=== PATIENT | male | born 1965 | race Caucasian/White ===

== ENCOUNTER 2017-11-30 08:02 | Inpatient (IN) | payer OTHER, SELFPAY ==
[2017-11-30] VITALS (22 sets, daily range): BP systolic 96–147; BP diastolic 59–86; PULSE 69–125; RESP 14–20; TEMP 35.8–37; O2SAT 97–100; BMI 23.9; BMI 23.8; BMI 24.9
--- NOTE | 2017-11-30 08:30 | CT_ITS ---
STUDY: CT ABDOMEN AND PELVIS WITH CONTRAST REASON FOR EXAM: Male, 51 years old. Back pain and abdominal pain following a recent fall. History of prior bowel resection due to perforated bowel. RADIATION DOSAGE (If Supplied By Facility): CTDIvol = ( 9.28 ) mGy, DLP = ( 505.68 ) mGycm TECHNIQUE: Transaxial images were obtained from the dome of the diaphragm to the symphysis pubis with oral contrast. 100ml ml of Isovue 300 contrast was administered. Sagittal and coronal images were reconstructed. Individualized dose optimization techniques were used for this CT. COMPARISON: Comparison is made with prior study dated September 19, 2017. FINDINGS: The visualized lung bases are unremarkable. Coronary artery calcification. There is decreased attenuation of the liver consistent with steatosis. Normal gallbladder and extrahepatic biliary system. Normal spleen. Normal pancreas. Normal bilateral adrenal glands. Punctate nonobstructive calculus in the upper pole of the right kidney. Normal left kidney. Normal visualized stomach. Normal small intestine. Normal colon. The appendix is visualized and appears normal. There is scattered atherosclerotic calcification of the abdominal aorta, without a demonstrated aneurysm. Normal inferior vena cava. Normal retroperitoneum. Normal urinary bladder. There are dense prostatic calcifications. Normal abdominal wall. Grade 1 anterior listhesis of L5 on S1 with spondylolysis. Moderate degree of disc space narrowing at the L4-L5 and L5-S1 levels. CT/Abdomen/Pelvis WITH Contrast IMPRESSION: Fatty infiltration of the liver there Punctate calcification in the upper pole of the right kidney. No acute abnormality is seen. Electronically Signed: Jake Johnson MD at 10:54 EST Tel [phone], Service support ,
[2017-11-30] MEDS: 0.9% Normal Saline 1,000 ML 1000 ML IV (08:48)
[2017-11-30 09:09] LABS: International Normalized Ratio 1.2; Prothrombin Time (Protime)PT. 14.6 SECONDS (11.7-14.9)
[2017-11-30 09:10] LABS: Partial Thromboplast Time 29.4 Seconds (24.1-36.2)
[2017-11-30 09:13] LABS: Absolute Lymphocyte Count 0.93 X10^3/ul (0.83-4.51); Absolute Neutrophil Count 1.9 X10^3/uL (2.0-7.7); Basophil# 0.07 X10^3/uL; Basophil% 2.1 % (0-1); Eosinophil# 0.07 X10^3/uL; Eosinophils% 2.1 % (0-5); Hematocrit 21.8 % (40-54); Lymphocyte # 0.93 X10^3/ul (4.0); Lymphocyte % 28.1 % (19-41); Mean Corp Hgb Conc 32.1 g/gl (32-36); Mean Corpuscular Hgb 29.3 pg (27.0-32.0); Mean Corpuscular Volume 91.2 fL (80-94); Mean Platelet Vol. 9.3 fl (6.2-12.0); Monocyte# 0.29 X10^3/uL; Monocyte% 8.8 % (0-10); Neutrophil # 1.94 X10^3/uL (2.7-7.7); Neutrophil % 58.6 % (47-70); Platelet Count 225 K/mm3 (150-450); RBC Distribution Width CV 14.7 % (11.6-14.6); RBC Distribution Width SD 47.2 fl (35.1-43.9); Red Blood Count 2.39 M/mm3 (4.6-6.2); White Blood Count 3.3 K/mm3 (4.4-11.0)
[2017-11-30 09:17] LABS: ALB/GLOB Ratio 0.9 RATIO (0.9-2.4); AST(SGOT) 15 U/L (15-37); Alanine Aminotransfer ALT/SGPT 15 U/L (16-61); Alkaline Phosphatase 57 U/L (45-117); Anion Gap 12 (5-15); BUN 22 mg/dL (7-18); BUN/Creat Ratio 20.6 RATIO (10-20); Calcium,Total 8.8 mg/dL (8.5-10.1); Chloride 100 mmol/L (98-107); Creatinine, Serum 1.07 mg/dL (0.70-1.30); EST Glomerular Filtration Rate 77 mL/min (>60); Est Glom Filt Rate - Afr Amer 93 mL/min (>60); Estimated Creatinine Clearance 79.84 ml/min; Globulin 3.2 g/dL (2.2-4.2); Glucose 85 mg/dL (74-106); Potassium 3.3 mmol/L (3.5-5.1); Protein, Total 6.2 g/dL (6.4-8.2); Sodium Level 139 mmol/L (136-145)
[2017-11-30 09:21] LABS: POSITIVE COUNT NO; POSITIVE DIFFERENTIAL NO; POSITIVE MORPHOLOGY NO
--- NOTE | 2017-11-30 11:54 | ED.VISSUMM ---
- ER Visit Summary Date of Service: 11/30/17 Chief Complaint: GI bleeding History of Present Illness: The patient is a 51 M with black stools. This started Tuesday morning. It has been getting worse. He does take aspirin for history of [place]. He does report that in late August he had surgery in [place] for perforated bowel. That seems to be doing well. He denies any other blood thinner use. Denies any denies any other symptoms. Physical Examination: Initially tachycardic at 125, but otherwise vitals are unremarkable. Afebrile. No acute distress. Sitting comfortably. Heart regular. Lungs clear. Abdomen soft. Rectal exam shows black stool. Skin is slightly pale. Test Results: White count 3.3 and hemoglobin 7.0. Fecal occult blood test positive. Potassium 3.3 and BUN 22. ALT 15. INR and PTT normal. CT abdomen and pelvis shows a fatty liver but no acute findings. Emergency Department Course and Treatment: Patient was treated with fluids and Protonix while awaiting results. His fecal occult blood test was positive and his hemoglobin was 7. He gave verbal consent for transfusion. 2 units of packed red cells were ordered. Patient's repeat heart rate is 92. Blood pressure is stable. No symptoms. I believe he is appropriate for a medical admission. I spoke with GI and the hospitalist who will admit. Treatment Plan: Above Disposition: Admit Impression: 1. GI bleed, upper 2. Anemia This note was generated with [employer] dictation software. It may contain incorrect words, spelling, and punctuation that were not noted in review of the chart prior to signing ED Disposition - Plan for ED Patient: Chief Complaint: GI Bleed Referrals: Drew Hardy MD [Primary Care Provider] -
--- NOTE | 2017-11-30 11:57 | ED.DCSUM_ITS ---
- ER Visit Summary Date of Service: 11/30/17 Chief Complaint: GI bleeding History of Present Illness: The patient is a 51 M with black stools. This started Tuesday morning. It has been getting worse. He does take aspirin for history of [place]. He does report that in late August he had surgery in [place] for perforated bowel. That seems to be doing well. He denies any other blood thinner use. Denies any denies any other symptoms. Physical Examination: Initially tachycardic at 125, but otherwise vitals are unremarkable. Afebrile. No acute distress. Sitting comfortably. Heart regular. Lungs clear. Abdomen soft. Rectal exam shows black stool. Skin is slightly pale. Test Results: White count 3.3 and hemoglobin 7.0. Fecal occult blood test positive. Potassium 3.3 and BUN 22. ALT 15. INR and PTT normal. CT abdomen and pelvis shows a fatty liver but no acute findings. Emergency Department Course and Treatment: Patient was treated with fluids and Protonix while awaiting results. His fecal occult blood test was positive and his hemoglobin was 7. He gave verbal consent for transfusion. 2 units of packed red cells were ordered. Patient's repeat heart rate is 92. Blood pressure is stable. No symptoms. I believe he is appropriate for a medical admission. I spoke with GI and the hospitalist who will admit. Treatment Plan: Above Disposition: Admit Impression: 1. GI bleed, upper 2. Anemia This note was generated with [employer] dictation software. It may contain incorrect words, spelling, and punctuation that were not noted in review of the chart prior to signing ED Disposition - Plan for ED Patient: Chief Complaint: GI Bleed Referrals: Drew Hardy MD [Primary Care Provider] -
--- NOTE | 2017-11-30 11:57 | HP.PCM_ITS ---
Problem List (1) GI bleed Status: Acute Qualifiers: GI bleed type/associated pathology: unspecified gastrointestinal hemorrhage type Qualified Code(s): K92.2 - Gastrointestinal hemorrhage, unspecified (2) CAD (coronary artery disease) Status: Acute (3) Gastroesophageal reflux disease Status: Chronic Qualifiers: History of Present Illness Date of Admission: 11/30/17 Chief Complaint: Black tarry stools - 4 days The patient is a 51 year old M with PMHx of CAD/AL at the age of 42yrs, on aspirin 162mg po bid, GERD who comes in with black tarry stools and dizziness noticed 4 days ago. This was associated with some dizziness. Denied chest pain or palpitations or leg swelling or orthopnea or PND. 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 He has continued to see black tarry stools several times a day since 4 days ago. He had a fall also 4 days ago where he fell on his back. He reports that he had a similar presentation in May 2017 and eventually had a perforation of his intestine. He had surgery done in [facility]. In the emergency room, heart rate was 125, blood pressure is 147/79, respiratory rate was 20, SPO2 was 100% on room air. Laboratory investigations were significant for WBC count of 3.3, Hb 7.0, previous hemoglobin was 14.2 in August 2017. The ER doctor had discussed patient's care with Dr. Coley who agreed to do an endoscopy tomorrow morning. Past Medical History Past Medical History (Chronic Problems): Chronic Problems Gastroesophageal reflux disease (Chronic) Allergies Penicillins Allergy (Verified 11/30/17 08:03) Anaphylaxis erythromycin base [Erythromycin Base] Adverse Reaction (Verified 11/30/17 08:03) Nausea Home Medications: Ambulatory Orders Medication Instructions Recorded Atenolol [Tenormin (beta ranlufo)] 25 mg PO DAILY 12/18/13 Ondansetron [Zofran Odt] 4 mg PO Q8H PRN PRN 12/18/13 Rizatriptan Benzoate [Maxalt] 10 mg PO .X1 PRN 12/18/13 Aspirin [Aspirin, Baby] 162 mg PO BID 05/28/17 Potassium Chloride 20 meq PO BID 05/28/17 Amitriptyline HCl [Elavil] 10 mg PO QHS 09/19/17 Famotidine [Pepcid] 20 mg PO BID 11/30/17 Surgical History: - - Removal of pancreatic cysts Psychiatric History: No pertinent psych hx Smoking Status: Current some day smoker - *Family History Paternal History Items: No pertinent history Maternal History Items: Hypertension, - - History of TIA Review of Systems Constitutional: Denies: Anorexia, Chills, Fever, Weakness, Weight Change Eyes: Denies: Blurred vision, Cataracts, Conjunctivae Inflammation, Pain, Redness HEENT: Denies: Difficulty Hearing, Difficulty Swallowing, Head Aches, Hearing Changes, Sinus Congestion, Sinus Drainage Cardiovascular: Denies: Chest Pain, Palpitations Respiratory: Denies: Cough, Hemoptysis, Shortness of breath at rest, Shortness of breath upon exertion, Sputum production Gastrointestinal: Reports: Melena. Denies: Abdominal Pain, Constipation, Diarrhea, Dyspepsia, Hematemesis, Hematochezia, Nausea, Vomiting Genitourinary: Denies: Dysuria Musculoskeletal: Denies: Joint Pain, Joint Tenderness Skin: Denies: Rash, Wounds Neurological: Denies: Difficulty swallowing, Focal weakness, Headaches, Numbness , Tingling Psychiatric: Denies: Anxiety, Depression, Homicidal Ideations, Suicidal Ideations Endocrine: Denies: Heat/ Cold Intolerance, Polyuria Hematologic/ Lymphatic: Denies: Easy Bruising, Easy Bleeding VTE Information - Inpt Only VTE Present on Admission: No VTE Mechan Device Prophylaxis: SCD's VTE Pharm Prophylaxis ordered?: No Reason prophylaxis not ordered:: Treatment Not Indicated Patient Problems: Active and Suspected Problems GI bleed (Acute) CAD (coronary artery disease) (Acute) - Physical Exam General: Alert, Oriented x3, Cooperative, - - comfortable HEENT: Atraumatic, PERRLA, EOMI, Normocephalic Oral: Moist Mucosa Neck: Supple Lungs: Clear to auscultation, Normal air movement Cardiovascular: Regular rate, Regular Rhythm, Normal S1, Normal S2, No murmurs Abdomen: Bowel Sounds Present, Soft, Non Tender, Non-Distended, No Hepato- splenomegaly Extremities: No edema Skin: No rashes, No breakdown Musculoskeletal: No Tenderness to Palpation of Joints or Extremities Lymphatic: No Cervical, Supraclavicular, or Inguinal Adenopathy Neurological: Cranial nerves II-XII grossly intact Psych/Mental Status: Normal Affect, Appropriate Vital Signs Temp Pulse Resp BP Pulse Ox 97.8 F 92 14 117/77 100 11/30/17 08:04 11/30/17 11:37 11/30/17 11:37 11/30/17 11:37 11/30/17 11:37 Oxygen Delivery Method Room Air Weight: 73.6 kg Body Mass Index (BMI) 23.9 Microbiology Past 72 Hours 11/30/17 08:40 Stool Occult Blood (YOLANDE) - Final Stool Occult Blood Positive Laboratory Tests Past 24 Hrs 11/30/17 11/30/17 11/30/17 08:44 08:44 08:44 WBC 3.3 L RBC 2.39 L Hgb 7.0 L Hct 21.8 L MCV 91.2 MCH 29.3 MCHC 32.1 RDW 14.7 H RDW Differential 47.2 H Plt Count 225 MPV 9.3 Immature Gran % (Auto) 0.300 Neut % (Auto) 58.6 Lymph % (Auto) 28.1 [place] % (Auto) 8.8 Eos % (Auto) 2.1 Baso % (Auto) 2.1 H Absolute Neuts (auto) 1.9 L Absolute Lymphs (auto) 0.93 Total Counted Not Reportable PT 14.6 INR 1.2 APTT 29.4 Sodium 139 Potassium 3.3 L Chloride 100 Carbon Dioxide 27.0 Anion Gap 12 BUN 22 H Creatinine 1.07 Estim Creat Clear Calc 79.84 Est GFR (MDRD) Af Amer 93 Est GFR (MDRD) Non-Af 77 BUN/Creatinine Ratio 20.6 H Glucose 85 Calcium 8.8 Total Bilirubin 0.30 AST 15 ALT 15 L Alkaline Phosphatase 57 Total Protein 6.2 L Albumin 3.0 L Globulin 3.2 Albumin/Globulin Ratio 0.9 Blood Type Antibody Screen Crossmatch 11/30/17 08:44 WBC RBC Hgb Hct MCV MCH MCHC RDW RDW Differential Plt Count MPV Immature Gran % (Auto) Neut % (Auto) Lymph % (Auto) [place] % (Auto) Eos % (Auto) Baso % (Auto) Absolute Neuts (auto) Absolute Lymphs (auto) Total Counted PT INR APTT Sodium Potassium Chloride Carbon Dioxide Anion Gap BUN Creatinine Estim Creat Clear Calc Est GFR (MDRD) Af Amer Est GFR (MDRD) Non-Af BUN/Creatinine Ratio Glucose Calcium Total Bilirubin AST ALT Alkaline Phosphatase Total Protein Albumin Globulin Albumin/Globulin Ratio Blood Type A POSITIVE Antibody Screen NEGATIVE Crossmatch See Detail Assessment/Plan Active and Suspected Problems GI bleed (Acute) CAD (coronary artery disease) (Acute) 51 year old M with PMHx of CAD/AL at the age of 42yrs, on aspirin 162mg po bid, GERD who comes in with black tarry stools and dizziness noticed 4 days ago, associated with some dizziness. 1. Acute GI bleed, likely secondary to upper GI secondary to aspirin use, history of ? Duodenal perforation with surgery done in May 2017. Patient has been seen melena stools, admitting hemoglobin of 7.0, Plan: Admit to [facility], IV PPI twice daily, gastroenterology consult Dr. Coley , endoscopy tomorrow morning, full liquid diet, stop aspirin, blood transfusion , obtain records from [facility] in [facility] 2. Acute symptomatic blood loss anemia, patient's hemoglobin August 2017 was 14.2, will transfuse 2 units of blood, trend H&H, if patient continued to decompensate would inform GI 3. CAD, on aspirin, beta-ranulfo, not on statins, will hold aspirin on account of current GI bleed, will continue to monitor on telemetry 4. Chronic Migraine, on amitriptyline and rizatriptan, would hold Maxalt for now , will continue to monitor 5. GERD, on PPI now 6. DVT prophylaxis with SCDs Code Visit Inpatient E&M: 34134 Init Hosp L3
--- NOTE | 2017-11-30 12:52 | EKG12_ITS ---
Test Reason : Blood Pressure : / mmHG Vent. Rate : 082 BPM Atrial Rate : 082 BPM P-R Int : 144 ms QRS Dur : 090 ms QT Int : 394 ms P-R-T Axes : 046 -20 031 degrees QTc Int : 460 ms Normal sinus rhythm Leftward axis Low voltage QRS (precordial leads) Confirmed by RHONDA JOE, LIZBET ([id number]), telegraph editor ADRIÁN VILLAR ([id number]) on 12/07/2017 1:36:11 PM Referred By: LAURO Confirmed By:LIZBET ELLIS MD
[2017-11-30] MEDS: Acetaminophen 325 MG Tablet 650 MG PO (15:34)
[2017-11-30] MEDS: oxyCODONE 5 MG Tablet PO ×2 (16:25→22:50)
--- NOTE | 2017-11-30 17:23 | PCM.CONS.B ---
- Consult Date of Consult: 11/30/17 Reason for consultation: With melena and anemia The patient is a [51] year old [male] who I have been asked to consult. Patient reports he had melena for at least 2 days prior to admission taking 2 baby aspirins twice a day for a number of years. 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 He reports he felt lightheaded yesterday went to work. Went to the bathroom today he passed a large amount of black stool and some red stool and came to the emergency room. The patient was not orthostatic was admitted for evaluation. Has denied any fever chills no hematemesis denies any night sweats or fevers underwent a CT scan of the abdomen and pelvis earlier today no free air or perforation. No chest pain or shortness of breath no cough asthma wheezing review of systems noted today offers no other complaints. The patient reports he was hospitalized last year at [facility] and had a perforation of the intestine at the valve between the large and small intestine. Allergies: Penicillins and erythromycin Medications: Prescriptions This Visit Medication Instructions Recorded Famotidine [Pepcid] 20 mg PO BID 11/30/17 Medications Added to Medication List This Visit Category Date Time Status 0.9% Normal Saline 1,000 ml Med 11/30/17 12:51 Active IV 100 mls/hr 0.9% Saline Lock Med 11/30/17 12:53 Active 5 - 30 ml IV UD PRN Acetaminophen [Tylenol] Med 11/30/17 14:43 Active 650 mg PO Q6H PRN PRN Amitriptyline HCl [Elavil] Med 11/30/17 22:00 Active 10 mg PO QHS Atenolol [Tenormin (beta Иван)] Med 11/30/17 22:00 Active 25 mg PO DAILY@2200 Influenza Vaccine (36Mos+)/Pf [Fluarix/Fluzone] Med 12/01/17 10:00 Once 0.5 ml IM .ONCE ONE Magnesium Hydroxide [Milk Of Magnesia] Med 11/30/17 12:51 Active 30 ml PO DAILY PRN PRN Ondansetron [Zofran] Med 11/30/17 12:51 Active 4 mg IV Q6H PRN PRN Oxycodone [Oxyir] Med 02/07/18 14:45 Active 5 mg PO Q6H PRN PRN Pantoprazole Sodium [Protonix] 40 mg Med 11/30/17 22:00 Active 0.9% Normal Saline 100 ml IV Q12 Potassium Chloride [K-Dur] Med 11/30/17 17:00 Active 20 meq PO BIDCM Psyllium [Metamucil] Med 11/30/17 12:51 Active 1 packet PO DAILY PRN PRN PMH: Coronary artery disease PSH: Had a laparotomy at [facility] Social: Denies any alcohol use no tobacco ROS: As noted in the HPI Vitals: Vital Signs Height 5 ft 8.9 in Weight: 73.2 kg Weight in Pounds 161.4 lbs Pulse Ox 100 Temperature 97.4 F Pulse Rate 94 Respiratory Rate 16 Blood Pressure 130/79 Blood Pressure Position Supine HEENT: Anicteric sclera conjunctiva pale pupils reactive NECK: Supple HEART: S1-S2 no murmur LUNGS: Clear bilaterally ABDOMEN: Soft good bowel sounds EXTER: No edema or clubbing Neuro: Alert and oriented no gross deficits Impression: Is a 51-year-old male presented with a GI bleed significant anemia hemoglobin of 7 has been taken aspirin twice daily dosage the likelihood of an upper GI bleed is entertained here since he had melena. The plan is to continue his IV PPI trans-fuse the patient to hematocrit of greater than 27. Patient will undergo an upper endoscopy as clinically indicated for evaluation of source of bleeding
[2017-11-30] MEDS: 0.9% NaCl Peripheral Flush Adult/Peds IV (17:28)
--- NOTE | 2017-11-30 17:32 | CON.PCM_ITS ---
- Consult Date of Consult: 11/30/17 Reason for consultation: With melena and anemia The patient is a [51] year old [male] who I have been asked to consult. Patient reports he had melena for at least 2 days prior to admission taking 2 baby aspirins twice a day for a number of years. 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 He reports he felt lightheaded yesterday went to work. Went to the bathroom today he passed a large amount of black stool and some red stool and came to the emergency room. The patient was not orthostatic was admitted for evaluation. Has denied any fever chills no hematemesis denies any night sweats or fevers underwent a CT scan of the abdomen and pelvis earlier today no free air or perforation. No chest pain or shortness of breath no cough asthma wheezing review of systems noted today offers no other complaints. The patient reports he was hospitalized last year at [facility] and had a perforation of the intestine at the valve between the large and small intestine. Allergies: Penicillins and erythromycin Medications: Prescriptions This Visit Medication Instructions Recorded Famotidine [Pepcid] 20 mg PO BID 11/30/17 Medications Added to Medication List This Visit Category Date Time Status 0.9% Normal Saline 1,000 ml Med 11/30/17 12:51 Active IV 100 mls/hr 0.9% Saline Lock Med 11/30/17 12:53 Active 5 - 30 ml IV UD PRN Acetaminophen [Tylenol] Med 11/30/17 14:43 Active 650 mg PO Q6H PRN PRN Amitriptyline HCl [Elavil] Med 11/30/17 22:00 Active 10 mg PO QHS Atenolol [Tenormin (beta Иван)] Med 11/30/17 22:00 Active 25 mg PO DAILY@2200 Influenza Vaccine (36Mos+)/Pf [Fluarix/Fluzone] Med 12/01/17 10:00 Once 0.5 ml IM .ONCE ONE Magnesium Hydroxide [Milk Of Magnesia] Med 11/30/17 12:51 Active 30 ml PO DAILY PRN PRN Ondansetron [Zofran] Med 11/30/17 12:51 Active 4 mg IV Q6H PRN PRN Oxycodone [Oxyir] Med 02/07/18 14:45 Active 5 mg PO Q6H PRN PRN Pantoprazole Sodium [Protonix] 40 mg Med 11/30/17 22:00 Active 0.9% Normal Saline 100 ml IV Q12 Potassium Chloride [K-Dur] Med 11/30/17 17:00 Active 20 meq PO BIDCM Psyllium [Metamucil] Med 11/30/17 12:51 Active 1 packet PO DAILY PRN PRN PMH: Coronary artery disease PSH: Had a laparotomy at [facility] Social: Denies any alcohol use no tobacco ROS: As noted in the HPI Vitals: Vital Signs Height 5 ft 8.9 in Weight: 73.2 kg Weight in Pounds 161.4 lbs Pulse Ox 100 Temperature 97.4 F Pulse Rate 94 Respiratory Rate 16 Blood Pressure 130/79 Blood Pressure Position Supine HEENT: Anicteric sclera conjunctiva pale pupils reactive NECK: Supple HEART: S1-S2 no murmur LUNGS: Clear bilaterally ABDOMEN: Soft good bowel sounds EXTER: No edema or clubbing Neuro: Alert and oriented no gross deficits Impression: Is a 51-year-old male presented with a GI bleed significant anemia hemoglobin of 7 has been taken aspirin twice daily dosage the likelihood of an upper GI bleed is entertained here since he had melena. The plan is to continue his IV PPI trans-fuse the patient to hematocrit of greater than 27. Patient will undergo an upper endoscopy as clinically indicated for evaluation of source of bleeding
[2017-11-30] MEDS: 0.9% Normal Saline 1,000 ML 100 ML IV (17:35)
[2017-11-30 20:11] LABS: Hematocrit 26.2 % (40-54); Hemoglobin 7.8 g/dl (13.0-16.5)
[2017-11-30] MEDS: Amitriptyline 10 MG Tablet PO (21:31)
[2017-12-01] VITALS (20 sets, daily range): BP systolic 99–145; BP diastolic 66–97; PULSE 68–96; RESP 16–18; TEMP 36.2–37; O2SAT 98–100
[2017-12-01 00:38] LABS: Hematocrit 21.9 % (40-54); Hemoglobin 7.2 g/dl (13.0-16.5)
[2017-12-01] MEDS: 0.9% Normal Saline 1,000 ML 100 ML IV (03:21)
[2017-12-01 05:13] LABS: Absolute Lymphocyte Count 0.95 X10^3/ul (0.83-4.51); Absolute Neutrophil Count 1.2 X10^3/uL (2.0-7.7); Basophil# 0.05 X10^3/uL; Hematocrit 23.1 % (40-54); Hemoglobin 7.5 g/dl (13.0-16.5); Lymphocyte # 0.95 X10^3/ul (4.0); Lymphocyte % 38.2 % (19-41); Mean Corp Hgb Conc 32.5 g/gl (32-36); Mean Corpuscular Hgb 28.8 pg (27.0-32.0); Mean Corpuscular Volume 88.8 fL (80-94); Mean Platelet Vol. 9.5 fl (6.2-12.0); Monocyte# 0.18 X10^3/uL; Monocyte% 7.2 % (0-10); Neutrophil # 1.21 X10^3/uL (2.7-7.7); Neutrophil % 48.6 % (47-70); Platelet Count 155 K/mm3 (150-450); RBC Distribution Width SD 48.7 fl (35.1-43.9); White Blood Count 2.5 K/mm3 (4.4-11.0)
[2017-12-01 05:14] LABS: POSITIVE COUNT NO; POSITIVE DIFFERENTIAL NO; POSITIVE MORPHOLOGY NO
[2017-12-01 05:24] LABS: International Normalized Ratio 1.2; Prothrombin Time (Protime)PT. 15.1 SECONDS (11.7-14.9)
[2017-12-01 05:41] LABS: Anion Gap 9 (5-15); BUN 14 mg/dL (7-18); BUN/Creat Ratio 18.8 RATIO (10-20); Calcium,Total 7.6 mg/dL (8.5-10.1); Chloride 104 mmol/L (98-107); Creatinine, Serum 0.74 mg/dL (0.70-1.30); EST Glomerular Filtration Rate 116 mL/min (>60); Est Glom Filt Rate - Afr Amer 141 mL/min (>60); Estimated Creatinine Clearance 111.69 ml/min; Glucose 77 mg/dL (74-106); Potassium 3.7 mmol/L (3.5-5.1); Sodium Level 136 mmol/L (136-145)
--- NOTE | 2017-12-01 06:59 | NURSING ---
Pt transported to PACU as per OR instructions. Transported at 0656hrs by ERIC Felder. Handoff to OR given by charge nurse Julio.
--- NOTE | 2017-12-01 07:34 | PCA ---
pt off floor
--- NOTE | 2017-12-01 08:20 | PCM.OP.BLANK ---
Operative Report Date of Procedure: 12/01/17 Preop diagnosis: Melena and anemia Postop diagnosis: EGD with biopsy some small erosions of the duodenum no active peptic ulcer disease seen Anesthesia: Via the MAC Instrument: This upper endoscope Informed consent was taken prior to procedure. The patient was brought to the endoscopy suite[ she] was placed left shoulder down. Anesthesia provided the MAC. The scope was passed under direct visualization down into the esophagus. Proximal and midesophagus appeared normal and was about 40 cm from the incisors there was a small exudate of the distal esophagus no varices. Was easily insufflated there was no blood in the stomach there were no no evidence of any gross ulcerations of the mucosa of the duodenum small erosions no active peptic ulcer disease duodenum showed erosions. No active bleeding was seen. The scope was withdrawn into the stomach retroflexion was performed a view of the cardia was well seen no evidence of bleeding no gastric varices. Was returned toward the antrum capsule examination showed no active peptic ulcer disease biopsies were taken of the antral mucosa for testing for H. pylori. Stomach was decompressed the endoscope was withdrawn there was a small exudate noted in the distal esophagus the patient tolerated procedure well. Impression: Melanotic stools with anemia patient was taking aspirin on a regular basis from the distal small bowel or the proximal colon Plan: Transfuse 1 more unit of packed red blood cells may advance the patient's diet outpatient colonoscopy for further evaluation of bleeding.
--- NOTE | 2017-12-01 09:04 | PCA ---
pt off floor
[2017-12-01] MEDS: oxyCODONE 5 MG Tablet PO ×3 (09:21→22:03)
--- NOTE | 2017-12-01 09:37 | PCM.PN.HOSP ---
Patient Problems: Active and Suspected Problems GI bleed (Acute) CAD (coronary artery disease) (Acute) Subjective: Patient was seen and examined. He had EGD done this am by Dr. Coley that showed some erosions of the duodenum. Patient has had no osmel or hematochezia since being admitted. His pain in his back is better. He felt lightheaded, denies chest pain, or palpitations or orthopnea or PND. Objective: Physical Exam General: Alert, Oriented x3, Cooperative, - -comfortable, not pale, not jaundice HEENT: Atraumatic, PERRLA, EOMI, Normocephalic Oral: Moist Mucosa Neck: Supple Lungs: Clear to auscultation, Normal air movement Cardiovascular: Regular rate, Regular Rhythm, Normal S1, Normal S2, No murmurs Abdomen: Bowel Sounds Present, Soft, Non Tender, Non-Distended, No Hepato-splenomegaly Extremities: No edema Skin: No rashes, No breakdown Musculoskeletal: No Tenderness to Palpation of Joints or Extremities Lymphatic: No Cervical, Supraclavicular, or Inguinal Adenopathy Neurological: Cranial nerves II-XII grossly intact Psych/Mental Status: Normal Affect, Appropriate Vitals/I&O's: Vital Signs Temp Pulse Resp BP Pulse Ox 97.6 F L 87 18 145/97 H 98 12/01/17 09:01 12/01/17 09:11 12/01/17 09:01 12/01/17 09:01 12/01/17 09:01 Oxygen Delivery Method Room Air Weight: 76.4 kg Body Mass Index (BMI) 24.9 Intake and Output for Last 24 Hours 11/29/17 11/30/17 12/01/17 23:59 23:59 23:59 Intake Total 5206 / 5206 971 / 971 Output Total 625 / 625 950 / 950 Balance 4581 / 4581 Laboratory Results 11/30/17 18:52: Hgb 7.8 L, Hct 26.2 L 12/01/17 00:26: Hgb 7.2 L, Hct 21.9 L 12/01/17 04:58: WBC 2.5 L, RBC 2.60 L, Hgb 7.5 L, Hct 23.1 L, MCV 88.8, MCH 28.8, MCHC 32.5, RDW 15.0 H, RDW Differential 48.7 H, Plt Count 155, MPV 9.5, Immature Gran % (Auto) 0.000, Neut % (Auto) 48.6, Lymph % (Auto) 38.2, Runnels % (Auto) 7.2, Eos % (Auto) 4.0, Baso % (Auto) 2.0 H, Absolute Neuts (auto) 1.2 L, Absolute Lymphs (auto) 0.95, Total Counted Not Reportable 12/01/17 04:58: Sodium 136, Potassium 3.7, Chloride 104, Carbon Dioxide 23.0, Anion Gap 9, BUN 14, Creatinine 0.74, Estim Creat Clear Calc 111.69, Est GFR (MDRD) Af Amer 141, Est GFR (MDRD) Non-Af 116, BUN/Creatinine Ratio 18.8, Glucose 77, Calcium 7.6 L 12/01/17 04:58: PT 15.1 H, INR 1.2, APTT 29.0 Current Medications Acetaminophen (Tylenol) 650 mg PO Q6H PRN PRN PRN Reason: PAIN Last Admin: 11/30/17 15:34 Dose: 650 mg Amitriptyline HCl (Elavil) 10 mg PO QHS [facility] Last Admin: 11/30/17 21:31 Dose: 10 mg Atenolol (Tenormin (Beta Иван)) 25 mg PO DAILY@2200 [facility] Last Admin: 11/30/17 21:32 Dose: Not Given Pantoprazole Sodium 40 mg/ (Sodium Chloride) 110 mls @ 330 mls/hr IV Q12 [facility] Last Admin: 12/01/17 09:20 Dose: 330 mls/hr Influenza Virus Vaccine Quadrival (Fluarix/Fluzone) 0.5 ml IM .ONCE ONE Stop: 12/01/17 10:01 Last Admin: 12/01/17 09:20 Dose: 0.5 ml Magnesium Hydroxide (Milk Of Magnesia) 30 ml PO DAILY PRN PRN PRN Reason: Constipation Ondansetron HCl (Zofran) 4 mg IV Q6H PRN PRN PRN Reason: NAUSEA/VOMITING Oxycodone HCl (Oxyir) 5 mg PO Q6H PRN PRN PRN Reason: SEVERE PAIN (6-10/10) Last Admin: 12/01/17 09:21 Dose: 5 mg Potassium Chloride (K-Dur) 20 meq PO BIDCM [facility] Last Admin: 12/01/17 09:20 Dose: 20 meq Psyllium Hydrophilic Mucilloid (Metamucil) 1 packet PO DAILY PRN PRN PRN Reason: CONSTIPATION Rizatriptan Benzoate (Maxalt) 10 mg PO .X1 PRN [facility] Sodium Chloride () 5 - 30 ml IV UD PRN PRN Reason: SALINE FLUSH Last Admin: 11/30/17 17:28 Dose: 5 ml Assessment/Plan Active and Suspected Problems GI bleed (Acute) CAD (coronary artery disease) (Acute) 51 year old M with PMHx of CAD/MS at the age of 42yrs, on aspirin 162mg po bid, GERD admitted with black tarry stools and dizziness noticed 4 days ago. 1. 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 2. Acute symptomatic blood loss anemia, with hemoglobin of 7.0, status post 2 units packed RBC, repeat hemoglobin is 7.5, will transfuse 2 more units of packed RBC, will continue to monitor H&H. 3. CAD, on aspirin, beta-иван, not on statins, will hold aspirin on account of current GI bleed, will continue to monitor on telemetry 4. Chronic Migraine, on amitriptyline and rizatriptan 5. GERD, on PPI now 6. DVT prophylaxis with SCDs 7. Disposition: possible dc tomorrow if he remains stable Code Visit Inpatient E&M: 72328 Subs Hosp L2
--- NOTE | 2017-12-01 12:24 | NURSING ---
First unit of PRBC initiated at 1223. Vitals taken at this time BP 96/59, HR 91, 100% RA, 18 respirations, 97.8 oral temp.
[2017-12-01 18:55] LABS: Hematocrit 29.9 % (40-54); Hemoglobin 9.9 g/dl (13.0-16.5)
[2017-12-01] MEDS: Amitriptyline 10 MG Tablet PO (21:56)
[2017-12-01] MEDS: 0.9% NaCl Peripheral Flush Adult/Peds IV (22:03)
[2017-12-02 00:32] LABS: Hematocrit 27.6 % (40-54); Hemoglobin 9.3 g/dl (13.0-16.5)
[2017-12-02] MEDS: Rizatriptan Benzoate 10 MG Tablet PO (00:38)
[2017-12-02] MEDS: 0.9% NaCl Peripheral Flush Adult/Peds IV (00:38)
[2017-12-02 00:47] VITALS: PULSE 79
[2017-12-02 02:45] VITALS: BP 116/81; PULSE 77; RESP 18; TEMP 36.6; O2SAT 100
[2017-12-02 04:05] VITALS: PULSE 78
[2017-12-02 05:48] LABS: Hemoglobin 9.9 g/dl (13.0-16.5)
[2017-12-02] MEDS: oxyCODONE 5 MG Tablet PO (05:52)
[2017-12-02] MEDS: Acetaminophen 325 MG Tablet 650 MG PO (06:37)
--- NOTE | 2017-12-02 07:28 | PCM.PN.HOSP ---
Patient Problems: Active and Suspected Problems GI bleed (Acute) CAD (coronary artery disease) (Acute) Subjective: Patient was seen and examined. No new complains. Constipated. No osmel stools or hematochezia. No dizziness or SOB or palpitations. Objective: Physical Exam General: Alert, Oriented x3, Cooperative, - -comfortable, not pale, not jaundice HEENT: Atraumatic, PERRLA, EOMI, Normocephalic Oral: Moist Mucosa Neck: Supple Lungs: Clear to auscultation, Normal air movement Cardiovascular: Regular rate, Regular Rhythm, Normal S1, Normal S2, No murmurs Abdomen: Bowel Sounds Present, Soft, Non Tender, Non-Distended, No Hepato-splenomegaly Extremities: No edema Skin: No rashes, No breakdown Musculoskeletal: No Tenderness to Palpation of Joints or Extremities Lymphatic: No Cervical, Supraclavicular, or Inguinal Adenopathy Neurological: Cranial nerves II-XII grossly intact Psych/Mental Status: Normal Affect, Appropriate Vitals/I&O's: Vital Signs Temp Pulse Resp BP Pulse Ox 97.8 F 78 18 116/81 H 100 12/02/17 02:45 12/02/17 04:05 12/02/17 02:45 12/02/17 02:45 12/02/17 02:45 Oxygen Delivery Method Room Air Weight: 76.4 kg Body Mass Index (BMI) 24.9 Intake and Output for Last 24 Hours 11/30/17 12/01/17 12/02/17 23:59 23:59 23:59 Intake Total 5206 / 5206 3305 / 3305 290 / 290 Output Total 625 / 625 1500 / 1500 Balance 4581 / 4581 1805 / 1805 290 / 290 Laboratory Results 12/01/17 18:38: Hgb 9.9 L, Hct 29.9 L 12/02/17 00:20: Hgb 9.3 L, Hct 27.6 L 12/02/17 05:35: Hgb 9.9 L, Hct 30.0 L Current Medications Acetaminophen (Tylenol) 650 mg PO Q6H PRN PRN PRN Reason: PAIN Last Admin: 12/02/17 06:37 Dose: 650 mg Amitriptyline HCl (Elavil) 10 mg PO QHS [facility] Last Admin: 12/01/17 21:56 Dose: 10 mg Atenolol (Tenormin (Beta Иван)) 25 mg PO DAILY@2200 [facility] Last Admin: 12/01/17 20:43 Dose: Not Given Pantoprazole Sodium 40 mg/ (Sodium Chloride) 110 mls @ 330 mls/hr IV Q12 [facility] Last Admin: 12/01/17 21:56 Dose: 330 mls/hr Magnesium Hydroxide (Milk Of Magnesia) 30 ml PO DAILY PRN PRN PRN Reason: Constipation Ondansetron HCl (Zofran) 4 mg IV Q6H PRN PRN PRN Reason: NAUSEA/VOMITING Oxycodone HCl (Oxyir) 5 mg PO Q6H PRN PRN PRN Reason: SEVERE PAIN (6-10/10) Last Admin: 12/02/17 05:52 Dose: 5 mg Potassium Chloride (K-Dur) 20 meq PO BIDCM [facility] Last Admin: 12/01/17 17:28 Dose: 20 meq Psyllium Hydrophilic Mucilloid (Metamucil) 1 packet PO DAILY PRN PRN PRN Reason: CONSTIPATION Rizatriptan Benzoate (Maxalt) 10 mg PO .X1 PRN PRN PRN Reason: HEADACHE Last Admin: 12/02/17 00:38 Dose: 10 mg Sodium Chloride () 5 - 30 ml IV UD PRN PRN Reason: SALINE FLUSH Last Admin: 12/02/17 00:38 Dose: 5 ml Assessment/Plan Active and Suspected Problems GI bleed (Acute) CAD (coronary artery disease) (Acute) 51 year old M with PMHx of CAD/OK at the age of 42yrs, on aspirin 162mg po bid, GERD admitted with black tarry stools and dizziness noticed 4 days ago. 1. Acute GI bleed, likely secondary to upper GI secondary to aspirin use, s/p EGD which showed distal esophagitis/duodenitis history of ?duodenal perforation with surgery done in May 2017, on IV PPI twice daily, colonoscopy in outpatient, off aspirin. Will switch to po PPI and follow-up with DR. Coley in outpatient. 2. Acute symptomatic blood loss anemia, s/p 4 units pRBC, discharge Hb 9.9 3. CAD, on aspirin, beta-иван, not on statins, aspirin on hold on account of current GI bleed 4. Chronic Migraine, on amitriptyline and rizatriptan 5. GERD, on PPI now 6. Hypertension, controlled, not received atenolol on account of relative hypotension, will keep off atenolol for now. 7. DVT prophylaxis with SCDs Code Visit Inpatient E&M: 07639 Subs Hosp L2
[2017-12-02 07:32] VITALS: BP 118/78; PULSE 88; RESP 18; TEMP 36.6; O2SAT 100
[2017-12-02 08:04] VITALS: PULSE 83
[2017-12-02] MEDS: Magnesium Hydroxide 30 ML UDC PO (09:43)
--- NOTE | 2017-12-02 10:20 | PCM.DC ---
- Discharge Diagnoses Current Active Problems: Current Active and Chronic Problems GI bleed (Acute) CAD (coronary artery disease) (Acute) Reason(s) for Visit for Discharge Instructions: Hafsa stools You will use the following diet at home:: Cardiac Your food should be the consistency of: Regular Your liquids should be the consistency of: Regular/Thin Discharge Activity: Return to Normal Activity Allergies/Adverse Reactions: Allergies Penicillins Allergy (Verified 11/30/17 08:03) Anaphylaxis erythromycin base [Erythromycin Base] Adverse Reaction (Verified 11/30/17 08:03) Nausea Medications to take at Discharge Ondansetron [Zofran Odt] 4 mg PO Q8H PRN PRN 12/18/13 Rizatriptan Benzoate [Maxalt] 10 mg PO .X1 PRN 12/18/13 Potassium Chloride 20 meq PO BID 05/28/17 Amitriptyline HCl [Elavil] 10 mg PO QHS 09/19/17 Pantoprazole Sodium [Protonix] 40 mg PO BID #60 tab 12/02/17 The following prescriptions were given: Pantoprazole Sodium [Protonix] 40 mg PO BID #60 tab Primary Care Physician: Drew Hardy MD [Primary Care Provider] - Please follow up with your Primary Care Physician in: within 2 weeks of discharge Please Follow Up With: Xavier Coley MD When: in 1 week Please Follow Up With: Fred Live MD When: within 2 weeks Proposed Discharge Date: 12/02/17
[2017-12-02 10:24] VITALS: BP 135/92; PULSE 96; RESP 18; TEMP 36.4; O2SAT 100
--- NOTE | 2017-12-02 10:27 | PCM.DC.SUM ---
Discharge Date and Diagnosis Date of Admission: 11/30/17 Date of Discharge: 12/02/17 - Primary Discharge Diagnosis Active and Suspected Problems GI bleed (Acute) CAD (coronary artery disease) (Acute) - Secondary Discharge Diagnosis Chronic Problems Gastroesophageal reflux disease (Chronic) Hospital Course and Treatment Imaging Results: Clinical Impression(s) from Imaging Studies Abdomen/Pelvis CT 11/30/17 08:30 IMPRESSION: Fatty infiltration of the liver there Punctate calcification in the upper pole of the right kidney. No acute abnormality is seen. Electronically Signed: Jake Johnson MD at 10:54 EST Tel [phone], Service support , Gastroenterology Operations: None Procedures: None Summary of Care Provided: 51 year old M with PMHx of CAD/ND at the age of 42yrs, on aspirin 162mg po bid, GERD admitted with black tarry stools and dizziness noticed 4 days ago. 1. Acute GI bleed, likely secondary to upper GI secondary to aspirin use, s/p EGD showed distal esophagitis/duodenitis, history of ?duodenal perforation with surgery done in May 2017, on IV PPI twice daily, colonoscopy planned in outpatient, off aspirin. Discharged on po PPI and follow-up with Dr. Coley in outpatient. 2. Acute symptomatic blood loss anemia, s/p 4 units pRBC, discharge Hb was 9.9. 3. CAD, on aspirin, beta-ranulfo, not on statins, aspirin on hold on account of current GI bleed 4. Chronic Migraine, on amitriptyline and rizatriptan 5. GERD, on PPI now 6. Hypertension, controlled, did not received atenolol on account of relative hypotension, will keep off atenolol for now. He will have his BP re-evaluated in the outpatient with his primary care doctor. Discharge Diet: No Restrictions Discharge Activity: Return to Normal Activity Home Medications: Medications to take at Discharge RX: Ondansetron [Zofran Odt] 4 mg PO Q8H PRN PRN 12/18/13 RX: Rizatriptan Benzoate [Maxalt] 10 mg PO .X1 PRN 12/18/13 RX: Potassium Chloride 20 meq PO BID 05/28/17 RX: Amitriptyline HCl [Elavil] 10 mg PO QHS 09/19/17 RX: Pantoprazole Sodium [Protonix] 40 mg PO BID #60 tab 12/02/17 Following Prescrptions Were Given to Patient: RX: Pantoprazole Sodium [Protonix] 40 mg PO BID #60 tab Other Amb Orders: CBC W/Diff, Automated Location: Laboratory Primary Care Physician: Drew Hardy MD [Primary Care Provider] - Please follow up with your Primary Care Physician in: within 2 weeks of discharge Please Follow Up With: Xavier Coley MD When: in 1 week Please Follow Up With: Fred Live MD When: within 2 weeks Disposition: Home Minutes spent on discharge:: 25 Patient Condition:: Stable Meaningful Use Info Meaningful Use Diagnoses (Choose all that apply): None applicable Code Visit Inpatient E&M: 10478 Disch Hosp
[2017-12-02] MEDS: Senna/Docusate Sodium 1 Tablet 2 TABLET PO (10:52)
[2017-12-02] MEDS: Polyethylene Glycol 3350 17 GM PACKET PO (10:53)
== END 2017-12-02 11:12 | disposition home or self-care (01) | DRG 378 ==
LOC: ED 10:03 → MS2 12:06
PROVIDERS: Anesthesiology; Internal Medicine Gastroenterology; Admitting Provider Internal Medicine; Emergency Provider Emergency Medicine; Family Provider Family Medicine; PCP Family Medicine; Visit Provider Internal Medicine
PROC: 0DJ08ZZ Inspection of Upper Intestinal Tract, Via Natural or Artificial Opening Endoscopic (ICD-10-PCS; CPT 43235; principal; 2017-12-01 07:40)
DX: K92.2 Gastrointestinal hemorrhage, unspecified (principal); D62 Acute posthemorrhagic anemia; F17.200 Nicotine dependence, unspecified, uncomplicated; T39.015A Adverse effect of aspirin, initial encounter; I25.10 Atherosclerotic heart disease of native coronary artery without angina pectoris; G43.909 Migraine, unspecified, not intractable, without status migrainosus; K21.9 Gastro-esophageal reflux disease without esophagitis; Z79.899 Other long term (current) drug therapy; K29.80 Duodenitis without bleeding; K20.9 Esophagitis, unspecified; I25.2 Old myocardial infarction; Z23 Encounter for immunization
CPT/HCPCS: 36415; 74177; 80048; 80053; 82274; 85014; 85018; 85025; 85610; 85730; 86850; 86900; 86920; 86922; 93005; 99284; J7030; J7040; P9016; Q9967; 90686; A4216

== ENCOUNTER → 2017-12-09 16:30 | Outpatient (CLI) | payer OTHER, SELFPAY ==
[2017-12-09 17:43] LABS: Hematocrit 27.9 % (40-54); Hemoglobin 8.9 g/dl (13.0-16.5); Mean Corp Hgb Conc 31.9 g/gl (32-36); Mean Corpuscular Hgb 29.5 pg (27.0-32.0); Mean Corpuscular Volume 92.4 fL (80-94); Mean Platelet Vol. 9.5 fl (6.2-12.0); Platelet Count 292 K/mm3 (150-450); RBC Distribution Width CV 15.3 % (11.6-14.6); RBC Distribution Width SD 50.2 fl (35.1-43.9); Red Blood Count 3.02 M/mm3 (4.6-6.2); Scan Indicated on CBC? Y/N NO; White Blood Count 3.4 K/mm3 (4.4-11.0)
[2017-12-09 17:49] LABS: Anion Gap 8 (5-15); BUN 19 mg/dL (7-18); BUN/Creat Ratio 23.5 RATIO (10-20); Chloride 109 mmol/L (98-107); Creatinine, Serum 0.81 mg/dL (0.70-1.30); EST Glomerular Filtration Rate 106 mL/min (>60); Est Glom Filt Rate - Afr Amer 128 mL/min (>60); Glucose 90 mg/dL (74-106); Iron 27 ug/dL (65-175); Potassium 3.7 mmol/L (3.5-5.1); Sodium Level 145 mmol/L (136-145)
== END ==
PROVIDERS: Family Provider Family Medicine; PCP Family Medicine; Visit Provider Internal Medicine Gastroenterology
DX: D50.9 Iron deficiency anemia, unspecified (principal)
CPT/HCPCS: 36415; 80048; 83540; 85027

== ENCOUNTER 2018-08-09 09:11 | Emergency (ER) | payer OTHER, SELFPAY ==
[2018-08-09 09:12] VITALS: BP 101/69; PULSE 121; RESP 24; TEMP 35.9; O2SAT 100; BMI 24.8
--- NOTE | 2018-08-09 09:22 | EKG12_ITS ---
Test Reason : NASEA Blood Pressure : / mmHG Vent. Rate : 102 BPM Atrial Rate : 102 BPM P-R Int : 130 ms QRS Dur : 080 ms QT Int : 350 ms P-R-T Axes : 051 -29 048 degrees QTc Int : 456 ms Sinus tachycardia Cannot rule out Anterior infarct , age undetermined Abnormal ECG Confirmed by MORELIA JOE, ALICIA ([id number]), editorial project manager ADRIÁN VILLAR ([id number]) on 08/10/2018 10:07:43 AM Referred By: OLIVER Confirmed By:ALICIA THIBODEAUX MD
[2018-08-09] MEDS: Ondansetron 4 MG/2 ML Vial IV (09:43)
[2018-08-09] MEDS: 0.9% Normal Saline 1,000 ML 1000 ML IV (09:43)
--- NOTE | 2018-08-09 09:45 | ED.DCSUM_ITS ---
- ER Visit Summary Date of Service: 08/09/18 Chief Complaint: [] Diarrhea Crohn's disease abnormal labs History of Present Illness: The patient is a 52 M [] she has history of Crohn's disease he was suffering from diarrhea, he saw his physician yesterday, outpatient labs were obtained, today he was called and told that his creatinine was elevated to about 3.0, the office did call in and relayed that information as well they would like him evaluated IV fluids and repeat labs. The patient reports since the office visit he is feeling much better the abdominal cramps are markedly improved he is no longer having diarrhea he is eating and drinking and he feels actually back to baseline he would not have sought medical attention at the office not called no fevers no cough indicates his Crohn's disease is generally well controlled but occasionally will have an exacerbation Physical Examination: [] Is in no distress resting comforting the bed his vital signs are normal head neck unremarkable the lungs are clear the heart tones are normal abdomen soft nontender upper lower extremities unremarkable backs skin normal extremities normal moving all 4 extremities neurologic exam normal Test Results: [] Emergency Department Course and Treatment: [] And the above information and the history screening labs IV fluids are obtained Patient's feeling much better he is taking p.o. fluids here with no difficulty his screening labs are generally unremarkable except his creatinine is 2.6 baseline around 1, his UA shows 10 white cells but some hyaline casts and other debris he has no UTI symptoms he is not prone to UTI he says is his last UTI was potentially 5-10 years ago. He feels better he wants to go home. I spoke with his physicians they agree with outpatient management he would like to see him for close outpatient follow-up he will continue to hydrate himself, the UA was sent for urine culture his physicians will contact him if the UA shows any signs of UTI and he understands need to return for change in symptoms Treatment Plan: [] Disposition: [] Home stable Impression: [] Diarrhea resolved, exacerbation of Crohn's disease resolved, dehydration with MAICOL This note was generated with [employer] software. It may contain incorrect words, spelling, and punctuation that were not noted in review of the chart prior to signing ED Disposition - Plan for ED Patient: Chief Complaint: Nausea/Vomiting/Diarrhea Referrals: Drew Hardy MD [Primary Care Provider] -
[2018-08-09 09:46] LABS: Absolute Lymphocyte Count 1.13 X10^3/ul (0.83-4.51); Absolute Neutrophil Count 3.5 X10^3/uL (2.0-7.7); Basophil# 0.05 X10^3/uL; Basophil% 0.9 % (0-1); Eosinophil# 0.08 X10^3/uL; Eosinophils% 1.5 % (0-5); Hematocrit 41.2 % (40-54); Hemoglobin 14.6 g/dl (13.0-16.5); Lymphocyte # 1.13 X10^3/ul (4.0); Lymphocyte % 21.2 % (19-41); Mean Corp Hgb Conc 35.4 g/gl (32-36); Mean Corpuscular Hgb 33.6 pg (27.0-32.0); Mean Corpuscular Volume 94.7 fL (80-94); Mean Platelet Vol. 9.6 fl (6.2-12.0); Monocyte% 11.3 % (0-10); Neutrophil # 3.45 X10^3/uL (2.7-7.7); Neutrophil % 64.9 % (47-70); POSITIVE COUNT NO; POSITIVE DIFFERENTIAL NO; POSITIVE MORPHOLOGY NO; Platelet Count 255 K/mm3 (150-450); RBC Distribution Width CV 13.2 % (11.6-14.6); RBC Distribution Width SD 43.9 fl (35.1-43.9); Red Blood Count 4.35 M/mm3 (4.6-6.2); White Blood Count 5.3 K/mm3 (4.4-11.0)
[2018-08-09 10:02] LABS: AST(SGOT) 34 U/L (15-37); Alanine Aminotransfer ALT/SGPT 30 U/L (16-61); Albumin, Serum 3.8 g/dL (3.2-5.0); Alkaline Phosphatase 81 U/L (45-117); Anion Gap 13 (5-15); BUN 24 mg/dL (7-18); Bilirubin, Direct 0.25 mg/dL (0.00-0.30); Calcium,Total 8.8 mg/dL (8.5-10.1); Chloride 89 mmol/L (98-107); Creatinine, Serum 2.67 mg/dL (0.70-1.30); EST Glomerular Filtration Rate 27 mL/min (>60); Est Glom Filt Rate - Afr Amer 32 mL/min (>60); Estimated Creatinine Clearance 31.63 ml/min; Globulin 4.1 g/dL (2.2-4.2); Glucose 86 mg/dL (74-106); Lipase 162 U/L (73-393); Potassium 3.5 mmol/L (3.5-5.1); Protein, Total 7.9 g/dL (6.4-8.2); Sodium Level 129 mmol/L (136-145)
[2018-08-09] MEDS: 0.9% Normal Saline 1,000 ML 999 ML IV ×3 (11:08→13:08)
[2018-08-09 12:22] LABS: Bacteria 0 SEEN /hpf (None Seen); Mucous, Urine 0 SEEN /hpf (<or=2+); Squamous Epithelial Cells - UA 0 SEEN /hpf (0-5)
[2018-08-09 12:26] VITALS: BP 114/77; PULSE 85; RESP 16; O2SAT 100
[2018-08-09 12:27] LABS: Color, Urine Yellow (Yellow); Glucose, Dipstick Normal (Normal); Ketone-Dipstick 5 mg/dl (Negative); Leukocyte Esterase-Dipstick 100 /ul (Negative); Nitrite-Dipstick Negative (Negative); Occult Blood-Urine 10 /ul (Negative); Protein-Dipstick 30 mg/dl (Negative); Urine Bilirubin Dipstick 1 mg/dL (Negative); Urine Clarity Sl. Cloudy (Clear); Urine Urobilinogen 1 mg/dl (Normal)
[2018-08-09 12:34] LABS: Hyaline Cast 5-10 SEEN /lpf (0-5); Red Blood Cells-Urine 0-5 SEEN /hpf (0-5); White Blood Cells 10-25 SEEN /hpf (0-5)
--- NOTE | 2018-08-09 13:44 | ED.DEP ---
ED Disposition - Plan for ED Patient: Chief Complaint: Nausea/Vomiting/Diarrhea Instructions: ED Diet Vomiting Diarrhea Referrals: Drew Hardy MD [Primary Care Provider] -
[2018-08-09 14:09] VITALS: BP 116/86; PULSE 79; RESP 16; O2SAT 98; O2SAT 99
== END 2018-08-09 14:16 | disposition home or self-care (01) ==
LOC: ED 09:53
PROVIDERS: Emergency Provider Emergency Medicine; Family Provider Family Medicine; PCP Family Medicine
DX: R19.7 Diarrhea, unspecified (principal); K50.90 Crohn's disease, unspecified, without complications; E86.0 Dehydration; N17.9 Acute kidney failure, unspecified
CPT/HCPCS: 80048; 80076; 81001; 83690; 84484; 85025; 87086; 87088; 93005; 96361; 96374; 99283; J7030; A4216; J2405

== ENCOUNTER 2018-10-11 08:44 | Inpatient (IN) | payer OTHER, SELFPAY ==
[2018-10-11] VITALS (19 sets, daily range): BP systolic 76–146; BP diastolic 30–90; PULSE 51–109; RESP 12–23; TEMP 35.4–37.1; O2SAT 91–100; BMI 24.9; BMI 24.2; BMI 23.5
--- NOTE | 2018-10-11 09:00 | CT_ITS ---
STUDY: CT ABDOMEN AND PELVIS WITHOUT CONTRAST REASON FOR EXAM: Male, 52 years old. 3 day history of nausea vomiting and diarrhea. Prior abdominal surgery for bowel perforation. History of kidney stones. RADIATION DOSAGE (If Supplied By Facility): CTDIvol = ( 7.41 ) mGy, DLP = ( 390.44 ) mGycm TECHNIQUE: Transaxial images were obtained from the dome of the diaphragm to the symphysis pubis without oral contrast, and without intravenous contrast. Sagittal and coronal images were reconstructed. Individualized dose optimization techniques were used for this CT. COMPARISON: Comparison is made with prior study dated November 30, 2017. FINDINGS: The visualized lung bases are unremarkable. Coronary artery calcification. There is decreased attenuation of the liver consistent with steatosis. Focal fatty sparing seen adjacent to the gallbladder fossa. Normal gallbladder and extrahepatic biliary system. Normal spleen. Normal pancreas. Normal bilateral adrenal glands. Punctate calcification in the lower pole calyx of the right kidney Normal left kidney. Normal visualized stomach. Normal small intestine. Normal colon. The appendix is visualized and appears normal. There is scattered atherosclerotic calcification of the abdominal aorta, without a demonstrated aneurysm. Normal inferior vena cava. Normal retroperitoneum. Multiple small lymph nodes are seen along the root of the mesentery. Normal urinary bladder. There are prostatic calcifications. Normal abdominal wall. Stable grade 1 anterolisthesis of L5 on S1 with spondylolysis. Once again, there is a moderate degree of disc space narrowing and disc degeneration at the L4-L5 and L5-S1 levels. CT/Abdomen/Pelvis without Cont IMPRESSION: Nonobstructive right intrarenal calculus. Fatty infiltration of liver Multiple small lymph nodes are seen in the root of the mesentery. Electronically Signed: Jake Johnson MD at 12:54 EST Tel [phone], Service support ,
--- NOTE | 2018-10-11 09:00 | EKG12_ITS ---
Test Reason : N/V Blood Pressure : / mmHG Vent. Rate : 102 BPM Atrial Rate : 102 BPM P-R Int : 130 ms QRS Dur : 078 ms QT Int : 406 ms P-R-T Axes : 062 -29 083 degrees QTc Int : 529 ms Sinus tachycardia with frequent Premature ventricular complexes Right atrial enlargement Nonspecific ST and T wave abnormality Prolonged QT Abnormal ECG Confirmed by MORELIA JOE, ALICIA ([id number]), social media editor ADRIÁN VILLAR ([id number]) on 10/13/2018 1:51:46 PM Referred By: COOPER Confirmed By:ALICIA THIBODEAUX MD
--- NOTE | 2018-10-11 09:00 | RAD_ITS ---
STUDY: X-RAY CHEST REASON FOR EXAM: Male, 52 years old. Sepsis. TECHNIQUE: Single AP portable view of the chest. COMPARISON: Comparison is made with prior study dated December 17, 2013. FINDINGS: EKG electrodes are seen. The lungs are clear and expanded. The increased bronchovascular markings suggestive of emphysematous changes. There is no demonstrated pleural abnormality. Normal size heart. Normal mediastinum and boris. Normal visualized pulmonary arteries. Normal visualized aortic arch and descending thoracic aorta. Normal visualized thoracic spine. Normal visualized ribs, clavicles, and shoulders. There is no demonstrated abnormality of the visualized soft tissue structures of the upper abdomen. RAD/Chest 1 View (Portable) IMPRESSION: No acute abnormality is seen. Findings suggestive of emphysematous changes. Electronically Signed: Jake Johnson MD at 11:36 EST Tel [phone], Service support ,
--- NOTE | 2018-10-11 09:34 | ED.VISSUMM ---
- ER Visit Summary Date of Service: 10/11/18 Chief Complaint: Nausea, vomiting, and diarrhea History of Present Illness: The patient is a 52 M with nausea, vomiting, and diarrhea. Symptoms started about 3 days ago. They have been severe. He has tried apple juice, Zofran, and other home remedies, but nothing seems to help. He reports some associated fever, chills, and abdominal pain. He had multiple episodes of this in the past, but he is not sure what causes his symptoms. He has a history of sepsis as well as GI eating. He currently denies any bleeding or black stools. Physical Examination: Initial blood pressure was 76/30, but nursing did not feel this was accurate. See below. Heart rate 51, respiratory rate 16, pulse ox 91% on room air. Patient appears uncomfortable. He is alert and oriented. Mucous membranes are dry. Heart is regular on my exam. Lungs are clear. Abdomen diffusely tender. No guarding or rebound. Test Results: EKG showed sinus rhythm at a rate of 102. He has frequent PVCs. Nonspecific ST segment changes which were present in the past. QTC 529. Laboratory studies, chest x-ray, and CT abdomen are pending. Emergency Department Course and Treatment: IV access obtained. The patient was placed on a monitor and oxygen. Pulse ox was 92% on nasal cannula. Repeat blood pressure was 108/85 when the patient was more comfortable. Heart rate around 100 and respiratory rate 14. I did place orders for sepsis and septic shock as well as for potential GI bleeding. White count was 15,000 and hemoglobin was 17.4. BUN 27 and creatinine 3.78. Coags still pending. Urinalysis pending. Troponin normal. Lactate was 7.4. It was noted that he required multiple draws to get a lactate. I am not sure of the accuracy of this result. Ammonia normal. Cultures pending. Chest x-ray showed chronic changes. Nothing acute. CT abdomen showed fatty liver and mesenteric lymph nodes but nothing else acute. On reevaluation, the patient had normal vital signs. He did have some continued abdominal cramping and was treated with fentanyl. He is off of oxygen. He has completed his fluid bolus. He appears much better clinically. I spoke with the hospitalist. Given that his vitals have improved, we believe he is appropriate for PCU. Treatment Plan: As above Disposition: Admission Impression: 1. Septic shock 2. Vomiting and diarrhea 3. Acute kidney injury This note was generated with [employer] dictation software. It may contain incorrect words, spelling, and punctuation that were not noted in review of the chart prior to signing ED Disposition - Plan for ED Patient: Chief Complaint: Nausea/Vomiting/Diarrhea Referrals: Drew Hardy MD [Primary Care Provider] -
[2018-10-11] MEDS: Ondansetron 4 MG/2 ML Vial IV ×2 (09:52→17:49)
[2018-10-11] MEDS: 0.9% Normal Saline 1,000 ML IV.SOLN. 2500 ML IV (09:52)
[2018-10-11 10:20] LABS: Absolute Lymphocyte Count 1.03 X10^3/ul (0.83-4.51); Basophil# 0.02 X10^3/uL; Basophil% 0.1 % (0-1); Eosinophil# 0.01 X10^3/uL; Eosinophils% 0.1 % (0-5); Hematocrit 49.7 % (40-54); Hemoglobin 17.4 g/dl (13.0-16.5); Lymphocyte # 1.03 X10^3/ul (4.0); Lymphocyte % 6.9 % (19-41); Mean Corpuscular Hgb 33.5 pg (27.0-32.0); Mean Corpuscular Volume 95.8 fL (80-94); Mean Platelet Vol. 10.3 fl (6.2-12.0); Monocyte# 0.93 X10^3/uL; Monocyte% 6.2 % (0-10); Neutrophil # 13.01 X10^3/uL (2.7-7.7); Neutrophil % 86.5 % (47-70); Platelet Count 442 K/mm3 (150-450); RBC Distribution Width CV 13.6 % (11.6-14.6); RBC Distribution Width SD 46.6 fl (35.1-43.9); Red Blood Count 5.19 M/mm3 (4.6-6.2)
[2018-10-11 10:22] LABS: POSITIVE COUNT NO; POSITIVE DIFFERENTIAL NO; POSITIVE MORPHOLOGY NO
[2018-10-11 10:40] LABS: ALB/GLOB Ratio 0.9 RATIO (0.9-2.4); AST(SGOT) 33 U/L (15-37); Alanine Aminotransfer ALT/SGPT 24 U/L (16-61); Albumin, Serum 4.4 g/dL (3.2-5.0); Alkaline Phosphatase 102 U/L (45-117); Anion Gap 18 (5-15); BUN 27 mg/dL (7-18); BUN/Creat Ratio 7.1 RATIO (10-20); Calcium,Total 10.7 mg/dL (8.5-10.1); Chloride 78 mmol/L (98-107); Creatinine, Serum 3.78 mg/dL (0.70-1.30); EST Glomerular Filtration Rate 18 mL/min (>60); Est Glom Filt Rate - Afr Amer 22 mL/min (>60); Estimated Creatinine Clearance 22.34 ml/min; Globulin 4.9 g/dL (2.2-4.2); Glucose 157 mg/dL (74-106); Potassium 4.2 mmol/L (3.5-5.1); Protein, Total 9.3 g/dL (6.4-8.2); Sodium Level 134 mmol/L (136-145)
--- NOTE | 2018-10-11 10:40 | ED.RN ---
UNABLE TO OBTAIN ORAL TEMPS ON PT. PT STATES THAT HE IS ALWAYS DIFFICULT TO OBTAIN ORAL TEMPS.
[2018-10-11] MEDS: Vancomycin IV 1,000 MG/200 ML BAG 200 MG IV (10:47)
[2018-10-11] MEDS: proMETHazine 25 MG/ML Syringe 6.25 MG IV (11:59)
[2018-10-11 12:33] LABS: Lactic Acid 7.4 mmol/L (0.4-2.0)
--- NOTE | 2018-10-11 13:01 | ED.RN ---
PER CONVERSATION WITH MD, CONCERNS THAT THE LACTIC ACID IS ACCURATE D/T DIFFICULTY WITH BLOOD DRAWS.
--- NOTE | 2018-10-11 14:54 | HP.PCM_ITS ---
Problem List (1) Nausea and vomiting Status: Acute Qualifiers: Vomiting type: unspecified (2) Diarrhea Status: Acute Qualifiers: Diarrhea type: presumed infectious Qualified Code(s): R19.7 - Diarrhea, un specified History of Present Illness Date of Admission: 10/11/18 Chief Complaint: Nausea and vomiting, diarrhea The patient is a 52 year old M who was seen in the emergency room at [facility] with chief complaint of nausea, vomiting, and diarrhea times 3 days. Patient denies any hematemesis, he denies any rectal bleeding. Patient has had a history of irritable bowel syndrome. Patient also complains of chills and a sensation of fever at home. Workup in the emergency room showed the patient to be mildly hypotensive, white count was elevated, patient's lactic acid was highly elevated above 7, patient's creatinine was elevated at 3.78, glucose was 157. CT of the abdomen and the pelvis was obtained and it did not show any evidence of inflammation or abscess. Patient was given IV fluids in the emergency room and IV antibiotics, technically the patient meets criteria for septic shock, however, patient responded well to fluid administration and is currently not hypotensive. Patient will be admitted to PCU for viral gastroenteritis and septic shock, he will be maintained on IV antibiotics, enteric stool panel was ordered. Lactic acid will be rechecked. Past Medical History Past Medical History (Chronic Problems): Chronic Problems Gastroesophageal reflux disease (Chronic) Allergies Penicillins Allergy (Verified 10/11/18 08:45) Anaphylaxis erythromycin base [Erythromycin Base] Adverse Reaction (Verified 10/11/18 08:45) Nausea milk Adverse Reaction (Verified 10/11/18 08:45) Upset Stomach Home Medications: Ambulatory Orders Medication Instructions Recorded Ondansetron [Zofran Odt] 4 mg PO Q8H PRN PRN 12/18/13 Rizatriptan Benzoate [Maxalt] 10 mg PO .X1 PRN 12/18/13 Amitriptyline HCl [Elavil] 10 mg PO QHS 09/19/17 Famotidine [Pepcid] 20 mg PO BID 08/09/18 Aspirin 81 mg PO DAILY 10/11/18 Potassium Chloride [Klor-Con M20] 20 meq PO BID 10/11/18 Surgical History: - - Removal of pancreatic cysts Psychiatric History: No pertinent psych hx Lives: Spouse/ Significant Other Smoking Status: Never smoker Tobacco Use: Non-smoker Alcohol: Occasional Drugs: None - *Family History Paternal History Items: No pertinent history Maternal History Items: Hypertension, No pertinent history Review of Systems Constitutional: Reports: Anorexia, Chills, Fever, Weakness, Fatigue. Denies: Night Sweats, Malaise, Weight Change Eyes: Denies: Blurred vision, Cataracts, Conjunctivae Inflammation, Drainage, Eyelid Inflammation, Pain HEENT: Denies: Difficulty Swallowing, Dysphasia, Ear Pain, Eye Pain, Hearing Changes, Nasal bleeding, Nasal Congestion, Post Nasal Drip Cardiovascular: Denies: Claudication, Chest Pressure, Chest Tightness, Light Headedness, Orthopnea, Palpitations Respiratory: Denies: Cough, Hemoptysis, Pleuritic Pain, Shortness of Breath, Tammy rtness of breath at rest Gastrointestinal: Reports: Abdominal Pain - Generalized abdominal cramping, Diarrhea, Nausea, Vomiting. Denies: Constipation, Dyspepsia, Hematemesis, Hematochezia, Melena Genitourinary: Denies: Frequency, Hematuria, Hesitancy, Nocturia, Retention Musculoskeletal: Denies: Back Pain, Foot Pain, Hand Pain, Joint swelling, Joint Tenderness, Leg Pain Skin: Denies: Dryness, Jaundice, Pruritis, Rash Neurological: Denies: Blurred vision, Double vision, Change in Speech, Slurred speech, Focal weakness, Headaches, Incoordination, Numbness Psychiatric: Denies: Anxiety, Depression, Homicidal Ideations, Suicidal Ideations Endocrine: Denies: Change in Body Habitus, Heat/ Cold Intolerance, Hx of Irradiation Hematologic/ Lymphatic: Denies: Anemia, Easy Bruising, Purpura VTE Information - Inpt Only VTE Present on Admission: No VTE Mechan Device Prophylaxis: None VTE Pharm Prophylaxis ordered?: No Reason prophylaxis not ordered:: Treatment Not Indicated Patient Problems: Active and Suspected Problems Nausea and vomiting (Acute) - Physical Exam General: Alert, Oriented x3, Cooperative, Well developed, Well nourished HEENT: Atraumatic, PERRLA, EOMI, Normocephalic Oral: Dry Mucosa Neck: Supple, No JVD, Negative Carotid Bruits, No Nuchal Rigidity, Trachea Midline, Thyroid Normal Size and Texture Lungs: Clear to auscultation, Normal air movement, No rhonchi, No wheeze, No rales Cardiovascular: Regular rate, Regular Rhythm, Normal S1, Normal S2, No murmurs, No Ectopic Activity, PMI Normal, No rub noted, No Gallop Abdomen: Bowel Sounds Present, Soft, Non Tender, Non-Distended, No hernias noted Extremities: No clubbing, No cyanosis, No edema, Capillary Refill Less than 3 Seconds Skin: No rashes, No breakdown Musculoskeletal: No Tenderness to Palpation of Joints or Extremities Neurological: Cranial nerves II-XII grossly intact, Neuro grossly intact, Sensory exam intact to light touch and pain Psych/Mental Status: Normal Affect, Appropriate, Alert and oriented to time, place, person, mood and affect Vital Signs Temp Pulse Resp BP Pulse Ox 97.8 F 85 15 146/90 H 100 10/11/18 14:26 10/11/18 14:26 10/11/18 14:26 10/11/18 14:26 10/11/18 14:26 Oxygen Flow Rate (L/min) 1 Oxygen Delivery Method Room Air Weight: 72.2 kg Body Mass Index (BMI) 23.5 Laboratory Tests Past 24 Hrs 10/11/18 10/11/18 10/11/18 10:00 10:00 10:00 WBC 15.0 H RBC 5.19 Hgb 17.4 H Hct 49.7 MCV 95.8 H MCH 33.5 H MCHC 35.0 RDW 13.6 RDW Differential 46.6 H Plt Count 442 MPV 10.3 Immature Gran % (Auto) 0.200 Neut % (Auto) 86.5 H Lymph % (Auto) 6.9 L [place] % (Auto) 6.2 Eos % (Auto) 0.1 Baso % (Auto) 0.1 Absolute Neuts (auto) 13.0 H Absolute Lymphs (auto) 1.03 Total Counted Not Reportable PT Cancelled INR Cancelled APTT Cancelled Sodium 134 L Potassium 4.2 Chloride 78 L Carbon Dioxide 38.0 H Anion Gap 18 H BUN 27 H Creatinine 3.78 H Estim Creat Clear Calc 22.34 Est GFR (MDRD) Af Amer 22 L Est GFR (MDRD) Non-Af 18 L BUN/Creatinine Ratio 7.1 L Glucose 157 H Lactic Acid Calcium 10.7 H Total Bilirubin 1.00 AST 33 ALT 24 Alkaline Phosphatase 102 Ammonia Troponin I < 0.015 Total Protein 9.3 H Albumin 4.4 Globulin 4.9 H Albumin/Globulin Ratio 0.9 Blood Type A1 Antigen Typing Rho(D) Type Antibody Screen 10/11/18 10/11/18 10/11/18 10:00 10:00 10:00 WBC RBC Hgb Hct MCV MCH MCHC RDW RDW Differential Plt Count MPV Immature Gran % (Auto) Neut % (Auto) Lymph % (Auto) [place] % (Auto) Eos % (Auto) Baso % (Auto) Absolute Neuts (auto) Absolute Lymphs (auto) Total Counted PT INR APTT Sodium Potassium Chloride Carbon Dioxide Anion Gap BUN Creatinine Estim Creat Clear Calc Est GFR (MDRD) Af Amer Est GFR (MDRD) Non-Af BUN/Creatinine Ratio Glucose Lactic Acid Cancelled Calcium Total Bilirubin AST ALT Alkaline Phosphatase Ammonia Cancelled Troponin I Total Protein Albumin Globulin Albumin/Globulin Ratio Blood Type Cancelled A1 Antigen Typing Cancelled Rho(D) Type Cancelled Antibody Screen Cancelled 10/11/18 10/11/18 10/11/18 11:37 11:37 11:37 WBC RBC Hgb Hct MCV MCH MCHC RDW RDW Differential Plt Count MPV Immature Gran % (Auto) Neut % (Auto) Lymph % (Auto) [place] % (Auto) Eos % (Auto) Baso % (Auto) Absolute Neuts (auto) Absolute Lymphs (auto) Total Counted PT Cancelled INR Cancelled APTT Cancelled Sodium Potassium Chloride Carbon Dioxide Anion Gap BUN Creatinine Estim Creat Clear Calc Est GFR (MDRD) Af Amer Est GFR (MDRD) Non-Af BUN/Creatinine Ratio Glucose Lactic Acid 7.4 H* Calcium Total Bilirubin AST ALT Alkaline Phosphatase Ammonia 17.0 Troponin I Total Protein Albumin Globulin Albumin/Globulin Ratio Blood Type A1 Antigen Typing Rho(D) Type Antibody Screen Assessment/Plan All Active Problems GI bleed (Resolved) CAD (coronary artery disease) (Ruled-out) Nausea and vomiting (Acute) Perforated bowel (Resolved) Severe sepsis (Resolved) Diarrhea (Acute) Tachycardia (Resolved) #1 septic shock secondary to gastroenteritis-most likely viral in nature but possibly bacterial, patient will be admitted to PCU, he will be given IV fluids, he will be placed on IV antibiotics, enteric stool culture will be obtained. Patient is not hypotensive #2 gastroenteritis-probably viral in nature, exclude bacterial gastroenteritis #3 acute kidney injury-patient's last creatinine from his physician's office was done in August-this creatinine was 1.1 according to his PCPs office, patient will receive IV fluids and repeat labs will be obtained #4 past history of atrial fibrillation-I called Dr. Live who he has seen proximally 4 years ago, Dr. Baumann has no record that the patient has coronary artery disease but had an episode of atrial fibrillation but did not warrant being placed on full anticoagulation. #5 chronic diarrhea with abdominal cramping-I talked at length with the patient and his family about getting a colonoscopy as an outpatient and having biopsies done to exclude microscopic colitis. They will talk to his PCP in the near future about this. Code Visit Inpatient E&M: 84548 Init Hosp L3
[2018-10-11] MEDS: 0.9% Normal Saline 1,000 ML 999 ML IV ×2 (15:00→16:14)
[2018-10-11] MEDS: fentaNYL 100 MCG/2 ML Ampul 50 MCG IV ×2 (15:15→20:47)
[2018-10-11 16:13] LABS: International Normalized Ratio 1.1; Prothrombin Time (Protime)PT. 13.7 SECONDS (11.7-14.9)
[2018-10-11 16:14] LABS: Partial Thromboplast Time 29.2 Seconds (24.1-36.2)
[2018-10-11] MEDS: 0.9% Normal Saline 1,000 ML 200 ML IV (17:51)
[2018-10-11 19:04] LABS: Lactic Acid 2.8 mmol/L (0.4-2.0)
[2018-10-11] MEDS: Amitriptyline 10 MG Tablet PO (20:50)
[2018-10-11 22:27] LABS: Reflex Lactate? Y
[2018-10-12] VITALS (11 sets, daily range): BP systolic 82–108; BP diastolic 54–68; PULSE 71–83; RESP 16–18; TEMP 36.1–37.2; O2SAT 94–97
[2018-10-12] MEDS: 0.9% Normal Saline 1,000 ML 200 ML IV ×5 (00:02→21:37)
[2018-10-12 00:16] LABS: Bacteria 0 SEEN /hpf (None Seen); Mucous, Urine 0 SEEN /hpf (<or=2+); Red Blood Cells-Urine 0 SEEN /hpf (0-5)
[2018-10-12 00:21] LABS: Color, Urine Yellow (Yellow); Glucose, Dipstick Normal (Normal); Ketone-Dipstick Negative (Negative); Leukocyte Esterase-Dipstick 25 /ul (Negative); Nitrite-Dipstick Negative (Negative); Occult Blood-Urine 10 /ul (Negative); Protein-Dipstick 30 mg/dl (Negative); Urine Bilirubin Dipstick Negative (Negative); Urine Clarity Clear (Clear); Urine Urobilinogen Normal (Normal)
[2018-10-12 00:31] LABS: White Blood Cells 5-10 SEEN /hpf (0-5)
[2018-10-12 00:35] LABS: Squamous Epithelial Cells - UA 0-5 SEEN /hpf (0-5)
[2018-10-12 00:36] LABS: Hyaline Cast 50-100 SEEN /lpf (0-5)
[2018-10-12] MEDS: fentaNYL 100 MCG/2 ML Ampul 50 MCG IV ×3 (02:50→18:44)
[2018-10-12 08:30] LABS: Absolute Lymphocyte Count 1.05 X10^3/ul (0.83-4.51); Basophil# 0.04 X10^3/uL; Basophil% 0.5 % (0-1); Eosinophil# 0.08 X10^3/uL; Hematocrit 30.5 % (40-54); Hemoglobin 10.3 g/dl (13.0-16.5); Lymphocyte # 1.05 X10^3/ul (4.0); Lymphocyte % 13.5 % (19-41); Mean Corp Hgb Conc 33.8 g/gl (32-36); Mean Corpuscular Hgb 32.2 pg (27.0-32.0); Mean Corpuscular Volume 95.3 fL (80-94); Mean Platelet Vol. 9.5 fl (6.2-12.0); Monocyte# 0.59 X10^3/uL; Monocyte% 7.6 % (0-10); Neutrophil # 5.98 X10^3/uL (2.7-7.7); Neutrophil % 77.3 % (47-70); Platelet Count 190 K/mm3 (150-450); RBC Distribution Width CV 13.6 % (11.6-14.6); RBC Distribution Width SD 47.2 fl (35.1-43.9); White Blood Count 7.8 K/mm3 (4.4-11.0)
[2018-10-12 08:34] LABS: POSITIVE COUNT NO; POSITIVE DIFFERENTIAL NO; POSITIVE MORPHOLOGY NO
[2018-10-12 09:00] LABS: Anion Gap 7 (5-15); BUN 19 mg/dL (7-18); BUN/Creat Ratio 11.2 RATIO (10-20); Calcium,Total 7.1 mg/dL (8.5-10.1); Chloride 97 mmol/L (98-107); Creatinine, Serum 1.69 mg/dL (0.70-1.30); EST Glomerular Filtration Rate 45 mL/min (>60); Est Glom Filt Rate - Afr Amer 55 mL/min (>60); Estimated Creatinine Clearance 49.97 ml/min; Glucose 92 mg/dL (74-106); Potassium 3.3 mmol/L (3.5-5.1); Sodium Level 136 mmol/L (136-145)
[2018-10-12] MEDS: Aspirin 81 MG TAB.CHEW PO (09:34)
[2018-10-12] MEDS: Famotidine 20 MG Tablet PO (09:34)
[2018-10-12] MEDS: Ciprofloxacin 400 MG/200 ML BAG 200 MG IV (09:35)
[2018-10-12] MEDS: Ondansetron 4 MG/2 ML Vial IV ×2 (09:41→16:30)
[2018-10-12] MEDS: Acetaminophen 325 MG Tablet 650 MG PO (11:21)
--- NOTE | 2018-10-12 11:56 | CASEMGMT ---
STACI SWEENEY assessment: Face to Face with patient for initial transition planning/care coordination assessment. STACI SWEENEY introduced self and role at [facility], pt voices understanding and consents to assessment at this time. Pt is sitting up in bed in no distress at this time. Pt is A/Ox4 at this time and answers all questions appropriately at this time. Care providers, pharmacy, and demographics verified/updated at this time. PCP: Antony Specialists: ALEX Alonzo thru [facility] Preferred [facility]acy[facility] Insurance: MMO Prescription Benefit: MMO Living Will/HPOA: Pt states does not have LW/HPOA and declines need for any information at this time. LNOK: Lev Peralta, son; Lucy Peralta, but not living together currently Living Arrangements: Pt states lives alone in 1 story home and states no concerns at home at this time. 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 DME/HHC: Pt states no current DME or need for any at this time. Pt states no hx of HHC or SNF. Pt states no concerns with going home at time of discharge. 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 Pt states does not smoke but does drink occasionally. Pt states no further concerns/needs at this time. CM to follow for any further discharge planning/needs. Advised pt to ask for CM if any further questions/concerns/needs arise, voices understanding. Plan: [place] STACI SWEENEY
[2018-10-12] MEDS: 0.9% NaCl Peripheral Flush Adult/Peds IV ×2 (14:04→14:11)
--- NOTE | 2018-10-12 14:22 | PCM.PROGNOTE ---
<Rebecca Estrada - Last Filed: 10/12/18 14:34> Patient Problems: Active and Suspected Problems Nausea and vomiting (Acute) Subjective: Patient seen and examined. Denies further diarrhea. Complains of abdominal pain and nausea. No further emesis. - Physical Exam General: Alert, Oriented x3, Cooperative HEENT: Atraumatic, PERRLA, EOMI, Normocephalic Neck: Supple, No JVD, Negative Carotid Bruits Lungs: Clear to auscultation, Normal air movement Cardiovascular: Regular rate, Regular Rhythm, Normal S1, Normal S2, No murmurs Abdomen: Bowel Sounds Present, Soft, Non-Distended, Tender - Generalized Extremities: No clubbing, No cyanosis, No edema, Capillary Refill Less than 3 Seconds Skin: No rashes, No breakdown Musculoskeletal: No Tenderness to Palpation of Joints or Extremities Neurological: Cranial nerves II-XII grossly intact, Neuro grossly intact Psych/Mental Status: Normal Affect, Appropriate Vital Signs Temp Pulse Resp BP Pulse Ox 98.0 F 71 18 108/67 97 10/12/18 14:07 10/12/18 14:07 10/12/18 14:07 10/12/18 14:07 10/12/18 14:07 Oxygen Flow Rate (L/min) 1 Oxygen Delivery Method Room Air Weight: 159 lb 2.78 oz Body Mass Index (BMI) 23.5 Intake and Output for Last 24 Hours 10/10/18 10/11/18 10/12/18 23:59 23:59 23:59 Intake Total 3272 / 3272 2843 / 2843 Balance 3272 / 3272 2843 / 2843 Microbiology Past 72 Hours 10/12/18 00:05 Urine Culture - Preliminary Urine, Clean Catch Culture exhibits no growth. 10/12/18 02:20 Enteric Bacteriology - Final Stool Laboratory Tests Past 24 Hrs 10/11/18 10/11/18 10/12/18 15:15 18:15 00:05 WBC RBC Hgb Hct MCV MCH MCHC RDW RDW Differential Plt Count MPV Immature Gran % (Auto) Neut % (Auto) Lymph % (Auto) [place] % (Auto) Eos % (Auto) Baso % (Auto) Absolute Neuts (auto) Absolute Lymphs (auto) Total Counted PT 13.7 INR 1.1 APTT 29.2 Sodium Potassium Chloride Carbon Dioxide Anion Gap BUN Creatinine Estim Creat Clear Calc Est GFR (MDRD) Af Amer Est GFR (MDRD) Non-Af BUN/Creatinine Ratio Glucose Lactic Acid 2.8 H Calcium Urine Color Yellow Urine Clarity Clear Urine pH 8.0 Ur Specific [place] 1.010 Urine Protein 30 H Urine Glucose (UA) Normal Urine Ketones Negative Urine Occult Blood 10 H Urine Nitrite Negative Urine Bilirubin Negative Urine Urobilinogen Normal Ur Leukocyte Esterase 25 H Urine RBC 0 SEEN Urine WBC 5-10 SEEN Ur Squamous Epith Cells 0-5 SEEN Urine Bacteria 0 SEEN Hyaline Casts 50-100 SEEN Urine Mucus 0 SEEN 10/12/18 10/12/18 07:58 07:58 WBC 7.8 RBC 3.20 L Hgb 10.3 L Hct 30.5 L MCV 95.3 H MCH 32.2 H MCHC 33.8 RDW 13.6 RDW Differential 47.2 H Plt Count 190 MPV 9.5 Immature Gran % (Auto) 0.100 Neut % (Auto) 77.3 H Lymph % (Auto) 13.5 L [place] % (Auto) 7.6 Eos % (Auto) 1.0 Baso % (Auto) 0.5 Absolute Neuts (auto) 6.0 Absolute Lymphs (auto) 1.05 Total Counted Not Reportable PT INR APTT Sodium 136 Potassium 3.3 L Chloride 97 L Carbon Dioxide 32.0 Anion Gap 7 BUN 19 H Creatinine 1.69 H Estim Creat Clear Calc 49.97 Est GFR (MDRD) Af Amer 55 L Est GFR (MDRD) Non-Af 45 L BUN/Creatinine Ratio 11.2 Glucose 92 Lactic Acid Calcium 7.1 L Urine Color Urine Clarity Urine pH Ur Specific [place] Urine Protein Urine Glucose (UA) Urine Ketones Urine Occult Blood Urine Nitrite Urine Bilirubin Urine Urobilinogen Ur Leukocyte Esterase Urine RBC Urine WBC Ur Squamous Epith Cells Urine Bacteria Hyaline Casts Urine Mucus Medical Necessity - Tobacco Use Smoking Status: Never smoker Tobacco Use: Non-smoker Assessment/Plan All Active Problems GI bleed (Resolved) CAD (coronary artery disease) (Ruled-out) Nausea and vomiting (Acute) Perforated bowel (Resolved) Severe sepsis (Resolved) Diarrhea (Acute) Tachycardia (Resolved) 1. Septic shock secondary to suspected viral gastroenteritis-enteric bacteriology negative. Hypotension improved. Leukocytosis resolved. Afebrile. Continue IV Cipro and IV Flagyl empirically. Urine culture shows no growth. CT of abdomen and pelvis on admission showed nonobstructive right intrarenal calculus, fatty infiltration of the liver, multiple small lymph nodes seen in the root of the mesentery. Advance diet as tolerated. Zofran as needed for nausea. 2. Acute kidney injury-secondary to dehydration as a result of #1. Improved with IV fluids. Trend BMP. 3. History of paroxysmal atrial fibrillation-not on anticoagulation given brief episode. 4. Chronic diarrhea-recommend outpatient follow-up for colonoscopy. 5. Chronic headaches-continue home amitriptyline/maxalt regimen. DVT prophylaxis-heparin subcu. This patient was seen by RITIKA Ellis under the supervision of Dr. Bloom. <Thuan Bloom - Last Filed: 10/12/18 16:22> - Physical Exam Vital Signs Temp Pulse Resp BP Pulse Ox 98.0 F 71 18 108/67 97 10/12/18 14:07 10/12/18 14:07 10/12/18 14:07 10/12/18 14:07 10/12/18 14:07 Oxygen Flow Rate (L/min) 1 Oxygen Delivery Method Room Air Weight: 72.2 kg Body Mass Index (BMI) 23.5 Intake and Output for Last 24 Hours 10/10/18 10/11/18 10/12/18 23:59 23:59 23:59 Intake Total 3272 / 3272 2843 / 2843 Balance 3272 / 3272 2843 / 2843 Microbiology Past 72 Hours 10/12/18 00:05 Urine Culture - Preliminary Urine, Clean Catch Culture exhibits no growth. 10/12/18 02:20 Enteric Bacteriology - Final Stool Laboratory Tests Past 24 Hrs 10/11/18 10/12/18 10/12/18 18:15 00:05 07:58 WBC 7.8 RBC 3.20 L Hgb 10.3 L Hct 30.5 L MCV 95.3 H MCH 32.2 H MCHC 33.8 RDW 13.6 RDW Differential 47.2 H Plt Count 190 MPV 9.5 Immature Gran % (Auto) 0.100 Neut % (Auto) 77.3 H Lymph % (Auto) 13.5 L [place] % (Auto) 7.6 Eos % (Auto) 1.0 Baso % (Auto) 0.5 Absolute Neuts (auto) 6.0 Absolute Lymphs (auto) 1.05 Total Counted Not Reportable Sodium Potassium Chloride Carbon Dioxide Anion Gap BUN Creatinine Estim Creat Clear Calc Est GFR (MDRD) Af Amer Est GFR (MDRD) Non-Af BUN/Creatinine Ratio Glucose Lactic Acid 2.8 H Calcium Urine Color Yellow Urine Clarity Clear Urine pH 8.0 Ur Specific [place] 1.010 Urine Protein 30 H Urine Glucose (UA) Normal Urine Ketones Negative Urine Occult Blood 10 H Urine Nitrite Negative Urine Bilirubin Negative Urine Urobilinogen Normal Ur Leukocyte Esterase 25 H Urine RBC 0 SEEN Urine WBC 5-10 SEEN Ur Squamous Epith Cells 0-5 SEEN Urine Bacteria 0 SEEN Hyaline Casts 50-100 SEEN Urine Mucus 0 SEEN 10/12/18 07:58 WBC RBC Hgb Hct MCV MCH MCHC RDW RDW Differential Plt Count MPV Immature Gran % (Auto) Neut % (Auto) Lymph % (Auto) [place] % (Auto) Eos % (Auto) Baso % (Auto) Absolute Neuts (auto) Absolute Lymphs (auto) Total Counted Sodium 136 Potassium 3.3 L Chloride 97 L Carbon Dioxide 32.0 Anion Gap 7 BUN 19 H Creatinine 1.69 H Estim Creat Clear Calc 49.97 Est GFR (MDRD) Af Amer 55 L Est GFR (MDRD) Non-Af 45 L BUN/Creatinine Ratio 11.2 Glucose 92 Lactic Acid Calcium 7.1 L Urine Color Urine Clarity Urine pH Ur Specific [place] Urine Protein Urine Glucose (UA) Urine Ketones Urine Occult Blood Urine Nitrite Urine Bilirubin Urine Urobilinogen Ur Leukocyte Esterase Urine RBC Urine WBC Ur Squamous Epith Cells Urine Bacteria Hyaline Casts Urine Mucus Assessment/Plan This patient was seen in conjunction with RITIKA Ellis . I have independently interviewed and examined the patient and reviewed pertinent historical, laboratory, and other data. Please refer to RITIKA Ellis note for details of this patient's presentation, findings, and recommendations. I have reviewed RITIKA Ellis note and concur with documented findings. In brief, patient is a 52-year-old male with past medical history significant for paroxysmal atrial fibrillation presented with nausea vomiting diarrhea as well as lightheadedness. An assessment of septic shock secondary to suspected viral gastroenteritis as well as acute kidney injury made admitted to a monitored bed for subsequent management Physical Examination: GENERAL: cooperative HEENT: Atraumatic; moist oral mucosa EYES; Anicteric, Normal Conjunctiva NECK; supple, normal thyroid, no distended JVD. RESPIRATORY: Diminished to auscultation bilaterally, CARDIOVASCULAR: Regular S1 S2, no audible murmurs GI: soft, non-tender, normoactive bowel sounds, : No Renal angle tenderness; EXTREMITIES: No edema, no clubbing, no cyanosis. MUSCULOSKELETAL: No Joint Tenderness; no muscle waisting NEURO: Awake; no lateralizing signs. SKIN: No Rash PSYCH; Normal affect Assessment: 1. Septic shock secondary to suspected acute viral gastroenteritis 2. Acute kidney injury from ATN from hypotension as well as septic shock 3. Paroxysmal atrial fibrillation 4. Chronic migraine headache 5. Chronic diarrhea 6. Nonobstructive right intrarenal calculus. 7. Fatty infiltration of liver 8. DVT prophylaxis SC heparin Recommendations: 1. I have discussed the results of my overview and impressions with the patient 2. Options for management were reviewed Active Medications Acetaminophen (Tylenol) 650 mg PO Q6H PRN PRN PRN Reason: Mild Pain (1-3)/Temp > 100.7 F Last Admin: 10/12/18 11:21 Dose: 650 mg Amitriptyline HCl (Elavil) 10 mg PO QHS [facility] Last Admin: 10/11/18 20:50 Dose: 10 mg Aspirin (Aspirin, Baby) 81 mg PO DAILYCM [facility] Last Admin: 10/12/18 09:34 Dose: 81 mg Famotidine (Pepcid) 20 mg PO DAILY [facility] Last Admin: 10/12/18 09:34 Dose: 20 mg Fentanyl Citrate (Sublimaze (100mcg Ampule)) 50 mcg IV Q3H PRN PRN PRN Reason: PAIN Last Admin: 10/12/18 11:22 Dose: 50 mcg Heparin Sodium (Porcine) (Heparin Na) 5,000 unit SC Q12 [facility] Sodium Chloride () 1,000 mls @ 200 mls/hr IV .Q5H [facility] Last Admin: 10/12/18 11:23 Dose: 200 mls/hr Ciprofloxacin (Cipro) 400 mg in 200 mls @ 200 mls/hr IV DAILY [facility] Last Admin: 10/12/18 09:35 Dose: 200 mls/hr Metronidazole (Flagyl) 500 mg in 100 mls @ 100 mls/hr IV Q8 [facility] Last Admin: 10/12/18 14:04 Dose: 100 mls/hr Ondansetron HCl (Zofran) 4 mg IV Q6H PRN PRN PRN Reason: NAUSEA Last Admin: 10/12/18 09:41 Dose: 4 mg Sodium Chloride () 5 - 15 ml IV UD PRN PRN Reason: SALINE FLUSH Last Admin: 10/12/18 14:11 Dose: 10 ml Clinical Impression(s) from Imaging Studies Abdomen/Pelvis CT 10/11/18 09:00 IMPRESSION: Nonobstructive right intrarenal calculus. Fatty infiltration of liver Multiple small lymph nodes are seen in the root of the mesentery. Electronically Signed: Jake Johnson MD at 12:54 EST Tel [phone], Service support , Chest X-Ray 10/11/18 09:00 IMPRESSION: No acute abnormality is seen. Findings suggestive of emphysematous changes. Electronically Signed: Jake Johnson MD at 11:36 EST Tel [phone], Service support , Code Visit Inpatient E&M: 60526 Subs Hosp L3
--- NOTE | 2018-10-12 14:34 | PN_ITS ---
<Rebecca Estrada - Last Filed: 10/12/18 14:34> Patient Problems: Active and Suspected Problems Nausea and vomiting (Acute) Subjective: Patient seen and examined. Denies further diarrhea. Complains of abdominal pain and nausea. No further emesis. - Physical Exam General: Alert, Oriented x3, Cooperative HEENT: Atraumatic, PERRLA, EOMI, Normocephalic Neck: Supple, No JVD, Negative Carotid Bruits Lungs: Clear to auscultation, Normal air movement Cardiovascular: Regular rate, Regular Rhythm, Normal S1, Normal S2, No murmurs Abdomen: Bowel Sounds Present, Soft, Non-Distended, Tender - Generalized Extremities: No clubbing, No cyanosis, No edema, Capillary Refill Less than 3 Seconds Skin: No rashes, No breakdown Musculoskeletal: No Tenderness to Palpation of Joints or Extremities Neurological: Cranial nerves II-XII grossly intact, Neuro grossly intact Psych/Mental Status: Normal Affect, Appropriate Vital Signs Temp Pulse Resp BP Pulse Ox 98.0 F 71 18 108/67 97 10/12/18 14:07 10/12/18 14:07 10/12/18 14:07 10/12/18 14:07 10/12/18 14:07 Oxygen Flow Rate (L/min) 1 Oxygen Delivery Method Room Air Weight: 159 lb 2.78 oz Body Mass Index (BMI) 23.5 Intake and Output for Last 24 Hours 10/10/18 10/11/18 10/12/18 23:59 23:59 23:59 Intake Total 3272 / 3272 2843 / 2843 Balance 3272 / 3272 2843 / 2843 Microbiology Past 72 Hours 10/12/18 00:05 Urine Culture - Preliminary Urine, Clean Catch Culture exhibits no growth. 10/12/18 02:20 Enteric Bacteriology - Final Stool Laboratory Tests Past 24 Hrs 10/11/18 10/11/18 10/12/18 15:15 18:15 00:05 WBC RBC Hgb Hct MCV MCH MCHC RDW RDW Differential Plt Count MPV Immature Gran % (Auto) Neut % (Auto) Lymph % (Auto) Holt % (Auto) Eos % (Auto) Baso % (Auto) Absolute Neuts (auto) Absolute Lymphs (auto) Total Counted PT 13.7 INR 1.1 APTT 29.2 Sodium Potassium Chloride Carbon Dioxide Anion Gap BUN Creatinine Estim Creat Clear Calc Est GFR (MDRD) Af Amer Est GFR (MDRD) Non-Af BUN/Creatinine Ratio Glucose Lactic Acid 2.8 H Calcium Urine Color Yellow Urine Clarity Clear Urine pH 8.0 Ur Specific [place] 1.010 Urine Protein 30 H Urine Glucose (UA) Normal Urine Ketones Negative Urine Occult Blood 10 H Urine Nitrite Negative Urine Bilirubin Negative Urine Urobilinogen Normal Ur Leukocyte Esterase 25 H Urine RBC 0 SEEN Urine WBC 5-10 SEEN Ur Squamous Epith Cells 0-5 SEEN Urine Bacteria 0 SEEN Hyaline Casts 50-100 SEEN Urine Mucus 0 SEEN 10/12/18 10/12/18 07:58 07:58 WBC 7.8 RBC 3.20 L Hgb 10.3 L Hct 30.5 L MCV 95.3 H MCH 32.2 H MCHC 33.8 RDW 13.6 RDW Differential 47.2 H Plt Count 190 MPV 9.5 Immature Gran % (Auto) 0.100 Neut % (Auto) 77.3 H Lymph % (Auto) 13.5 L Holt % (Auto) 7.6 Eos % (Auto) 1.0 Baso % (Auto) 0.5 Absolute Neuts (auto) 6.0 Absolute Lymphs (auto) 1.05 Total Counted Not Reportable PT INR APTT Sodium 136 Potassium 3.3 L Chloride 97 L Carbon Dioxide 32.0 Anion Gap 7 BUN 19 H Creatinine 1.69 H Estim Creat Clear Calc 49.97 Est GFR (MDRD) Af Amer 55 L Est GFR (MDRD) Non-Af 45 L BUN/Creatinine Ratio 11.2 Glucose 92 Lactic Acid Calcium 7.1 L Urine Color Urine Clarity Urine pH Ur Specific [place] Urine Protein Urine Glucose (UA) Urine Ketones Urine Occult Blood Urine Nitrite Urine Bilirubin Urine Urobilinogen Ur Leukocyte Esterase Urine RBC Urine WBC Ur Squamous Epith Cells Urine Bacteria Hyaline Casts Urine Mucus Medical Necessity - Tobacco Use Smoking Status: Never smoker Tobacco Use: Non-smoker Assessment/Plan All Active Problems GI bleed (Resolved) CAD (coronary artery disease) (Ruled-out) Nausea and vomiting (Acute) Perforated bowel (Resolved) Severe sepsis (Resolved) Diarrhea (Acute) Tachycardia (Resolved) 1. Septic shock secondary to suspected viral gastroenteritis-enteric bacteriology negative. Hypotension improved. Leukocytosis resolved. Afebrile. Continue IV Cipro and IV Flagyl empirically. Urine culture shows no growth. CT of abdomen and pelvis on admission showed nonobstructive right intrarenal calculus, fatty infiltration of the liver, multiple small lymph nodes seen in the root of the mesentery. Advance diet as tolerated. Zofran as needed for nausea. 2. Acute kidney injury-secondary to dehydration as a result of #1. Improved with IV fluids. Trend BMP. 3. History of paroxysmal atrial fibrillation-not on anticoagulation given brief episode. 4. Chronic diarrhea-recommend outpatient follow-up for colonoscopy. 5. Chronic headaches-continue home amitriptyline/maxalt regimen. DVT prophylaxis-heparin subcu. This patient was seen by RITIKA Ellis under the supervision of Dr. Bloom. <Thuan Bloom - Last Filed: 10/12/18 16:22> - Physical Exam Vital Signs Temp Pulse Resp BP Pulse Ox 98.0 F 71 18 108/67 97 10/12/18 14:07 10/12/18 14:07 10/12/18 14:07 10/12/18 14:07 10/12/18 14:07 Oxygen Flow Rate (L/min) 1 Oxygen Delivery Method Room Air Weight: 72.2 kg Body Mass Index (BMI) 23.5 Intake and Output for Last 24 Hours 10/10/18 10/11/18 10/12/18 23:59 23:59 23:59 Intake Total 3272 / 3272 2843 / 2843 Balance 3272 / 3272 2843 / 2843 Microbiology Past 72 Hours 10/12/18 00:05 Urine Culture - Preliminary Urine, Clean Catch Culture exhibits no growth. 10/12/18 02:20 Enteric Bacteriology - Final Stool Laboratory Tests Past 24 Hrs 10/11/18 10/12/18 10/12/18 18:15 00:05 07:58 WBC 7.8 RBC 3.20 L Hgb 10.3 L Hct 30.5 L MCV 95.3 H MCH 32.2 H MCHC 33.8 RDW 13.6 RDW Differential 47.2 H Plt Count 190 MPV 9.5 Immature Gran % (Auto) 0.100 Neut % (Auto) 77.3 H Lymph % (Auto) 13.5 L Holt % (Auto) 7.6 Eos % (Auto) 1.0 Baso % (Auto) 0.5 Absolute Neuts (auto) 6.0 Absolute Lymphs (auto) 1.05 Total Counted Not Reportable Sodium Potassium Chloride Carbon Dioxide Anion Gap BUN Creatinine Estim Creat Clear Calc Est GFR (MDRD) Af Amer Est GFR (MDRD) Non-Af BUN/Creatinine Ratio Glucose Lactic Acid 2.8 H Calcium Urine Color Yellow Urine Clarity Clear Urine pH 8.0 Ur Specific [place] 1.010 Urine Protein 30 H Urine Glucose (UA) Normal Urine Ketones Negative Urine Occult Blood 10 H Urine Nitrite Negative Urine Bilirubin Negative Urine Urobilinogen Normal Ur Leukocyte Esterase 25 H Urine RBC 0 SEEN Urine WBC 5-10 SEEN Ur Squamous Epith Cells 0-5 SEEN Urine Bacteria 0 SEEN Hyaline Casts 50-100 SEEN Urine Mucus 0 SEEN 10/12/18 07:58 WBC RBC Hgb Hct MCV MCH MCHC RDW RDW Differential Plt Count MPV Immature Gran % (Auto) Neut % (Auto) Lymph % (Auto) Holt % (Auto) Eos % (Auto) Baso % (Auto) Absolute Neuts (auto) Absolute Lymphs (auto) Total Counted Sodium 136 Potassium 3.3 L Chloride 97 L Carbon Dioxide 32.0 Anion Gap 7 BUN 19 H Creatinine 1.69 H Estim Creat Clear Calc 49.97 Est GFR (MDRD) Af Amer 55 L Est GFR (MDRD) Non-Af 45 L BUN/Creatinine Ratio 11.2 Glucose 92 Lactic Acid Calcium 7.1 L Urine Color Urine Clarity Urine pH Ur Specific [place] Urine Protein Urine Glucose (UA) Urine Ketones Urine Occult Blood Urine Nitrite Urine Bilirubin Urine Urobilinogen Ur Leukocyte Esterase Urine RBC Urine WBC Ur Squamous Epith Cells Urine Bacteria Hyaline Casts Urine Mucus Assessment/Plan This patient was seen in conjunction with RITIKA Ellis . I have independently interviewed and examined the patient and reviewed pertinent historical, laboratory, and other data. Please refer to RITIKA Ellis note for details of this patient's presentation, findings, and recommendations. I have reviewed RITIKA Ellis note and concur with documented findings. In brief, patient is a 52-year-old male with past medical history significant for paroxysmal atrial fibrillation presented with nausea vomiting diarrhea as well as lightheadedness. An assessment of septic shock secondary to suspected viral gastroenteritis as well as acute kidney injury made admitted to a monitored bed for subsequent management Physical Examination: GENERAL: cooperative HEENT: Atraumatic; moist oral mucosa EYES; Anicteric, Normal Conjunctiva NECK; supple, normal thyroid, no distended JVD. RESPIRATORY: Diminished to auscultation bilaterally, CARDIOVASCULAR: Regular S1 S2, no audible murmurs GI: soft, non-tender, normoactive bowel sounds, : No Renal angle tenderness; EXTREMITIES: No edema, no clubbing, no cyanosis. MUSCULOSKELETAL: No Joint Tenderness; no muscle waisting NEURO: Awake; no lateralizing signs. SKIN: No Rash PSYCH; Normal affect Assessment: 1. Septic shock secondary to suspected acute viral gastroenteritis 2. Acute kidney injury from ATN from hypotension as well as septic shock 3. Paroxysmal atrial fibrillation 4. Chronic migraine headache 5. Chronic diarrhea 6. Nonobstructive right intrarenal calculus. 7. Fatty infiltration of liver 8. DVT prophylaxis SC heparin Recommendations: 1. I have discussed the results of my overview and impressions with the patient 2. Options for management were reviewed Active Medications Acetaminophen (Tylenol) 650 mg PO Q6H PRN PRN PRN Reason: Mild Pain (1-3)/Temp > 100.7 F Last Admin: 10/12/18 11:21 Dose: 650 mg Amitriptyline HCl (Elavil) 10 mg PO QHS [facility] Last Admin: 10/11/18 20:50 Dose: 10 mg Aspirin (Aspirin, Baby) 81 mg PO DAILYCM [facility] Last Admin: 10/12/18 09:34 Dose: 81 mg Famotidine (Pepcid) 20 mg PO DAILY [facility] Last Admin: 10/12/18 09:34 Dose: 20 mg Fentanyl Citrate (Sublimaze (100mcg Ampule)) 50 mcg IV Q3H PRN PRN PRN Reason: PAIN Last Admin: 10/12/18 11:22 Dose: 50 mcg Heparin Sodium (Porcine) (Heparin Na) 5,000 unit SC Q12 [facility] Sodium Chloride () 1,000 mls @ 200 mls/hr IV .Q5H [facility] Last Admin: 10/12/18 11:23 Dose: 200 mls/hr Ciprofloxacin (Cipro) 400 mg in 200 mls @ 200 mls/hr IV DAILY [facility] Last Admin: 10/12/18 09:35 Dose: 200 mls/hr Metronidazole (Flagyl) 500 mg in 100 mls @ 100 mls/hr IV Q8 [facility] Last Admin: 10/12/18 14:04 Dose: 100 mls/hr Ondansetron HCl (Zofran) 4 mg IV Q6H PRN PRN PRN Reason: NAUSEA Last Admin: 10/12/18 09:41 Dose: 4 mg Sodium Chloride () 5 - 15 ml IV UD PRN PRN Reason: SALINE FLUSH Last Admin: 10/12/18 14:11 Dose: 10 ml Clinical Impression(s) from Imaging Studies Abdomen/Pelvis CT 10/11/18 09:00 IMPRESSION: Nonobstructive right intrarenal calculus. Fatty infiltration of liver Multiple small lymph nodes are seen in the root of the mesentery. Electronically Signed: Jake Johnson MD at 12:54 EST Tel [phone], Service support , Chest X-Ray 10/11/18 09:00 IMPRESSION: No acute abnormality is seen. Findings suggestive of emphysematous changes. Electronically Signed: Jake Johnson MD at 11:36 EST Tel [phone], Service support , Code Visit Inpatient E&M: 11696 Subs Hosp L3
[2018-10-12] MEDS: Heparin Injection (Vial) 5,000 UNIT/ML VIAL 5000 UNIT SC (21:39)
[2018-10-12] MEDS: Amitriptyline 10 MG Tablet PO (21:50)
[2018-10-13] MEDS: 0.9% Normal Saline 1,000 ML 200 ML IV ×2 (02:31→06:54)
[2018-10-13] MEDS: fentaNYL 100 MCG/2 ML Ampul 50 MCG IV ×2 (02:38→09:39)
[2018-10-13 02:50] VITALS: BP 108/71; PULSE 67; RESP 17; TEMP 36.6; O2SAT 98
[2018-10-13 03:23] VITALS: PULSE 70
[2018-10-13] MEDS: Ondansetron 4 MG/2 ML Vial IV (06:51)
[2018-10-13 07:02] LABS: Hematocrit 31.2 % (40-54); Hemoglobin 10.4 g/dl (13.0-16.5); Mean Corp Hgb Conc 33.3 g/gl (32-36); Mean Corpuscular Hgb 32.6 pg (27.0-32.0); Mean Corpuscular Volume 97.8 fL (80-94); Mean Platelet Vol. 9.5 fl (6.2-12.0); Platelet Count 193 K/mm3 (150-450); RBC Distribution Width CV 13.5 % (11.6-14.6); RBC Distribution Width SD 47.9 fl (35.1-43.9); Red Blood Count 3.19 M/mm3 (4.6-6.2); White Blood Count 4.7 K/mm3 (4.4-11.0)
[2018-10-13 07:03] VITALS: PULSE 63
[2018-10-13 07:04] LABS: Scan Indicated on CBC? Y/N NO
[2018-10-13 07:15] LABS: Anion Gap 8 (5-15); BUN 15 mg/dL (7-18); BUN/Creat Ratio 12.8 RATIO (10-20); Calcium,Total 7.3 mg/dL (8.5-10.1); Chloride 108 mmol/L (98-107); Creatinine, Serum 1.17 mg/dL (0.70-1.30); EST Glomerular Filtration Rate 69 mL/min (>60); Est Glom Filt Rate - Afr Amer 83 mL/min (>60); Estimated Creatinine Clearance 72.18 ml/min; Glucose 84 mg/dL (74-106); Potassium 3.6 mmol/L (3.5-5.1); Sodium Level 140 mmol/L (136-145)
[2018-10-13 08:45] VITALS: BP 105/67; PULSE 74; RESP 18; TEMP 36.6; O2SAT 98
[2018-10-13] MEDS: Aspirin 81 MG TAB.CHEW PO (09:38)
[2018-10-13] MEDS: Heparin Injection (Vial) 5,000 UNIT/ML VIAL 5000 UNIT SC (09:38)
[2018-10-13] MEDS: Ciprofloxacin 400 MG/200 ML BAG 200 MG IV (09:39)
[2018-10-13] MEDS: Famotidine 20 MG Tablet PO (09:39)
--- NOTE | 2018-10-13 10:44 | PCM.DC ---
- Discharge Diagnoses Current Active Problems: Current Active and Chronic Problems Acute gastroenteritis Acute kidney injury You will use the following diet at home:: No restrictions Discharge Activity: Return to Normal Activity Call your doctor if you observe: Fever of 101 or Higher, Shortness of breath, Dizziness, Fainting spells, Chest pain, Uncontrolled pain Allergies/Adverse Reactions: Allergies Penicillins Allergy (Verified 10/11/18 08:45) Anaphylaxis erythromycin base [Erythromycin Base] Adverse Reaction (Verified 10/11/18 08:45) Nausea milk Adverse Reaction (Verified 10/11/18 08:45) Upset Stomach Medications to take at Discharge Ondansetron [Zofran Odt] 4 mg PO Q8H PRN PRN 12/18/13 Rizatriptan Benzoate [Maxalt] 10 mg PO .X1 PRN 12/18/13 Amitriptyline HCl [Elavil] 10 mg PO QHS 09/19/17 Famotidine [Pepcid] 20 mg PO BID 08/09/18 Aspirin 81 mg PO DAILY 10/11/18 Potassium Chloride [Klor-Con M20] 20 meq PO BID 10/11/18 Lactobacillus Acidophilus [Probiotic Acidophilus] 1 each PO DAILY #30 tablet 10/13/18 The following prescriptions were given: Lactobacillus Acidophilus [Probiotic Acidophilus] 1 each PO DAILY #30 tablet Primary Care Physician: Drew Hardy MD [Primary Care Provider] - Please follow up with your Primary Care Physician in: 1 Week Test Results: Test results from this visit will be discussed in further detail at your follow-up appointment, if applicable. Please Follow Up With: Primary metaphysicist When: 1-2 weeks Proposed Discharge Date: 10/13/18
--- NOTE | 2018-10-13 10:49 | PCM.DC.SUM ---
<Rebecca Estrada - Last Filed: 10/13/18 10:54> Discharge Date and Diagnosis Date of Admission: 10/11/18 Date of Discharge: 10/13/18 - Primary Discharge Diagnosis Active and Suspected Problems 1. Septic shock secondary to suspected viral gastroenteritis, enteric bacteriology negative 2. Acute kidney injury secondary to dehydration as a result of #1, resolved 3. History of paroxysmal atrial fibrillation 4. Chronic diarrhea, unclear etiology 5. Chronic headaches - Secondary Discharge Diagnosis Chronic Problems Gastroesophageal reflux disease (Chronic) Hospital Course and Treatment Imaging Results: Diagnostic Data Abdomen/Pelvis CT 10/11/18 09:00 IMPRESSION: Nonobstructive right intrarenal calculus. Fatty infiltration of liver Multiple small lymph nodes are seen in the root of the mesentery. Electronically Signed: Jake Johnson MD at 12:54 EST Tel [phone], Service support , Chest X-Ray 10/11/18 09:00 IMPRESSION: No acute abnormality is seen. Findings suggestive of emphysematous changes. Electronically Signed: Jake Johnson MD at 11:36 EST Tel [phone], Service support , Operations: None Procedures: None Summary of Care Provided: The patient is a 52 year old M admitted 10/11/2018 due to nausea, vomiting, diarrhea. 1. Septic shock secondary to suspected viral gastroenteritis-enteric bacteriology negative. Hypotension improved. Leukocytosis resolved. Afebrile. Patient received IV Cipro and IV Flagyl empirically. No further antibiotics at discharge. Urine culture shows no growth. CT of abdomen and pelvis on admission showed nonobstructive right intrarenal calculus, fatty infiltration of the liver, multiple small lymph nodes seen in the root of the mesentery. Low stimulus diet at discharge. Started on daily probiotic acidophilus. Patient states he has tried Imodium in the past and has had associated nausea, vomiting. Patient will follow up with primary care physician in 1 week. Follow-up with primary investigation division sergeant in 1-2 weeks. Recommend colonoscopy with biopsy to exclude microscopic colitis as etiology of chronic diarrhea. 2. Acute kidney injury-secondary to dehydration as a result of #1. Resolved with IV fluids. 3. History of paroxysmal atrial fibrillation-not on anticoagulation given brief episode. 4. Chronic diarrhea-recommend outpatient follow-up for colonoscopy as noted above. 5. Chronic headaches-continue home amitriptyline/maxalt regimen. General: Alert, Oriented x3, Cooperative HEENT: Atraumatic, PERRLA, EOMI, Normocephalic Neck: Supple, No JVD, Negative Carotid Bruits Lungs: Clear to auscultation, Normal air movement Cardiovascular: Regular rate, Regular Rhythm, Normal S1, Normal S2, No murmurs Abdomen: Bowel Sounds Present, Soft, Non-Distended, nontender Extremities: No clubbing, No cyanosis, No edema, Capillary Refill Less than 3 Seconds Skin: No rashes, No breakdown Musculoskeletal: No Tenderness to Palpation of Joints or Extremities Neurological: Cranial nerves II-XII grossly intact, Neuro grossly intact Psych/Mental Status: Normal Affect, Appropriate Patient seen and examined prior to discharge. Physical assessment as noted above. Patient is stable for discharge with follow up recommendations as noted above. This patient was seen by RITIKA Ellis under the supervision of Dr. Bloom. - Physical Exam Vital Signs Temp Pulse Resp BP Pulse Ox 97.9 F 74 18 105/67 98 10/13/18 08:45 10/13/18 08:45 10/13/18 08:45 10/13/18 08:45 10/13/18 08:45 Oxygen Flow Rate (L/min) 1 Oxygen Delivery Method Room Air Weight: 159 lb 2.78 oz Body Mass Index (BMI) 23.5 Intake and Output for Last 24 Hours 10/11/18 10/12/18 10/13/18 23:59 23:59 23:59 Intake Total 3272 / 3272 5916 / 5916 1539 / 1539 Balance 3272 / 3272 5916 / 5916 1539 / 1539 Microbiology Past 72 Hours 10/12/18 15:45 Stool Lactoferrin - Final Stool 10/12/18 00:05 Urine Culture - Preliminary Urine, Clean Catch Culture exhibits no growth. 10/12/18 02:20 Enteric Bacteriology - Final Stool Laboratory Tests Past 24 Hrs 10/13/18 10/13/18 06:38 06:38 WBC 4.7 RBC 3.19 L Hgb 10.4 L Hct 31.2 L MCV 97.8 H MCH 32.6 H MCHC 33.3 RDW 13.5 RDW Differential 47.9 H Plt Count 193 MPV 9.5 Sodium 140 Potassium 3.6 Chloride 108 H Carbon Dioxide 24.0 Anion Gap 8 BUN 15 Creatinine 1.17 Estim Creat Clear Calc 72.18 Est GFR (MDRD) Af Amer 83 Est GFR (MDRD) Non-Af 69 BUN/Creatinine Ratio 12.8 Glucose 84 Calcium 7.3 L Discharge Diet: - - Low gastric stimulus Discharge Activity: Return to Normal Activity Call your doctor if you observe: Fever of 101 or Higher, Shortness of breath, Dizziness, Fainting spells, Chest pain, Uncontrolled pain Home Medications: Medications to take at Discharge Ondansetron [Zofran Odt] 4 mg PO Q8H PRN PRN 12/18/13 Rizatriptan Benzoate [Maxalt] 10 mg PO .X1 PRN 12/18/13 Amitriptyline HCl [Elavil] 10 mg PO QHS 09/19/17 Famotidine [Pepcid] 20 mg PO BID 08/09/18 Aspirin 81 mg PO DAILY 10/11/18 Potassium Chloride [Klor-Con M20] 20 meq PO BID 10/11/18 Lactobacillus Acidophilus [Probiotic Acidophilus] 1 each PO DAILY #30 tablet 10/13/18 Following Prescrptions Were Given to Patient: Lactobacillus Acidophilus [Probiotic Acidophilus] 1 each PO DAILY #30 tablet Primary Care Physician: Drew Hardy MD [Primary Care Provider] - Please follow up with your Primary Care Physician in: 1 Week Please Follow Up With: Primary investigation division sergeant When: 1-2 weeks Disposition: Home Minutes spent on discharge:: 35 Patient Condition:: Stable Medical Necessity - Tobacco Use Smoking Status: Never smoker Tobacco Use: Non-smoker Meaningful Use Info Meaningful Use Diagnoses (Choose all that apply): None applicable <Thuan Bloom - Last Filed: 10/13/18 13:10> Discharge Date and Diagnosis - Secondary Discharge Diagnosis Chronic Problems Gastroesophageal reflux disease (Chronic) Hospital Course and Treatment Summary of Care Provided: This patient was seen in conjunction with RITIKA Ellis . I have independently interviewed and examined the patient and reviewed pertinent historical, laboratory, and other data. Please refer to RITIKA Ellis note for details of this patient's presentation, findings, and recommendations. I have reviewed RITIKA Ellis note and concur with documented findings. In brief, patient is a 52-year-old male with past medical history significant for paroxysmal atrial fibrillation presented with nausea vomiting diarrhea as well as lightheadedness. An assessment of septic shock secondary to suspected viral gastroenteritis as well as acute kidney injury made admitted to a monitored bed for subsequent management Assessment: 1. Septic shock secondary to suspected acute viral gastroenteritis 2. Acute kidney injury from ATN from hypotension as well as septic shock 3. Paroxysmal atrial fibrillation 4. Chronic migraine headache 5. Chronic diarrhea 6. Nonobstructive right intrarenal calculus. 7. Fatty infiltration of liver 8. DVT prophylaxis SC heparin Hospital course as discussed above by Rebecca Estrada NP-C - Physical Exam Vital Signs Temp Pulse Resp BP Pulse Ox 97.9 F 74 18 105/67 98 10/13/18 08:45 10/13/18 08:45 10/13/18 08:45 10/13/18 08:45 10/13/18 08:45 Oxygen Flow Rate (L/min) 1 Oxygen Delivery Method Room Air Weight: 72.2 kg Body Mass Index (BMI) 23.5 Intake and Output for Last 24 Hours 10/11/18 10/12/18 10/13/18 23:59 23:59 23:59 Intake Total 3272 / 3272 5916 / 5916 4295 / 4295 Balance 3272 / 3272 5916 / 5916 4295 / 4295 Microbiology Past 72 Hours 10/12/18 15:45 Stool Lactoferrin - Final Stool 10/12/18 00:05 Urine Culture - Preliminary Urine, Clean Catch Culture exhibits no growth. 10/12/18 02:20 Enteric Bacteriology - Final Stool Laboratory Tests Past 24 Hrs 10/13/18 10/13/18 06:38 06:38 WBC 4.7 RBC 3.19 L Hgb 10.4 L Hct 31.2 L MCV 97.8 H MCH 32.6 H MCHC 33.3 RDW 13.5 RDW Differential 47.9 H Plt Count 193 MPV 9.5 Sodium 140 Potassium 3.6 Chloride 108 H Carbon Dioxide 24.0 Anion Gap 8 BUN 15 Creatinine 1.17 Estim Creat Clear Calc 72.18 Est GFR (MDRD) Af Amer 83 Est GFR (MDRD) Non-Af 69 BUN/Creatinine Ratio 12.8 Glucose 84 Calcium 7.3 L Code Visit OBSV E&M: 25508 Observation care discharge
--- NOTE | 2018-10-13 10:53 | DS.PCM_ITS ---
<Rebecca Estrada - Last Filed: 10/13/18 10:54> Discharge Date and Diagnosis Date of Admission: 10/11/18 Date of Discharge: 10/13/18 - Primary Discharge Diagnosis Active and Suspected Problems 1. Septic shock secondary to suspected viral gastroenteritis, enteric bacteriology negative 2. Acute kidney injury secondary to dehydration as a result of #1, resolved 3. History of paroxysmal atrial fibrillation 4. Chronic diarrhea, unclear etiology 5. Chronic headaches - Secondary Discharge Diagnosis Chronic Problems Gastroesophageal reflux disease (Chronic) Hospital Course and Treatment Imaging Results: Diagnostic Data Abdomen/Pelvis CT 10/11/18 09:00 IMPRESSION: Nonobstructive right intrarenal calculus. Fatty infiltration of liver Multiple small lymph nodes are seen in the root of the mesentery. Electronically Signed: Jake Johnson MD at 12:54 EST Tel [phone], Service support , Chest X-Ray 10/11/18 09:00 IMPRESSION: No acute abnormality is seen. Findings suggestive of emphysematous changes. Electronically Signed: Jake Johnson MD at 11:36 EST Tel [phone], Service support , Operations: None Procedures: None Summary of Care Provided: The patient is a 52 year old M admitted 10/11/2018 due to nausea, vomiting, diarrhea. 1. Septic shock secondary to suspected viral gastroenteritis-enteric bacteriology negative. Hypotension improved. Leukocytosis resolved. Afebrile. Patient received IV Cipro and IV Flagyl empirically. No further antibiotics at discharge. Urine culture shows no growth. CT of abdomen and pelvis on admission showed nonobstructive right intrarenal calculus, fatty infiltration of the liver, multiple small lymph nodes seen in the root of the mesentery. Low stimulus diet at discharge. Started on daily probiotic acidophilus. Patient states he has tried Imodium in the past and has had associated nausea, vomiting. Patient will follow up with primary care physician in 1 week. Follow-up with primary title insurance examiner in 1-2 weeks. Recommend colonoscopy with biopsy to exclude microscopic colitis as etiology of chronic diarrhea. 2. Acute kidney injury-secondary to dehydration as a result of #1. Resolved with IV fluids. 3. History of paroxysmal atrial fibrillation-not on anticoagulation given brief episode. 4. Chronic diarrhea-recommend outpatient follow-up for colonoscopy as noted above. 5. Chronic headaches-continue home amitriptyline/maxalt regimen. General: Alert, Oriented x3, Cooperative HEENT: Atraumatic, PERRLA, EOMI, Normocephalic Neck: Supple, No JVD, Negative Carotid Bruits Lungs: Clear to auscultation, Normal air movement Cardiovascular: Regular rate, Regular Rhythm, Normal S1, Normal S2, No murmurs Abdomen: Bowel Sounds Present, Soft, Non-Distended, nontender Extremities: No clubbing, No cyanosis, No edema, Capillary Refill Less than 3 Seconds Skin: No rashes, No breakdown Musculoskeletal: No Tenderness to Palpation of Joints or Extremities Neurological: Cranial nerves II-XII grossly intact, Neuro grossly intact Psych/Mental Status: Normal Affect, Appropriate Patient seen and examined prior to discharge. Physical assessment as noted above. Patient is stable for discharge with follow up recommendations as noted above. This patient was seen by RITIKA Ellis under the supervision of Dr. Bloom. - Physical Exam Vital Signs Temp Pulse Resp BP Pulse Ox 97.9 F 74 18 105/67 98 10/13/18 08:45 10/13/18 08:45 10/13/18 08:45 10/13/18 08:45 10/13/18 08:45 Oxygen Flow Rate (L/min) 1 Oxygen Delivery Method Room Air Weight: 159 lb 2.78 oz Body Mass Index (BMI) 23.5 Intake and Output for Last 24 Hours 10/11/18 10/12/18 10/13/18 23:59 23:59 23:59 Intake Total 3272 / 3272 5916 / 5916 1539 / 1539 Balance 3272 / 3272 5916 / 5916 1539 / 1539 Microbiology Past 72 Hours 10/12/18 15:45 Stool Lactoferrin - Final Stool 10/12/18 00:05 Urine Culture - Preliminary Urine, Clean Catch Culture exhibits no growth. 10/12/18 02:20 Enteric Bacteriology - Final Stool Laboratory Tests Past 24 Hrs 10/13/18 10/13/18 06:38 06:38 WBC 4.7 RBC 3.19 L Hgb 10.4 L Hct 31.2 L MCV 97.8 H MCH 32.6 H MCHC 33.3 RDW 13.5 RDW Differential 47.9 H Plt Count 193 MPV 9.5 Sodium 140 Potassium 3.6 Chloride 108 H Carbon Dioxide 24.0 Anion Gap 8 BUN 15 Creatinine 1.17 Estim Creat Clear Calc 72.18 Est GFR (MDRD) Af Amer 83 Est GFR (MDRD) Non-Af 69 BUN/Creatinine Ratio 12.8 Glucose 84 Calcium 7.3 L Discharge Diet: - - Low gastric stimulus Discharge Activity: Return to Normal Activity Call your doctor if you observe: Fever of 101 or Higher, Shortness of breath, Dizziness, Fainting spells, Chest pain, Uncontrolled pain Home Medications: Medications to take at Discharge Ondansetron [Zofran Odt] 4 mg PO Q8H PRN PRN 12/18/13 Rizatriptan Benzoate [Maxalt] 10 mg PO .X1 PRN 12/18/13 Amitriptyline HCl [Elavil] 10 mg PO QHS 09/19/17 Famotidine [Pepcid] 20 mg PO BID 08/09/18 Aspirin 81 mg PO DAILY 10/11/18 Potassium Chloride [Klor-Con M20] 20 meq PO BID 10/11/18 Lactobacillus Acidophilus [Probiotic Acidophilus] 1 each PO DAILY #30 tablet 10/13/18 Following Prescrptions Were Given to Patient: Lactobacillus Acidophilus [Probiotic Acidophilus] 1 each PO DAILY #30 tablet Primary Care Physician: Drew Hardy MD [Primary Care Provider] - Please follow up with your Primary Care Physician in: 1 Week Please Follow Up With: Primary title insurance examiner When: 1-2 weeks Disposition: Home Minutes spent on discharge:: 35 Patient Condition:: Stable Medical Necessity - Tobacco Use Smoking Status: Never smoker Tobacco Use: Non-smoker Meaningful Use Info Meaningful Use Diagnoses (Choose all that apply): None applicable <Thuan Bloom - Last Filed: 10/13/18 13:10> Discharge Date and Diagnosis - Secondary Discharge Diagnosis Chronic Problems Gastroesophageal reflux disease (Chronic) Hospital Course and Treatment Summary of Care Provided: This patient was seen in conjunction with RITIKA Ellis . I have independently interviewed and examined the patient and reviewed pertinent historical, laboratory, and other data. Please refer to RITIKA Ellis note for details of this patient's presentation, findings, and recommendations. I have reviewed RITIKA Ellis note and concur with documented findings. In brief, patient is a 52-year-old male with past medical history significant for paroxysmal atrial fibrillation presented with nausea vomiting diarrhea as well as lightheadedness. An assessment of septic shock secondary to suspected viral gastroenteritis as well as acute kidney injury made admitted to a monitored bed for subsequent management Assessment: 1. Septic shock secondary to suspected acute viral gastroenteritis 2. Acute kidney injury from ATN from hypotension as well as septic shock 3. Paroxysmal atrial fibrillation 4. Chronic migraine headache 5. Chronic diarrhea 6. Nonobstructive right intrarenal calculus. 7. Fatty infiltration of liver 8. DVT prophylaxis SC heparin Hospital course as discussed above by Rebecca Estrada NP-C - Physical Exam Vital Signs Temp Pulse Resp BP Pulse Ox 97.9 F 74 18 105/67 98 10/13/18 08:45 10/13/18 08:45 10/13/18 08:45 10/13/18 08:45 10/13/18 08:45 Oxygen Flow Rate (L/min) 1 Oxygen Delivery Method Room Air Weight: 72.2 kg Body Mass Index (BMI) 23.5 Intake and Output for Last 24 Hours 10/11/18 10/12/18 10/13/18 23:59 23:59 23:59 Intake Total 3272 / 3272 5916 / 5916 4295 / 4295 Balance 3272 / 3272 5916 / 5916 4295 / 4295 Microbiology Past 72 Hours 10/12/18 15:45 Stool Lactoferrin - Final Stool 10/12/18 00:05 Urine Culture - Preliminary Urine, Clean Catch Culture exhibits no growth. 10/12/18 02:20 Enteric Bacteriology - Final Stool Laboratory Tests Past 24 Hrs 10/13/18 10/13/18 06:38 06:38 WBC 4.7 RBC 3.19 L Hgb 10.4 L Hct 31.2 L MCV 97.8 H MCH 32.6 H MCHC 33.3 RDW 13.5 RDW Differential 47.9 H Plt Count 193 MPV 9.5 Sodium 140 Potassium 3.6 Chloride 108 H Carbon Dioxide 24.0 Anion Gap 8 BUN 15 Creatinine 1.17 Estim Creat Clear Calc 72.18 Est GFR (MDRD) Af Amer 83 Est GFR (MDRD) Non-Af 69 BUN/Creatinine Ratio 12.8 Glucose 84 Calcium 7.3 L Code Visit OBSV E&M: 10467 Observation care discharge
[2018-10-13 11:06] VITALS: PULSE 73
--- NOTE | 2018-10-13 13:20 | NURSING ---
Reviewed and agreed on all charting with Billie Melgoza RN
== END 2018-10-13 12:55 | disposition home or self-care (01) | DRG 871 ==
LOC: ED 09:33 → PCU 13:55
PROVIDERS: Nurse Practitioner Family; Admitting Provider Internal Medicine; Emergency Provider Emergency Medicine; Family Provider Family Medicine; PCP Family Medicine; Visit Provider Internal Medicine
DX: A41.89 Other specified sepsis (principal); R65.21 Severe sepsis with septic shock; N17.0 Acute kidney failure with tubular necrosis; A08.4 Viral intestinal infection, unspecified; K21.9 Gastro-esophageal reflux disease without esophagitis; E86.0 Dehydration; N20.0 Calculus of kidney; Z86.79 Personal history of other diseases of the circulatory system; K76.0 Fatty (change of) liver, not elsewhere classified; G43.909 Migraine, unspecified, not intractable, without status migrainosus
CPT/HCPCS: 36415; 71045; 74176; 80048; 80053; 81001; 82140; 83605; 83630; 84484; 85025; 85027; 85610; 85730; 87040; 87086; 87506; 93005; 97802; 99285; J7030; J7040; A4216; J0744; J2405

== ENCOUNTER 2018-10-16 09:47 | Inpatient (IN) | payer OTHER, SELFPAY ==
[2018-10-11 14:16] VITALS: BMI 23.5
[2018-10-16] VITALS (12 sets, daily range): BP systolic 106–133; BP diastolic 69–94; PULSE 78–99; RESP 16–18; TEMP 36.3–36.8; O2SAT 98–100; BMI 23.0; BMI 23.6; BMI 23.7
--- NOTE | 2018-10-16 10:10 | RAD_ITS ---
STUDY: X-RAY CHEST REASON FOR EXAM: Male, 52 years old. Nausea with vomiting and diarrhea. TECHNIQUE: Single frontal view of the chest. COMPARISON: October 11, 2018 FINDINGS: The lungs are clear and expanded. There is no demonstrated pleural abnormality. Normal size heart. Normal mediastinum and boris. Normal visualized pulmonary arteries. Normal visualized aortic arch and descending thoracic aorta. Normal visualized thoracic spine. Normal visualized ribs, clavicles, and shoulders. There is no demonstrated abnormality of the visualized soft tissue structures of the upper abdomen. RAD/Chest 1 View (Portable) IMPRESSION: Normal x-ray examination of the chest. Electronically Signed: Vikram Gambino MD at 11:32 EST , Service support ,
--- NOTE | 2018-10-16 10:11 | EKG12_ITS ---
Test Reason : VOMITTING Blood Pressure : / mmHG Vent. Rate : 095 BPM Atrial Rate : 095 BPM P-R Int : 140 ms QRS Dur : 080 ms QT Int : 432 ms P-R-T Axes : 048 -27 063 degrees QTc Int : 542 ms Normal sinus rhythm Nonspecific ST abnormality Prolonged QT Abnormal ECG Confirmed by AYDEE MITTAL ([id number]), make up editor ADRIÁN VILLAR ([id number]) on 10/30/2018 1:49:43 PM Referred By: SHANELL Confirmed By:AYDEE MITTAL
--- NOTE | 2018-10-16 10:11 | CT_ITS ---
STUDY: CT ABDOMEN AND PELVIS WITHOUT CONTRAST REASON FOR EXAM: Male, 52 years old. N/V/D. RADIATION DOSAGE (If Supplied By Facility): CTDIvol = ( 7.40 ) mGy, DLP = ( 367.82 ) mGycm TECHNIQUE: Transaxial images were obtained from the dome of the diaphragm to the symphysis pubis without oral contrast, and without intravenous contrast. Sagittal and coronal images were reconstructed. Individualized dose optimization techniques were used for this CT. COMPARISON: October 11, 2018 FINDINGS: The visualized lung bases are unremarkable. The visualized portions of the heart are within normal limits. There is decreased attenuation of the liver consistent with steatosis. Normal gallbladder and extrahepatic biliary system. Normal spleen. Normal pancreas. Normal bilateral adrenal glands. Normal right kidney. Normal left kidney. Normal visualized stomach. Fluid-filled small bowel and colon, suggesting enteritis. Otherwise normal colon. The appendix is visualized and appears normal. There is diffuse atherosclerotic calcification of the abdominal aorta, without a demonstrated aneurysm. Normal inferior vena cava. Normal retroperitoneum. Normal urinary bladder. Normal abdominal wall. Normal osseous structures. CT/Abdomen/Pelvis without Cont IMPRESSION: Fluid-filled bowel, suggesting enterocolitis. Mild liver steatosis. Electronically Signed: Addie Holland MD at 11:43 EST Tel , Service support ,
[2018-10-16] MEDS: Ondansetron 4 MG/2 ML Vial IV ×2 (10:51→17:15)
[2018-10-16] MEDS: 0.9% Normal Saline 1,000 ML 1000 ML IV ×2 (10:51→11:32)
[2018-10-16] MEDS: fentaNYL 100 MCG/2 ML Ampul 25 MCG IV (10:52)
[2018-10-16 11:01] LABS: Absolute Lymphocyte Count 1.03 X10^3/ul (0.83-4.51); Absolute Neutrophil Count 8.4 X10^3/uL (2.0-7.7); Basophil# 0.04 X10^3/uL; Basophil% 0.4 % (0-1); Eosinophil# 0.03 X10^3/uL; Eosinophils% 0.3 % (0-5); Hematocrit 47.2 % (40-54); Hemoglobin 16.6 g/dl (13.0-16.5); Lymphocyte # 1.03 X10^3/ul (4.0); Lymphocyte % 9.7 % (19-41); Mean Corp Hgb Conc 35.2 g/gl (32-36); Mean Corpuscular Hgb 32.9 pg (27.0-32.0); Mean Corpuscular Volume 93.7 fL (80-94); Mean Platelet Vol. 10.1 fl (6.2-12.0); Monocyte# 1.06 X10^3/uL; Neutrophil # 8.41 X10^3/uL (2.7-7.7); Neutrophil % 79.4 % (47-70); Platelet Count 378 K/mm3 (150-450); RBC Distribution Width CV 13.8 % (11.6-14.6); RBC Distribution Width SD 46.8 fl (35.1-43.9); Red Blood Count 5.04 M/mm3 (4.6-6.2); White Blood Count 10.6 K/mm3 (4.4-11.0)
[2018-10-16 11:10] LABS: POSITIVE COUNT NO; POSITIVE DIFFERENTIAL NO; POSITIVE MORPHOLOGY NO
[2018-10-16 11:11] LABS: International Normalized Ratio 1.1; Prothrombin Time (Protime)PT. 13.7 SECONDS (11.7-14.9)
[2018-10-16 11:12] LABS: Partial Thromboplast Time 32.1 Seconds (24.1-36.2)
[2018-10-16 11:20] LABS: ALB/GLOB Ratio 0.9 RATIO (0.9-2.4); AST(SGOT) 13 U/L (15-37); Alanine Aminotransfer ALT/SGPT 19 U/L (16-61); Albumin, Serum 4.1 g/dL (3.2-5.0); Alkaline Phosphatase 91 U/L (45-117); Anion Gap 15 (5-15); BUN 12 mg/dL (7-18); BUN/Creat Ratio 3.9 RATIO (10-20); Calcium,Total 10.2 mg/dL (8.5-10.1); Chloride 96 mmol/L (98-107); Creatinine, Serum 3.08 mg/dL (0.70-1.30); EST Glomerular Filtration Rate 23 mL/min (>60); Est Glom Filt Rate - Afr Amer 27 mL/min (>60); Estimated Creatinine Clearance 27.42 ml/min; Globulin 4.6 g/dL (2.2-4.2); Glucose 183 mg/dL (74-106); Potassium 3.1 mmol/L (3.5-5.1); Protein, Total 8.7 g/dL (6.4-8.2); Sodium Level 135 mmol/L (136-145)
[2018-10-16 11:28] LABS: Lactic Acid 5.8 mmol/L (0.4-2.0)
--- NOTE | 2018-10-16 11:29 | ED.RN ---
LAB CALLED LACTIC ACID OF 5.8. DR AUGUSTIN AWARE.
[2018-10-16] MEDS: Ciprofloxacin 400 MG/200 ML BAG 200 MG IV (12:01)
--- NOTE | 2018-10-16 12:05 | ED.VISSUMM ---
- ER Visit Summary Date of Service: 10/16/18 Chief Complaint: Nausea vomiting diarrhea History of Present Illness: The patient is a 52 M presenting for evaluation secondary to nausea vomiting diarrhea. Patient reports that he was actually just recently admitted to the hospital secondary to a severe course of gastroenteritis. He was in the hospital from Tuesday to Tuesday and was discharged. He reports that upon his discharge she started to have issues with nausea vomiting and diarrhea again. Patient states that he is not having any bloody stools, but he is having moderate vomiting, and severe diarrhea. He reports that anything he eats or drinks he either vomits or go straight through him. He denies any fevers. Does endorse that he has some crampy abdominal pain. Review of systems otherwise negative. Physical Examination: Vital signs notable for tachycardia. Well-nourished pale appearing male. Dry mucous membranes noted. Neck supple. Heart tachycardic and regular. Lungs clear. Abdomen tender in the periumbilical region with no rigidity noted. Remainder of physical otherwise unremarkable. Test Results: CBC unremarkable, chemistry shows acute kidney injury creatinine of 3, lactic acid elevated at 5, CT abdomen and pelvis shows changes can with gastro. EKG shows a prolonged QT and sinus rate of 95 Emergency Department Course and Treatment: Patient presented secondary to vomiting and diarrhea. He was tachycardic and appeared dry. Laboratory workup was obtained which shows acute kidney injury, dehydration with lactic acid of 5. Patient was given fluids, fentanyl, Zofran, and Flagyl due to allergies and a prolonged QT. Patient will be admitted under the hospitalist. Disposition: Admission Impression: 1. Gastroenteritis 2. Acute kidney injury 3. Dehydration This note was generated with [employer] dictation software. It may contain incorrect words, spelling, and punctuation that were not noted in review of the chart prior to signing ED Disposition - Plan for ED Patient: Chief Complaint: Nausea/Vomiting/Diarrhea Referrals: Drew Hardy MD [Primary Care Provider] -
[2018-10-16] MEDS: 0.9% Normal Saline 1,000 ML 999 ML IV ×2 (12:07→12:54)
--- NOTE | 2018-10-16 12:46 | NURSING ---
116 GASTROENTERITIS WITH PROLONGED QT JOSE FRANCISCO
--- NOTE | 2018-10-16 12:50 | ED.RN ---
PHARMACY CALLED TWICE ABOUT FLAGYL ORDER. HAVE NOT RECEIVED FLAGYL OF 1251. ORDER WAS PLACED AT 1207.
--- NOTE | 2018-10-16 13:01 | ED.RN ---
flagyl received at 1252
--- NOTE | 2018-10-16 13:36 | PCM.HP.STD ---
Problem List (1) Gastroenteritis Status: Acute (2) Gastroesophageal reflux disease Status: Chronic Qualifiers: (3) Migraine Status: Chronic History of Present Illness Date of Admission: 10/16/18 Chief Complaint: Nausea/Vomiting/Diarrhea The patient is a 52 year old M with PMH as below, who presents with a recurrence of his nausea, vomiting, and diarrhea. He was recently admitted between 10/11?10/13 for the same issue. He had a CT scan of the abdomen at that visit and was also found to have no acute findings as well as an elevated lactic acid. He states that the diarrhea has never completely resolved even after his discharge. He tried to have some solid food on Tuesday and was not able to keep it down. He is transitioned himself to liquid diet and continued to have pure liquid stools multiple times a day, as well as at night, and he sleeps with dog pads to protect his mattress. On his prior admission he had a enteric pathogen panel which was negative as well as stool lactoferrin which was also negative. On admission to the ER, CT scan of his abdomen was negative, but he was found to have an elevated lactate to 5, though he only fulfills 1 out of 4 Sirs criteria, therefore he has not septic. He was given a fluid bolus in the ER and his tachycardia resolved, he remains afebrile and has no leukocytosis. Per report in the ER he has a prolonged QTC, therefore he will be admitted to the PCU for closer monitoring given the use of Zofran for nausea. Past Medical History Past Medical History (Chronic Problems): Chronic Problems Migraine (Chronic) Gastroesophageal reflux disease (Chronic) Allergies Penicillins Allergy (Verified 10/11/18 08:45) Anaphylaxis erythromycin base [Erythromycin Base] Adverse Reaction (Verified 10/11/18 08:45) Nausea milk Adverse Reaction (Verified 10/11/18 08:45) Upset Stomach Home Medications: Ambulatory Orders Medication Instructions Recorded Ondansetron [Zofran Odt] 4 mg PO Q8H PRN PRN 12/18/13 Rizatriptan Benzoate [Maxalt] 10 mg PO .X1 PRN 12/18/13 Amitriptyline HCl [Elavil] 10 mg PO QHS 09/19/17 Famotidine [Pepcid] 20 mg PO BID 08/09/18 Aspirin 81 mg PO DAILY 10/11/18 Potassium Chloride [Klor-Con M20] 20 meq PO BID 10/11/18 Diphenoxylate/Atrop [Lomotil] 1 tablet PO 4X/DAY PRN 10/16/18 Lactobacillus Acidophilus 1 each PO DAILY 10/16/18 [Probiotic Acidophilus] Surgical History: - - Removal of pancreatic cysts Psychiatric History: No pertinent psych hx Smoking Status: Never smoker - *Family History Paternal History Items: No pertinent history Maternal History Items: Hypertension, No pertinent history Review of Systems Constitutional: Denies: Chills, Fever, Weight Change HEENT: Denies: Head Aches, Sinus Congestion, Sinus Drainage Cardiovascular: Denies: Chest Pain, Palpitations Respiratory: Denies: Cough, Shortness of breath at rest, Sputum production Gastrointestinal: Reports: Abdominal Pain, Diarrhea, Nausea, Vomiting Genitourinary: Denies: Dysuria Musculoskeletal: Denies: Joint Pain, Joint Tenderness Skin: Denies: Rash, Wounds Neurological: Denies: Numbness, Tingling, Focal weakness Psychiatric: Denies: Anxiety, Depression Hematologic/ Lymphatic: Denies: Easy Bruising, Easy Bleeding VTE Information - Inpt Only VTE Present on Admission: No Patient Problems: Active and Suspected Problems Gastroenteritis (Acute) - Physical Exam General: Alert, Oriented x3, Cooperative, No apparent distress HEENT: Atraumatic, PERRLA, EOMI, Normocephalic Oral: Dry Mucosa Neck: Supple, No JVD Lungs: Clear to auscultation, Normal air movement, No rhonchi, No wheeze, No rales Cardiovascular: Regular rate, Regular Rhythm, Normal S1, Normal S2, No murmurs Abdomen: Soft, Non-Distended, No Hepato-splenomegaly, Tender - Bilateral upper quadrants Extremities: No edema, Capillary Refill Less than 3 Seconds Skin: No rashes, No breakdown Neurological: Neuro grossly intact, Sensory exam intact to light touch and pain Psych/Mental Status: Normal Affect, Appropriate Vital Signs Temp Pulse Resp BP Pulse Ox 97.5 F L 82 18 127/91 H 100 10/16/18 13:21 10/16/18 13:21 10/16/18 13:21 10/16/18 13:21 10/16/18 13:21 Oxygen Delivery Method Room Air Weight: 160 lb 4.417 oz Body Mass Index (BMI) 23.6 Laboratory Tests Past 24 Hrs 10/16/18 10/16/18 10/16/18 10:43 10:43 10:43 WBC 10.6 RBC 5.04 Hgb 16.6 H Hct 47.2 MCV 93.7 MCH 32.9 H MCHC 35.2 RDW 13.8 RDW Differential 46.8 H Plt Count 378 MPV 10.1 Immature Gran % (Auto) 0.200 Neut % (Auto) 79.4 H Lymph % (Auto) 9.7 L [place] % (Auto) 10.0 Eos % (Auto) 0.3 Baso % (Auto) 0.4 Absolute Neuts (auto) 8.4 H Absolute Lymphs (auto) 1.03 Total Counted Not Reportable PT 13.7 INR 1.1 APTT 32.1 Sodium 135 L Potassium 3.1 L Chloride 96 L Carbon Dioxide 24.0 Anion Gap 15 BUN 12 Creatinine 3.08 H Estim Creat Clear Calc 27.42 Est GFR (MDRD) Af Amer 27 L Est GFR (MDRD) Non-Af 23 L BUN/Creatinine Ratio 3.9 L Glucose 183 H Lactic Acid Calcium 10.2 H Total Bilirubin 0.70 AST 13 L ALT 19 Alkaline Phosphatase 91 Troponin I < 0.015 Total Protein 8.7 H Albumin 4.1 Globulin 4.6 H Albumin/Globulin Ratio 0.9 10/16/18 10:43 WBC RBC Hgb Hct MCV MCH MCHC RDW RDW Differential Plt Count MPV Immature Gran % (Auto) Neut % (Auto) Lymph % (Auto) [place] % (Auto) Eos % (Auto) Baso % (Auto) Absolute Neuts (auto) Absolute Lymphs (auto) Total Counted PT INR APTT Sodium Potassium Chloride Carbon Dioxide Anion Gap BUN Creatinine Estim Creat Clear Calc Est GFR (MDRD) Af Amer Est GFR (MDRD) Non-Af BUN/Creatinine Ratio Glucose Lactic Acid 5.8 H* Calcium Total Bilirubin AST ALT Alkaline Phosphatase Troponin I Total Protein Albumin Globulin Albumin/Globulin Ratio Assessment/Plan All Active Problems Gastroenteritis (Acute) GI bleed (Resolved) CAD (coronary artery disease) (Ruled-out) Nausea and vomiting (Acute) Perforated bowel (Resolved) Severe sepsis (Resolved) Diarrhea (Acute) Tachycardia (Resolved) 1. Acute Viral gastroenteritis/Lactic acidosis/MAICOL - C/w aggressive IVF - MAICOL is prerenal, will monitor - Recheck lactic acid after IVF resuscitation -He states he saw a GI approximately a year ago for a GI bleed, and was told that he had Crohn's disease. He does not appear to be on any medications for this. -We will check a C. difficile, and if this is negative then we could possibly start him on steroids given that he states he was told that he has Crohn's disease and will attempt to get records from his previous hospital -Continue with Zofran for nausea 2. GERD - Stable - Can resume PO pepcid 3. Migraine - He is on elavil and maxalt - Currently denies headache, can provide if necessary DVT: SCDs/Heparin Code Visit Inpatient E&M: 51250 Init Hosp L3
[2018-10-16 14:54] LABS: Reflex Lactate? Y
[2018-10-16] MEDS: 0.9% Normal Saline 1,000 ML 150 ML IV ×2 (15:25→21:44)
[2018-10-16] MEDS: Potassium Chloride 10mEq/100mL 10 MEQ/100 ML IV.SOLN. 100 MEQ IV BOLUS ×4 (17:09→21:41)
--- NOTE | 2018-10-16 17:37 | NURSING ---
Notified by lab unable to get blood for lactic acid. Blood drawn per this nurse and sent to lab at 1720.
[2018-10-16 17:59] LABS: Lactic Acid 1.4 mmol/L (0.4-2.0)
[2018-10-16] MEDS: Morphine 2 MG/ML Syringe IV ×2 (18:41→23:09)
[2018-10-16] MEDS: Heparin Injection (Vial) 5,000 UNIT/ML VIAL 5000 UNIT SC (21:41)
[2018-10-16] MEDS: Amitriptyline 10 MG Tablet PO (22:28)
[2018-10-16] MEDS: 0.9% NaCl Peripheral Flush Adult/Peds IV (23:10)
[2018-10-17] VITALS (9 sets, daily range): BP systolic 104–124; BP diastolic 64–84; PULSE 73–97; RESP 16–18; TEMP 36.3–37.2; O2SAT 96–100
--- NOTE | 2018-10-17 00:56 | NURSING ---
Handed over care of this patient to STACI Storey. Report complete.
--- NOTE | 2018-10-17 01:46 | NURSING ---
pt c/o severe reflux/heartburn and nausea, will call the hospitalist.
--- NOTE | 2018-10-17 02:16 | NURSING ---
pt c/o severe heartburn/reflux and nausea. called for nausea frequency increased, tums and pepcid
[2018-10-17] MEDS: Morphine 2 MG/ML Syringe IV ×5 (03:16→22:30)
[2018-10-17] MEDS: Famotidine 20 MG Tablet PO ×2 (03:16→21:26)
[2018-10-17] MEDS: 0.9% Normal Saline 1,000 ML 150 ML IV ×2 (04:11→10:14)
[2018-10-17 07:30] LABS: Absolute Lymphocyte Count 1.13 X10^3/ul (0.83-4.51); Basophil# 0.02 X10^3/uL; Basophil% 0.4 % (0-1); Eosinophils% 2.1 % (0-5); Hematocrit 30.5 % (40-54); Hemoglobin 10.6 g/dl (13.0-16.5); Lymphocyte # 1.13 X10^3/ul (4.0); Mean Corp Hgb Conc 34.8 g/gl (32-36); Mean Corpuscular Hgb 32.4 pg (27.0-32.0); Mean Corpuscular Volume 93.3 fL (80-94); Mean Platelet Vol. 9.8 fl (6.2-12.0); Monocyte# 0.43 X10^3/uL; Monocyte% 9.1 % (0-10); Neutrophil # 3.02 X10^3/uL (2.7-7.7); Neutrophil % 64.4 % (47-70); Platelet Count 182 K/mm3 (150-450); RBC Distribution Width CV 13.7 % (11.6-14.6); RBC Distribution Width SD 46.5 fl (35.1-43.9); Red Blood Count 3.27 M/mm3 (4.6-6.2); White Blood Count 4.7 K/mm3 (4.4-11.0)
[2018-10-17 07:40] LABS: POSITIVE COUNT NO; POSITIVE DIFFERENTIAL NO; POSITIVE MORPHOLOGY NO
[2018-10-17 07:45] LABS: Bacteria 0 SEEN /hpf (None Seen); Mucous, Urine 0 SEEN /hpf (<or=2+); Red Blood Cells-Urine 0 SEEN /hpf (0-5); Squamous Epithelial Cells - UA 0 SEEN /hpf (0-5)
[2018-10-17 07:49] LABS: Anion Gap 9 (5-15); BUN 14 mg/dL (7-18); BUN/Creat Ratio 10.9 RATIO (10-20); Calcium,Total 7.7 mg/dL (8.5-10.1); Chloride 105 mmol/L (98-107); Creatinine, Serum 1.28 mg/dL (0.70-1.30); EST Glomerular Filtration Rate 62 mL/min (>60); Est Glom Filt Rate - Afr Amer 75 mL/min (>60); Estimated Creatinine Clearance 65.97 ml/min; Glucose 85 mg/dL (74-106); Sodium Level 136 mmol/L (136-145)
[2018-10-17 07:57] LABS: Color, Urine Yellow (Yellow); Urine Clarity Clear (Clear)
[2018-10-17 08:05] LABS: Glucose, Dipstick Normal (Normal); Ketone-Dipstick Negative (Negative); Leukocyte Esterase-Dipstick 25 /ul (Negative); Nitrite-Dipstick Negative (Negative); Occult Blood-Urine 10 /ul (Negative); Protein-Dipstick 30 mg/dl (Negative); Specific Gravity, Urine 1.015 (1.002-1.030); Urine Bilirubin Dipstick Negative (Negative); Urine Urobilinogen Normal (Normal)
[2018-10-17 08:13] LABS: White Blood Cells 0-5 SEEN /hpf (0-5)
[2018-10-17] MEDS: Menthol/Lanolin/Calamine/Znox 113 GM Tube 1 APPLIC TOPICAL ×2 (08:27→21:27)
[2018-10-17] MEDS: Heparin Injection (Vial) 5,000 UNIT/ML VIAL 5000 UNIT SC ×2 (08:28→21:27)
[2018-10-17] MEDS: Ondansetron 4 MG/2 ML Vial IV ×3 (10:14→22:30)
--- NOTE | 2018-10-17 10:26 | PCM.PN.HOSP ---
Patient Problems: Active and Suspected Problems Gastroenteritis (Acute) Subjective: Feels better, pain is controlled with morphine, continues to have significant amount of diarrhea Vitals/I&O's: Vital Signs Temp Pulse Resp BP Pulse Ox 97.4 F L 77 16 124/81 H 100 10/17/18 08:00 10/17/18 08:00 10/17/18 08:00 10/17/18 08:00 10/17/18 08:00 Oxygen Delivery Method Room Air Weight: 160 lb 4.417 oz Body Mass Index (BMI) 23.6 Intake and Output for Last 24 Hours 10/15/18 10/16/18 10/17/18 23:59 23:59 23:59 Intake Total 3481 / 3481 800 / 800 Output Total 0 / 0 400 / 400 Balance 3481 / 3481 400 / 400 General: Alert, Oriented x3, Cooperative, No apparent distress HEENT: Atraumatic, PERRLA, EOMI, Normocephalic Oral: Dry Mucosa Neck: Supple, No JVD Lungs: Clear to auscultation, Normal air movement, No rhonchi, No wheeze, No rales Cardiovascular: Regular rate, Regular Rhythm, Normal S1, Normal S2, No murmurs Abdomen: Soft, Non-Distended, No Hepato-splenomegaly, Tender - Bilateral upper quadrants Extremities: No edema, Capillary Refill Less than 3 Seconds Skin: No rashes, No breakdown Neurological: Neuro grossly intact, Sensory exam intact to light touch and pain Psych/Mental Status: Normal Affect, Appropriate Microbiology Past 72 Hours 10/16/18 17:25 Stool C. difficile DNA Amplification - Final Laboratory Results 10/16/18 10:43: WBC 10.6, RBC 5.04, Hgb 16.6 H, Hct 47.2, MCV 93.7, MCH 32.9 H, MCHC 35.2, RDW 13.8, RDW Differential 46.8 H, Plt Count 378, MPV 10.1, Immature Gran % (Auto) 0.200, Neut % (Auto) 79.4 H, Lymph % (Auto) 9.7 L, Steele % (Auto) 10.0, Eos % (Auto) 0.3, Baso % (Auto) 0.4, Absolute Neuts (auto) 8.4 H, Absolute Lymphs (auto) 1.03, Total Counted Not Reportable 10/16/18 10:43: PT 13.7, INR 1.1, APTT 32.1 10/16/18 10:43: Sodium 135 L, Potassium 3.1 L, Chloride 96 L, Carbon Dioxide 24.0, Anion Gap 15, BUN 12, Creatinine 3.08 H, Estim Creat Clear Calc 27.42, Est GFR (MDRD) Af Amer 27 L, Est GFR (MDRD) Non-Af 23 L, BUN/Creatinine Ratio 3.9 L, Glucose 183 H, Calcium 10.2 H, Total Bilirubin 0.70, AST 13 L, ALT 19, Alkaline Phosphatase 91, Troponin I < 0.015, Total Protein 8.7 H, Albumin 4.1, Globulin 4.6 H, Albumin/Globulin Ratio 0.9 10/16/18 10:43: Lactic Acid 5.8 H* 10/16/18 15:15: Lactic Acid Cancelled 10/16/18 16:20: Lactic Acid Cancelled 10/16/18 17:20: Lactic Acid 1.4 10/17/18 06:46: Sodium 136, Potassium 3.0 L, Chloride 105, Carbon Dioxide 22.0, Anion Gap 9, BUN 14, Creatinine 1.28, Estim Creat Clear Calc 65.97, Est GFR (MDRD) Af Amer 75, Est GFR (MDRD) Non-Af 62, BUN/Creatinine Ratio 10.9, Glucose 85, Calcium 7.7 L 10/17/18 06:46: WBC 4.7, RBC 3.27 L, Hgb 10.6 L, Hct 30.5 L, MCV 93.3, MCH 32.4 H, MCHC 34.8, RDW 13.7, RDW Differential 46.5 H, Plt Count 182, MPV 9.8, Immature Gran % (Auto) 0.000, Neut % (Auto) 64.4, Lymph % (Auto) 24.0, Steele % (Auto) 9.1, Eos % (Auto) 2.1, Baso % (Auto) 0.4, Absolute Neuts (auto) 3.0, Absolute Lymphs (auto) 1.13, Total Counted Not Reportable 10/17/18 07:40: Urine Color Yellow, Urine Clarity Clear, Urine pH 6.0, Ur Specific [place] 1.015, Urine Protein 30 H, Urine Glucose (UA) Normal, Urine Ketones Negative, Urine Occult Blood 10 H, Urine Nitrite Negative, Urine Bilirubin Negative, Urine Urobilinogen Normal, Ur Leukocyte Esterase 25 H, Urine RBC 0 SEEN, Urine WBC 0-5 SEEN, Ur Squamous Epith Cells 0 SEEN, Urine Bacteria 0 SEEN, Urine Mucus 0 SEEN Current Medications Amitriptyline HCl (Elavil) 10 mg PO QHS [facility] Last Admin: 10/16/18 22:28 Dose: 10 mg Calamine/Phenol (Calmoseptine Ointment) 1 applic TOPICAL BID [facility]; Protocol Last Admin: 10/17/18 08:27 Dose: 1 applicatio Calcium Carbonate (Tums) 1,000 mg PO Q4H PRN PRN PRN Reason: HEARTBURN OR INDIGESTION Famotidine (Pepcid) 20 mg PO BID [facility] Last Admin: 10/17/18 03:16 Dose: 20 mg Heparin Sodium (Porcine) (Heparin Na) 5,000 unit SC Q12 [facility] Last Admin: 10/17/18 08:28 Dose: 5,000 unit Sodium Chloride () 1,000 mls @ 150 mls/hr IV .Q6H40M [facility] Last Admin: 10/17/18 10:14 Dose: 150 mls/hr Magnesium Hydroxide (Milk Of Magnesia) 30 ml PO DAILY PRN PRN Reason: Constipation Methylprednisolone (Solu-Medrol) 40 mg IV DAILY [facility] Last Admin: 10/17/18 08:30 Dose: 40 mg Morphine Sulfate () 2 mg IV Q4H PRN PRN PRN Reason: SEVERE PAIN (6-10/10) Last Admin: 10/17/18 07:42 Dose: 2 mg Ondansetron HCl (Zofran) 4 mg IV Q6H PRN PRN PRN Reason: NAUSEA Last Admin: 10/17/18 10:14 Dose: 4 mg Sodium Chloride () 5 - 15 ml IV UD PRN PRN Reason: SALINE FLUSH Last Admin: 10/16/18 23:10 Dose: 10 ml Medical Necessity - Tobacco Use Smoking Status: Never smoker Assessment/Plan All Active Problems Gastroenteritis (Acute) GI bleed (Resolved) CAD (coronary artery disease) (Ruled-out) Nausea and vomiting (Acute) Perforated bowel (Resolved) Severe sepsis (Resolved) Diarrhea (Acute) Tachycardia (Resolved) 1. Acute Viral gastroenteritis/Lactic acidosis/MAICOL - C/w aggressive IVF - MAICOL is prerenal, will monitor, creatinine improved from 3.08 to 1.28 - lactate 1.4 -He states he saw a GI approximately a year ago for a GI bleed, and was told that he had Crohn's disease. He does not appear to be on any medications for this. -C.diff is negative, will start on steroids and monitor for improvement -Continue with Zofran for nausea 2. GERD - Stable - Can resume PO pepcid 3. Migraine - He is on elavil and maxalt - Currently denies headache, can provide if necessary DVT: SCDs/Heparin Code Visit Inpatient E&M: 02151 Subs Hosp L2
--- NOTE | 2018-10-17 10:29 | PN_ITS ---
Patient Problems: Active and Suspected Problems Gastroenteritis (Acute) Subjective: Feels better, pain is controlled with morphine, continues to have significant amount of diarrhea Vitals/I&O's: Vital Signs Temp Pulse Resp BP Pulse Ox 97.4 F L 77 16 124/81 H 100 10/17/18 08:00 10/17/18 08:00 10/17/18 08:00 10/17/18 08:00 10/17/18 08:00 Oxygen Delivery Method Room Air Weight: 160 lb 4.417 oz Body Mass Index (BMI) 23.6 Intake and Output for Last 24 Hours 10/15/18 10/16/18 10/17/18 23:59 23:59 23:59 Intake Total 3481 / 3481 800 / 800 Output Total 0 / 0 400 / 400 Balance 3481 / 3481 400 / 400 General: Alert, Oriented x3, Cooperative, No apparent distress HEENT: Atraumatic, PERRLA, EOMI, Normocephalic Oral: Dry Mucosa Neck: Supple, No JVD Lungs: Clear to auscultation, Normal air movement, No rhonchi, No wheeze, No rales Cardiovascular: Regular rate, Regular Rhythm, Normal S1, Normal S2, No murmurs Abdomen: Soft, Non-Distended, No Hepato-splenomegaly, Tender - Bilateral upper quadrants Extremities: No edema, Capillary Refill Less than 3 Seconds Skin: No rashes, No breakdown Neurological: Neuro grossly intact, Sensory exam intact to light touch and pain Psych/Mental Status: Normal Affect, Appropriate Microbiology Past 72 Hours 10/16/18 17:25 Stool C. difficile DNA Amplification - Final Laboratory Results 10/16/18 10:43: WBC 10.6, RBC 5.04, Hgb 16.6 H, Hct 47.2, MCV 93.7, MCH 32.9 H, MCHC 35.2, RDW 13.8, RDW Differential 46.8 H, Plt Count 378, MPV 10.1, Immature Gran % (Auto) 0.200, Neut % (Auto) 79.4 H, Lymph % (Auto) 9.7 L, [place] % (Auto) 10.0, Eos % (Auto) 0.3, Baso % (Auto) 0.4, Absolute Neuts (auto) 8.4 H, Absolute Lymphs (auto) 1.03, Total Counted Not Reportable 10/16/18 10:43: PT 13.7, INR 1.1, APTT 32.1 10/16/18 10:43: Sodium 135 L, Potassium 3.1 L, Chloride 96 L, Carbon Dioxide 24.0, Anion Gap 15, BUN 12, Creatinine 3.08 H, Estim Creat Clear Calc 27.42, Est GFR (MDRD) Af Amer 27 L, Est GFR (MDRD) Non-Af 23 L, BUN/Creatinine Ratio 3.9 L, Glucose 183 H, Calcium 10.2 H, Total Bilirubin 0.70, AST 13 L, ALT 19, Alkaline Phosphatase 91, Troponin I < 0.015, Total Protein 8.7 H, Albumin 4.1, Globulin 4.6 H, Albumin/Globulin Ratio 0.9 10/16/18 10:43: Lactic Acid 5.8 H* 10/16/18 15:15: Lactic Acid Cancelled 10/16/18 16:20: Lactic Acid Cancelled 10/16/18 17:20: Lactic Acid 1.4 10/17/18 06:46: Sodium 136, Potassium 3.0 L, Chloride 105, Carbon Dioxide 22.0, Anion Gap 9, BUN 14, Creatinine 1.28, Estim Creat Clear Calc 65.97, Est GFR (MDRD) Af Amer 75, Est GFR (MDRD) Non-Af 62, BUN/Creatinine Ratio 10.9, Glucose 85, Calcium 7.7 L 10/17/18 06:46: WBC 4.7, RBC 3.27 L, Hgb 10.6 L, Hct 30.5 L, MCV 93.3, MCH 32.4 H, MCHC 34.8, RDW 13.7, RDW Differential 46.5 H, Plt Count 182, MPV 9.8, Immature Gran % (Auto) 0.000, Neut % (Auto) 64.4, Lymph % (Auto) 24.0, Pine % (Auto) 9.1, Eos % (Auto) 2.1, Baso % (Auto) 0.4, Absolute Neuts (auto) 3.0, Absolute Lymphs (auto) 1.13, Total Counted Not Reportable 10/17/18 07:40: Urine Color Yellow, Urine Clarity Clear, Urine pH 6.0, Ur Specific [place] 1.015, Urine Protein 30 H, Urine Glucose (UA) Normal, Urine Ketones Negative, Urine Occult Blood 10 H, Urine Nitrite Negative, Urine Bilirubin Negative, Urine Urobilinogen Normal, Ur Leukocyte Esterase 25 H, Urine RBC 0 SEEN, Urine WBC 0-5 SEEN, Ur Squamous Epith Cells 0 SEEN, Urine Bacteria 0 SEEN, Urine Mucus 0 SEEN Current Medications Amitriptyline HCl (Elavil) 10 mg PO QHS [facility] Last Admin: 10/16/18 22:28 Dose: 10 mg Calamine/Phenol (Calmoseptine Ointment) 1 applic TOPICAL BID [facility]; Protocol Last Admin: 10/17/18 08:27 Dose: 1 applicatio Calcium Carbonate (Tums) 1,000 mg PO Q4H PRN PRN PRN Reason: HEARTBURN OR INDIGESTION Famotidine (Pepcid) 20 mg PO BID [facility] Last Admin: 10/17/18 03:16 Dose: 20 mg Heparin Sodium (Porcine) (Heparin Na) 5,000 unit SC Q12 [facility] Last Admin: 10/17/18 08:28 Dose: 5,000 unit Sodium Chloride () 1,000 mls @ 150 mls/hr IV .Q6H40M [facility] Last Admin: 10/17/18 10:14 Dose: 150 mls/hr Magnesium Hydroxide (Milk Of Magnesia) 30 ml PO DAILY PRN PRN Reason: Constipation Methylprednisolone (Solu-Medrol) 40 mg IV DAILY [facility] Last Admin: 10/17/18 08:30 Dose: 40 mg Morphine Sulfate () 2 mg IV Q4H PRN PRN PRN Reason: SEVERE PAIN (6-10/10) Last Admin: 10/17/18 07:42 Dose: 2 mg Ondansetron HCl (Zofran) 4 mg IV Q6H PRN PRN PRN Reason: NAUSEA Last Admin: 10/17/18 10:14 Dose: 4 mg Sodium Chloride () 5 - 15 ml IV UD PRN PRN Reason: SALINE FLUSH Last Admin: 10/16/18 23:10 Dose: 10 ml Medical Necessity - Tobacco Use Smoking Status: Never smoker Assessment/Plan All Active Problems Gastroenteritis (Acute) GI bleed (Resolved) CAD (coronary artery disease) (Ruled-out) Nausea and vomiting (Acute) Perforated bowel (Resolved) Severe sepsis (Resolved) Diarrhea (Acute) Tachycardia (Resolved) 1. Acute Viral gastroenteritis/Lactic acidosis/MAICOL - C/w aggressive IVF - MAICOL is prerenal, will monitor, creatinine improved from 3.08 to 1.28 - lactate 1.4 -He states he saw a GI approximately a year ago for a GI bleed, and was told that he had Crohn's disease. He does not appear to be on any medications for this. -C.diff is negative, will start on steroids and monitor for improvement -Continue with Zofran for nausea 2. GERD - Stable - Can resume PO pepcid 3. Migraine - He is on elavil and maxalt - Currently denies headache, can provide if necessary DVT: SCDs/Heparin Code Visit Inpatient E&M: 56794 Subs Hosp L2
[2018-10-17 11:08] LABS: Magnesium 1.9 mg/dL (1.6-2.6)
[2018-10-17] MEDS: 0.9% Normal Saline 1,000 ML 75 ML IV ×2 (11:39→18:15)
[2018-10-17] MEDS: Potassium Chloride 10mEq/100mL 10 MEQ/100 ML IV.SOLN. 100 MEQ IV BOLUS ×4 (15:39→18:47)
[2018-10-17] MEDS: 0.9% NaCl Peripheral Flush Adult/Peds IV (16:25)
[2018-10-17] MEDS: Amitriptyline 10 MG Tablet PO (21:26)
[2018-10-18 02:00] VITALS: BP 103/60; PULSE 64; RESP 18; TEMP 36.7; O2SAT 99
[2018-10-18 03:28] VITALS: PULSE 55
[2018-10-18] MEDS: 0.9% Normal Saline 1,000 ML 75 ML IV (05:05)
[2018-10-18 06:32] LABS: Absolute Lymphocyte Count 0.91 X10^3/ul (0.83-4.51); Absolute Neutrophil Count 2.9 X10^3/uL (2.0-7.7); Basophil# 0.02 X10^3/uL; Basophil% 0.5 % (0-1); Eosinophil# 0.06 X10^3/uL; Eosinophils% 1.4 % (0-5); Hematocrit 28.2 % (40-54); Hemoglobin 9.6 g/dl (13.0-16.5); Lymphocyte # 0.91 X10^3/ul (4.0); Lymphocyte % 20.6 % (19-41); Mean Corpuscular Hgb 32.4 pg (27.0-32.0); Mean Corpuscular Volume 95.3 fL (80-94); Mean Platelet Vol. 9.8 fl (6.2-12.0); Monocyte# 0.49 X10^3/uL; Monocyte% 11.1 % (0-10); Neutrophil # 2.92 X10^3/uL (2.7-7.7); Neutrophil % 66.2 % (47-70); POSITIVE COUNT NO; POSITIVE DIFFERENTIAL NO; POSITIVE MORPHOLOGY NO; Platelet Count 192 K/mm3 (150-450); RBC Distribution Width CV 12.5 % (11.6-14.6); RBC Distribution Width SD 41.8 fl (35.1-43.9); Red Blood Count 2.96 M/mm3 (4.6-6.2); White Blood Count 4.4 K/mm3 (4.4-11.0)
[2018-10-18 06:54] LABS: Anion Gap 8 (5-15); BUN 13 mg/dL (7-18); BUN/Creat Ratio 12.3 RATIO (10-20); Chloride 108 mmol/L (98-107); Creatinine, Serum 1.06 mg/dL (0.70-1.30); EST Glomerular Filtration Rate 77 mL/min (>60); Est Glom Filt Rate - Afr Amer 93 mL/min (>60); Estimated Creatinine Clearance 79.67 ml/min; Glucose 83 mg/dL (74-106); Potassium 3.4 mmol/L (3.5-5.1); Sodium Level 139 mmol/L (136-145)
[2018-10-18 07:00] VITALS: PULSE 60
[2018-10-18 08:26] VITALS: BP 110/61; PULSE 79; RESP 18; TEMP 37.2; O2SAT 98
--- NOTE | 2018-10-18 08:55 | DCINST_ITS ---
- Discharge Diagnoses Current Active Problems: Current Active and Chronic Problems Gastroenteritis (Acute) Migraine (Chronic) You will use the following diet at home:: Regular Your food should be the consistency of: Regular Your liquids should be the consistency of: Regular/Thin Discharge Activity: Return to Normal Activity Call your doctor if you observe: Fever of 101 or Higher, - - Increased abdominal pain Allergies/Adverse Reactions: Allergies Penicillins Allergy (Verified 10/11/18 08:45) Anaphylaxis erythromycin base [Erythromycin Base] Adverse Reaction (Verified 10/11/18 08:45) Nausea milk Adverse Reaction (Verified 10/11/18 08:45) Upset Stomach Medications to take at Discharge Ondansetron [Zofran Odt] 4 mg PO Q8H PRN PRN 12/18/13 Rizatriptan Benzoate [Maxalt] 10 mg PO .X1 PRN 12/18/13 Amitriptyline HCl [Elavil] 10 mg PO QHS 09/19/17 Famotidine [Pepcid] 20 mg PO BID 08/09/18 Aspirin 81 mg PO BID 10/11/18 Potassium Chloride [Klor-Con M20] 20 meq PO BID 10/11/18 Diphenoxylate/Atrop [Lomotil] 1 tablet PO 4X/DAY PRN 10/16/18 Lactobacillus Acidophilus [Probiotic Acidophilus] 1 each PO DAILY 10/16/18 Prednisone [Deltasone] 40 mg PO DAILY #20 tablet 10/18/18 The following prescriptions were given: Prednisone [Deltasone] 40 mg PO DAILY #20 tablet Primary Care Physician: Drew Hardy MD [Primary Care Provider] - Please follow up with your Primary Care Physician in: 3-5 days Test Results: Test results from this visit will be discussed in further detail at your follow- up appointment, if applicable.
--- NOTE | 2018-10-18 09:00 | DS.PCM_ITS ---
Discharge Date and Diagnosis - Problem List Patient Problems: Active and Suspected Problems Gastroenteritis (Acute) Date of Admission: 10/16/18 Date of Discharge: 10/18/18 - Primary Discharge Diagnosis Active and Suspected Problems Gastroenteritis (Acute) - Secondary Discharge Diagnosis Chronic Problems Migraine (Chronic) Gastroesophageal reflux disease (Chronic) Hospital Course and Treatment Imaging Results: CT Abd/Pelvis - IMPRESSION: Fluid-filled bowel, suggesting enterocolitis. Mild liver steatosis. Consults: None Operations: None Procedures: None Summary of Care Provided: HPI: The patient is a 52 year old M with PMH as below, who presents with a recurrence of his nausea, vomiting, and diarrhea. He was recently admitted between 10/11?10/13 for the same issue. He had a CT scan of the abdomen at that visit and was also found to have no acute findings as well as an elevated lactic acid. He states that the diarrhea has never completely resolved even after his discharge. He tried to have some solid food on Tuesday and was not able to keep it down. He is transitioned himself to liquid diet and continued to have pure liquid stools multiple times a day, as well as at night, and he sleeps with dog pads to protect his mattress. On his prior admission he had a enteric pathogen panel which was negative as well as stool lactoferrin which was also negative. On admission to the ER, CT scan of his abdomen was negative, but he was found to have an elevated lactate to 5, though he only fulfills 1 out of 4 Sirs criteria, therefore he has not septic. He was given a fluid bolus in the ER and his tachycardia resolved, he remains afebrile and has no leukocytosis. Per report in the ER he has a prolonged QTC, therefore he will be admitted to the PCU for closer monitoring given the use of Zofran for nausea. General: Alert, Oriented x3, Cooperative, No apparent distress HEENT: Atraumatic, PERRLA, EOMI, Normocephalic Oral: Dry Mucosa Neck: Supple, No JVD Lungs: Clear to auscultation, Normal air movement, No rhonchi, No wheeze, No r ales Cardiovascular: Regular rate, Regular Rhythm, Normal S1, Normal S2, No murmurs Abdomen: Soft, Non-Distended, No Hepato-splenomegaly, Non-Tender Extremities: No edema, Capillary Refill Less than 3 Seconds Skin: No rashes, No breakdown Neurological: Neuro grossly intact, Sensory exam intact to light touch and pain Psych/Mental Status: Normal Affect, Appropriate Hospital Course: 1. Acute Viral gastroenteritis/Lactic acidosis/MAICOL -52-year-old man who was actually recently admitted for the same issue between October 11 and . When he was discharged home he continued to have diarrhea and abdominal pain. He was unable to tolerate any solid foods or even liquids. He presented back with a lactic acidosis up to 5 and an AK I. However these corrected in less than 24 hours, with IV fluids. He states that he had a GI bleed back in November and was transferred to [facility], where they performed a colonoscopy and he was told that he had Crohn's disease. I was unable to obtain any records and he is not currently on any medications that I can tell for Crohn's. I did check him for C. difficile which was negative, and on his previous admission 2 days earlier he had enteric pathogens and a stool lactoferrin checked which were all negative as well so these were not repeated. The day prior to discharge I did start giving him IV steroids and on the day of discharge he said that his pain had resolved and he was tolerating solid foods. He states that he would like to go home and is planning on seeing his PCP for referral to a physical education teacher. I will discharge him on 10 days of prednisone to see if this continues to help his symptoms, also if he discontinues the prednisone and symptoms return that can assist in the diagnosis. This plan was explained to him and he understands it completely and is okay with going home today. 2. His other diagnoses were evaluated and his home medications were continued were appropriate Patient Problems: Active and Suspected Problems Gastroenteritis (Acute) - Physical Exam Vital Signs Temp Pulse Resp BP Pulse Ox 98.9 F 79 18 110/61 98 10/18/18 08:26 10/18/18 08:26 10/18/18 08:26 10/18/18 08:26 10/18/18 08:26 Oxygen Delivery Method Room Air Weight: 160 lb 4.417 oz Body Mass Index (BMI) 23.6 Intake and Output for Last 24 Hours 10/16/18 10/17/18 10/18/18 23:59 23:59 23:59 Intake Total 3481 / 3481 3809 / 3809 812 / 812 Output Total 0 / 0 400 / 400 Balance 3481 / 3481 3409 / 3409 812 / 812 Microbiology Past 72 Hours 10/16/18 17:25 C. difficile DNA Amplification - Final Stool Laboratory Tests Past 24 Hrs 10/17/18 10/18/18 10/18/18 06:46 06:10 06:10 WBC 4.4 RBC 2.96 L Hgb 9.6 L Hct 28.2 L MCV 95.3 H MCH 32.4 H MCHC 34.0 RDW 12.5 RDW Differential 41.8 Plt Count 192 MPV 9.8 Immature Gran % (Auto) 0.200 Neut % (Auto) 66.2 Lymph % (Auto) 20.6 [place] % (Auto) 11.1 H Eos % (Auto) 1.4 Baso % (Auto) 0.5 Absolute Neuts (auto) 2.9 Absolute Lymphs (auto) 0.91 Total Counted Not Reportable Sodium 139 Potassium 3.4 L Chloride 108 H Carbon Dioxide 23.0 Anion Gap 8 BUN 13 Creatinine 1.06 Estim Creat Clear Calc 79.67 Est GFR (MDRD) Af Amer 93 Est GFR (MDRD) Non-Af 77 BUN/Creatinine Ratio 12.3 Glucose 83 Calcium 8.0 L Phosphorus 3.0 Magnesium 1.9 Discharge Activity: Return to Normal Activity Call your doctor if you observe: Fever of 101 or Higher, - - Increased abdominal pain Home Medications: Medications to take at Discharge Ondansetron [Zofran Odt] 4 mg PO Q8H PRN PRN 12/18/13 Rizatriptan Benzoate [Maxalt] 10 mg PO .X1 PRN 12/18/13 Amitriptyline HCl [Elavil] 10 mg PO QHS 09/19/17 Famotidine [Pepcid] 20 mg PO BID 08/09/18 Aspirin 81 mg PO BID 10/11/18 Potassium Chloride [Klor-Con M20] 20 meq PO BID 10/11/18 Diphenoxylate/Atrop [Lomotil] 1 tablet PO 4X/DAY PRN 10/16/18 Lactobacillus Acidophilus [Probiotic Acidophilus] 1 each PO DAILY 10/16/18 Prednisone [Deltasone] 40 mg PO DAILY #20 tablet 10/18/18 Following Prescrptions Were Given to Patient: Prednisone [Deltasone] 40 mg PO DAILY #20 tablet Primary Care Physician: Drew Hardy MD [Primary Care Provider] - Please follow up with your Primary Care Physician in: 3-5 days Disposition: Home Minutes spent on discharge:: 35 Patient Condition:: Good Medical Necessity - Tobacco Use Smoking Status: Never smoker Meaningful Use Info Meaningful Use Diagnoses (Choose all that apply): None applicable Code Visit Inpatient E&M: 73572 Disch Hosp
[2018-10-18] MEDS: Famotidine 20 MG Tablet PO (10:00)
[2018-10-18 10:05] VITALS: BP 102/69; PULSE 77; RESP 16; TEMP 36.9; O2SAT 100
--- NOTE | 2018-10-19 16:52 | CASEMGMT ---
STACI SWEENEY Discharge Follow-up Phone Call: HÉCTOR: Yun Strata: 3 Call Date: 10/19/18 Discharge Date: 10/18/18 Time of Call: [id number] Duration: 3 minutes ? Admitting Diagnosis: gastroenteritis This STACI SWEENEY contacted pt via phone regarding discharge follow-up. Pt states he is feeling better and was able to drive himself to the store to get dog food. States he obtained the prednisone on the way home, has been taking it as directed, and has made his follow-up appointment with Dr. Hardy for next week. Pt denies any questions or concerns regarding his discharge. Palma Narvaez RN
== END 2018-10-18 10:36 | disposition home or self-care (01) | DRG 392 ==
LOC: ED 11:50 → PCU 12:42
PROVIDERS: Admitting Provider Family Medicine; Emergency Provider Emergency Medicine; Family Provider Family Medicine; PCP Family Medicine; Visit Provider Family Medicine
DX: A08.4 Viral intestinal infection, unspecified (principal); N17.9 Acute kidney failure, unspecified; E87.2 Acidosis; K21.9 Gastro-esophageal reflux disease without esophagitis; G43.909 Migraine, unspecified, not intractable, without status migrainosus; E86.0 Dehydration
CPT/HCPCS: 36415; 71045; 74176; 80048; 80053; 81001; 83605; 83735; 84100; 84484; 85025; 85610; 85730; 87040; 87493; 93005; 97802; 99285; J7030; A4216; J0744; J2405

== ENCOUNTER 2018-10-27 18:14 | Inpatient (IN) | payer OTHER, SELFPAY ==
[2018-10-16 13:29] VITALS: BMI 23.6
[2018-10-27 18:15] VITALS: BP 97/76; PULSE 98; RESP 14; TEMP 36.6; O2SAT 98; BMI 23.9
--- NOTE | 2018-10-27 20:19 | ED.VISSUMM ---
- ER Visit Summary Date of Service: 10/27/18 Chief Complaint: Nausea, vomiting, diarrhea and abdominal cramping History of Present Illness: The patient is a 52 M history of colitis and A. fib. On no blood thinners besides aspirin. Patient states is been hospitalized at [facility] twice in the last several weeks. He is also seeing a GI specialist at the [facility]. They had lab work done today that showed possible dehydration and possible renal failure. They called him and wanting to go to the nearest ER to be evaluated. He states he has had nausea, vomiting and diarrhea for the last several weeks. They are currently working him up for this. He has had prior endoscopies without any specific etiology. He denies any melena or hematemesis. Physical Examination: Middle-aged male no acute distress his initial blood pressure is slightly low at 97/76. Afebrile. HEENT exam mildly dry mucous membranes. Neck nontender no lymphadenopathy. Lungs clear to auscultation bilaterally. Heart regular rate and rhythm no murmur. Abdomen is soft. Nondistended. Normal bowel sounds no peritoneal signs. Patient is moving all 4 extremities. Calves nontender without edema or cords. Neurologically is awake alert with no focal motor deficits. Test Results: CBC shows a white count of 16,000. Hemoglobin 13. Electrolytes show sodium 123. Potassium of 2.9. BUN of 57 creatinine 2.15. Consistent with prerenal azotemia and acute kidney injury from dehydration. Emergency Department Course and Treatment: Patient be treated with 2 L normal saline. IV Zofran and morphine. Patient also treated with p.o. and IV potassium. IV magnesium. Of spoken to the hospitalist is down to evaluate the patient for admission. Repeat exam patient is improving after IV fluids he is on his second liter. At 21:20 PM. Treatment Plan: [facility] admission. Disposition: Admission Impression: Acute nausea, vomiting and diarrhea Acute dehydration. Acute kidney injury Acute hyponatremia and hypokalemia from diarrhea. History of colitis of uncertain etiology This note was generated with [employer] software. It may contain incorrect words, spelling, and punctuation that were not noted in review of the chart prior to signing ED Disposition - Plan for ED Patient: Chief Complaint: Nausea/Vomiting/Diarrhea Referrals: Drew Hardy MD [Primary Care Provider] -
--- NOTE | 2018-10-27 20:22 | ED.DCSUM_ITS ---
- ER Visit Summary Date of Service: 10/27/18 Chief Complaint: Nausea, vomiting, diarrhea and abdominal cramping History of Present Illness: The patient is a 52 M history of colitis and A. fib. On no blood thinners besides aspirin. Patient states is been hospitalized at [facility] twice in the last several weeks. He is also seeing a GI specialist at the [facility]. They had lab work done today that showed possible dehydration and possible renal failure. They called him and wanting to go to the nearest ER to be evaluated. He states he has had nausea, vomiting and diarrhea for the last several weeks. They are currently working him up for this. He has had prior endoscopies without any specific etiology. He denies any melena or hematemesis. Physical Examination: Middle-aged male no acute distress his initial blood pressure is slightly low at 97/76. Afebrile. HEENT exam mildly dry mucous membranes. Neck nontender no lymphadenopathy. Lungs clear to auscultation bilaterally. Heart regular rate and rhythm no murmur. Abdomen is soft. Nondistended. Normal bowel sounds no peritoneal signs. Patient is moving all 4 extremities. Calves nontender without edema or cords. Neurologically is awake alert with no focal motor deficits. Test Results: CBC shows a white count of 16,000. Hemoglobin 13. Electrolytes show sodium 123. Potassium of 2.9. BUN of 57 creatinine 2.15. Consistent with prerenal azotemia and acute kidney injury from dehydration. Emergency Department Course and Treatment: Patient be treated with 2 L normal saline. IV Zofran and morphine. Patient also treated with p.o. and IV potassium. IV magnesium. Of spoken to the hospitalist is down to evaluate the patient for admission. Repeat exam patient is improving after IV fluids he is on his second liter. At 21:20 PM. Treatment Plan: [facility] admission. Disposition: Admission Impression: Acute nausea, vomiting and diarrhea Acute dehydration. Acute kidney injury Acute hyponatremia and hypokalemia from diarrhea. History of colitis of uncertain etiology This note was generated with [employer] software. It may contain incorrect words, spelling, and punctuation that were not noted in review of the chart prior to signing ED Disposition - Plan for ED Patient: Chief Complaint: Nausea/Vomiting/Diarrhea Referrals: Drew Hardy MD [Primary Care Provider] -
[2018-10-27] MEDS: Ondansetron 4 MG/2 ML Vial IV (20:32)
[2018-10-27] MEDS: 0.9% Normal Saline 1,000 ML 999 ML IV ×2 (20:32→21:15)
[2018-10-27] MEDS: Morphine 4 MG/ML Syringe IV (20:32)
[2018-10-27 20:48] LABS: Absolute Lymphocyte Count 1.19 X10^3/ul (0.83-4.51); Absolute Neutrophil Count 13.6 X10^3/uL (2.0-7.7); Anion Gap 12 (5-15); BUN 57 mg/dL (7-18); BUN/Creat Ratio 26.5 RATIO (10-20); Basophil# 0.01 X10^3/uL; Basophil% 0.1 % (0-1); Calcium,Total 8.3 mg/dL (8.5-10.1); Chloride 78 mmol/L (98-107); Creatinine, Serum 2.15 mg/dL (0.70-1.30); EST Glomerular Filtration Rate 34 mL/min (>60); Eosinophil# 0.03 X10^3/uL; Eosinophils% 0.2 % (0-5); Est Glom Filt Rate - Afr Amer 41 mL/min (>60); Estimated Creatinine Clearance 39.28 ml/min; Glucose 114 mg/dL (74-106); Hematocrit 39.3 % (40-54); Hemoglobin 13.8 g/dl (13.0-16.5); Lymphocyte # 1.19 X10^3/ul (4.0); Lymphocyte % 7.3 % (19-41); Mean Corp Hgb Conc 35.1 g/gl (32-36); Mean Corpuscular Hgb 31.7 pg (27.0-32.0); Mean Corpuscular Volume 90.3 fL (80-94); Mean Platelet Vol. 9.7 fl (6.2-12.0); Monocyte# 1.45 X10^3/uL; Monocyte% 8.9 % (0-10); Neutrophil # 13.64 X10^3/uL (2.7-7.7); Neutrophil % 83.3 % (47-70); Platelet Count 375 K/mm3 (150-450); Potassium 2.9 mmol/L (3.5-5.1); RBC Distribution Width CV 13.3 % (11.6-14.6); RBC Distribution Width SD 44.2 fl (35.1-43.9); Red Blood Count 4.35 M/mm3 (4.6-6.2); Sodium Level 123 mmol/L (136-145); White Blood Count 16.4 K/mm3 (4.4-11.0)
[2018-10-27 20:49] LABS: POSITIVE COUNT NO; POSITIVE DIFFERENTIAL NO; POSITIVE MORPHOLOGY NO
--- NOTE | 2018-10-27 21:25 | PCM.HP.STD ---
Problem List (1) Nausea vomiting and diarrhea Status: Acute (2) Hyponatremia Status: Acute (3) Hypokalemia Status: Acute (4) MAICOL (acute kidney injury) Status: Acute History of Present Illness Date of Admission: 10/27/18 Chief Complaint: nausea,vomiting and diarrhea The patient is a 52 year old M with a significant history of A. fib; and asthma who presented with 4-day history of persistent nausea, vomiting and diarrhea. Also associated with his symptoms is severe right lower quadrant pain. On the day of admission he went to the [facility] to see a GI specialist. Lab work obtained at the [facility] showed that he was in MAICOL for which reason he was called and instructed to go to the emergency department. Associated with his symptoms is anorexia; lightheadedness; fatigue; weakness and headache.. He reports right flank pain. He denies urinating for the last 2 days. He reported that while at emergency department he was short of breath. Patient reported that his symptoms of nausea; vomiting and diarrhea has been going on for about 7 years and he has had many workup. He reported that in the past he had a small bowel surgery and biopsy showed that he had Crohn's disease. He reported that in the past he has been told that he has IBS. He reported that his last colonoscopy was with Dr. Coley, GI specialist. The last colonoscopy was about a year ago. He reports that biopsy was not done with his last colonoscopy. At emergency department he had leukocytosis of 16.4; sodium of 123; potassium of 2.9; chloride of 78; bicarbonate of 33; BUN of 57; creatinine of 2.15; His initial blood pressure was 97/76 and with IV boluses his blood pressure came to 139/87. Patient was admitted at our hospital on 10/16/2018 and discharged on 10/18/2018 with the same symptoms. He was discharged home on oral steroids. He reports that on the day of this admission (10/27/2017) he did not take his steroids. And one time he vomited after taking his steroids. He was also admitted at our hospital on 10/11/2018 and discharged on 10/13/2018 with a septic shock secondary to suspected viral gastroenteritis. Past Medical History Past Medical History (Chronic Problems): Chronic Problems Migraine (Chronic) Gastroesophageal reflux disease (Chronic) Allergies Penicillins Allergy (Verified 10/27/18 18:15) Anaphylaxis erythromycin base [Erythromycin Base] Adverse Reaction (Verified 10/27/18 18:15) Nausea milk Adverse Reaction (Verified 10/27/18 18:15) Upset Stomach Home Medications: Ambulatory Orders Medication Instructions Recorded Ondansetron [Zofran Odt] 4 mg PO Q8H PRN PRN 12/18/13 Rizatriptan Benzoate [Maxalt] 10 mg PO .X1 PRN 12/18/13 Amitriptyline HCl [Elavil] 10 mg PO QHS 09/19/17 Famotidine [Pepcid] 20 mg PO BID 08/09/18 Aspirin 81 mg PO BID 10/11/18 Potassium Chloride [Klor-Con M20] 20 meq PO BID 10/11/18 Diphenoxylate/Atrop [Lomotil] 1 tablet PO 4X/DAY PRN 10/16/18 Lactobacillus Acidophilus 1 each PO DAILY 10/16/18 [Probiotic Acidophilus] Prednisone [Deltasone] 40 mg PO DAILY #20 tablet 10/18/18 Surgical History: - - Removal of pancreatic cysts; intestinal surgery Psychiatric History: No pertinent psych hx Lives: Alone Smoking Status: Never smoker Alcohol: None - *Family History Paternal History Items: Heart Disease Maternal History Items: Heart Disease, Hypertension Review of Systems Constitutional: Reports: Anorexia, Malaise, Weakness, Fatigue. Denies: Chills, Fever, Weight Change HEENT: Denies: Head Aches, Sinus Congestion, Sinus Drainage Cardiovascular: Denies: Chest Pain, Palpitations Respiratory: Reports: Shortness of Breath. Denies: Cough Gastrointestinal: Reports: Abdominal Pain, Nausea, Vomiting Genitourinary: Denies: Dysuria Musculoskeletal: Denies: Joint Pain, Joint Tenderness Skin: Denies: Rash, Wounds Neurological: Denies: Numbness, Tingling, Focal weakness Psychiatric: Denies: Anxiety, Depression, Homicidal Ideations, Suicidal Ideations Hematologic/ Lymphatic: Denies: Easy Bruising, Easy Bleeding VTE Information - Inpt Only VTE Present on Admission: No VTE Mechan Device Prophylaxis: None VTE Pharm Prophylaxis ordered?: Yes Patient Problems: Active and Suspected Problems Nausea vomiting and diarrhea (Acute) Hyponatremia (Acute) Hypokalemia (Acute) MIACOL (acute kidney injury) (Acute) - Physical Exam General: Alert, Oriented x3, Cooperative HEENT: Atraumatic, PERRLA, EOMI, Normocephalic Neck: Supple, No JVD, Negative Carotid Bruits Lungs: Rhonchi Cardiovascular: Regular rate, No murmurs Abdomen: Bowel Sounds Present, Soft, Tender - Right upper quadrant Extremities: No edema, Capillary Refill Less than 3 Seconds Skin: No rashes, No breakdown Musculoskeletal: No Tenderness to Palpation of Joints or Extremities Neurological: Neuro grossly intact Psych/Mental Status: Normal Affect, Appropriate Vital Signs Temp Pulse Resp BP Pulse Ox 97.8 F 98 14 97/76 98 10/27/18 18:15 10/27/18 18:15 10/27/18 18:15 10/27/18 18:15 10/27/18 18:15 Weight: 73.482 kg Body Mass Index (BMI) 23.9 Laboratory Tests Past 24 Hrs 10/27/18 10/27/18 20:10 20:10 WBC 16.4 H RBC 4.35 L Hgb 13.8 Hct 39.3 L MCV 90.3 MCH 31.7 MCHC 35.1 RDW 13.3 RDW Differential 44.2 H Plt Count 375 MPV 9.7 Immature Gran % (Auto) 0.200 Neut % (Auto) 83.3 H Lymph % (Auto) 7.3 L [place]born % (Auto) 8.9 Eos % (Auto) 0.2 Baso % (Auto) 0.1 Absolute Neuts (auto) 13.6 H Absolute Lymphs (auto) 1.19 Total Counted Not Reportable Sodium 123 L Potassium 2.9 L Chloride 78 L Carbon Dioxide 33.0 H Anion Gap 12 BUN 57 H Creatinine 2.15 H Estim Creat Clear Calc 39.28 Est GFR (MDRD) Af Amer 41 L Est GFR (MDRD) Non-Af 34 L BUN/Creatinine Ratio 26.5 H Glucose 114 H Calcium 8.3 L Assessment/Plan All Active Problems Nausea vomiting and diarrhea (Acute) Hyponatremia (Acute) Hypokalemia (Acute) MAICOL (acute kidney injury) (Acute) GI bleed (Resolved) CAD (coronary artery disease) (Ruled-out) Nausea and vomiting (Acute) Perforated bowel (Resolved) Severe sepsis (Resolved) Tachycardia (Resolved) The patient is a 52 year old M with a significant history of A. fib; and asthma who presented with 4-day history of persistent nausea, vomiting and diarrhea; presumed diagnosis of Crohn disease and IBS who was sent here because of abnormal labs pointing to kidney injury. MAICOL secondary to dehydration from nausea; vomiting and diarrhea. On admission his creatinine was 2.15. Review of old records shows that his baseline creatinine is about 1. Received IV boluses at emergency department. We will give patient maintenance normal saline with potassium infusion. Avoid nephrotoxins Trend BMP. Intractable nausea, vomiting and diarrhea Will treat as a Crohn's flare IV hydration as above Patient reported that he could tolerate apple juice. Clear liquids ordered. Morphine IV for her abdominal pain. Because of his history of Crohn disease patient has been placed on IV Solu-Medrol. Importantly he was discharged home on prednisone recently. Continue home Lomotil. As needed Imodium. Antiemetics, IV Zofran as needed. Trend blood pressures Patient to follow-up outpatient with GI for different diagnosis. Hyponatremia with hypochloremia Sodium on admission was 123; chloride was 78. Likely due to electrolyte loss from vomiting and diarrhea. Will place patient on MedSurg and on telemetry monitoring. IV hydration with normal saline and potassium. Trend BMP Hypokalemia On admission his potassium was 2.9. He received a one-time dose of potassium at emergency department. Likely from vomiting and diarrhea. Normal saline with potassium IV hydration. Trend BMP Presumed Asthma exacerbation Patient reported childhood asthma but asthma since disappeared. However at emergency department he reported having shortness of breath and his lungs sounded rhonchorous. Steroids for probable Crohn's disease should help with presumed asthma exacerbation Comprehensive respiratory pathogen panel ordered. Metabolic Alkalosis Bicarbonate of 33. Likely volume contraction from nausea and vomiting. Chronic headache Maxalt prn continued Amitriptyline continued Tylenol as needed History of A. fib Patient reported that he takes aspirin at home. Aspirin continued GERD At home he takes p.o. Pepcid. Because of nausea vomiting and will give him IV Pepcid. DVT prophylaxis Subcutaneous heparin. Code Visit OBSV E&M: 20012 Initial observation care L3
[2018-10-27 22:15] VITALS: BP 139/87; PULSE 82; RESP 18
[2018-10-27 22:38] VITALS: BMI 24.5; BMI 24.6
[2018-10-27 22:52] VITALS: BP 137/87; PULSE 78; RESP 96; TEMP 36.6; O2SAT 95
[2018-10-27 23:34] VITALS: PULSE 69
[2018-10-27 23:50] LABS: Magnesium 3.9 mg/dL (1.6-2.6)
[2018-10-28] VITALS (13 sets, daily range): BP systolic 100–114; BP diastolic 69–73; PULSE 61–92; RESP 16–20; TEMP 36.6–36.8; O2SAT 94–99
[2018-10-28] MEDS: Morphine 2 MG/ML Syringe IV ×5 (00:03→21:11)
[2018-10-28] MEDS: Loperamide 2 MG Capsule PO ×3 (00:04→21:12)
[2018-10-28] MEDS: 0.9% NaCl Peripheral Flush Adult/Peds IV ×5 (00:04→21:15)
[2018-10-28] MEDS: Amitriptyline 10 MG Tablet PO ×2 (01:07→21:12)
[2018-10-28] MEDS: Heparin Injection (Vial) 5,000 UNIT/ML VIAL 5000 UNIT SC ×4 (01:07→21:12)
[2018-10-28] MEDS: Potassium Chloride 40 MEQ in 0.9% Normal Saline 1,000 ML 150 MEQ IV ×3 (01:08→16:28)
[2018-10-28 07:16] LABS: Hematocrit 32.5 % (40-54); Mean Corp Hgb Conc 33.8 g/gl (32-36); Mean Corpuscular Hgb 31.3 pg (27.0-32.0); Mean Corpuscular Volume 92.6 fL (80-94); Mean Platelet Vol. 9.9 fl (6.2-12.0); Platelet Count 230 K/mm3 (150-450); RBC Distribution Width CV 13.4 % (11.6-14.6); RBC Distribution Width SD 45.6 fl (35.1-43.9); Red Blood Count 3.51 M/mm3 (4.6-6.2)
[2018-10-28 07:21] LABS: Scan Indicated on CBC? Y/N NO
[2018-10-28] MEDS: Ipratropium/Albuterol Sulfate 3 ML AMPUL.NEB INHALATION ×3 (07:25→19:37)
[2018-10-28 07:49] LABS: Anion Gap 8 (5-15); BUN 44 mg/dL (7-18); BUN/Creat Ratio 29.9 RATIO (10-20); Calcium,Total 7.4 mg/dL (8.5-10.1); Chloride 95 mmol/L (98-107); Creatinine, Serum 1.47 mg/dL (0.70-1.30); EST Glomerular Filtration Rate 53 mL/min (>60); Est Glom Filt Rate - Afr Amer 64 mL/min (>60); Estimated Creatinine Clearance 57.45 ml/min; Glucose 97 mg/dL (74-106); Potassium 4.4 mmol/L (3.5-5.1); Sodium Level 132 mmol/L (136-145)
[2018-10-28] MEDS: Aspirin 81 MG TAB.CHEW PO ×2 (08:54→18:45)
[2018-10-28] MEDS: Ondansetron 4 MG/2 ML Vial IV (09:25)
--- NOTE | 2018-10-28 12:42 | PCM.PROGNOTE ---
<Rebecca Estrada - Last Filed: 10/28/18 12:55> Patient Problems: Active and Suspected Problems Nausea vomiting and diarrhea (Acute) Hyponatremia (Acute) Hypokalemia (Acute) MAICOL (acute kidney injury) (Acute) Subjective: Patient seen and examined. Continues to have frequent episodes of diarrhea, greater than 5 this morning. Denies further emesis. Complains of continued nausea. Denies fever, chills. Denies abdominal pain currently although he states he recently received medication. Had abdominal cramping prior. - Physical Exam General: Alert, Oriented x3, Cooperative HEENT: Atraumatic, PERRLA, EOMI, Normocephalic Neck: Supple, No JVD, Negative Carotid Bruits Lungs: Clear to auscultation, Normal air movement Cardiovascular: Regular rate, Regular Rhythm, Normal S1, Normal S2, No murmurs Abdomen: Bowel Sounds Present, Soft, Non Tender, Non-Distended Extremities: No clubbing, No cyanosis, No edema, Capillary Refill Less than 3 Seconds Skin: No rashes, No breakdown Musculoskeletal: No Tenderness to Palpation of Joints or Extremities Neurological: Cranial nerves II-XII grossly intact, Neuro grossly intact Psych/Mental Status: Normal Affect, Appropriate Vital Signs Temp Pulse Resp BP Pulse Ox 97.8 F 74 16 102/69 94 10/28/18 09:03 10/28/18 09:03 10/28/18 09:03 10/28/18 09:03 10/28/18 09:03 Oxygen Delivery Method Room Air Weight: 166 lb 8.948 oz Body Mass Index (BMI) 24.5 Intake and Output for Last 24 Hours 10/26/18 10/27/18 10/28/18 23:59 23:59 23:59 Intake Total 1856 / 1856 Output Total 500 / 500 Balance 1356 / 1356 Microbiology Past 72 Hours 10/28/18 00:35 Respiratory Panel (PCR) - Final Mucosa - Nasopharyngeal Rhinovirus Laboratory Tests Past 24 Hrs 10/27/18 10/27/18 10/27/18 20:10 20:10 20:10 WBC 16.4 H RBC 4.35 L Hgb 13.8 Hct 39.3 L MCV 90.3 MCH 31.7 MCHC 35.1 RDW 13.3 RDW Differential 44.2 H Plt Count 375 MPV 9.7 Immature Gran % (Auto) 0.200 Neut % (Auto) 83.3 H Lymph % (Auto) 7.3 L Peach % (Auto) 8.9 Eos % (Auto) 0.2 Baso % (Auto) 0.1 Absolute Neuts (auto) 13.6 H Absolute Lymphs (auto) 1.19 Total Counted Not Reportable Sodium 123 L Potassium 2.9 L Chloride 78 L Carbon Dioxide 33.0 H Anion Gap 12 BUN 57 H Creatinine 2.15 H Estim Creat Clear Calc 39.28 Est GFR (MDRD) Af Amer 41 L Est GFR (MDRD) Non-Af 34 L BUN/Creatinine Ratio 26.5 H Glucose 114 H Calcium 8.3 L Magnesium 3.9 H 10/28/18 10/28/18 06:45 06:45 WBC 8.0 RBC 3.51 L Hgb 11.0 L Hct 32.5 L MCV 92.6 MCH 31.3 MCHC 33.8 RDW 13.4 RDW Differential 45.6 H Plt Count 230 MPV 9.9 Immature Gran % (Auto) Neut % (Auto) Lymph % (Auto) Peach % (Auto) Eos % (Auto) Baso % (Auto) Absolute Neuts (auto) Absolute Lymphs (auto) Total Counted Sodium 132 L Potassium 4.4 Chloride 95 L Carbon Dioxide 29.0 Anion Gap 8 BUN 44 H Creatinine 1.47 H Estim Creat Clear Calc 57.45 Est GFR (MDRD) Af Amer 64 Est GFR (MDRD) Non-Af 53 L BUN/Creatinine Ratio 29.9 H Glucose 97 Calcium 7.4 L Magnesium Medical Necessity - Tobacco Use Smoking Status: Never smoker Assessment/Plan All Active Problems Nausea vomiting and diarrhea (Acute) Hyponatremia (Acute) Hypokalemia (Acute) MAICOL (acute kidney injury) (Acute) GI bleed (Resolved) CAD (coronary artery disease) (Ruled-out) Nausea and vomiting (Acute) Perforated bowel (Resolved) Severe sepsis (Resolved) Tachycardia (Resolved) 1. Intractable recurrent nausea, vomiting, diarrhea-questionable history of Crohn's/IBS? Patient has had 3 admissions since 10/11/2018 for recurrent N/V/D with associated acute kidney injury. Patient is currently undergoing evaluation at [facility] by GI specialist. IV fluids. PRN nausea regimen. IV Solu-Medrol. PRN Imodium. CT of abdomen 10/16/2018 with fluid-filled bowel, suggesting enterocolitis. Consult Dr. Merida for further input given severity and recurrence of diarrhea with outpatient workup pending. 2. Acute kidney injury-secondary to dehydration as a result of #1. Continue IV fluids. Trend BMP. 3. Presumed asthma exacerbation-patient with shortness of breath and wheezing on admission. Albuterol DuoNeb aerosols. IV Solu-Medrol. Improved. 4. Hypokalemia/hyponatremia-secondary to #1. Improving. 4. GERD- IV pepcid. 5. Chronic headaches-continue home amitriptyline/maxalt regimen. 6. History of paroxysmal atrial fibrillation-not on anticoagulation given brief episode. DVT prophylaxis-heparin subcu This patient was seen by RITIKA Ellis under the supervision of Dr. Woodard. <Desiree Woodard - Last Filed: 10/28/18 14:12> - Physical Exam Vital Signs Temp Pulse Resp BP Pulse Ox 98.1 F 72 16 100/70 95 10/28/18 13:03 10/28/18 13:07 10/28/18 13:07 10/28/18 13:03 10/28/18 13:03 Oxygen Delivery Method Room Air Weight: 166 lb 8.948 oz Body Mass Index (BMI) 24.5 Intake and Output for Last 24 Hours 10/26/18 10/27/18 10/28/18 23:59 23:59 23:59 Intake Total 3213 / 3213 Output Total 500 / 500 Balance 2713 / 2713 Microbiology Past 72 Hours 10/28/18 00:35 Respiratory Panel (PCR) - Final Mucosa - Nasopharyngeal Rhinovirus Laboratory Tests Past 24 Hrs 10/27/18 10/27/18 10/27/18 20:10 20:10 20:10 WBC 16.4 H RBC 4.35 L Hgb 13.8 Hct 39.3 L MCV 90.3 MCH 31.7 MCHC 35.1 RDW 13.3 RDW Differential 44.2 H Plt Count 375 MPV 9.7 Immature Gran % (Auto) 0.200 Neut % (Auto) 83.3 H Lymph % (Auto) 7.3 L Peach % (Auto) 8.9 Eos % (Auto) 0.2 Baso % (Auto) 0.1 Absolute Neuts (auto) 13.6 H Absolute Lymphs (auto) 1.19 Total Counted Not Reportable Sodium 123 L Potassium 2.9 L Chloride 78 L Carbon Dioxide 33.0 H Anion Gap 12 BUN 57 H Creatinine 2.15 H Estim Creat Clear Calc 39.28 Est GFR (MDRD) Af Amer 41 L Est GFR (MDRD) Non-Af 34 L BUN/Creatinine Ratio 26.5 H Glucose 114 H Calcium 8.3 L Magnesium 3.9 H 10/28/18 10/28/18 06:45 06:45 WBC 8.0 RBC 3.51 L Hgb 11.0 L Hct 32.5 L MCV 92.6 MCH 31.3 MCHC 33.8 RDW 13.4 RDW Differential 45.6 H Plt Count 230 MPV 9.9 Immature Gran % (Auto) Neut % (Auto) Lymph % (Auto) Peach % (Auto) Eos % (Auto) Baso % (Auto) Absolute Neuts (auto) Absolute Lymphs (auto) Total Counted Sodium 132 L Potassium 4.4 Chloride 95 L Carbon Dioxide 29.0 Anion Gap 8 BUN 44 H Creatinine 1.47 H Estim Creat Clear Calc 57.45 Est GFR (MDRD) Af Amer 64 Est GFR (MDRD) Non-Af 53 L BUN/Creatinine Ratio 29.9 H Glucose 97 Calcium 7.4 L Magnesium Assessment/Plan Patient seen by Rebecca Estrada NP-Harshal under my supervision. He had ~ 5 episodes of diarrhea today. He still has nausea but vomiting has stopped. Review of systems is otherwise negative. Patient is quite frustrated with his repeated admissions to the hospital for the same symptoms, as he is unable to work to earn a living. o/e; Vital Signs Height 5 ft 9 in Weight: 166 lb 8.948 oz Weight in Pounds 166.6 lbs Pulse Ox 95 Temperature 98.1 F Pulse Rate 72 Respiratory Rate 16 Blood Pressure 100/70 Blood Pressure Position Semi-Fowlers General: Alert, Oriented x3, Cooperative HEENT: Atraumatic, PERRLA, EOMI, Normocephalic Neck: Supple, No JVD, Negative Carotid Bruits Lungs: Clear to auscultation, Normal air movement Cardiovascular: Regular rate, Regular Rhythm, Normal S1, Normal S2, No murmurs Abdomen: Bowel Sounds Present, Soft, Non Tender, Non-Distended Extremities: No clubbing, No cyanosis, No edema, Capillary Refill Less than 3 Seconds Skin: No rashes, No breakdown Musculoskeletal: No Tenderness to Palpation of Joints or Extremities Neurological: Cranial nerves II-XII grossly intact, Neuro grossly intact Psych/Mental Status: Normal Affect, Appropriate continue hydration with IVF for MAICOL and diarrhea. zofran prn. continue IV solu-medrol for Crohn's flareup. Continue breathing treatment for asthma exacerbation due to URTI due to RSV. consult placed to general surgery for input. Hyponatremia has improved and is now 132. Will continue to hydrate with IVF. I have reviewed the rest of Rebecca Estrada [employer] OFFICER-C's note, assessment and plan and agree. Code Visit OBSV E&M: 33903 Subsequent observation care L3
--- NOTE | 2018-10-28 12:52 | PN_ITS ---
<Rebecca Estrada - Last Filed: 10/28/18 12:55> Patient Problems: Active and Suspected Problems Nausea vomiting and diarrhea (Acute) Hyponatremia (Acute) Hypokalemia (Acute) MAICOL (acute kidney injury) (Acute) Subjective: Patient seen and examined. Continues to have frequent episodes of diarrhea, greater than 5 this morning. Denies further emesis. Complains of continued nausea. Denies fever, chills. Denies abdominal pain currently although he states he recently received medication. Had abdominal cramping prior. - Physical Exam General: Alert, Oriented x3, Cooperative HEENT: Atraumatic, PERRLA, EOMI, Normocephalic Neck: Supple, No JVD, Negative Carotid Bruits Lungs: Clear to auscultation, Normal air movement Cardiovascular: Regular rate, Regular Rhythm, Normal S1, Normal S2, No murmurs Abdomen: Bowel Sounds Present, Soft, Non Tender, Non-Distended Extremities: No clubbing, No cyanosis, No edema, Capillary Refill Less than 3 Seconds Skin: No rashes, No breakdown Musculoskeletal: No Tenderness to Palpation of Joints or Extremities Neurological: Cranial nerves II-XII grossly intact, Neuro grossly intact Psych/Mental Status: Normal Affect, Appropriate Vital Signs Temp Pulse Resp BP Pulse Ox 97.8 F 74 16 102/69 94 10/28/18 09:03 10/28/18 09:03 10/28/18 09:03 10/28/18 09:03 10/28/18 09:03 Oxygen Delivery Method Room Air Weight: 166 lb 8.948 oz Body Mass Index (BMI) 24.5 Intake and Output for Last 24 Hours 10/26/18 10/27/18 10/28/18 23:59 23:59 23:59 Intake Total 1856 / 1856 Output Total 500 / 500 Balance 1356 / 1356 Microbiology Past 72 Hours 10/28/18 00:35 Respiratory Panel (PCR) - Final Mucosa - Nasopharyngeal Rhinovirus Laboratory Tests Past 24 Hrs 10/27/18 10/27/18 10/27/18 20:10 20:10 20:10 WBC 16.4 H RBC 4.35 L Hgb 13.8 Hct 39.3 L MCV 90.3 MCH 31.7 MCHC 35.1 RDW 13.3 RDW Differential 44.2 H Plt Count 375 MPV 9.7 Immature Gran % (Auto) 0.200 Neut % (Auto) 83.3 H Lymph % (Auto) 7.3 L [place] % (Auto) 8.9 Eos % (Auto) 0.2 Baso % (Auto) 0.1 Absolute Neuts (auto) 13.6 H Absolute Lymphs (auto) 1.19 Total Counted Not Reportable Sodium 123 L Potassium 2.9 L Chloride 78 L Carbon Dioxide 33.0 H Anion Gap 12 BUN 57 H Creatinine 2.15 H Estim Creat Clear Calc 39.28 Est GFR (MDRD) Af Amer 41 L Est GFR (MDRD) Non-Af 34 L BUN/Creatinine Ratio 26.5 H Glucose 114 H Calcium 8.3 L Magnesium 3.9 H 10/28/18 10/28/18 06:45 06:45 WBC 8.0 RBC 3.51 L Hgb 11.0 L Hct 32.5 L MCV 92.6 MCH 31.3 MCHC 33.8 RDW 13.4 RDW Differential 45.6 H Plt Count 230 MPV 9.9 Immature Gran % (Auto) Neut % (Auto) Lymph % (Auto) [place] % (Auto) Eos % (Auto) Baso % (Auto) Absolute Neuts (auto) Absolute Lymphs (auto) Total Counted Sodium 132 L Potassium 4.4 Chloride 95 L Carbon Dioxide 29.0 Anion Gap 8 BUN 44 H Creatinine 1.47 H Estim Creat Clear Calc 57.45 Est GFR (MDRD) Af Amer 64 Est GFR (MDRD) Non-Af 53 L BUN/Creatinine Ratio 29.9 H Glucose 97 Calcium 7.4 L Magnesium Medical Necessity - Tobacco Use Smoking Status: Never smoker Assessment/Plan All Active Problems Nausea vomiting and diarrhea (Acute) Hyponatremia (Acute) Hypokalemia (Acute) MAICOL (acute kidney injury) (Acute) GI bleed (Resolved) CAD (coronary artery disease) (Ruled-out) Nausea and vomiting (Acute) Perforated bowel (Resolved) Severe sepsis (Resolved) Tachycardia (Resolved) 1. Intractable recurrent nausea, vomiting, diarrhea-questionable history of Crohn's/IBS? Patient has had 3 admissions since 10/11/2018 for recurrent N/V/D with associated acute kidney injury. Patient is currently undergoing evaluation at [facility] by GI specialist. IV fluids. PRN nausea regimen. IV Solu- Medrol. PRN Imodium. CT of abdomen 10/16/2018 with fluid-filled bowel, suggesting enterocolitis. Consult Dr. Merida for further input given severity and recurrence of diarrhea with outpatient workup pending. 2. Acute kidney injury-secondary to dehydration as a result of #1. Continue IV fluids. Trend BMP. 3. Presumed asthma exacerbation-patient with shortness of breath and wheezing on admission. Albuterol DuoNeb aerosols. IV Solu-Medrol. Improved. 4. Hypokalemia/hyponatremia-secondary to #1. Improving. 4. GERD- IV pepcid. 5. Chronic headaches-continue home amitriptyline/maxalt regimen. 6. History of paroxysmal atrial fibrillation-not on anticoagulation given brief episode. DVT prophylaxis-heparin subcu This patient was seen by RITIKA Ellis under the supervision of Dr. Woodard. <Desiree Woodard - Last Filed: 10/28/18 14:12> - Physical Exam Vital Signs Temp Pulse Resp BP Pulse Ox 98.1 F 72 16 100/70 95 10/28/18 13:03 10/28/18 13:07 10/28/18 13:07 10/28/18 13:03 10/28/18 13:03 Oxygen Delivery Method Room Air Weight: 166 lb 8.948 oz Body Mass Index (BMI) 24.5 Intake and Output for Last 24 Hours 10/26/18 10/27/18 10/28/18 23:59 23:59 23:59 Intake Total 3213 / 3213 Output Total 500 / 500 Balance 2713 / 2713 Microbiology Past 72 Hours 10/28/18 00:35 Respiratory Panel (PCR) - Final Mucosa - Nasopharyngeal Rhinovirus Laboratory Tests Past 24 Hrs 10/27/18 10/27/18 10/27/18 20:10 20:10 20:10 WBC 16.4 H RBC 4.35 L Hgb 13.8 Hct 39.3 L MCV 90.3 MCH 31.7 MCHC 35.1 RDW 13.3 RDW Differential 44.2 H Plt Count 375 MPV 9.7 Immature Gran % (Auto) 0.200 Neut % (Auto) 83.3 H Lymph % (Auto) 7.3 L [place] % (Auto) 8.9 Eos % (Auto) 0.2 Baso % (Auto) 0.1 Absolute Neuts (auto) 13.6 H Absolute Lymphs (auto) 1.19 Total Counted Not Reportable Sodium 123 L Potassium 2.9 L Chloride 78 L Carbon Dioxide 33.0 H Anion Gap 12 BUN 57 H Creatinine 2.15 H Estim Creat Clear Calc 39.28 Est GFR (MDRD) Af Amer 41 L Est GFR (MDRD) Non-Af 34 L BUN/Creatinine Ratio 26.5 H Glucose 114 H Calcium 8.3 L Magnesium 3.9 H 10/28/18 10/28/18 06:45 06:45 WBC 8.0 RBC 3.51 L Hgb 11.0 L Hct 32.5 L MCV 92.6 MCH 31.3 MCHC 33.8 RDW 13.4 RDW Differential 45.6 H Plt Count 230 MPV 9.9 Immature Gran % (Auto) Neut % (Auto) Lymph % (Auto) [place] % (Auto) Eos % (Auto) Baso % (Auto) Absolute Neuts (auto) Absolute Lymphs (auto) Total Counted Sodium 132 L Potassium 4.4 Chloride 95 L Carbon Dioxide 29.0 Anion Gap 8 BUN 44 H Creatinine 1.47 H Estim Creat Clear Calc 57.45 Est GFR (MDRD) Af Amer 64 Est GFR (MDRD) Non-Af 53 L BUN/Creatinine Ratio 29.9 H Glucose 97 Calcium 7.4 L Magnesium Assessment/Plan Patient seen by Rebecca Estrada NP-Harshal under my supervision. He had ~ 5 episodes of diarrhea today. He still has nausea but vomiting has stopped. Review of systems is otherwise negative. Patient is quite frustrated with his repeated admissions to the hospital for the same symptoms, as he is unable to work to earn a living. o/e; Vital Signs Height 5 ft 9 in Weight: 166 lb 8.948 oz Weight in Pounds 166.6 lbs Pulse Ox 95 Temperature 98.1 F Pulse Rate 72 Respiratory Rate 16 Blood Pressure 100/70 Blood Pressure Position Semi-Fowlers General: Alert, Oriented x3, Cooperative HEENT: Atraumatic, PERRLA, EOMI, Normocephalic Neck: Supple, No JVD, Negative Carotid Bruits Lungs: Clear to auscultation, Normal air movement Cardiovascular: Regular rate, Regular Rhythm, Normal S1, Normal S2, No murmurs Abdomen: Bowel Sounds Present, Soft, Non Tender, Non-Distended Extremities: No clubbing, No cyanosis, No edema, Capillary Refill Less than 3 Seconds Skin: No rashes, No breakdown Musculoskeletal: No Tenderness to Palpation of Joints or Extremities Neurological: Cranial nerves II-XII grossly intact, Neuro grossly intact Psych/Mental Status: Normal Affect, Appropriate continue hydration with IVF for MAICOL and diarrhea. zofran prn. continue IV solu- medrol for Crohn's flareup. Continue breathing treatment for asthma exacerbation due to URTI due to RSV. consult placed to general surgery for input. Hyponatremia has improved and is now 132. Will continue to hydrate with IVF. I have reviewed the rest of Rebecca Estrada HOME SERVICE ADVISOR-C's note, assessment and plan and agree. Code Visit OBSV E&M: 20380 Subsequent observation care L3
[2018-10-29] VITALS (12 sets, daily range): BP systolic 103–122; BP diastolic 62–80; PULSE 59–98; RESP 16–18; TEMP 36.3–36.9; O2SAT 97–100
[2018-10-29] MEDS: Morphine 2 MG/ML Syringe IV ×5 (02:38→23:56)
[2018-10-29] MEDS: 0.9% NaCl Peripheral Flush Adult/Peds IV ×6 (02:39→23:56)
[2018-10-29] MEDS: Heparin Injection (Vial) 5,000 UNIT/ML VIAL 5000 UNIT SC ×3 (06:58→22:03)
[2018-10-29] MEDS: Ondansetron 4 MG/2 ML Vial IV ×2 (06:58→18:49)
[2018-10-29] MEDS: Ipratropium/Albuterol Sulfate 3 ML AMPUL.NEB INHALATION ×2 (07:15→13:06)
[2018-10-29 07:20] LABS: Hematocrit 30.1 % (40-54); Mean Corp Hgb Conc 33.2 g/gl (32-36); Mean Corpuscular Hgb 31.8 pg (27.0-32.0); Mean Corpuscular Volume 95.9 fL (80-94); Platelet Count 251 K/mm3 (150-450); RBC Distribution Width CV 12.8 % (11.6-14.6); RBC Distribution Width SD 43.2 fl (35.1-43.9); Red Blood Count 3.14 M/mm3 (4.6-6.2); White Blood Count 8.7 K/mm3 (4.4-11.0)
[2018-10-29 07:21] LABS: Scan Indicated on CBC? Y/N NO
[2018-10-29 07:44] LABS: Anion Gap 10 (5-15); BUN 23 mg/dL (7-18); BUN/Creat Ratio 23.6 RATIO (10-20); Calcium,Total 8.3 mg/dL (8.5-10.1); Chloride 99 mmol/L (98-107); Creatinine, Serum 0.97 mg/dL (0.70-1.30); EST Glomerular Filtration Rate 85 mL/min (>60); Est Glom Filt Rate - Afr Amer 103 mL/min (>60); Estimated Creatinine Clearance 87.06 ml/min; Glucose 101 mg/dL (74-106); Potassium 3.9 mmol/L (3.5-5.1); Sodium Level 134 mmol/L (136-145)
[2018-10-29] MEDS: Aspirin 81 MG TAB.CHEW PO ×2 (08:22→16:20)
--- NOTE | 2018-10-29 11:36 | PCM.CONS.GEN ---
Reason for Consult Date of Consultation: 10/29/18 Reason for Consultation: nausea, vomiting, and diarrhea History of Present Illness: The patient is a 52 year old M with a 4 day history of worsening nausea vomiting and diarrhea. The patient has a 7 year long-standing history of these complaints and his artery undergone extensive workup. He was seen recently by gastroenterology at [facility]-seen by the GI fellow with plans for follow-up upper and lower endoscopy in November. The notation from that office visit is as follows: Marcos Peralta ?is a 52 year old male who presents today for an evaluation of chronic diarrhea. ? PMHx only includes migraines on amitryptiline and chronic diarrhea for which he is here for. ? ? Diarrhea has been going on for 7 years and worsening in the last 1.5 years. He used to have diarrhea episodes every 3 months but recently happening every few weeks. He is having 15-25 episodes of diarrhea/day. Stool is watery and small-volume. He changes his underwear 4-5 times/day and incontinence both at night and during the day. There is mucus associated with the stool. No blood in the last few weeks but he has blood in the past on and off. Stool is not greasy and does not float. Occasionally malodorous. ? He has associated vomiting that is sometimes predominant over diarrhea. He vomited 4x already today. Non-bloody, but bilious. His weight fluctuates by 20 lbs between 150-170 lbs over 3-4 weeks. Currently 162 lbs. Body mass index is 23.98 kg/m?.?He has RLQ pain that occurs when he has bouts of diarrhea. ? He has no appetite at all. He avoids fried, greasy, spicy foods. No recent travel. No cholecystectomy. No family or personal history of IBD. No history of pancreatitis. Drinks alcohol 1x/week (prior to 5 years almost daily, heavy alcohol use (1 pint of 110 proof vodka daily)). Not currently sexually active. No IVDU. ? ? Has had?2 hospital admissions recently, from 10/11/18-10/13/18 and then readmitted on 10/16/18-10/18/18. When originally in the ER for vomiting and diarrhea, then re-admitted for Gastroenteritis and Prolonged QT. Pt was discharged on 10/18/18 on Prednisone 40 mg bid (down to 20 mg qd) for presumed microscopic colitis. On 40 mg BID, he felt great for 1 week with formed stool. He is also on lomotil prn, pepcid BID prn. ? ? Recent workup includes lactose tolerance test which was positive for lactose intolerance. He cut out milk but continues to use dairy products occasionally. Normal pancreatic elastase 09/05/2018. Has had a trial of Creon in the past with no improvement. ? ? Extensive workup for [place] [address] Farah- TSH and iron studies normal, celiac screen negative, stool potassium and Na unable to be determined as non-liquid, C. Diff negative, fecal fat elevated at 9 g. Pancreatic elastase low during 2016 workup but normal 08/2018. ? EGD and Colonoscopy 03/2016 Impression: ?- Normal esophagus. ?- Chronic gastritis. Biopsied. ?- Chronic duodenitis. Biopsied. ?- A mass (vs. peripancreatic node) was identified in ?the uncinate process of the pancreas. Fine needle ?aspiration performed. Findings: ?The colon (entire examined portion) appeared normal. Biopsies for ?histology were taken with a cold forceps for evaluation of microscopic ?colitis. Impression: ?- Preparation of the colon was poor. ?- The procedure was aborted due to poor bowel prep. ?- The entire examined colon is normal. Biopsied. ? ? ? FINAL DIAGNOSIS 1. Duodenum, biopsy (A) - Chronic focally active duodenitis with erosion and gastric foveolar metaplasia. - Morphologic changes of celiac disease are not seen. 2. Stomach, biopsy (B) - Gastric oxyntic mucosa with mild chronic inactive gastritis. - See comment. 3. Colon, left side, biopsy (C) - Colonic mucosa with no significant diagnostic abnormality. - No morphologic evidence of lymphocytic or collagenous colitis. 4. FNA was inadequate sample ? many laboratory tests were performed. They include the following: CELIAC SCREEN WITH REFLEX Order: [id number] Status: Preliminary result ??Visible to patient: No (Not Released) Next appt: 11/08/2018 at 04:00 PM in Family Practice (Drew Hardy MD) Dx: Diarrhea, unspecified type Ref Range & Units 2d ago 2yr ago IgA 78 - 391 mg/dL 296 398 Resulting Agency CCM CCM Specimen Collected: 10/27/18 11:09 AM Last Resulted: 10/27/18 ?7:55 PM Lab Flowsheet Order Details View Encounter Lab and Collection Details Routing Result History CBC Order: [id number] Status: Final result ??Visible to patient: No (Not Released) Next appt: 11/08/2018 at 04:00 PM in Family Practice (Drew Hardy MD) Dx: Diarrhea, unspecified type Ref Range & Units 2d ago (10/27/18) 2mo ago (08/17/18) 2mo ago (08/08/18) 1yr ago (06/03/17) 2yr ago (01/28/16) 2yr ago (01/06/16) 3yr ago (03/25/15) WBC 3.70 - 11.00 k/uL 15.31 9.30 9.88 3.03 3.55 6.00 5.19 RBC 4.20 - 6.00 m/uL 4.72 4.90 4.72 2.41 4.15 4.17 3.68 Hemoglobin 13.0 - 17.0 g/dL 15.1 16.2 15.5 8.4 13.5 14.1 12.6 Hematocrit 39.0 - 51.0 % 42.4 46.0 44.5 25.5 39.1 38.9 36.7 MCV 80.0 - 100.0 fL 89.8 93.9 94.3 105.8 94.2 93.3 99.7 MCH 26.0 - 34.0 pG 32.0 33.1 32.8 34.9 32.5 33.8 34.2 MCHC 30.5 - 36.0 g/dL 35.6 35.2 34.8 32.9 34.5 36.2 34.3 RDW-CV 11.5 - 15.0 % 13.2 13.1 13.2 14.4 14.9 14.7 13.9 Platelet Count 150 - 400 k/uL 417 364 322 245 178 404 260 MPV 9.0 - 12.7 fL 10.1 10.5 10.0 9.5 10.7 10.4 10.4 Absolute nRBC <0.01 k/uL <0.01 <0.01 k/uL class=rz_w [id number]> <0.01 <0.01 k/uL class=rz_w [id number]> <0.01 0.00R Resulting Agency CCM CCM CCM CCM CCM CCM CCM Specimen Collected: 10/27/18 11:09 AM Last Resulted: 10/27/18 12:37 PM Lab Flowsheet Order Details View Encounter Lab and Collection Details Routing Result History R=Reference range differs from displayed range?? COMP METABOLIC PANEL Order: [id number] Status: Final result ??Visible to patient: No (Not Released) Next appt: 11/08/2018 at 04:00 PM in Family Practice (Drew Hardy MD) Dx: Diarrhea, unspecified type Ref Range & Units 2d ago (10/27/18) 2d ago (10/27/18) 1mo ago (09/05/18) 2mo ago (08/17/18) 2mo ago (08/08/18) 1yr ago (06/03/17) 1yr ago (05/27/17) Protein, Total 6.3 - 8.0 g/dL 7.7 7.1R 7.9 8.2 5.4 5.9 Albumin 3.9 - 4.9 g/dL 4.3 4.9 4.7 3.4 3.5 Calcium 8.5 - 10.2 mg/dL 9.3 9.2 11.0 10.3 9.3 8.7 Bilirubin, Total 0.2 - 1.3 mg/dL 1.0 0.6 0.7 0.2 1.0 Alkaline Phosphatase 38 - 113 U/L 59 82 75 61R 67R AST 14 - 40 U/L 14 27 28 53 64 Glucose 74 - 99 mg/dL 135 99CM 104 94CM 81CM 87CM Comment: The [place] Diabetes [employer] (ADA) provides guidance for cutoff values for fasting glucose and random glucose. The ADA defines fasting as no caloric intake for at least 8 hours. Fasting plasma glucose results between 100 to 125 ?mg/dL indicate increased risk for diabetes (prediabetes). Fasting plasma glucose results greater than or equal to 126 mg/dL meet the criteria for diagnosis of diabetes. In the absence of unequivocal hyperglycemia, results should be confirmed by repeat testing. In a patient with classic symptoms of hyperglycemia or hyperglycemic crisis, random plasma glucose results greater than or equal to 200 mg/dL meet the criteria for diagnosis of diabetes. Reference: Standards of Medical Care in Diabetes 2016, [place] [employer]. Diabetes Care. 2016.39(Suppl 1). BUN 9 - 24 mg/dL 53 23 25R 18 11 9 Creatinine 0.73 - 1.22 mg/dL 2.51 1.13 1.33 2.72 0.89 0.97 Sodium 136 - 144 mmol/L 127 138 130 132 140 135 Potassium 3.7 - 5.1 mmol/L 3.3 3.3 3.0 3.5 3.8 2.8 Chloride 97 - 105 mmol/L 77 94 86 85 98 89 Comment: Result rechecked. CO2 22 - 30 mmol/L 30 28 23 26 25 30 Anion Gap 9 - 18 mmol/L 20 16 21 21 17 16 ALT 10 - 54 U/L 17 23 21 38 42 eGFR- 33 >60 >60 30 >60 >60 eGFR-All Other Races . 27 >60CM 56CM 25CM >60CM >60CM Comment: eGFR (Estimated GFR) Units of measure: mL/min/1.73 meters squared eGFR is derived from the reexpressed MDRD Study equation using the following parameters: serum creatinine, age, gender and race. The creatinine assay has been calibrated to be traceable to IDMS. An eGFR <60 mL/min/1.73m2 for >3 months is consistent with chronic kidney disease. Refer to KDOQI guidelines for clinical interpretation. In patients with unstable renal function, e.g. those with acute kidney injury, ?the eGFR may not accurately reflect actual GFR. [facility] CCM [facility] Specimen Collected: 10/27/18 11:09 AM Last Resulted: 10/27/18 ?5:10 PM Lab Flowsheet Order Details View Encounter Lab and Collection Details Routing Result History CM=Additional comments??R=Reference range differs from displayed range?? Order: [id number] Status: Final result ??Visible to patient: No (Not Released) Next appt: 11/08/2018 at 04:00 PM in Family Practice (Drew Hardy MD) Dx: Diarrhea, unspecified type Ref Range & Units 2d ago 3yr ago TSH 0.400 - 5.500 uU/mL 0.530 1.490 Resulting Agency [facility] Specimen Collected: 10/27/18 11:09 AM Last Resulted: 10/27/18 ?5:22 PM Lab Flowsheet Order Details View Encounter Lab and Collection Details Routing Result History Order: [id number] Status: Final result ??Visible to patient: No (Not Released) Next appt: 11/08/2018 at 04:00 PM in [facility] Practice (Drew Hardy MD) Dx: Diarrhea, unspecified type Ref Range & Units 2d ago (10/27/18) 2yr ago (01/28/16) 2yr ago (01/06/16) 4yr ago (12/17/13) 12yr ago (01/05/06) Lipase 16 - 61 U/L 34 32R 157R Test sent to [place]...R, CM 60R Resulting Agency [facility] Specimen Collected: 10/27/18 11:09 AM Last Resulted: 10/27/18 ?5:04 PM Lab Flowsheet Order Details View Encounter Lab and Collection Details Routing Result History CM=Additional comments??R=Reference range differs from displayed range?? Order: [id number] Status: Preliminary result ??Visible to patient: No (Not Released) Next appt: 11/08/2018 at 04:00 PM in Family Practice (Drew Hardy MD) Dx: Diarrhea, unspecified type Ref Range & Units 2d ago (10/27/18) 2mo ago (08/17/18) 2mo ago (08/08/18) 1yr ago (06/03/17) 1yr ago (05/27/17) 2yr ago (02/12/16) 2yr ago (01/28/16) Protein, Total 6.0 - 8.4 g/dL 7.1 7.9R 8.2R 5.4R 5.9R 6.3 5.9 Resulting Agency [facility] CCM Specimen Collected: 10/27/18 11:09 AM Last Resulted: 10/27/18 ?1:48 PM Lab Flowsheet Order Details View Encounter Lab and Collection Details Routing Result History R=Reference range differs from displayed range?? Order: [id number] Status: Final result ??Visible to patient: No (Not Released) Next appt: 11/08/2018 at 04:00 PM in Family Practice (Drew Hardy MD) Dx: Diarrhea, unspecified type Ref Range & Units 2d ago HIV 12 Combo (Ag/Ab) Non Reactive Non Reactive Comment: (NOTE) HIV Information: ?[place] Rev. Code 3701.243(E): This information has been disclosed to you from confidential records protected from disclosure by state law. You shall make no further disclosure of this information without the specific, written, and informed release of the individual to whom it pertains, or as otherwise permitted by state law. A general authorization for the release of medical or other information is not sufficient for the purpose of the release of HIV test results or diagnoses. due to his elevated white blood cell count and elevated urine creatinine it was recommended he present to the hospital. As noted through the [facility] charting, he has been admitted for likely viral gastroenteritis and the above complaints in the past. There was a question of Crohn's disease however previous CT scans with contrast failed to demonstrate obvious Crohn's changes or findings. He underwent a colonoscopy in [place] by Dr. Xavier Coley on December 13, 2017. he was found to have a normal-appearing terminal ileum and normal-appearing colon with normal random biopsies. There was a polyp removed in the descending colon which returned as an adenomatous polyp. The patient notes a history of bowel perforation in the past. On September 19, 2017-he presented to [facility] emergency department with severe abdominal pain and tachycardia and CAT scan findings of free air and intra-abdominal fluid. The patient was transferred to [facility]. A copy of his discharge summary which includes the following: Fatimah Bell MD - 09/23/2017 4:12 PM EST Formatting of this note may be different from the original. Physician Discharge Summary Dictating Resident: Fatimah Bell Patient ID: Patient: Marcos Peralta Date of : 1965 Age: 51 y.o. Sex: male Acct: [id number] Admit Date: 09/19/2017 Discharge date: 09/25/17 Service, Admitting Physician: General Surgery, Dr. Whitlock Admission Diagnoses: Acute abdomen secondary to perforated viscus Initial H&P: Mr. Peralat is a 51-year-old male who presented to the [facility] ED on 09/19/17 with an acute abdomen secondary to perforated viscus. Intraoperative finding of proximal jejunal perforation. On 09/19/17, underwent diagnostic laparoscopy with repair of jejunal perforation, EGD, and ERNA drain placement by Dr. Whitlock. Due to postoperative hypotension, he was admitted to T2 ICU for postoperative management. Hospital Course: Following admission, the patient's vital signs stabilized with IV fluid resuscitation. His pain was well controlled. His NG tube remained to low intermittent suction. His ERNA drainage was serous. He was transferred to [facility] thereafter. Following transfer, he had return of bowel function. He underwent an upper GI on 09/23/17, which was negative. His NG tube was removed and he was advanced to a clear liquid diet. He subsequently tolerated advancement to a full liquid, then soft diet. His ERNA drain was removed. Due to clinical improvement, he was deemed stable for discharge home 09/25/17. A copy of his operative report: Op Note - Beka Whitlock MD - 09/19/2017 6:13 PM EST OPERATIVE NOTE DATE OF PROCEDURE: 09/19/2017 SURGEON: BEKA WHITLOCK [employer]NAGEMENT PROFESSOR: Ahmet Staley MD, Fatimah Bell MD, Vicky medical student PREOPERATIVE DIAGNOSIS: Acute abdomen, perforated viscus POSTOPERATIVE DIAGNOSIS: Same, plus perforation of proximal jejunum OPERATION: #1 diagnostic laparoscopy #2 repair of jejunal perforation #3 EGD #4 placement of ERNA drain ANESTHESIA: General anesthesia ESTIMATED BLOOD LOSS: 10 cc FLUID REPLACEMENT: See anesthesia notes COMPLICATIONS: None SPECIMENS: Jejunal perforation biopsy PREOPERATIVE MEDICATIONS: Cipro and Flagyl HISTORY: The patient is a 51 y.o. year old male with history of above preop diagnosis. I explained the risk, benefits, expected outcome, and alternatives to the procedure. Patient understands and is in agreement to proceed with operation. PROCEDURE: The patient was brought to the operating room and placed in split leg supine position with both arms tucked. After initiation of general anesthesia by the Anesthesia Department, the abdomen was prepped and draped normal sterile fashion. A sterile George catheter was placed. A Veress needle was placed in the left upper quadrant and insufflated without difficulty. A 5 mm Optiview trocar was then used to enter the left upper quadrant. Upon initial evaluation the stomach and duodenum appeared to be within normal limits and there was a large amount of succus within the intra-abdominal cavity. Given these findings I decided to start by finding the cecum looking at the appendix and running the small bowel proximally. I placed another 5 mm trocar at the umbilicus under direct visualization as well as another 5 mm trocar in the left hemiabdomen below our first trocar under direct visualization. I suctioned some of the fluid and sent it off for culture. I then grasped the cecum visualized the appendix which was within normal limits. I ran the terminal ileum from the cecum proximally. I encountered a Meckel's diverticulum which was wide based, soft, without perforation, and without any appearance of abnormality. There was some areas of the small bowel which appeared to have some fat creeping. I continued to run the small bowel proximally as I approach the transverse colon there was an area of the small bowel which was adhesed to the transverse colon. I placed another 5 mm trocar in the right hemiabdomen and dissected the small bowel off the transverse mesocolon. There was an obvious perforation on the mesenteric side of the jejunum. The tissue appeared viable the remainder of the jejunum appeared soft and without abnormalities. The mesentery was thickened. I took a biopsy of the jejunal perforation and sent off for permanent section. I then closed the jejunal perforation with 4 interrupted 3-0 Vicryl sutures. The tissues approximated nicely and I placed a ERNA drain underneath the transverse mesocolon and brought out through the left upper quadrant incision. I then copiously irrigated the abdomen until it was clear. I irrigated up above the liver up above the spleen and down into the pelvis as well as the right and left colic gutters. There was difficulty placing the nasogastric tube and I was unable to visualize the stomach and therefore I did an EGD. I directly placed a nasogastric tube into the stomach. It was then secured at the nose. Esophagus and stomach appear to be within normal limits on the EGD. The skin was closed using 4-0 Monocryl. The patient tolerated the procedure well, was extubated, and sent to the recovery room in stable condition. Past Medical History Past Medical History (Chronic Problems): Chronic Problems Migraine (Chronic) Gastroesophageal reflux disease (Chronic) Allergies Penicillins Allergy (Verified 10/27/18 18:15) Anaphylaxis erythromycin base [Erythromycin Base] Adverse Reaction (Verified 10/27/18 18:15) Nausea milk Adverse Reaction (Verified 10/27/18 18:15) Upset Stomach Home Medications: Ambulatory Orders Medication Instructions Recorded Ondansetron [Zofran Odt] 4 mg PO Q8H PRN PRN 12/18/13 Rizatriptan Benzoate [Maxalt] 10 mg PO .X1 PRN 12/18/13 Amitriptyline HCl [Elavil] 10 mg PO QHS 09/19/17 Famotidine [Pepcid] 20 mg PO BID 08/09/18 Aspirin 81 mg PO BID 10/11/18 Potassium Chloride [Klor-Con M20] 20 meq PO BID 10/11/18 Diphenoxylate/Atrop [Lomotil] 1 tablet PO 4X/DAY PRN 10/16/18 Lactobacillus Acidophilus 1 each PO DAILY 10/16/18 [Probiotic Acidophilus] Prednisone [Deltasone] 40 mg PO DAILY #20 tablet 10/18/18 Surgical History: - - Removal of pancreatic cysts; intestinal surgery Psychiatric History: No pertinent psych hx Lives: Alone Smoking Status: Never smoker Alcohol: None - *Family History Paternal History Items: Heart Disease Maternal History Items: Heart Disease, Hypertension Review of Systems Constitutional: Reports: Malaise, Weakness, Weight Change. Denies: Chills, Fever HEENT: Denies: Head Aches, Sinus Congestion, Sinus Drainage Cardiovascular: Denies: Chest Pain, Palpitations Respiratory: Denies: Cough, Shortness of breath at rest, Sputum production Gastrointestinal: Reports: Nausea, Vomiting. Denies: Abdominal Pain Genitourinary: Denies: Dysuria Musculoskeletal: Denies: Joint Pain, Joint Tenderness Skin: Denies: Rash, Wounds Neurological: Denies: Numbness, Tingling, Focal weakness Psychiatric: Denies: Anxiety, Depression, Homicidal Ideations, Suicidal Ideations Hematologic/ Lymphatic: Denies: Easy Bruising, Easy Bleeding Patient Problems: Active and Suspected Problems Nausea vomiting and diarrhea (Acute) Hyponatremia (Acute) Hypokalemia (Acute) MAICOL (acute kidney injury) (Acute) - Physical Exam General: Alert, Oriented x3, Cooperative Lungs: Clear to auscultation, Normal air movement Cardiovascular: Regular rate, No murmurs Abdomen: Bowel Sounds Present, Soft, Non Tender Vital Signs Temp Pulse Resp BP Pulse Ox 98.1 F 84 18 105/62 100 10/29/18 09:31 10/29/18 09:31 10/29/18 09:31 10/29/18 09:31 10/29/18 09:31 Oxygen Delivery Method Room Air Weight: 75.55 kg Body Mass Index (BMI) 24.5 Intake and Output for Last 24 Hours 10/27/18 10/28/18 10/29/18 23:59 23:59 23:59 Intake Total 5752 / 5752 350 / 350 Output Total 1900 / 1900 500 / 500 Balance 3852 / 3852 -150 / -150 Microbiology Past 72 Hours 10/28/18 00:35 Respiratory Panel (PCR) - Final Mucosa - Nasopharyngeal Rhinovirus Laboratory Tests Past 24 Hrs 10/29/18 10/29/18 07:04 07:04 WBC 8.7 RBC 3.14 L Hgb 10.0 L Hct 30.1 L MCV 95.9 H MCH 31.8 MCHC 33.2 RDW 12.8 RDW Differential 43.2 Plt Count 251 MPV 10.0 Sodium 134 L Potassium 3.9 Chloride 99 Carbon Dioxide 25.0 Anion Gap 10 BUN 23 H Creatinine 0.97 Estim Creat Clear Calc 87.06 Est GFR (MDRD) Af Amer 103 Est GFR (MDRD) Non-Af 85 BUN/Creatinine Ratio 23.6 H Glucose 101 Calcium 8.3 L Assessment/Plan All Active Problems Nausea vomiting and diarrhea (Acute) Hyponatremia (Acute) Hypokalemia (Acute) MAICOL (acute kidney injury) (Acute) GI bleed (Resolved) CAD (coronary artery disease) (Ruled-out) Nausea and vomiting (Acute) Perforated bowel (Resolved) Severe sepsis (Resolved) Tachycardia (Resolved) chronic nausea, vomiting, diarrhea, worsening over the last few months to a few days. Complex GI history as noted above. Feel its reasonable to perform upper and lower endoscopy given the fact that the patient is in-house and will likely better tolerate his bowel prep if he can be given antiemetics. The patient understands the risks, benefits, alternatives and possible complications and consents to the planned procedure. If patient has a bowel movement prior to restarting his bowel prep would consider ordering stool cultures that he was unable to obtain but ordered by ux research associate at the clinic.
--- NOTE | 2018-10-29 11:59 | CON.PCM_ITS ---
Reason for Consult Date of Consultation: 10/29/18 Reason for Consultation: nausea, vomiting, and diarrhea History of Present Illness: The patient is a 52 year old M with a 4 day history of worsening nausea vomiting and diarrhea. The patient has a 7 year long-standing history of these complaints and his artery undergone extensive workup. He was seen recently by gastroenterology at [facility]-seen by the GI fellow with plans for follow-up upper and lower endoscopy in November. The notation from that office visit is as follows: Marcos Peralta ?is a 52 year old male who presents today for an evaluation of chronic diarrhea. ? PMHx only includes migraines on amitryptiline and chronic diarrhea for which he is here for. ? ? Diarrhea has been going on for 7 years and worsening in the last 1.5 years. He used to have diarrhea episodes every 3 months but recently happening every few weeks. He is having 15-25 episodes of diarrhea/day. Stool is watery and small- volume. He changes his underwear 4-5 times/day and incontinence both at night and during the day. There is mucus associated with the stool. No blood in the last few weeks but he has blood in the past on and off. Stool is not greasy and does not float. Occasionally malodorous. ? He has associated vomiting that is sometimes predominant over diarrhea. He vomited 4x already today. Non-bloody, but bilious. His weight fluctuates by 20 lbs between 150-170 lbs over 3-4 weeks. Currently 162 lbs. Body mass index is 23.98 kg/m?.?He has RLQ pain that occurs when he has bouts of diarrhea. ? He has no appetite at all. He avoids fried, greasy, spicy foods. No recent travel. No cholecystectomy. No family or personal history of IBD. No history of pancreatitis. Drinks alcohol 1x/week (prior to 5 years almost daily, heavy alcohol use (1 pint of 110 proof vodka daily)). Not currently sexually active. No IVDU. ? ? Has had?2 hospital admissions recently, from 10/11/18-10/13/18 and then readmitted on 10/16/18-10/18/18. When originally in the ER for vomiting and diarrhea, then re-admitted for Gastroenteritis and Prolonged QT. Pt was discharged on 10/18/18 on Prednisone 40 mg bid (down to 20 mg qd) for presumed microscopic colitis. On 40 mg BID, he felt great for 1 week with formed stool. He is also on lomotil prn, pepcid BID prn. ? ? Recent workup includes lactose tolerance test which was positive for lactose intolerance. He cut out milk but continues to use dairy products occasionally. Normal pancreatic elastase 09/05/2018. Has had a trial of Creon in the past with no improvement. ? ? Extensive workup for [place] [address] Farah- TSH and iron studies normal, celiac screen negative, stool potassium and Na unable to be determined as non-liquid, C. Diff negative, fecal fat elevated at 9 g. Pancreatic elastase low during 2016 workup but normal 08/2018. ? EGD and Colonoscopy 03/2016 Impression: ?- Normal esophagus. ?- Chronic gastritis. Biopsied. ?- Chronic duodenitis. Biopsied. ?- A mass (vs. peripancreatic node) was identified in ?the uncinate process of the pancreas. Fine needle ?aspiration performed. Findings: ?The colon (entire examined portion) appeared normal. Biopsies for ?histology were taken with a cold forceps for evaluation of microscopic ?colitis. Impression: ?- Preparation of the colon was poor. ?- The procedure was aborted due to poor bowel prep. ?- The entire examined colon is normal. Biopsied. ? ? ? FINAL DIAGNOSIS 1. Duodenum, biopsy (A) - Chronic focally active duodenitis with erosion and gastric foveolar metaplasia. - Morphologic changes of celiac disease are not seen. 2. Stomach, biopsy (B) - Gastric oxyntic mucosa with mild chronic inactive gastritis. - See comment. 3. Colon, left side, biopsy (C) - Colonic mucosa with no significant diagnostic abnormality. - No morphologic evidence of lymphocytic or collagenous colitis. 4. FNA was inadequate sample ? many laboratory tests were performed. They include the following: CELIAC SCREEN WITH REFLEX Order: [id number] Status: Preliminary result ??Visible to patient: No (Not Released) Next appt: 11/08/2018 at 04:00 PM in Family Practice (Drew Hardy MD) Dx: Diarrhea, unspecified type Ref Range & Units 2d ago 2yr ago IgA 78 - 391 mg/dL 296 398 Resulting Agency CCM CCM Specimen Collected: 10/27/18 11:09 AM Last Resulted: 10/27/18 ?7:55 PM Lab Flowsheet Order Details View Encounter Lab and Collection Details Routing Result History CBC Order: [id number] Status: Final result ??Visible to patient: No (Not Released) Next appt: 11/08/2018 at 04:00 PM in Family Practice (Drew Hardy MD) Dx: Diarrhea, unspecified type Ref Range & Units 2d ago (10/27/18) 2mo ago (08/17/18) 2mo ago (08/08/18) 1yr ago (06/03/17) 2yr ago (01/28/16) 2yr ago (01/06/16) 3yr ago (03/25/15) WBC 3.70 - 11.00 k/uL 15.31 9.30 9.88 3.03 3.55 6.00 5.19 RBC 4.20 - 6.00 m/uL 4.72 4.90 4.72 2.41 4.15 4.17 3.68 Hemoglobin 13.0 - 17.0 g/dL 15.1 16.2 15.5 8.4 13.5 14.1 12.6 Hematocrit 39.0 - 51.0 % 42.4 46.0 44.5 25.5 39.1 38.9 36.7 MCV 80.0 - 100.0 fL 89.8 93.9 94.3 105.8 94.2 93.3 99.7 MCH 26.0 - 34.0 pG 32.0 33.1 32.8 34.9 32.5 33.8 34.2 MCHC 30.5 - 36.0 g/dL 35.6 35.2 34.8 32.9 34.5 36.2 34.3 RDW-CV 11.5 - 15.0 % 13.2 13.1 13.2 14.4 14.9 14.7 13.9 Platelet Count 150 - 400 k/uL 417 364 322 245 178 404 260 MPV 9.0 - 12.7 fL 10.1 10.5 10.0 9.5 10.7 10.4 10.4 Absolute nRBC <0.01 k/uL <0.01 <0.01 k/uL class=rz_w [id number]> <0.01 <0.01 k/uL class=rz_w [id number]> <0.01 0.00R Resulting Agency CCM CCM CCM CCM CCM CCM CCM Specimen Collected: 10/27/18 11:09 AM Last Resulted: 10/27/18 12:37 PM Lab Flowsheet Order Details View Encounter Lab and Collection Details Routing Result History R=Reference range differs from displayed range?? COMP METABOLIC PANEL Order: [id number] Status: Final result ??Visible to patient: No (Not Released) Next appt: 11/08/2018 at 04:00 PM in Family Practice (Drew Hardy MD) Dx: Diarrhea, unspecified type Ref Range & Units 2d ago (10/27/18) 2d ago (10/27/18) 1mo ago (09/05/18) 2mo ago (08/17/18) 2mo ago (08/08/18) 1yr ago (06/03/17) 1yr ago (05/27/17) Protein, Total 6.3 - 8.0 g/dL 7.7 7.1R 7.9 8.2 5.4 5.9 Albumin 3.9 - 4.9 g/dL 4.3 4.9 4.7 3.4 3.5 Calcium 8.5 - 10.2 mg/dL 9.3 9.2 11.0 10.3 9.3 8.7 Bilirubin, Total 0.2 - 1.3 mg/dL 1.0 0.6 0.7 0.2 1.0 Alkaline Phosphatase 38 - 113 U/L 59 82 75 61R 67R AST 14 - 40 U/L 14 27 28 53 64 Glucose 74 - 99 mg/dL 135 99CM 104 94CM 81CM 87CM Comment: The [place] Diabetes Association (ADA) provides guidance for cutoff values for fasting glucose and random glucose. The ADA defines fasting as no caloric intake for at least 8 hours. Fasting plasma glucose results between 100 to 125 ?mg/dL indicate increased risk for diabetes (prediabetes). Fasting plasma glucose results greater than or equal to 126 mg/dL meet the criteria for diagnosis of diabetes. In the absence of unequivocal hyperglycemia, results should be confirmed by repeat testing. In a patient with classic symptoms of hyperglycemia or hyperglycemic crisis, random plasma glucose results greater than or equal to 200 mg/dL meet the criteria for diagnosis of diabetes. Reference: Standards of Medical Care in Diabetes 2016, [place] [employer] Association. Diabetes Care. 2016.39(Suppl 1). BUN 9 - 24 mg/dL 53 23 25R 18 11 9 Creatinine 0.73 - 1.22 mg/dL 2.51 1.13 1.33 2.72 0.89 0.97 Sodium 136 - 144 mmol/L 127 138 130 132 140 135 Potassium 3.7 - 5.1 mmol/L 3.3 3.3 3.0 3.5 3.8 2.8 Chloride 97 - 105 mmol/L 77 94 86 85 98 89 Comment: Result rechecked. CO2 22 - 30 mmol/L 30 28 23 26 25 30 Anion Gap 9 - 18 mmol/L 20 16 21 21 17 16 ALT 10 - 54 U/L 17 23 21 38 42 eGFR- 33 >60 >60 30 >60 >60 eGFR-All Other Races . 27 >60CM 56CM 25CM >60CM >60CM Comment: eGFR (Estimated GFR) Units of measure: mL/min/1.73 meters squared eGFR is derived from the reexpressed MDRD Study equation using the following parameters: serum creatinine, age, gender and race. The creatinine assay has been calibrated to be traceable to IDMS. An eGFR <60 mL/min/1.73m2 for >3 months is consistent with chronic kidney disease. Refer to KDOQI guidelines for clinical interpretation. In patients with unstable renal function, e.g. those with acute kidney injury, ?the eGFR may not accurately reflect actual GFR. [facility] Agency [facility] CCM [facility] Specimen Collected: 10/27/18 11:09 AM Last Resulted: 10/27/18 ?5:10 PM Lab Flowsheet Order Details View Encounter Lab and Collection Details Routing Result History CM=Additional comments??R=Reference range differs from displayed range?? Order: [id number] Status: Final result ??Visible to patient: No (Not Released) Next appt: 11/08/2018 at 04:00 PM in Family Practice (Drew Hardy MD) Dx: Diarrhea, unspecified type Ref Range & Units 2d ago 3yr ago TSH 0.400 - 5.500 uU/mL 0.530 1.490 Resulting Agency [facility] Specimen Collected: 10/27/18 11:09 AM Last Resulted: 10/27/18 ?5:22 PM Lab Flowsheet Order Details View Encounter Lab and Collection Details Routing Result History Order: [id number] Status: Final result ??Visible to patient: No (Not Released) Next appt: 11/08/2018 at 04:00 PM in [facility] (Drew Hardy MD) Dx: Diarrhea, unspecified type Ref Range & Units 2d ago (10/27/18) 2yr ago (01/28/16) 2yr ago (01/06/16) 4yr ago (12/17/13) 12yr ago (01/05/06) Lipase 16 - 61 U/L 34 32R 157R Test sent to [facility]...R, CM 60R Resulting Agency [facility] Specimen Collected: 10/27/18 11:09 AM Last Resulted: 10/27/18 ?5:04 PM Lab Flowsheet Order Details View Encounter Lab and Collection Details Routing Result History CM=Additional comments??R=Reference range differs from displayed range?? Order: [id number] Status: Preliminary result ??Visible to patient: No (Not Released) Next appt: 11/08/2018 at 04:00 PM in Family Practice (Drew Hardy MD) Dx: Diarrhea, unspecified type Ref Range & Units 2d ago (10/27/18) 2mo ago (08/17/18) 2mo ago (08/08/18) 1yr ago (06/03/17) 1yr ago (05/27/17) 2yr ago (02/12/16) 2yr ago (01/28/16) Protein, Total 6.0 - 8.4 g/dL 7.1 7.9R 8.2R 5.4R 5.9R 6.3 5.9 Resulting Agency [facility] CCM Specimen Collected: 10/27/18 11:09 AM Last Resulted: 10/27/18 ?1:48 PM Lab Flowsheet Order Details View Encounter Lab and Collection Details Routing Result History R=Reference range differs from displayed range?? Order: [id number] Status: Final result ??Visible to patient: No (Not Released) Next appt: 11/08/2018 at 04:00 PM in Family Practice (Drew Hardy MD) Dx: Diarrhea, unspecified type Ref Range & Units 2d ago HIV 12 Combo (Ag/Ab) Non Reactive Non Reactive Comment: (NOTE) HIV Information: ?[place] Rev. Code 3701.243(E): This information has been disclosed to you from confidential records protected from disclosure by state law. You shall make no further disclosure of this information without the specific, written, and informed release of the individual to whom it pertains, or as otherwise permitted by state law. A general authorization for the release of medical or other information is not sufficient for the purpose of the release of HIV test results or diagnoses. due to his elevated white blood cell count and elevated urine creatinine it was recommended he present to the hospital. As noted through the [facility] charting, he has been admitted for likely viral gastroenteritis and the above complaints in the past. There was a question of Crohn's disease however previous CT scans with contrast failed to demonstrate obvious Crohn's changes or findings. He underwent a colonoscopy in [place] by Dr. Xavier Coley on December 13, 2017. he was found to have a normal-appearing terminal ileum and normal- appearing colon with normal random biopsies. There was a polyp removed in the descending colon which returned as an adenomatous polyp. The patient notes a history of bowel perforation in the past. On September 19, 2017-he presented to [facility] emergency department with severe abdominal pain and tachycardia and CAT scan findings of free air and intra- abdominal fluid. The patient was transferred to [facility]. A copy of his discharge summary which includes the following: Fatimah Bell MD - 09/23/2017 4:12 PM EST Formatting of this note may be different from the original. Physician Discharge Summary Dictating Resident: Fatimah Bell Patient ID: Patient: Marcos Peralta Date of : 1965 Age: 51 y.o. Sex: male Acct: [id number] Admit Date: 09/19/2017 Discharge date: 09/25/17 Service, Admitting Physician: General Surgery, Dr. Whitlock Admission Diagnoses: Acute abdomen secondary to perforated viscus Initial H&P: Mr. Peralta is a 51-year-old male who presented to the [facility] ED on 09/19/17 with an acute abdomen secondary to perforated viscus. Intraoperative finding of proximal jejunal perforation. On 09/19/17, underwent diagnostic laparoscopy with repair of jejunal perforation, EGD, and ERNA drain placement by Dr. Whitlock. Due to postoperative hypotension, he was admitted to T2 ICU for postoperative management. Hospital Course: Following admission, the patient's vital signs stabilized with IV fluid resuscitation. His pain was well controlled. His NG tube remained to low intermittent suction. His ERNA drainage was serous. He was transferred to [facility] thereafter. Following transfer, he had return of bowel function. He underwent an upper GI on 09/23/17, which was negative. His NG tube was removed and he was advanced to a clear liquid diet. He subsequently tolerated advancement to a full liquid, then soft diet. His ERNA drain was removed. Due to clinical improvement, he was deemed stable for discharge home 09/25/17. A copy of his operative report: Op Note - Beka Whitlock MD - 09/19/2017 6:13 PM EST OPERATIVE NOTE DATE OF PROCEDURE: 09/19/2017 SURGEON: [employer] INTERN: Ahmet Staley MD, Fatimah Bell MD, Vicky medical student PREOPERATIVE DIAGNOSIS: Acute abdomen, perforated viscus POSTOPERATIVE DIAGNOSIS: Same, plus perforation of proximal jejunum OPERATION: #1 diagnostic laparoscopy #2 repair of jejunal perforation #3 EGD #4 placement of ERNA drain ANESTHESIA: General anesthesia ESTIMATED BLOOD LOSS: 10 cc FLUID REPLACEMENT: See anesthesia notes COMPLICATIONS: None SPECIMENS: Jejunal perforation biopsy PREOPERATIVE MEDICATIONS: Cipro and Flagyl HISTORY: The patient is a 51 y.o. year old male with history of above preop diagnosis. I explained the risk, benefits, expected outcome, and alternatives to the procedure. Patient understands and is in agreement to proceed with operation. PROCEDURE: The patient was brought to the operating room and placed in split leg supine position with both arms tucked. After initiation of general anesthesia by the Anesthesia Department, the abdomen was prepped and draped normal sterile fashion. A sterile George catheter was placed. A Veress needle was placed in the left upper quadrant and insufflated without difficulty. A 5 mm Optiview trocar was then used to enter the left upper quadrant. Upon initial evaluation the stomach and duodenum appeared to be within normal limits and there was a large amount of succus within the intra-abdominal cavity. Given these findings I decided to start by finding the cecum looking at the appendix and running the small bowel proximally. I placed another 5 mm trocar at the umbilicus under direct visualization as well as another 5 mm trocar in the left hemiabdomen below our first trocar under direct visualization. I suctioned some of the fluid and sent it off for culture. I then grasped the cecum visualized the appendix which was within normal limits. I ran the terminal ileum from the cecum proximally. I encountered a Meckel's diverticulum which was wide based, soft, without perforation, and without any appearance of abnormality. There was some areas of the small bowel which appeared to have some fat creeping. I continued to run the small bowel proximally as I approach the transverse colon there was an area of the small bowel which was adhesed to the transverse colon. I placed another 5 mm trocar in the right hemiabdomen and dissected the small bowel off the transverse mesocolon. There was an obvious perforation on the mesenteric side of the jejunum. The tissue appeared viable the remainder of the jejunum appeared soft and without abnormalities. The mesentery was thickened. I took a biopsy of the jejunal perforation and sent off for permanent section. I then closed the jejunal perforation with 4 interrupted 3-0 Vicryl sutures. The tis sues approximated nicely and I placed a ERNA drain underneath the transverse mesocolon and brought out through the left upper quadrant incision. I then copiously irrigated the abdomen until it was clear. I irrigated up above the liver up above the spleen and down into the pelvis as well as the right and left colic gutters. There was difficulty placing the nasogastric tube and I was unable to visualize the stomach and therefore I did an EGD. I directly placed a nasogastric tube into the stomach. It was then secured at the nose. Esophagus and stomach appear to be within normal limits on the EGD. The skin was closed using 4-0 Monocryl. The patient tolerated the procedure well, was extubated, and sent to the recovery room in stable condition. Past Medical History Past Medical History (Chronic Problems): Chronic Problems Migraine (Chronic) Gastroesophageal reflux disease (Chronic) Allergies Penicillins Allergy (Verified 10/27/18 18:15) Anaphylaxis erythromycin base [Erythromycin Base] Adverse Reaction (Verified 10/27/18 18:15) Nausea milk Adverse Reaction (Verified 10/27/18 18:15) Upset Stomach Home Medications: Ambulatory Orders Medication Instructions Recorded Ondansetron [Zofran Odt] 4 mg PO Q8H PRN PRN 12/18/13 Rizatriptan Benzoate [Maxalt] 10 mg PO .X1 PRN 12/18/13 Amitriptyline HCl [Elavil] 10 mg PO QHS 09/19/17 Famotidine [Pepcid] 20 mg PO BID 08/09/18 Aspirin 81 mg PO BID 10/11/18 Potassium Chloride [Klor-Con M20] 20 meq PO BID 10/11/18 Diphenoxylate/Atrop [Lomotil] 1 tablet PO 4X/DAY PRN 10/16/18 Lactobacillus Acidophilus 1 each PO DAILY 10/16/18 [Probiotic Acidophilus] Prednisone [Deltasone] 40 mg PO DAILY #20 tablet 10/18/18 Surgical History: - - Removal of pancreatic cysts; intestinal surgery Psychiatric History: No pertinent psych hx Lives: Alone Smoking Status: Never smoker Alcohol: None - *Family History Paternal History Items: Heart Disease Maternal History Items: Heart Disease, Hypertension Review of Systems Constitutional: Reports: Malaise, Weakness, Weight Change. Denies: Chills, Fever HEENT: Denies: Head Aches, Sinus Congestion, Sinus Drainage Cardiovascular: Denies: Chest Pain, Palpitations Respiratory: Denies: Cough, Shortness of breath at rest, Sputum production Gastrointestinal: Reports: Nausea, Vomiting. Denies: Abdominal Pain Genitourinary: Denies: Dysuria Musculoskeletal: Denies: Joint Pain, Joint Tenderness Skin: Denies: Rash, Wounds Neurological: Denies: Numbness, Tingling, Focal weakness Psychiatric: Denies: Anxiety, Depression, Homicidal Ideations, Suicidal Ideations Hematologic/ Lymphatic: Denies: Easy Bruising, Easy Bleeding Patient Problems: Active and Suspected Problems Nausea vomiting and diarrhea (Acute) Hyponatremia (Acute) Hypokalemia (Acute) MAICOL (acute kidney injury) (Acute) - Physical Exam General: Alert, Oriented x3, Cooperative Lungs: Clear to auscultation, Normal air movement Cardiovascular: Regular rate, No murmurs Abdomen: Bowel Sounds Present, Soft, Non Tender Vital Signs Temp Pulse Resp BP Pulse Ox 98.1 F 84 18 105/62 100 10/29/18 09:31 10/29/18 09:31 10/29/18 09:31 10/29/18 09:31 10/29/18 09:31 Oxygen Delivery Method Room Air Weight: 75.55 kg Body Mass Index (BMI) 24.5 Intake and Output for Last 24 Hours 10/27/18 10/28/18 10/29/18 23:59 23:59 23:59 Intake Total 5752 / 5752 350 / 350 Output Total 1900 / 1900 500 / 500 Balance 3852 / 3852 -150 / -150 Microbiology Past 72 Hours 10/28/18 00:35 Respiratory Panel (PCR) - Final Mucosa - Nasopharyngeal Rhinovirus Laboratory Tests Past 24 Hrs 10/29/18 10/29/18 07:04 07:04 WBC 8.7 RBC 3.14 L Hgb 10.0 L Hct 30.1 L MCV 95.9 H MCH 31.8 MCHC 33.2 RDW 12.8 RDW Differential 43.2 Plt Count 251 MPV 10.0 Sodium 134 L Potassium 3.9 Chloride 99 Carbon Dioxide 25.0 Anion Gap 10 BUN 23 H Creatinine 0.97 Estim Creat Clear Calc 87.06 Est GFR (MDRD) Af Amer 103 Est GFR (MDRD) Non-Af 85 BUN/Creatinine Ratio 23.6 H Glucose 101 Calcium 8.3 L Assessment/Plan All Active Problems Nausea vomiting and diarrhea (Acute) Hyponatremia (Acute) Hypokalemia (Acute) MAICOL (acute kidney injury) (Acute) GI bleed (Resolved) CAD (coronary artery disease) (Ruled-out) Nausea and vomiting (Acute) Perforated bowel (Resolved) Severe sepsis (Resolved) Tachycardia (Resolved) chronic nausea, vomiting, diarrhea, worsening over the last few months to a few days. Complex GI history as noted above. Feel its reasonable to perform upper and lower endoscopy given the fact that the patient is in-house and will likely better tolerate his bowel prep if he can be given antiemetics. The patient understands the risks, benefits, alternatives and possible complications and consents to the planned procedure. If patient has a bowel movement prior to restarting his bowel prep would consider ordering stool cultures that he was unable to obtain but ordered by plastering supervisor at the clinic.
--- NOTE | 2018-10-29 12:12 | PCM.PROGNOTE ---
<Rebecca Estrada - Last Filed: 10/29/18 12:19> Patient Problems: Active and Suspected Problems Nausea vomiting and diarrhea (Acute) Hyponatremia (Acute) Hypokalemia (Acute) MAICOL (acute kidney injury) (Acute) Subjective: Patient seen and examined. Tolerated regular diet this morning without nausea, vomiting. Denies further diarrhea overnight or this morning. States he feels improved. - Physical Exam General: Alert, Oriented x3, Cooperative HEENT: Atraumatic, PERRLA, EOMI, Normocephalic Neck: Supple, No JVD, Negative Carotid Bruits Lungs: Diminished, Rhonchi, Wheezes Cardiovascular: Regular rate, Regular Rhythm, Normal S1, Normal S2, No murmurs Abdomen: Bowel Sounds Present, Soft, Non-Distended, Tender Extremities: No clubbing, No cyanosis, No edema, Capillary Refill Less than 3 Seconds Skin: No rashes, No breakdown Musculoskeletal: No Tenderness to Palpation of Joints or Extremities Neurological: Cranial nerves II-XII grossly intact, Neuro grossly intact Psych/Mental Status: Normal Affect, Appropriate Vital Signs Temp Pulse Resp BP Pulse Ox 98.1 F 84 18 105/62 100 10/29/18 09:31 10/29/18 09:31 10/29/18 09:31 10/29/18 09:31 10/29/18 09:31 Oxygen Delivery Method Room Air Weight: 166 lb 8.948 oz Body Mass Index (BMI) 24.5 Intake and Output for Last 24 Hours 10/27/18 10/28/18 10/29/18 23:59 23:59 23:59 Intake Total 5752 / 5752 350 / 350 Output Total 1900 / 1900 500 / 500 Balance 3852 / 3852 -150 / -150 Microbiology Past 72 Hours 10/28/18 00:35 Respiratory Panel (PCR) - Final Mucosa - Nasopharyngeal Rhinovirus Laboratory Tests Past 24 Hrs 10/29/18 10/29/18 07:04 07:04 WBC 8.7 RBC 3.14 L Hgb 10.0 L Hct 30.1 L MCV 95.9 H MCH 31.8 MCHC 33.2 RDW 12.8 RDW Differential 43.2 Plt Count 251 MPV 10.0 Sodium 134 L Potassium 3.9 Chloride 99 Carbon Dioxide 25.0 Anion Gap 10 BUN 23 H Creatinine 0.97 Estim Creat Clear Calc 87.06 Est GFR (MDRD) Af Amer 103 Est GFR (MDRD) Non-Af 85 BUN/Creatinine Ratio 23.6 H Glucose 101 Calcium 8.3 L Medical Necessity - Tobacco Use Smoking Status: Never smoker Assessment/Plan All Active Problems Nausea vomiting and diarrhea (Acute) Hyponatremia (Acute) Hypokalemia (Acute) MAICOL (acute kidney injury) (Acute) GI bleed (Resolved) CAD (coronary artery disease) (Ruled-out) Nausea and vomiting (Acute) Perforated bowel (Resolved) Severe sepsis (Resolved) Tachycardia (Resolved) 1. Intractable recurrent nausea, vomiting, diarrhea-questionable history of Crohn's/IBS? Patient has had 3 admissions since 10/11/2018 for recurrent N/V/D with associated acute kidney injury. Patient is currently undergoing evaluation at [facility] by GI specialist. IV fluids. PRN nausea regimen. IV Solu-Medrol. PRN Imodium. CT of abdomen 10/16/2018 with fluid-filled bowel, suggesting enterocolitis. Consult Dr. Merida for further input given severity and recurrence of diarrhea with outpatient workup pending. Plan for EGD/colonoscopy with biopsy tomorrow with Dr. Silva. Obtain stool studies. 2. Acute kidney injury-secondary to dehydration as a result of #1. Continue IV fluids. Trend BMP. 3. Asthma exacerbation secondary to acute rhinovirus-respiratory panel positive for rhinovirus. Patient with shortness of breath and wheezing on admission. Albuterol DuoNeb aerosols. IV Solu-Medrol. 4. Hypokalemia/hyponatremia-secondary to #1. Improved. 4. GERD- IV pepcid. 5. Chronic headaches-continue home amitriptyline/maxalt regimen. 6. History of paroxysmal atrial fibrillation-not on anticoagulation given brief episode. DVT prophylaxis-heparin subcu This patient was seen by RITIKA Ellis under the supervision of Dr. Woodard. <Desiree Woodard - Last Filed: 10/29/18 12:43> - Physical Exam Vital Signs Temp Pulse Resp BP Pulse Ox 98.1 F 84 18 105/62 100 10/29/18 09:31 10/29/18 09:31 10/29/18 09:31 10/29/18 09:31 10/29/18 09:31 Oxygen Delivery Method Room Air Weight: 166 lb 8.948 oz Body Mass Index (BMI) 24.5 Intake and Output for Last 24 Hours 10/27/18 10/28/18 10/29/18 23:59 23:59 23:59 Intake Total 5752 / 5752 350 / 350 Output Total 1900 / 1900 500 / 500 Balance 3852 / 3852 -150 / -150 Microbiology Past 72 Hours 10/28/18 00:35 Respiratory Panel (PCR) - Final Mucosa - Nasopharyngeal Rhinovirus Laboratory Tests Past 24 Hrs 10/29/18 10/29/18 07:04 07:04 WBC 8.7 RBC 3.14 L Hgb 10.0 L Hct 30.1 L MCV 95.9 H MCH 31.8 MCHC 33.2 RDW 12.8 RDW Differential 43.2 Plt Count 251 MPV 10.0 Sodium 134 L Potassium 3.9 Chloride 99 Carbon Dioxide 25.0 Anion Gap 10 BUN 23 H Creatinine 0.97 Estim Creat Clear Calc 87.06 Est GFR (MDRD) Af Amer 103 Est GFR (MDRD) Non-Af 85 BUN/Creatinine Ratio 23.6 H Glucose 101 Calcium 8.3 L Assessment/Plan Patient seen by Rebecca Estrada NP-C under my supervision. He has no complaints and had an uneventful night. Diarrhea has resolved. he tolerated a clear diet yesterday. Labs and vitals reviewed. o/e; Vital Signs Height 5 ft 9 in Weight: 166 lb 8.948 oz Weight in Pounds 166.6 lbs Pulse Ox 100 Temperature 98.1 F Pulse Rate 84 Respiratory Rate 18 Blood Pressure 105/62 Blood Pressure Position Sitting General: Alert, Oriented x3, Cooperative HEENT: Atraumatic, PERRLA, EOMI, Normocephalic Neck: Supple, No JVD, Negative Carotid Bruits Lungs: Clear to auscultation, Normal air movement Cardiovascular: Regular rate, Regular Rhythm, Normal S1, Normal S2, No murmurs Abdomen: Bowel Sounds Present, Soft, Non Tender, Non-Distended Extremities: No clubbing, No cyanosis, No edema, Capillary Refill Less than 3 Seconds Skin: No rashes, No breakdown Musculoskeletal: No Tenderness to Palpation of Joints or Extremities Neurological: Cranial nerves II-XII grossly intact, Neuro grossly intact Psych/Mental Status: Normal Affect, Appropriate Plan is for EGD and colonoscopy with biopsies tomorrow. Continue hydration with IVF and zofran prn. continue IV solumedrol. Maicol has resolved, with Cr down to 0.97. Sodium now up to 134. Rest of management as per Rebecca Estrada CHROME POLISHER-C's note, which I have reviewed, and agree with. Code Visit OBSV E&M: 49712 Subsequent observation care L3
--- NOTE | 2018-10-29 12:19 | PN_ITS ---
<Rebecca Estrada - Last Filed: 10/29/18 12:19> Patient Problems: Active and Suspected Problems Nausea vomiting and diarrhea (Acute) Hyponatremia (Acute) Hypokalemia (Acute) MAICOL (acute kidney injury) (Acute) Subjective: Patient seen and examined. Tolerated regular diet this morning without nausea, vomiting. Denies further diarrhea overnight or this morning. States he feels improved. - Physical Exam General: Alert, Oriented x3, Cooperative HEENT: Atraumatic, PERRLA, EOMI, Normocephalic Neck: Supple, No JVD, Negative Carotid Bruits Lungs: Diminished, Rhonchi, Wheezes Cardiovascular: Regular rate, Regular Rhythm, Normal S1, Normal S2, No murmurs Abdomen: Bowel Sounds Present, Soft, Non-Distended, Tender Extremities: No clubbing, No cyanosis, No edema, Capillary Refill Less than 3 Seconds Skin: No rashes, No breakdown Musculoskeletal: No Tenderness to Palpation of Joints or Extremities Neurological: Cranial nerves II-XII grossly intact, Neuro grossly intact Psych/Mental Status: Normal Affect, Appropriate Vital Signs Temp Pulse Resp BP Pulse Ox 98.1 F 84 18 105/62 100 10/29/18 09:31 10/29/18 09:31 10/29/18 09:31 10/29/18 09:31 10/29/18 09:31 Oxygen Delivery Method Room Air Weight: 166 lb 8.948 oz Body Mass Index (BMI) 24.5 Intake and Output for Last 24 Hours 10/27/18 10/28/18 10/29/18 23:59 23:59 23:59 Intake Total 5752 / 5752 350 / 350 Output Total 1900 / 1900 500 / 500 Balance 3852 / 3852 -150 / -150 Microbiology Past 72 Hours 10/28/18 00:35 Respiratory Panel (PCR) - Final Mucosa - Nasopharyngeal Rhinovirus Laboratory Tests Past 24 Hrs 10/29/18 10/29/18 07:04 07:04 WBC 8.7 RBC 3.14 L Hgb 10.0 L Hct 30.1 L MCV 95.9 H MCH 31.8 MCHC 33.2 RDW 12.8 RDW Differential 43.2 Plt Count 251 MPV 10.0 Sodium 134 L Potassium 3.9 Chloride 99 Carbon Dioxide 25.0 Anion Gap 10 BUN 23 H Creatinine 0.97 Estim Creat Clear Calc 87.06 Est GFR (MDRD) Af Amer 103 Est GFR (MDRD) Non-Af 85 BUN/Creatinine Ratio 23.6 H Glucose 101 Calcium 8.3 L Medical Necessity - Tobacco Use Smoking Status: Never smoker Assessment/Plan All Active Problems Nausea vomiting and diarrhea (Acute) Hyponatremia (Acute) Hypokalemia (Acute) MAICOL (acute kidney injury) (Acute) GI bleed (Resolved) CAD (coronary artery disease) (Ruled-out) Nausea and vomiting (Acute) Perforated bowel (Resolved) Severe sepsis (Resolved) Tachycardia (Resolved) 1. Intractable recurrent nausea, vomiting, diarrhea-questionable history of Crohn's/IBS? Patient has had 3 admissions since 10/11/2018 for recurrent N/V/D with associated acute kidney injury. Patient is currently undergoing evaluation at [facility] by GI specialist. IV fluids. PRN nausea regimen. IV Solu- Medrol. PRN Imodium. CT of abdomen 10/16/2018 with fluid-filled bowel, suggesting enterocolitis. Consult Dr. Merida for further input given severity and recurrence of diarrhea with outpatient workup pending. Plan for EGD/colonoscopy with biopsy tomorrow with Dr. Silva. Obtain stool studies. 2. Acute kidney injury-secondary to dehydration as a result of #1. Continue IV fluids. Trend BMP. 3. Asthma exacerbation secondary to acute rhinovirus-respiratory panel positive for rhinovirus. Patient with shortness of breath and wheezing on admission. Albuterol DuoNeb aerosols. IV Solu-Medrol. 4. Hypokalemia/hyponatremia-secondary to #1. Improved. 4. GERD- IV pepcid. 5. Chronic headaches-continue home amitriptyline/maxalt regimen. 6. History of paroxysmal atrial fibrillation-not on anticoagulation given brief episode. DVT prophylaxis-heparin subcu This patient was seen by RITIKA Ellis under the supervision of Dr. Woodard. <Desiree Woodard - Last Filed: 10/29/18 12:43> - Physical Exam Vital Signs Temp Pulse Resp BP Pulse Ox 98.1 F 84 18 105/62 100 10/29/18 09:31 10/29/18 09:31 10/29/18 09:31 10/29/18 09:31 10/29/18 09:31 Oxygen Delivery Method Room Air Weight: 166 lb 8.948 oz Body Mass Index (BMI) 24.5 Intake and Output for Last 24 Hours 10/27/18 10/28/18 10/29/18 23:59 23:59 23:59 Intake Total 5752 / 5752 350 / 350 Output Total 1900 / 1900 500 / 500 Balance 3852 / 3852 -150 / -150 Microbiology Past 72 Hours 10/28/18 00:35 Respiratory Panel (PCR) - Final Mucosa - Nasopharyngeal Rhinovirus Laboratory Tests Past 24 Hrs 10/29/18 10/29/18 07:04 07:04 WBC 8.7 RBC 3.14 L Hgb 10.0 L Hct 30.1 L MCV 95.9 H MCH 31.8 MCHC 33.2 RDW 12.8 RDW Differential 43.2 Plt Count 251 MPV 10.0 Sodium 134 L Potassium 3.9 Chloride 99 Carbon Dioxide 25.0 Anion Gap 10 BUN 23 H Creatinine 0.97 Estim Creat Clear Calc 87.06 Est GFR (MDRD) Af Amer 103 Est GFR (MDRD) Non-Af 85 BUN/Creatinine Ratio 23.6 H Glucose 101 Calcium 8.3 L Assessment/Plan Patient seen by Rebecca Estrada NP-C under my supervision. He has no complaints and had an uneventful night. Diarrhea has resolved. he tolerated a clear diet yesterday. Labs and vitals reviewed. o/e; Vital Signs Height 5 ft 9 in Weight: 166 lb 8.948 oz Weight in Pounds 166.6 lbs Pulse Ox 100 Temperature 98.1 F Pulse Rate 84 Respiratory Rate 18 Blood Pressure 105/62 Blood Pressure Position Sitting General: Alert, Oriented x3, Cooperative HEENT: Atraumatic, PERRLA, EOMI, Normocephalic Neck: Supple, No JVD, Negative Carotid Bruits Lungs: Clear to auscultation, Normal air movement Cardiovascular: Regular rate, Regular Rhythm, Normal S1, Normal S2, No murmurs Abdomen: Bowel Sounds Present, Soft, Non Tender, Non-Distended Extremities: No clubbing, No cyanosis, No edema, Capillary Refill Less than 3 Seconds Skin: No rashes, No breakdown Musculoskeletal: No Tenderness to Palpation of Joints or Extremities Neurological: Cranial nerves II-XII grossly intact, Neuro grossly intact Psych/Mental Status: Normal Affect, Appropriate Plan is for EGD and colonoscopy with biopsies tomorrow. Continue hydration with IVF and zofran prn. continue IV solumedrol. Maicol has resolved, with Cr down to 0.97. Sodium now up to 134. Rest of management as per Rebecca Estrada ZIPPER MEASURER-C's note, which I have reviewed, and agree with. Code Visit OBSV E&M: 27159 Subsequent observation care L3
[2018-10-29] MEDS: Electrolyte Solution/Peg's 4000 ML PO (16:14)
[2018-10-29] MEDS: Amitriptyline 10 MG Tablet PO (22:03)
[2018-10-30] VITALS (17 sets, daily range): BP systolic 100–144; BP diastolic 63–85; PULSE 68–99; RESP 16–20; TEMP 36.2–36.9; O2SAT 95–100; BMI 24.5
--- NOTE | 2018-10-30 | IMM_PTH ---
PATIENT: GIBSON PATEL Jr. LOC: MS3 U#:[id number] AGE/SX: 52/M ROOM: [facility]313 RE10/28/[address]: Dr. Desiree Woodard MD : [id number] BED: 1 DIS: 10/31/2018 SPEC #: [id number] RECD: 11/01/18 14:51 STATUS: SOUT REQ #: [id number] MINDI: 10/30/18 00:[address]: Gibson Merida DEPT: IMMUNOHISTOCHEMISTRY RECD BY: Rosalva Ragland ENTERED: 11/01/18 14:52 SP TYPE: IMMUNO OTHR DR: MD Dr. Drew Summers MD Dr. Nana Yaa Koram, MD Tissues: C - Stomach, NOS Procedures: H Pylori (initial) PHYSICIAN & INSTITUTION [place] [address] SPECIMEN INFORMATION: Tissue Source: C - Antral biopsy Clinical Info: Nausea, vomiting, diarrhea Specimen Number: [id number] CPT code: 13176 METHODOLOGY: Deparaffinized sections of prefer/formalin-fixed tissue or PAP/DQ stained slides are incubated with monoclonal/polyclonal antibodies/oligonucleotide probes. Localization is made via biotin free immunoperoxidase method. Appropriate controls are performed and reacted as expected. Results on target cell population are indicated in the following table: RESULTS: ANTIBODY / CLONE RESULT Block C H Pylori (polyclonal) negative These tests were developed and their performance characteristics determined by [facility]. They may not have been cleared or approved by the U.S. Food and Drug Administration. The FDA has determined that such clearance or approval is not necessary. INTERPRETATION: C. Antral biopsy: Negative for Helicobacter pylori organisms. SJ:ricardo 11/02/18
[2018-10-30] MEDS: Ondansetron 4 MG/2 ML Vial IV ×3 (01:36→20:06)
[2018-10-30] MEDS: 0.9% NaCl Peripheral Flush Adult/Peds IV ×5 (01:36→21:51)
--- NOTE | 2018-10-30 06:00 | EKG12_ITS ---
Test Reason : AM EKG Blood Pressure : / mmHG Vent. Rate : 062 BPM Atrial Rate : 062 BPM P-R Int : 136 ms QRS Dur : 086 ms QT Int : 432 ms P-R-T Axes : 052 -15 013 degrees QTc Int : 438 ms Normal sinus rhythm Low voltage QRS Borderline ECG Confirmed by RHONDA JOE, LIZBET ([id number]), editorial director ADRIÁN VILLAR ([id number]) on 11/02/2018 11:01:39 AM Referred By: Maxime Mccann Confirmed By:LIZBET ELLIS MD
[2018-10-30 06:13] LABS: Anion Gap 9 (5-15); BUN 13 mg/dL (7-18); BUN/Creat Ratio 11.4 RATIO (10-20); Chloride 101 mmol/L (98-107); Creatinine, Serum 1.14 mg/dL (0.70-1.30); EST Glomerular Filtration Rate 71 mL/min (>60); Est Glom Filt Rate - Afr Amer 86 mL/min (>60); Estimated Creatinine Clearance 74.08 ml/min; Glucose 66 mg/dL (74-106); Potassium 4.5 mmol/L (3.5-5.1); Sodium Level 138 mmol/L (136-145)
[2018-10-30 06:15] LABS: Prothrombin Time (Protime)PT. 12.9 SECONDS (11.7-14.9)
[2018-10-30 06:16] LABS: Partial Thromboplast Time 30.1 Seconds (24.1-36.2)
[2018-10-30 06:28] LABS: Absolute Lymphocyte Count 0.43 X10^3/ul (0.83-4.51); Absolute Neutrophil Count 11.3 X10^3/uL (2.0-7.7); Hematocrit 32.4 % (40-54); Hemoglobin 10.6 g/dl (13.0-16.5); Lymphocyte # 0.43 X10^3/ul (4.0); Lymphocyte % 3.6 % (19-41); Mean Corp Hgb Conc 32.7 g/gl (32-36); Mean Corpuscular Hgb 31.5 pg (27.0-32.0); Mean Corpuscular Volume 96.4 fL (80-94); Mean Platelet Vol. 9.7 fl (6.2-12.0); Monocyte# 0.31 X10^3/uL; Monocyte% 2.6 % (0-10); Neutrophil # 11.32 X10^3/uL (2.7-7.7); Neutrophil % 93.6 % (47-70); Platelet Count 309 K/mm3 (150-450); RBC Distribution Width CV 13.4 % (11.6-14.6); RBC Distribution Width SD 47.8 fl (35.1-43.9); Red Blood Count 3.36 M/mm3 (4.6-6.2); White Blood Count 12.1 K/mm3 (4.4-11.0)
[2018-10-30 06:29] LABS: Differential Indicated SCAN CRITERIA MET; POSITIVE COUNT NO; POSITIVE DIFFERENTIAL YES; POSITIVE MORPHOLOGY NO
[2018-10-30] MEDS: Heparin Injection (Vial) 5,000 UNIT/ML VIAL 5000 UNIT SC ×2 (06:58→21:50)
[2018-10-30] MEDS: Morphine 2 MG/ML Syringe IV ×2 (06:59→20:06)
[2018-10-30] MEDS: Ipratropium/Albuterol Sulfate 3 ML AMPUL.NEB INHALATION ×2 (07:05→19:29)
--- NOTE | 2018-10-30 10:45 | CASEMGMT ---
RN ZAHRA Face to Face with patient for initial transition planning/care coordination assessment. RN CM introduced self and role at [facility]. Patient sitting in chair, alert and oriented. Patient willing to participate in assessment and is able to answer all questions appropriately. Care providers, pharmacy, and demographics verified. Patient wishes to discharge home, denies need for home health at this time. Patient states he has no further needs or concerns at this time. CM to follow for discharge planning needs that may arise. PCP: Antony Specialists: [facility] Saleh Pharmacy: [facility] Insurance: MMO Prescription Benefit: MMO Living Will/HPOA: None LNOK: , son Living Arrangements: Patient lives alone in 1 story house with 3 steps to enter home. Independent Transportation: self/family DME/HHC: None, denies needs. Disposition Plan: Patient to discharge home with family support and follow-up plans in place. Fatimah WOODS, RN, CM
--- NOTE | 2018-10-30 12:07 | PCM.PROGNOTE ---
<Rebecca Estrada - Last Filed: 10/30/18 12:10> Patient Problems: Active and Suspected Problems Nausea vomiting and diarrhea (Acute) Hyponatremia (Acute) Hypokalemia (Acute) MAICOL (acute kidney injury) (Acute) Subjective: Patient seen and examined. Patient reports nausea and one episode of vomiting this morning while completing prep for colonoscopy. Denies other complaints. - Physical Exam General: Alert, Oriented x3, Cooperative HEENT: Atraumatic, PERRLA, EOMI, Normocephalic Neck: Supple, No JVD, Negative Carotid Bruits Lungs: Clear to auscultation, Normal air movement Cardiovascular: Regular rate, Regular Rhythm, Normal S1, Normal S2, No murmurs Abdomen: Bowel Sounds Present, Soft, Non Tender, Non-Distended Extremities: No clubbing, No cyanosis, No edema, Capillary Refill Less than 3 Seconds Skin: No rashes, No breakdown Musculoskeletal: No Tenderness to Palpation of Joints or Extremities Neurological: Cranial nerves II-XII grossly intact, Neuro grossly intact Psych/Mental Status: Normal Affect, Appropriate Vital Signs Temp Pulse Resp BP Pulse Ox 98.3 F 71 16 124/73 H 96 10/30/18 11:16 10/30/18 11:16 10/30/18 11:16 10/30/18 11:16 10/30/18 11:16 Oxygen Delivery Method Room Air Weight: 166 lb 8.948 oz Body Mass Index (BMI) 24.5 Intake and Output for Last 24 Hours 10/28/18 10/29/18 10/30/18 23:59 23:59 23:59 Intake Total 5752 / 5752 4350 / 4350 900 / 900 Output Total 1900 / 1900 2300 / 2300 1350 / 1350 Balance 3852 / 3852 2049 / 2049 -450 / -450 Microbiology Past 72 Hours 10/29/18 23:20 Enteric Bacteriology - Final Stool 10/29/18 23:20 Stool Lactoferrin - Final Stool 10/29/18 23:20 Stool Occult Blood (YOLANDE) - Final Stool Occult Blood Positive 10/28/18 00:35 Respiratory Panel (PCR) - Final Mucosa - Nasopharyngeal Rhinovirus Laboratory Tests Past 24 Hrs 10/29/18 10/29/18 10/30/18 23:20 23:20 05:25 WBC RBC Hgb Hct MCV MCH MCHC RDW RDW Differential Plt Count MPV Immature Gran % (Auto) Neut % (Auto) Lymph % (Auto) [place] % (Auto) Eos % (Auto) Baso % (Auto) Absolute Neuts (auto) Absolute Lymphs (auto) Total Counted Differential Comment PT INR APTT Sodium 138 Potassium 4.5 Chloride 101 Carbon Dioxide 28.0 Anion Gap 9 BUN 13 Creatinine 1.14 Estim Creat Clear Calc 74.08 Est GFR (MDRD) Af Amer 86 Est GFR (MDRD) Non-Af 71 BUN/Creatinine Ratio 11.4 Glucose 66 L Calcium 9.0 Stool Calprotectin Pending Stl Giardia Antigen Pending Stool H. pylori Ag Pending 10/30/18 10/30/18 05:25 05:25 WBC 12.1 H RBC 3.36 L Hgb 10.6 L Hct 32.4 L MCV 96.4 H MCH 31.5 MCHC 32.7 RDW 13.4 RDW Differential 47.8 H Plt Count 309 MPV 9.7 Immature Gran % (Auto) 0.200 Neut % (Auto) 93.6 H Lymph % (Auto) 3.6 L [place] % (Auto) 2.6 Eos % (Auto) 0.0 Baso % (Auto) 0.0 Absolute Neuts (auto) 11.3 H Absolute Lymphs (auto) 0.43 L Total Counted Not Reportable Differential Comment PT 12.9 INR 1.0 APTT 30.1 Sodium Potassium Chloride Carbon Dioxide Anion Gap BUN Creatinine Estim Creat Clear Calc Est GFR (MDRD) Af Amer Est GFR (MDRD) Non-Af BUN/Creatinine Ratio Glucose Calcium Stool Calprotectin Stl Giardia Antigen Stool H. pylori Ag Medical Necessity - Tobacco Use Smoking Status: Never smoker Assessment/Plan All Active Problems Nausea vomiting and diarrhea (Acute) Hyponatremia (Acute) Hypokalemia (Acute) MAICOL (acute kidney injury) (Acute) GI bleed (Resolved) CAD (coronary artery disease) (Ruled-out) Nausea and vomiting (Acute) Perforated bowel (Resolved) Severe sepsis (Resolved) Tachycardia (Resolved) 1. Intractable recurrent nausea, vomiting, diarrhea-questionable history of Crohn's/IBS? Patient has had 3 admissions since 10/11/2018 for recurrent N/V/D with associated acute kidney injury. Patient is currently undergoing evaluation at [facility] by GI specialist. IV fluids. PRN nausea regimen. IV Solu-Medrol. PRN Imodium. CT of abdomen 10/16/2018 with fluid-filled bowel, suggesting enterocolitis. Dr. Merida consulted for further input given severity and recurrence of diarrhea with outpatient workup pending. Plan for EGD/colonoscopy with biopsy this afternoon with Dr. Silva. Stool studies pending. Stool positive for occult blood. 2. Acute kidney injury-secondary to dehydration as a result of #1. Resolved. Continue IV fluids. Trend BMP. 3. Asthma exacerbation secondary to acute rhinovirus-respiratory panel positive for rhinovirus. Patient with shortness of breath and wheezing on admission. Albuterol DuoNeb aerosols. IV Solu-Medrol. 4. Hypokalemia/hyponatremia-secondary to #1. Resolved. 4. GERD- IV pepcid. 5. Chronic headaches-continue home amitriptyline/maxalt regimen. 6. History of paroxysmal atrial fibrillation-not on anticoagulation given brief episode. DVT prophylaxis-heparin subcu This patient was seen by RITIKA Ellis under the supervision of Dr. Woodard. <Desiree Woodard - Last Filed: 10/30/18 13:31> - Physical Exam Vital Signs Temp Pulse Resp BP Pulse Ox 98.3 F 83 16 124/73 H 96 10/30/18 11:16 10/30/18 12:05 10/30/18 11:16 10/30/18 11:16 10/30/18 11:16 Oxygen Delivery Method Room Air Weight: 166 lb 8.948 oz Body Mass Index (BMI) 24.5 Intake and Output for Last 24 Hours 10/28/18 10/29/18 10/30/18 23:59 23:59 23:59 Intake Total 5752 / 5752 4350 / 4350 900 / 900 Output Total 1900 / 1900 2300 / 2300 1350 / 1350 Balance 3852 / 3852 2049 -450 / -450 Microbiology Past 72 Hours 10/29/18 23:20 Enteric Bacteriology - Final Stool 10/29/18 23:20 Stool Lactoferrin - Final Stool 10/29/18 23:20 Stool Occult Blood (YOLANDE) - Final Stool Occult Blood Positive 10/28/18 00:35 Respiratory Panel (PCR) - Final Mucosa - Nasopharyngeal Rhinovirus Laboratory Tests Past 24 Hrs 10/29/18 10/29/18 10/30/18 23:20 23:20 05:25 WBC RBC Hgb Hct MCV MCH MCHC RDW RDW Differential Plt Count MPV Immature Gran % (Auto) Neut % (Auto) Lymph % (Auto) [place] % (Auto) Eos % (Auto) Baso % (Auto) Absolute Neuts (auto) Absolute Lymphs (auto) Total Counted Differential Comment PT INR APTT Sodium 138 Potassium 4.5 Chloride 101 Carbon Dioxide 28.0 Anion Gap 9 BUN 13 Creatinine 1.14 Estim Creat Clear Calc 74.08 Est GFR (MDRD) Af Amer 86 Est GFR (MDRD) Non-Af 71 BUN/Creatinine Ratio 11.4 Glucose 66 L Calcium 9.0 Stool Calprotectin Pending Stl Giardia Antigen Pending Stool H. pylori Ag Pending 10/30/18 10/30/18 05:25 05:25 WBC 12.1 H RBC 3.36 L Hgb 10.6 L Hct 32.4 L MCV 96.4 H MCH 31.5 MCHC 32.7 RDW 13.4 RDW Differential 47.8 H Plt Count 309 MPV 9.7 Immature Gran % (Auto) 0.200 Neut % (Auto) 93.6 H Lymph % (Auto) 3.6 L [place] % (Auto) 2.6 Eos % (Auto) 0.0 Baso % (Auto) 0.0 Absolute Neuts (auto) 11.3 H Absolute Lymphs (auto) 0.43 L Total Counted Not Reportable Differential Comment PT 12.9 INR 1.0 APTT 30.1 Sodium Potassium Chloride Carbon Dioxide Anion Gap BUN Creatinine Estim Creat Clear Calc Est GFR (MDRD) Af Amer Est GFR (MDRD) Non-Af BUN/Creatinine Ratio Glucose Calcium Stool Calprotectin Stl Giardia Antigen Stool H. pylori Ag Assessment/Plan Patient seen by Rebecca YOST under my supervision. He complains of one episode of vomiting and numerous episodes of diarrhea o/a of him taking the bowel prep. He is to go for EGD and colonoscopy today. He has no other complaints. 12 point review of systems otherwise negative. On examination Vital Signs Height 5 ft 9 in Weight: 166 lb 8.948 oz Weight in Pounds 166.6 lbs Pulse Ox 96 Temperature 98.3 F Pulse Rate 83 Respiratory Rate 16 Blood Pressure 124/73 Blood Pressure Position Sitting General: Alert, Oriented x3, Cooperative HEENT: Atraumatic, PERRLA, EOMI, Normocephalic Neck: Supple, No JVD, Negative Carotid Bruits Lungs: Diminished, Rhonchi, Wheezes Cardiovascular: Regular rate, Regular Rhythm, Normal S1, Normal S2, No murmurs Abdomen: Bowel Sounds Present, Soft, Non-Distended, Tender Extremities: No clubbing, No cyanosis, No edema, Capillary Refill Less than 3 Seconds Skin: No rashes, No breakdown Musculoskeletal: No Tenderness to Palpation of Joints or Extremities Neurological: Cranial nerves II-XII grossly intact, Neuro grossly intact Psych/Mental Status: Normal Affect, Appropriate Plan is for EGD and colonoscopy with biopsies today. Continue hydration with IV fluid. Hyponatremia is resolved and sodium is now 138. Rest of management as per Rebecca Estrada PHOTOGRAPHY PROFESSOR-C's note, which I have reviewed, and agree with. Code Visit Inpatient E&M: 82129 Subs Hosp L3
--- NOTE | 2018-10-30 14:30 | EGD_PTH ---
PATIENT: GIBSON PATEL Jr. LOC: [facility] U#:[id number] AGE/SX: 52/M ROOM: TX313 RE10/28/[address]: Dr. Desiree Woodard MD : 1965 BED: 1 DIS: 10/31/2018 SPEC #: [id number] RECD: 10/30/18 17:07 STATUS: RADHA REVictor M #: [id number] MINDI: 10/30/18 14:[address]: Gibson Merida DEPT: SURGICAL PATHOLOGY RECD BY: Gibson David ENTERED: 10/31/18 11:44 SP TYPE: EGD BIOPSY OTHR DR: MD Dr. Drew Summers MD Dr. Nana Yaa Koram, MD Dr. Richard Guttman, MD Tissues: A - Jejunum, NOS B - Duodenum, NOS C - Gastric mucous membrane D - Gastric mucous membrane E - Esophageal mucous membrane F - Esophageal mucous membrane G - Ileum, NOS H - COLON BIOPSY Procedures: Surgery Specimen Level IV Comments: @ Ordering doctor for SUIV edited from to @ by REVA at 10/31/18 1508 @ Submitting doctor edited from to @ by REVA at 10/31/18 1508 HEADER OPERATION: Colonoscopy, EGD ([place]) PRE-OP DIAGNOSIS: Nausea, vomiting, diarrhea TISSUE SUBMITTED: A - Jejunal biopsy, B - Duodenal biopsy, C - Antral biopsy, D - GE junction biopsy, E - Esophageal ulcer biopsy, F - Mid esophageal biopsy, G - Terminal ileum biopsy, H - Random colon biopsies MICROSCOPIC DIAGNOSIS A. Jejunum, biopsy: No significant pathologic change. No evidence of enteritis. B. Duodenum, biopsy: Consistent with Marylin's gland hyperplasia. Focal gastric metaplasia. C. Gastric antrum, biopsy: Mild to moderate chronic gastritis. See comment. D. GE junction, biopsy: Mild chronic inflammation. E. Esophageal ulcer, biopsy: Focal reactive epithelial change. See comment. F. Mid esophagus, biopsy: Gastric mucosa with mild chronic inflammation. G. Terminal ileum, biopsy: No pathologic diagnosis. H. Colon, random biopsy: No pathologic diagnosis. AM:ricardo 11/01/18 COMMENT C. The results of immunohistochemistry for Helicobacter pylori will be reported separately ([id number]). E. Acute and/or chronic inflammation is not identified. MICROSCOPIC DESCRIPTION Slides are reviewed. GROSS DESCRIPTION A - Received in fixative is one container labeled with the patient's name and designated jejunal biopsy. The specimen consists of one irregular fragment of light levy soft tissue that measures 0.5 x 0.2 x 0.1 cm. The specimen is totally submitted in one cassette. B - Received in fixative is one container labeled with the patient's name and designated duodenal biopsy. The specimen consists of one irregular fragment of light levy soft tissue that measures 0.3 x 0.2 x 0.1 cm. The specimen is totally submitted in one cassette. C - Received in fixative is one container labeled with the patient's name and designated antral biopsy. The specimen consists of one irregular fragment of light levy soft tissue that measures 0.5 x 0.2 x 0.1 cm. The specimen is totally submitted in one cassette. D - Received in fixative is one container labeled with the patient's name and designated GE junction biopsy. The specimen consists of one irregular fragment of light levy soft tissue that measures 0.3 x 0.3 x 0.1 cm. The specimen is totally submitted in one cassette. E - Received in fixative is one container labeled with the patient's name and designated esophageal ulcer. The specimen consists of two irregular fragments of light levy soft tissue that in aggregate measure 0.5 x 0.3 x 0.1 cm. The specimen is totally submitted in one cassette. F - Received in fixative is one container labeled with the patient's name and designated mid esophagus. The specimen consists of one irregular fragment of light levy soft tissue that measures 0.5 x 0.3 x 0.1 cm. The specimen is totally submitted in one cassette. G - Received in fixative is one container labeled with the patient's name and designated terminal ileum. The specimen consists of one irregular fragment of light levy soft tissue that measures 0.5 x 0.3 x 0.1 cm. The specimen is totally submitted in one cassette. H - Received in fixative is one container labeled with the patient's name and designated random colon biopsy. The specimen consists of two irregular fragments of light levy soft tissue that in aggregate measure 0.7 x 0.6 x 0.1 cm. The specimen is totally submitted in one cassette. / AM:ricardo 10/31/18 TC:3 CPT: 18378 x8
--- NOTE | 2018-10-30 15:38 | OP.ENDO_ITS ---
Patient Name: Marcos Peralta Procedure Date: 10/30/2018 2:02 PM Date of : 1965 Age: 52 Procedure: Upper GI endoscopy Indications: Nausea with vomiting Providers: Marcos Merida MD Referring MD: Maxime Mccann Medicines: Monitored Anesthesia Care Patient Profile: This is a 52 year old male. Refer to note in patient chart for documentation of history and physical. Complications: No immediate complications. Procedure: Pre-Anesthesia Assessment: - Prior to the procedure, a History and Physical was performed, and patient medications and allergies were reviewed. The patient is competent. The risks and benefits of the procedure and the sedation options and risks were discussed with the patient. All questions were answered and informed consent was obtained. Patient identification and proposed procedure were verified by the physician, the nurse and the quenching car operator in the procedure room. Mental Status Examination: alert and oriented. Airway Examination: normal oropharyngeal airway and neck mobility. Respiratory Examination: clear to auscultation. CV Examination: normal. Prophylactic Antibiotics: The patient does not require prophylactic antibiotics. Prior Anticoagulants: The patient has taken no previous anticoagulant or antiplatelet agents. ASA Grade Assessment: III - A patient with severe systemic disease. After reviewing the risks and benefits, the patient was deemed in satisfactory condition to undergo the procedure. The anesthesia plan was to use monitored anesthesia care (MAC). Immediately prior to administration of medications, the patient was re-assessed for adequacy to receive sedatives. The heart rate, respiratory rate, oxygen saturations, blood pressure, adequacy of pulmonary ventilation, and response to care were monitored throughout the procedure. The physical status of the patient was re-assessed after the procedure. After obtaining informed consent, the endoscope was passed under direct vision. Throughout the procedure, the patient's blood pressure, pulse, and oxygen saturations were monitored continuously. The gastroscope was introduced through the mouth, and advanced to the jejunum. The upper GI endoscopy was accomplished without difficulty. The patient tolerated the procedure well. Scope In: 2:55:38 PM Scope Out: 3:02:53 PM Total Procedure Duration Time 0 hours 7 minutes 15 seconds Findings: The examined jejunum was normal. Biopsies for histology were taken with a cold forceps for evaluation of celiac disease. Patchy moderately erythematous mucosa without active bleeding and with no stigmata of bleeding was found in the duodenal bulb. Biopsies were taken with a cold forceps for histology. Scattered mild inflammation characterized by erosions, erythema, friability and granularity was found in the gastric antrum. Biopsies were taken with a cold forceps for Helicobacter pylori testing using PyloriTek test. Biopsies were taken with a cold forceps for histology. The gastroesophageal junction was normal. Mildly severe esophagitis with no bleeding was found. Biopsies were taken with a cold forceps for histology. Two superficial esophageal ulcers with no bleeding and no stigmata of recent bleeding were found 28 cm from the incisors. Biopsies were taken with a cold forceps for histology. Multiple areas of ectopic gastric mucosa were found in the upper third of the esophagus, 25 cm from the incisors. Biopsies were taken with a cold forceps for histology. Impression: - Normal examined jejunum. Biopsied. - Erythematous duodenopathy. Biopsied. - Gastritis. Biopsied. - Normal gastroesophageal junction. - Mildly severe reflux esophagitis. Biopsied. - Non-bleeding esophageal ulcers. Biopsied. - Ectopic gastric mucosa in the upper third of the esophagus. Biopsied. Recommendation: - Return to my office in 1 week. - Continue present medications. Procedure Code(s): --- Professional --- 51341, Esophagogastroduodenoscopy, flexible, transoral; with biopsy, single or multiple CPT copyright 2017 [employer]. All rights reserved. The codes documented in this report are preliminary and upon dice table operator review may be revised to meet current compliance requirements. Marcos Merida MD 10/30/2018 3:37:24 PM This report has been signed electronically. Number of Addenda: 0 Note Initiated On: 10/30/2018 2:02 PM
--- NOTE | 2018-10-30 15:41 | OP.ENDO_ITS ---
Patient Name: Marcos Peralta Procedure Date: 10/30/2018 3:04 PM Date of : 1965 Age: 52 Procedure: Colonoscopy Indications: Chronic diarrhea, Suspected Crohn's disease of the colon, Suspected Crohn's disease Providers: Marcos Merida MD Referring MD: Maxime Mccann Medicines: Monitored Anesthesia Care Patient Profile: This is a 52 year old male. Refer to note in patient chart for documentation of history and physical. Last Colonoscopy: Complications: No immediate complications. Procedure: Pre-Anesthesia Assessment: - Prior to the procedure, a History and Physical was performed, and patient medications and allergies were reviewed. The patient is competent. The risks and benefits of the procedure and the sedation options and risks were discussed with the patient. All questions were answered and informed consent was obtained. Patient identification and proposed procedure were verified by the physician, the nurse and the terminal carman in the procedure room. Mental Status Examination: alert and oriented. Airway Examination: normal oropharyngeal airway and neck mobility. Respiratory Examination: clear to auscultation. CV Examination: normal. Prophylactic Antibiotics: The patient does not require prophylactic antibiotics. Prior Anticoagulants: The patient has taken no previous anticoagulant or antiplatelet agents. ASA Grade Assessment: III - A patient with severe systemic disease. After reviewing the risks and benefits, the patient was deemed in satisfactory condition to undergo the procedure. The anesthesia plan was to use monitored anesthesia care (MAC). Immediately prior to administration of medications, the patient was re-assessed for adequacy to receive sedatives. The heart rate, respiratory rate, oxygen saturations, blood pressure, adequacy of pulmonary ventilation, and response to care were monitored throughout the procedure. The physical status of the patient was re-assessed after the procedure. After I obtained informed consent, the scope was passed under direct vision. Throughout the procedure, the patient's blood pressure, pulse, and oxygen saturations were monitored continuously. The Colonoscope was introduced through the anus and advanced to 5 cm into the ileum. The colonoscopy was performed without difficulty. The patient tolerated the procedure well. The quality of the bowel preparation was good. Scope In: 3:05:59 PM Scope Withdrawal Time 0 hours 10 minutes 53 seconds Scope Out: 3:23:12 PM Total Procedure Duration Time 0 hours 17 minutes 13 seconds Findings: The terminal ileum appeared normal. Biopsies were taken with a cold forceps for histology. The colon (entire examined portion) appeared normal. Biopsies for histology were taken with a cold forceps from the cecum and sigmoid colon for evaluation of microscopic colitis. The retroflexed view of the distal rectum and anal verge was normal and showed no anal or rectal abnormalities. Impression: - The examined portion of the ileum was normal. Biopsied. - The entire examined colon is normal. Biopsied. - The distal rectum and anal verge are normal on retroflexion view. Recommendation: - [facility] - Resume previous diet. - Continue present medications. - Return to my office in 1 week. - Repeat colonoscopy is recommended. The colonoscopy date will be determined after pathology results from today's exam become available for review. Procedure Code(s): --- Professional --- 89514, Colonoscopy, flexible; with biopsy, single or multiple CPT copyright 2017 [employer]. All rights reserved. The codes documented in this report are preliminary and upon aluminum siding installer review may be revised to meet current compliance requirements. Marcos Merida MD 10/30/2018 3:40:43 PM This report has been signed electronically. Number of Addenda: 0 Note Initiated On: 10/30/2018 3:04 PM
[2018-10-30] MEDS: Aspirin 81 MG TAB.CHEW PO (18:02)
--- NOTE | 2018-10-30 18:21 | PCM.PN.SRG ---
Patient Problems: Active and Suspected Problems Nausea vomiting and diarrhea (Acute) Hyponatremia (Acute) Hypokalemia (Acute) MAICOL (acute kidney injury) (Acute) - Physical Exam General: Alert, Oriented x3, Cooperative Lungs: Clear to auscultation Cardiovascular: Regular rate, No murmurs Abdomen: Bowel Sounds Present, Soft, Non Tender Vital Signs Temp Pulse Resp BP Pulse Ox 97.7 F L 82 16 121/75 H 99 10/30/18 16:05 10/30/18 16:29 10/30/18 16:05 10/30/18 16:05 10/30/18 16:05 Oxygen Delivery Method Room Air Weight: 75.55 kg Body Mass Index (BMI) 24.5 Intake and Output for Last 24 Hours 10/28/18 10/29/18 10/30/18 23:59 23:59 23:59 Intake Total 5752 / 5752 4350 / 4350 1450 / 1450 Output Total 1900 / 1900 2300 / 2300 1350 / 1350 Balance 3852 / 3852 2050 / 2050 100 / 100 Microbiology Past 72 Hours 10/29/18 23:20 Enteric Bacteriology - Final Stool 10/29/18 23:20 Stool Lactoferrin - Final Stool 10/29/18 23:20 Stool Occult Blood (YOLANDE) - Final Stool Occult Blood Positive 10/28/18 00:35 Respiratory Panel (PCR) - Final Mucosa - Nasopharyngeal Rhinovirus Laboratory Tests Past 24 Hrs 10/29/18 10/29/18 10/30/18 23:20 23:20 05:25 WBC RBC Hgb Hct MCV MCH MCHC RDW RDW Differential Plt Count MPV Immature Gran % (Auto) Neut % (Auto) Lymph % (Auto) [place] % (Auto) Eos % (Auto) Baso % (Auto) Absolute Neuts (auto) Absolute Lymphs (auto) Total Counted Differential Comment PT INR APTT Sodium 138 Potassium 4.5 Chloride 101 Carbon Dioxide 28.0 Anion Gap 9 BUN 13 Creatinine 1.14 Estim Creat Clear Calc 74.08 Est GFR (MDRD) Af Amer 86 Est GFR (MDRD) Non-Af 71 BUN/Creatinine Ratio 11.4 Glucose 66 L Calcium 9.0 Stool Calprotectin Pending Stl Giardia Antigen Pending Stool H. pylori Ag Pending 01/07/19 01/07/19 05:25 05:25 WBC 12.1 H RBC 3.36 L Hgb 10.6 L Hct 32.4 L MCV 96.4 H MCH 31.5 MCHC 32.7 RDW 13.4 RDW Differential 47.8 H Plt Count 309 MPV 9.7 Immature Gran % (Auto) 0.200 Neut % (Auto) 93.6 H Lymph % (Auto) 3.6 L [place] % (Auto) 2.6 Eos % (Auto) 0.0 Baso % (Auto) 0.0 Absolute Neuts (auto) 11.3 H Absolute Lymphs (auto) 0.43 L Total Counted Not Reportable Differential Comment PT 12.9 INR 1.0 APTT 30.1 Sodium Potassium Chloride Carbon Dioxide Anion Gap BUN Creatinine Estim Creat Clear Calc Est GFR (MDRD) Af Amer Est GFR (MDRD) Non-Af BUN/Creatinine Ratio Glucose Calcium Stool Calprotectin Stl Giardia Antigen Stool H. pylori Ag Medical Necessity - Tobacco Use Smoking Status: Never smoker Assessment/Plan All Active Problems Nausea vomiting and diarrhea (Acute) Hyponatremia (Acute) Hypokalemia (Acute) MAICOL (acute kidney injury) (Acute) GI bleed (Resolved) CAD (coronary artery disease) (Ruled-out) Nausea and vomiting (Acute) Perforated bowel (Resolved) Severe sepsis (Resolved) Tachycardia (Resolved) chronic nausea, vomiting, diarrhea, worsening over the last few months to a few days. Complex GI history as noted above. Upper endoscopy demonstrated mild gastritis, duodenitis, distal esophagitis and mid esophageal erosions/superficial ulcerations. - all biopsied. terminal ileum and colon were normal appearing and biopsied. If patient has a bowel movement prior to restarting his bowel prep would consider ordering stool cultures that he was unable to obtain but ordered by program coordinator executive education at the clinic. Will have patient follow up in my office in one week.
[2018-10-30] MEDS: Amitriptyline 10 MG Tablet PO (21:50)
[2018-10-31 00:02] VITALS: PULSE 85
[2018-10-31 04:30] VITALS: BP 132/81; PULSE 75; RESP 18; TEMP 36.3; O2SAT 96
[2018-10-31 05:03] VITALS: PULSE 78
[2018-10-31] MEDS: Heparin Injection (Vial) 5,000 UNIT/ML VIAL 5000 UNIT SC (05:50)
[2018-10-31] MEDS: Ondansetron 4 MG/2 ML Vial IV (05:55)
[2018-10-31 07:30] LABS: Hematocrit 33.3 % (40-54); Hemoglobin 10.9 g/dl (13.0-16.5); Mean Corp Hgb Conc 32.7 g/gl (32-36); Mean Corpuscular Hgb 32.2 pg (27.0-32.0); Mean Corpuscular Volume 98.5 fL (80-94); Mean Platelet Vol. 10.6 fl (6.2-12.0); Platelet Count 310 K/mm3 (150-450); RBC Distribution Width CV 13.2 % (11.6-14.6); RBC Distribution Width SD 46.3 fl (35.1-43.9); Red Blood Count 3.38 M/mm3 (4.6-6.2)
[2018-10-31 07:53] LABS: Scan Indicated on CBC? Y/N NO
[2018-10-31 07:57] LABS: Anion Gap 9 (5-15); BUN 12 mg/dL (7-18); BUN/Creat Ratio 9.1 RATIO (10-20); Calcium,Total 8.8 mg/dL (8.5-10.1); Chloride 103 mmol/L (98-107); Creatinine, Serum 1.32 mg/dL (0.70-1.30); EST Glomerular Filtration Rate 60 mL/min (>60); Est Glom Filt Rate - Afr Amer 73 mL/min (>60); Estimated Creatinine Clearance 63.98 ml/min; Glucose 86 mg/dL (74-106); Potassium 3.7 mmol/L (3.5-5.1); Sodium Level 141 mmol/L (136-145)
[2018-10-31 08:41] VITALS: PULSE 89
[2018-10-31 09:04] VITALS: BP 127/71; PULSE 90; RESP 18; TEMP 36.9; O2SAT 95
[2018-10-31] MEDS: Aspirin 81 MG TAB.CHEW PO (09:11)
--- NOTE | 2018-10-31 09:45 | DCINST_ITS ---
- Discharge Diagnoses Current Active Problems: Current Active and Chronic Problems Nausea vomiting and diarrhea (Acute) Hyponatremia (Acute) Hypokalemia (Acute) MAICOL (acute kidney injury) (Acute) You will use the following diet at home:: No restrictions Discharge Activity: Return to Normal Activity Call your doctor if you observe: Fever of 101 or Higher, Inability to urinate, - - Frequent diarrhea Allergies/Adverse Reactions: Allergies Penicillins Allergy (Verified 10/27/18 18:15) Anaphylaxis erythromycin base [Erythromycin Base] Adverse Reaction (Verified 10/27/18 18:15) Nausea milk Adverse Reaction (Verified 10/27/18 18:15) Upset Stomach Medications to take at Discharge Ondansetron [Zofran Odt] 4 mg PO Q8H PRN PRN 12/18/13 Rizatriptan Benzoate [Maxalt] 10 mg PO .X1 PRN 12/18/13 Amitriptyline HCl [Elavil] 10 mg PO QHS 09/19/17 Aspirin 81 mg PO BID 10/11/18 Potassium Chloride [Klor-Con M20] 20 meq PO BID 10/11/18 Diphenoxylate/Atrop [Lomotil] 1 tablet PO 4X/DAY PRN 10/16/18 Lactobacillus Acidophilus [Probiotic Acidophilus] 1 each PO DAILY 10/16/18 Pantoprazole Sodium [Protonix] 40 mg PO DAILY #30 tablet 10/31/18 Prednisone See Taper PO DAILY #30 tablet 10/31/18 Sucralfate [Carafate] 1 gm PO 4X/DAY #120 tablet 10/31/18 The following prescriptions were given: Pantoprazole Sodium [Protonix] 40 mg PO DAILY #30 tablet Prednisone See Taper PO DAILY #30 tablet Sucralfate [Carafate] 1 gm PO 4X/DAY #120 tablet Primary Care Physician: Drew Hardy MD [Primary Care Provider] - Please follow up with your Primary Care Physician in: 1 Week Test Results: Test results from this visit will be discussed in further detail at your follow- up appointment, if applicable. Please Follow Up With: Marcos Merida MD When: 1 Week Proposed Discharge Date: 10/31/18
--- NOTE | 2018-10-31 11:49 | PN.SURG_ITS ---
Subjective: no complaints - Physical Exam General: Alert, Oriented x3, Cooperative Lungs: Clear to auscultation, Normal air movement Cardiovascular: Regular rate, Regular Rhythm Abdomen: Bowel Sounds Present, Soft, Non Tender Vital Signs Temp Pulse Resp BP Pulse Ox 98.4 F 90 18 127/71 H 95 10/31/18 09:04 10/31/18 09:04 10/31/18 09:04 10/31/18 09:04 10/31/18 09:04 Oxygen Delivery Method Room Air Weight: 75.55 kg Body Mass Index (BMI) 24.5 Intake and Output for Last 24 Hours 10/29/18 10/30/18 10/31/18 23:59 23:59 23:59 Intake Total 4350 / 4350 1450 / 1450 1000 / 1000 Output Total 2300 / 2300 1350 / 1350 Balance 2050 / 2050 100 / 100 1000 / 1000 Microbiology Past 72 Hours 10/29/18 23:20 Enteric Bacteriology - Final Stool 10/29/18 23:20 Stool Lactoferrin - Final Stool 10/29/18 23:20 Stool Occult Blood (YOLANDE) - Final Stool Occult Blood Positive 10/28/18 00:35 Respiratory Panel (PCR) - Final Mucosa - Nasopharyngeal Rhinovirus Laboratory Tests Past 24 Hrs 10/31/18 10/31/18 06:30 06:30 WBC 9.0 RBC 3.38 L Hgb 10.9 L Hct 33.3 L MCV 98.5 H MCH 32.2 H MCHC 32.7 RDW 13.2 RDW Differential 46.3 H Plt Count 310 MPV 10.6 Sodium 141 Potassium 3.7 Chloride 103 Carbon Dioxide 29.0 Anion Gap 9 BUN 12 Creatinine 1.32 H Estim Creat Clear Calc 63.98 Est GFR (MDRD) Af Amer 73 Est GFR (MDRD) Non-Af 60 BUN/Creatinine Ratio 9.1 L Glucose 86 Calcium 8.8 Medical Necessity - Tobacco Use Smoking Status: Never smoker Assessment/Plan All Active Problems Nausea vomiting and diarrhea (Acute) Hyponatremia (Acute) Hypokalemia (Acute) MAICOL (acute kidney injury) (Acute) GI bleed (Resolved) CAD (coronary artery disease) (Ruled-out) Nausea and vomiting (Acute) Perforated bowel (Resolved) Severe sepsis (Resolved) Tachycardia (Resolved) chronic nausea, vomiting, diarrhea, worsening over the last few months to a few days. Complex GI history as noted above. Upper endoscopy demonstrated mild gastritis, duodenitis, distal esophagitis and mid esophageal erosions/superficial ulcerations. - all biopsied. terminal ileum and colon were normal appearing and biopsied. If patient has a bowel movement prior to restarting his bowel prep would consider ordering stool cultures that he was unable to obtain but ordered by regional clinical research associate at the clinic. Will have patient follow up in my office in one week.
--- NOTE | 2018-10-31 12:45 | DS.PCM_ITS ---
<Rebecca Estrada - Last Filed: 10/31/18 12:45> Discharge Date and Diagnosis Date of Admission: 10/27/18 Date of Discharge: 10/31/18 - Primary Discharge Diagnosis 1. Intractable recurrent nausea, vomiting, diarrhea-unclear etiology 2. Acute kidney injury, secondary to #1 3. Asthma exacerbation secondary to acute rhinovirus 4. Hypokalemia/hyponatremia secondary to #1 5. GERD 6. Chronic headaches 7. History of paroxysmal atrial fibrillation - Secondary Discharge Diagnosis Chronic Problems Migraine (Chronic) Gastroesophageal reflux disease (Chronic) Hospital Course and Treatment Dr. Merida- General surgery Operations: None Procedures: Colonoscopy, EGD Summary of Care Provided: The patient is a 52 year old M admitted 10/27/2018 due to nausea, vomiting, diarrhea. 1. Intractable recurrent nausea, vomiting, diarrhea-questionable history of Crohn's/IBS? Patient has had 3 admissions since 10/11/2018 for recurrent N/V/D with associated acute kidney injury. Patient is currently undergoing evaluation at [facility] by GI specialist. CT of abdomen 10/16/2018 with fluid-filled bowel, suggesting enterocolitis. Dr. Merida consulted for further input given severity and recurrence of diarrhea with outpatient workup pending. Patient underwent EGD and colonoscopy with Dr. Silva. Upper endoscopy showed mild gastritis, duodenitis, distal esophagitis and mid esophageal erosions. These were biopsied. Terminal ileum and colon normal-appearing. Patient received IV Solu-Medrol during admission. Discharged on prednisone taper. Stool for enteric bacteriology negative. Stool positive for occult blood. Ova and parasites pending. Lactoferrin positive. Patient started on Protonix 40 mg daily as well as Carafate 4 times daily at discharge. Follow-up with primary care physician in 1 week. Patient will follow up with Dr. Silva in 1 week. 2. Acute kidney injury-secondary to dehydration as a result of #1. Resolved. 3. Asthma exacerbation secondary to acute rhinovirus-respiratory panel positive for rhinovirus. Patient with shortness of breath and wheezing on admission. Shortness of breath and wheezing resolved. Prednisone taper at discharge. 4. Hypokalemia/hyponatremia-secondary to #1. Resolved. 4. GERD-continue PPI at discharge. 5. Chronic headaches-continue home amitriptyline/maxalt regimen. 6. History of paroxysmal atrial fibrillation-not on anticoagulation given brief episode. General: Alert, Oriented x3, Cooperative HEENT: Atraumatic, PERRLA, EOMI, Normocephalic Neck: Supple, No JVD, Negative Carotid Bruits Lungs: Clear to auscultation, Normal air movement Cardiovascular: Regular rate, Regular Rhythm, Normal S1, Normal S2, No murmurs Abdomen: Bowel Sounds Present, Soft, Non Tender, Non-Distended Extremities: No clubbing, No cyanosis, No edema, Capillary Refill Less than 3 Seconds Skin: No rashes, No breakdown Musculoskeletal: No Tenderness to Palpation of Joints or Extremities Neurological: Cranial nerves II-XII grossly intact, Neuro grossly intact Psych/Mental Status: Normal Affect, Appropriate Patient seen and examined prior to discharge. Physical assessment as noted above. Patient is stable for discharge with follow up recommendations as noted above. This patient was seen by RITIKA Ellis under the supervision of Dr. Woodard. - Physical Exam Vital Signs Temp Pulse Resp BP Pulse Ox 98.4 F 90 18 127/71 H 95 10/31/18 09:04 10/31/18 09:04 10/31/18 09:04 10/31/18 09:04 10/31/18 09:04 Oxygen Delivery Method Room Air Weight: 166 lb 8.948 oz Body Mass Index (BMI) 24.5 Intake and Output for Last 24 Hours 10/29/18 10/30/18 10/31/18 23:59 23:59 23:59 Intake Total 4350 / 4350 1450 / 1450 1000 / 1000 Output Total 2300 / 2300 1350 / 1350 Balance 2050 / 2050 100 / 100 1000 / 1000 Microbiology Past 72 Hours 10/29/18 23:20 Enteric Bacteriology - Final Stool 10/29/18 23:20 Stool Lactoferrin - Final Stool 10/29/18 23:20 Stool Occult Blood (YOLANDE) - Final Stool Occult Blood Positive 10/28/18 00:35 Respiratory Panel (PCR) - Final Mucosa - Nasopharyngeal Rhinovirus Laboratory Tests Past 24 Hrs 10/31/18 10/31/18 06:30 06:30 WBC 9.0 RBC 3.38 L Hgb 10.9 L Hct 33.3 L MCV 98.5 H MCH 32.2 H MCHC 32.7 RDW 13.2 RDW Differential 46.3 H Plt Count 310 MPV 10.6 Sodium 141 Potassium 3.7 Chloride 103 Carbon Dioxide 29.0 Anion Gap 9 BUN 12 Creatinine 1.32 H Estim Creat Clear Calc 63.98 Est GFR (MDRD) Af Amer 73 Est GFR (MDRD) Non-Af 60 BUN/Creatinine Ratio 9.1 L Glucose 86 Calcium 8.8 Discharge Diet: No Restrictions Discharge Activity: Return to Normal Activity Call your doctor if you observe: Fever of 101 or Higher, Inability to urinate, - - Frequent diarrhea Home Medications: Medications to take at Discharge Ondansetron [Zofran Odt] 4 mg PO Q8H PRN PRN 12/18/13 Rizatriptan Benzoate [Maxalt] 10 mg PO .X1 PRN 12/18/13 Amitriptyline HCl [Elavil] 10 mg PO QHS 09/19/17 Aspirin 81 mg PO BID 10/11/18 Potassium Chloride [Klor-Con M20] 20 meq PO BID 10/11/18 Diphenoxylate/Atrop [Lomotil] 1 tablet PO 4X/DAY PRN 10/16/18 Lactobacillus Acidophilus [Probiotic Acidophilus] 1 each PO DAILY 10/16/18 Pantoprazole Sodium [Protonix] 40 mg PO DAILY #30 tablet 10/31/18 Prednisone See Taper PO DAILY #30 tablet 10/31/18 Sucralfate [Carafate] 1 gm PO 4X/DAY #120 tablet 10/31/18 Following Prescrptions Were Given to Patient: Pantoprazole Sodium [Protonix] 40 mg PO DAILY #30 tablet Prednisone See Taper PO DAILY #30 tablet Sucralfate [Carafate] 1 gm PO 4X/DAY #120 tablet Primary Care Physician: Drew Hardy MD [Primary Care Provider] - Please follow up with your Primary Care Physician in: 1 Week Please Follow Up With: Marcos Merida MD When: 1 Week Disposition: Home Minutes spent on discharge:: 35 Patient Condition:: Stable Medical Necessity - Tobacco Use Smoking Status: Never smoker Meaningful Use Info Meaningful Use Diagnoses (Choose all that apply): None applicable <VanceDesiree Yolanda - Last Filed: 10/31/18 14:37> Discharge Date and Diagnosis - Secondary Discharge Diagnosis Chronic Problems Migraine (Chronic) Gastroesophageal reflux disease (Chronic) Hospital Course and Treatment Summary of Care Provided: Patient seen by Rebecca YOST under my supervision The patient is a 52 year old M admitted with a complaint of intractable nausea and vomiting, as well as diarrhea. This was his third admission for recurrent nausea vomiting and diarrhea with assisted AK I over the last couple of weeks. He was found to have AK I likely due to dehydration from nausea and vomiting. Patient had an antecedent history of questionable IBS and Crohn's disease based on previous scopes that he had had. He had had a CT of the abdomen done at [facility] on 10/16/2018 which showed fluid-filled bowel suggesting enterocolitis. He was started on IV fluids and Zofran for nausea. General surgery was consulted and he had EGD and colonoscopy. EGD showed mild gastritis and duodenitis with distal esophagitis and mid esophageal erosions. Biopsy's were taken. Terminal hilum and colon were normal on colonoscopy. Patient was put on IV Solu-Medrol during his admission and discharged on a prednisone taper. He is to follow-up with general surgery and crm marketing analyst at [facility] as well as his PCP. Patient seen and examined prior to discharge. He had no complaints and was looking forward to going home. He denied any fever, any chills, any abdominal pain, any nausea, any diarrhea vomiting. Review of systems otherwise negative. Labs and vitals reviewed. Home medications reviewed and reconciled. o/e: [] Vital Signs Height 5 ft 9 in Weight: 166 lb 8.948 oz Weight in Pounds 166.6 lbs Pulse Ox 95 Temperature 98.4 F Pulse Rate 90 Respiratory Rate 18 Blood Pressure 127/71 Blood Pressure Position Semi-Fowlers General: Alert, Oriented x3, Cooperative HEENT: Atraumatic, PERRLA, EOMI, Normocephalic Neck: Supple, No JVD, Negative Carotid Bruits Lungs: Diminished, Rhonchi, Wheezes Cardiovascular: Regular rate, Regular Rhythm, Normal S1, Normal S2, No murmurs Abdomen: Bowel Sounds Present, Soft, Non-Distended, Tender Extremities: No clubbing, No cyanosis, No edema, Capillary Refill Less than 3 Seconds Skin: No rashes, No breakdown Musculoskeletal: No Tenderness to Palpation of Joints or Extremities Neurological: Cranial nerves II-XII grossly intact, Neuro grossly intact Psych/Mental Status: Normal Affect, Appropriate Plan as discussed above. I have reviewed Rebecca [employer]'s above note and agree with it. - Physical Exam Vital Signs Temp Pulse Resp BP Pulse Ox 98.4 F 90 18 127/71 H 95 10/31/18 09:04 10/31/18 09:04 10/31/18 09:04 10/31/18 09:04 10/31/18 09:04 Oxygen Delivery Method Room Air Weight: 166 lb 8.948 oz Body Mass Index (BMI) 24.5 Intake and Output for Last 24 Hours 10/29/18 10/30/18 10/31/18 23:59 23:59 23:59 Intake Total 4350 / 4350 1450 / 1450 1000 / 1000 Output Total 2300 / 2300 1350 / 1350 Balance 2050 / 2050 100 / 100 1000 / 1000 Microbiology Past 72 Hours 10/29/18 23:20 Enteric Bacteriology - Final Stool 10/29/18 23:20 Stool Lactoferrin - Final Stool 10/29/18 23:20 Stool Occult Blood (YOLANDE) - Final Stool Occult Blood Positive 10/28/18 00:35 Respiratory Panel (PCR) - Final Mucosa - Nasopharyngeal Rhinovirus Laboratory Tests Past 24 Hrs 10/31/18 10/31/18 06:30 06:30 WBC 9.0 RBC 3.38 L Hgb 10.9 L Hct 33.3 L MCV 98.5 H MCH 32.2 H MCHC 32.7 RDW 13.2 RDW Differential 46.3 H Plt Count 310 MPV 10.6 Sodium 141 Potassium 3.7 Chloride 103 Carbon Dioxide 29.0 Anion Gap 9 BUN 12 Creatinine 1.32 H Estim Creat Clear Calc 63.98 Est GFR (MDRD) Af Amer 73 Est GFR (MDRD) Non-Af 60 BUN/Creatinine Ratio 9.1 L Glucose 86 Calcium 8.8 Code Visit Inpatient E&M: 30165 Disch Hosp
--- NOTE | 2018-11-02 13:50 | CASEMGMT ---
STACI CM Discharge follow-up phone call: Lace: 12 Strata: 4 Discharge Date: 10/31/18 Adm Dx: Intractable N/V, diarrhea Attempted discharge follow-up phone call. No answer. Message not left at this time d/t did not have good phone connection--Mr Peralta's voice msg recording kept fading in/out. CM to attempt discharge follow-up phone call again later. Nasir WOODS RN CM
--- NOTE | 2018-11-02 15:04 | CASEMGMT ---
RN ZAHRA NOTE: Attempted to contact Mr Peralta again. No answer. Message left for him to return call to MS3 RN ZAHRA, Jd, if he has any questions or concerns about discharge instructions or medications. Phone number provided. Nasir WOODS RN CM
[2018-11-03 12:34] LABS: Calprotectin, Stool 83 ug/g (0-120)
== END 2018-10-31 10:00 | disposition home or self-care (01) | DRG 683 ==
LOC: ED 20:29 → MS3 22:14
PROVIDERS: Anesthesiology; Nurse Practitioner Family; Surgery; Admitting Provider Hospitalist; Emergency Provider Emergency Medicine; Family Provider Family Medicine; PCP Family Medicine; Referring Provider Hospitalist; Visit Provider Student in an Organized Health Care Education/Training Program
PROC: 0DJD8ZZ Inspection of Lower Intestinal Tract, Via Natural or Artificial Opening Endoscopic (ICD-10-PCS; CPT 45378; principal; 2018-10-30 14:25)
DX: N17.9 Acute kidney failure, unspecified (principal); E87.1 Hypo-osmolality and hyponatremia; J45.901 Unspecified asthma with (acute) exacerbation; K22.10 Ulcer of esophagus without bleeding; E87.6 Hypokalemia; E87.8 Other disorders of electrolyte and fluid balance, not elsewhere classified; E86.0 Dehydration; K21.9 Gastro-esophageal reflux disease without esophagitis; J06.9 Acute upper respiratory infection, unspecified; B97.4 Respiratory syncytial virus as the cause of diseases classified elsewhere; K29.70 Gastritis, unspecified, without bleeding; K29.80 Duodenitis without bleeding; R11.2 Nausea with vomiting, unspecified; R19.7 Diarrhea, unspecified; R19.5 Other fecal abnormalities; G43.909 Migraine, unspecified, not intractable, without status migrainosus; Z86.79 Personal history of other diseases of the circulatory system; Z79.82 Long term (current) use of aspirin
CPT/HCPCS: 36415; 80048; 82274; 83630; 83735; 83993; 85025; 85027; 85610; 85730; 87177; 87209; 87329; 87506; 87633; 88305; 88342; 93005; 94640; 97802; 99282; J7030; A4216; J2405; J3490

== ENCOUNTER 2019-02-13 16:18 | Inpatient (IN) | payer OTHER, SELFPAY ==
[2018-10-30 13:35] VITALS: BMI 24.5
[2019-02-13] VITALS (7 sets, daily range): BP systolic 115–133; BP diastolic 67–83; PULSE 78–116; RESP 16–24; TEMP 36.9–37.2; O2SAT 98–100; BMI 25.1; BMI 25.2; BMI 25.3
--- NOTE | 2019-02-13 17:22 | EKG12_ITS ---
Test Reason : LIGHTHEADED Blood Pressure : / mmHG Vent. Rate : 101 BPM Atrial Rate : 101 BPM P-R Int : 130 ms QRS Dur : 082 ms QT Int : 352 ms P-R-T Axes : 055 -38 032 degrees QTc Int : 456 ms Sinus tachycardia Left axis deviation Abnormal ECG Confirmed by AYDEE MITTAL ([id number]), assistant editor NANCY ALONZO ([id number]) on 02/15/2019 10:53:24 AM Referred By: Christopher Cerda Confirmed By:AYDEE MITTAL
[2019-02-13] MEDS: 0.9% Normal Saline 1,000 ML 1000 ML IV (18:28)
[2019-02-13] MEDS: Ondansetron 4 MG/2 ML Vial IV ×3 (18:28→21:51)
[2019-02-13 18:43] LABS: Absolute Lymphocyte Count 1.05 X10^3/ul (0.83-4.51); Absolute Neutrophil Count 3.5 X10^3/uL (2.0-7.7); Basophil# 0.03 X10^3/uL; Basophil% 0.6 % (0-1); Eosinophil# 0.02 X10^3/uL; Eosinophils% 0.4 % (0-5); Hematocrit 26.9 % (40-54); Lymphocyte # 1.05 X10^3/ul (4.0); Lymphocyte % 20.8 % (19-41); Mean Corp Hgb Conc 33.5 g/gl (32-36); Mean Corpuscular Hgb 30.4 pg (27.0-32.0); Mean Corpuscular Volume 90.9 fL (80-94); Mean Platelet Vol. 9.1 fl (6.2-12.0); Monocyte# 0.42 X10^3/uL; Monocyte% 8.3 % (0-10); Neutrophil # 3.53 X10^3/uL (2.7-7.7); Neutrophil % 69.7 % (47-70); POSITIVE COUNT NO; POSITIVE DIFFERENTIAL NO; POSITIVE MORPHOLOGY NO; Platelet Count 227 K/mm3 (150-450); RBC Distribution Width CV 14.8 % (11.6-14.6); RBC Distribution Width SD 48.8 fl (35.1-43.9); Red Blood Count 2.96 M/mm3 (4.6-6.2); White Blood Count 5.1 K/mm3 (4.4-11.0)
[2019-02-13 18:46] LABS: Anion Gap 7 (5-15); BUN 34 mg/dL (7-18); BUN/Creat Ratio 33.7 RATIO (10-20); Calcium,Total 8.5 mg/dL (8.5-10.1); Chloride 98 mmol/L (98-107); Creatinine, Serum 1.01 mg/dL (0.70-1.30); EST Glomerular Filtration Rate 82 mL/min (>60); Est Glom Filt Rate - Afr Amer 99 mL/min (>60); Estimated Creatinine Clearance 82.64 ml/min; Glucose 109 mg/dL (74-106); Potassium 3.1 mmol/L (3.5-5.1); Sodium Level 138 mmol/L (136-145)
[2019-02-13 18:50] LABS: International Normalized Ratio 1.2; Prothrombin Time (Protime)PT. 14.5 SECONDS (11.7-14.9)
[2019-02-13 18:51] LABS: Partial Thromboplast Time 28.2 Seconds (24.1-36.2)
[2019-02-13 18:59] LABS: Lactic Acid 1.7 mmol/L (0.4-2.0)
[2019-02-13] MEDS: Lidocaine 4% 5 ML Ampul 2 ML INHALATION (19:30)
--- NOTE | 2019-02-13 20:04 | ED.RN ---
THIS NURSE TRIED TO PUT IN AN NG TUBE PER [place] COURTNEY RN ATTEMPTED TO PLACE THE NG 2X. PT RECEIVED LIDOCAINE AEROSOL TO TRY THE NG AGAIN. AT BEDSIDE SAID NOT TO PUT IN THE NG TUBE, DR. CASTAÑEDA NOTIFIED.
--- NOTE | 2019-02-13 20:10 | PCM.CONS.GEN ---
Reason for Consult Date of Consultation: 02/13/19 Reason for Consultation: melena, coffee ground emesis History of Present Illness: The patient is a 53 year old M with a three day history of melena and now coffee ground emesis today. He states he was dizzy and nearly syncopal today. He presented to the ER. His hemoglobin is 9.0 - down from 10.9. BUN and Cr are elevated. He also noted RUQ pain today I evaluated the patient in October for nausea, vomiting and diarrhea. my notation from that admission: The patient is a 52 year old M with a 4 day history of worsening nausea vomiting and diarrhea. The patient has a 7 year long-standing history of these complaints and his artery undergone extensive workup. He was seen recently by gastroenterology at [facility]-seen by the GI fellow with plans for follow-up upper and lower endoscopy in November. The notation from that office visit is as follows: Marcos Peralta ?is a 52 year old male who presents today for an evaluation of chronic diarrhea. ? PMHx only includes migraines on amitryptiline and chronic diarrhea for which he is here for. ? ? Diarrhea has been going on for 7 years and worsening in the last 1.5 years. He used to have diarrhea episodes every 3 months but recently happening every few weeks. He is having 15-25 episodes of diarrhea/day. Stool is watery and small-volume. He changes his underwear 4-5 times/day and incontinence both at night and during the day. There is mucus associated with the stool. No blood in the last few weeks but he has blood in the past on and off. Stool is not greasy and does not float. Occasionally malodorous. ? He has associated vomiting that is sometimes predominant over diarrhea. He vomited 4x already today. Non-bloody, but bilious. His weight fluctuates by 20 lbs between 150-170 lbs over 3-4 weeks. Currently 162 lbs. Body mass index is 23.98 kg/m?.?He has RLQ pain that occurs when he has bouts of diarrhea. ? He has no appetite at all. He avoids fried, greasy, spicy foods. No recent travel. No cholecystectomy. No family or personal history of IBD. No history of pancreatitis. Drinks alcohol 1x/week (prior to 5 years almost daily, heavy alcohol use (1 pint of 110 proof vodka daily)). Not currently sexually active. No IVDU. ? ? Has had?2 hospital admissions recently, from 10/11/18-10/13/18 and then readmitted on 10/16/18-10/18/18. When originally in the ER for vomiting and diarrhea, then re-admitted for Gastroenteritis and Prolonged QT. Pt was discharged on 10/18/18 on Prednisone 40 mg bid (down to 20 mg qd) for presumed microscopic colitis. On 40 mg BID, he felt great for 1 week with formed stool. He is also on lomotil prn, pepcid BID prn. ? ? Recent workup includes lactose tolerance test which was positive for lactose intolerance. He cut out milk but continues to use dairy products occasionally. Normal pancreatic elastase 09/05/2018. Has had a trial of Creon in the past with no improvement. ? ? Extensive workup for diarrhea in [address] Farah- TSH and iron studies normal, celiac screen negative, stool potassium and Na unable to be determined as non-liquid, C. Diff negative, fecal fat elevated at 9 g. Pancreatic elastase low during 2015 workup but normal 08/2018. ? EGD and Colonoscopy 03/2016 Impression: ?- Normal esophagus. ?- Chronic gastritis. Biopsied. ?- Chronic duodenitis. Biopsied. ?- A mass (vs. peripancreatic node) was identified in ?the uncinate process of the pancreas. Fine needle ?aspiration performed. Findings: ?The colon (entire examined portion) appeared normal. Biopsies for ?histology were taken with a cold forceps for evaluation of microscopic ?colitis. Impression: ?- Preparation of the colon was poor. ?- The procedure was aborted due to poor bowel prep. ?- The entire examined colon is normal. Biopsied. ? ? ? FINAL DIAGNOSIS 1. Duodenum, biopsy (A) - Chronic focally active duodenitis with erosion and gastric foveolar metaplasia. - Morphologic changes of celiac disease are not seen. 2. Stomach, biopsy (B) - Gastric oxyntic mucosa with mild chronic inactive gastritis. - See comment. 3. Colon, left side, biopsy (C) - Colonic mucosa with no significant diagnostic abnormality. - No morphologic evidence of lymphocytic or collagenous colitis. 4. FNA was inadequate sample He underwent a colonoscopy in [place] by Dr. Xavier Coley on December 13, 2017. he was found to have a normal-appearing terminal ileum and normal-appearing colon with normal random biopsies. There was a polyp removed in the descending colon which returned as an adenomatous polyp. The patient notes a history of bowel perforation in the past. On September 19, 2017-he presented to [facility] emergency department with severe abdominal pain and tachycardia and CAT scan findings of free air and intra-abdominal fluid. The patient was transferred to [facility]. A copy of his discharge summary which includes the following: Fatimah Bell MD - 09/23/2017 4:12 PM EST Formatting of this note may be different from the original. Physician Discharge Summary Dictating Resident: Fatimah Bell Patient ID: Patient: Marcos Peralta Date of : 1965 Age: 51 y.o. Sex: male Acct: [id number] Admit Date: 09/19/2017 Discharge date: 09/25/17 Service, Admitting Physician: General Surgery, Dr. Whitlock Admission Diagnoses: Acute abdomen secondary to perforated viscus Initial H&P: Mr. Peralta is a 51-year-old male who presented to the [facility] ED on 09/19/17 with an acute abdomen secondary to perforated viscus. Intraoperative finding of proximal jejunal perforation. On 09/19/17, underwent diagnostic laparoscopy with repair of jejunal perforation, EGD, and ERNA drain placement by Dr. Whitlock. Due to postoperative hypotension, he was admitted to ICU for postoperative management. Hospital Course: Following admission, the patient's vital signs stabilized with IV fluid resuscitation. His pain was well controlled. His NG tube remained to low intermittent suction. His ERNA drainage was serous. He was transferred to [facility] thereafter. Following transfer, he had return of bowel function. He underwent an upper GI on 09/23/17, which was negative. His NG tube was removed and he was advanced to a clear liquid diet. He subsequently tolerated advancement to a full liquid, then soft diet. His ERNA drain was removed. Due to clinical improvement, he was deemed stable for discharge home 09/25/17. A copy of his operative report: Op Note - Beka Whitlock MD - 09/19/2017 6:13 PM EST OPERATIVE NOTE DATE OF PROCEDURE: 09/19/2017 SURGEON: BEKA WHITLOCK BRIM PRESSER: Ahmet Staley MD, Fatimah Bell MD, Vicky medical student PREOPERATIVE DIAGNOSIS: Acute abdomen, perforated viscus POSTOPERATIVE DIAGNOSIS: Same, plus perforation of proximal jejunum OPERATION: #1 diagnostic laparoscopy #2 repair of jejunal perforation #3 EGD #4 placement of ERNA drain ANESTHESIA: General anesthesia ESTIMATED BLOOD LOSS: 10 cc FLUID REPLACEMENT: See anesthesia notes COMPLICATIONS: None SPECIMENS: Jejunal perforation biopsy PREOPERATIVE MEDICATIONS: Cipro and Flagyl HISTORY: The patient is a 51 y.o. year old male with history of above preop diagnosis. I explained the risk, benefits, expected outcome, and alternatives to the procedure. Patient understands and is in agreement to proceed with operation. PROCEDURE: The patient was brought to the operating room and placed in split leg supine position with both arms tucked. After initiation of general anesthesia by the Anesthesia Department, the abdomen was prepped and draped normal sterile fashion. A sterile George catheter was placed. A Veress needle was placed in the left upper quadrant and insufflated without difficulty. A 5 mm Optiview trocar was then used to enter the left upper quadrant. Upon initial evaluation the stomach and duodenum appeared to be within normal limits and there was a large amount of succus within the intra-abdominal cavity. Given these findings I decided to start by finding the cecum looking at the appendix and running the small bowel proximally. I placed another 5 mm trocar at the umbilicus under direct visualization as well as another 5 mm trocar in the left hemiabdomen below our first trocar under direct visualization. I suctioned some of the fluid and sent it off for culture. I then grasped the cecum visualized the appendix which was within normal limits. I ran the terminal ileum from the cecum proximally. I encountered a Meckel's diverticulum which was wide based, soft, without perforation, and without any appearance of abnormality. There was some areas of the small bowel which appeared to have some fat creeping. I continued to run the small bowel proximally as I approach the transverse colon there was an area of the small bowel which was adhesed to the transverse colon. I placed another 5 mm trocar in the right hemiabdomen and dissected the small bowel off the transverse mesocolon. There was an obvious perforation on the mesenteric side of the jejunum. The tissue appeared viable the remainder of the jejunum appeared soft and without abnormalities. The mesentery was thickened. I took a biopsy of the jejunal perforation and sent off for permanent section. I then closed the jejunal perforation with 4 interrupted 3-0 Vicryl sutures. The tissues approximated nicely and I placed a ERNA drain underneath the transverse mesocolon and brought out through the left upper quadrant incision. I then copiously irrigated the abdomen until it was clear. I irrigated up above the liver up above the spleen and down into the pelvis as well as the right and left colic gutters. There was difficulty placing the nasogastric tube and I was unable to visualize the stomach and therefore I did an EGD. I directly placed a nasogastric tube into the stomach. It was then secured at the nose. Esophagus and stomach appear to be within normal limits on the EGD. The skin was closed using 4-0 Monocryl. The patient tolerated the procedure well, was extubated, and sent to the recovery room in stable condition. I performed upper and lower endoscopy on October 30, 2018. colonoscopy was unremarkable. Upper endoscopy demonstrated duodenitis, erosive gastritis and esophageal ulceration. He had follow up EGD/EUS on 11/27/2018 - continued esophagitis and BHARAT junction ulcerations. ? Past Medical History Past Medical History (Chronic Problems): Chronic Problems Migraine (Chronic) Gastroesophageal reflux disease (Chronic) Allergies Penicillins Allergy (Verified 02/13/19 16:19) Anaphylaxis erythromycin base [Erythromycin Base] Adverse Reaction (Verified 02/13/19 16:19) Nausea milk Adverse Reaction (Verified 02/13/19 16:19) Upset Stomach Home Medications: Ambulatory Orders Medication Instructions Recorded Ondansetron [Zofran Odt] 4 mg PO Q8H PRN PRN 12/18/13 Rizatriptan Benzoate [Maxalt] 10 mg PO .X1 PRN 12/18/13 Aspirin 81 mg PO DAILY 10/11/18 Potassium Chloride [Klor-Con M20] 20 meq PO BID 10/11/18 Amitriptyline HCl 25 mg PO QHS 02/13/19 Famotidine 20 mg PO BID 02/13/19 Sucralfate [Carafate] 1 gm PO 4X/DAY 02/13/19 Surgical History: - - Removal of pancreatic cysts; intestinal surgery -for jejunal perforation Psychiatric History: No pertinent psych hx Smoking Status: Never smoker - *Family History Paternal History Items: Heart Disease Maternal History Items: Heart Disease, Hypertension Review of Systems Constitutional: Reports: Anorexia, Weakness. Denies: Chills, Fever, Weight Change HEENT: Denies: Head Aches, Sinus Congestion, Sinus Drainage Cardiovascular: Denies: Chest Pain, Palpitations Respiratory: Denies: Cough, Shortness of breath at rest, Sputum production Gastrointestinal: Reports: Abdominal Pain, Hematemesis, Hematochezia, Melena. Denies: Nausea, Vomiting Genitourinary: Denies: Dysuria Musculoskeletal: Denies: Joint Pain, Joint Tenderness Skin: Denies: Rash, Wounds Neurological: Denies: Numbness, Tingling, Focal weakness Psychiatric: Denies: Anxiety, Depression, Homicidal Ideations, Suicidal Ideations Hematologic/ Lymphatic: Denies: Easy Bruising, Easy Bleeding - Physical Exam General: Alert, Oriented x3, Cooperative Lungs: Clear to auscultation, Normal air movement Cardiovascular: Regular Rhythm, Tachycardic Abdomen: Bowel Sounds Present, Soft, Hyperactive Bowel Sounds Vital Signs Temp Pulse Resp BP Pulse Ox 98.9 F 91 18 115/83 H 100 02/13/19 16:19 02/13/19 19:30 02/13/19 19:30 02/13/19 18:27 02/13/19 18:27 Oxygen Delivery Method Room Air Weight: 77.111 kg Body Mass Index (BMI) 25.1 Laboratory Tests Past 24 Hrs 02/13/19 02/13/19 02/13/19 18:15 18:15 18:15 WBC 5.1 RBC 2.96 L Hgb 9.0 L Hct 26.9 L MCV 90.9 MCH 30.4 MCHC 33.5 RDW 14.8 H RDW Differential 48.8 H Plt Count 227 MPV 9.1 Immature Gran % (Auto) 0.200 Neut % (Auto) 69.7 Lymph % (Auto) 20.8 [place] % (Auto) 8.3 Eos % (Auto) 0.4 Baso % (Auto) 0.6 Absolute Neuts (auto) 3.5 Absolute Lymphs (auto) 1.05 Total Counted Not Reportable PT 14.5 INR 1.2 APTT 28.2 Sodium 138 Potassium 3.1 L Chloride 98 Carbon Dioxide 33.0 H Anion Gap 7 BUN 34 H Creatinine 1.01 Estim Creat Clear Calc 82.64 Est GFR (MDRD) Af Amer 99 Est GFR (MDRD) Non-Af 82 BUN/Creatinine Ratio 33.7 H Glucose 109 H Lactic Acid Calcium 8.5 Blood Type Antibody Screen 02/13/19 02/13/19 18:15 18:15 WBC RBC Hgb Hct MCV MCH MCHC RDW RDW Differential Plt Count MPV Immature Gran % (Auto) Neut % (Auto) Lymph % (Auto) [place] % (Auto) Eos % (Auto) Baso % (Auto) Absolute Neuts (auto) Absolute Lymphs (auto) Total Counted PT INR APTT Sodium Potassium Chloride Carbon Dioxide Anion Gap BUN Creatinine Estim Creat Clear Calc Est GFR (MDRD) Af Amer Est GFR (MDRD) Non-Af BUN/Creatinine Ratio Glucose Lactic Acid 1.7 Calcium Blood Type A POSITIVE Antibody Screen NEGATIVE Assessment/Plan All Active Problems Nausea vomiting and diarrhea (Acute) Hyponatremia (Acute) Hypokalemia (Acute) MAICOL (acute kidney injury) (Acute) GI bleed (Resolved) CAD (coronary artery disease) (Ruled-out) Nausea and vomiting (Acute) Perforated bowel (Resolved) Severe sepsis (Resolved) Tachycardia (Resolved) GI bleed - clinically upper/duodenal ulcer?- history of esophageal ulcerations, gastritis and duodenitis Plan for admission monitor Hgb, start IV PPI. Will plan for upper endoscopy tomorrow, The patient understands the risks, benefits, alternatives and agrees to the planned procedure.
--- NOTE | 2019-02-13 20:11 | ED.DCSUM_ITS ---
History of Present Illness Chief Complaint: GI Bleed Informant: Patient Onset: - - Noted black stool 3 days ago. He vomited what appeared to be coffee grounds today. Context: Sudden Onset Timing: - Quality: GI bleed Location: Upper Current Severity: Moderate Maximum Severity: Moderate Worsened by: History of gastritis, duodenitis and esophagitis Relieved by: Nothing Associated Symptoms: Orthostatic symptoms Narrative: Patient is a middle-aged male with history of esophagitis, gastritis and duodenitis who presents with black stools noted 3 days ago. He now has emesis of coffee-ground appearing fluid. He has history of Meckel's diverticular bleed. He also has history of bowel perforation. He is a smoker. He denies drinking. He is on no anticoagulant. He is on no antiplatelet medication. He denies bruising easily. He denies cardiac respiratory symptoms. He does complain of vague abdominal discomfort. Area of most discomfort in his epigastrium. Prior similar symptoms: Yes Recent Illness/Hospitalization: Yes - Past Medical History (1) Migraine Status: Chronic (2) Hypokalemia Status: Acute (3) MAICOL (acute kidney injury) Status: Acute (4) GI bleed Status: Resolved (5) CAD (coronary artery disease) Status: Ruled-out (6) Perforated bowel Status: Resolved (7) Gastroesophageal reflux disease Status: Chronic Past Medical History - Allergies and Home Meds Allergies/Adverse Reactions: Allergies Penicillins Allergy (Verified 02/13/19 16:19) Anaphylaxis erythromycin base [Erythromycin Base] Adverse Reaction (Verified 02/13/19 16:19) Nausea milk Adverse Reaction (Verified 02/13/19 16:19) Upset Stomach Primary Care Physician: Drew Hardy MD [Primary Care Provider] - Prior records reviewed: Yes - Per old records history of alcohol use Surgical History: - - Removal of pancreatic cysts; intestinal surgery Lives: Spouse/ Significant Other Smoking Status: Never smoker Alcohol: Occasional Drugs: None - Family History Paternal Family History: Reports: Heart Disease Maternal Family History: Reports: Heart Disease, Hypertension Review of Systems General: Reports: Malaise, - - Patient reports orthostatic symptoms.. Denies: Chills, Fever, Sweats Eyes: Denies: Visual changes - bilaterally, Diplopia ENT: Denies: Bilateral ear pain, Rhinorrhea, Sore throat Cardiovascular: Denies: Chest pain, Palpitations, Heart racing Respiratory: Denies: Dyspnea, Cough, Dyspnea on exertion Gastrointestinal: Reports: Abdominal pain, Nausea, Vomiting - Coffee-ground emesis noted today, Diarrhea, Melena, Hematochezia Genitourinary: Denies: Dysuria, Hematuria, Frequency Musculoskeletal: Denies: Back pain, Extremity Pain Skin: Denies: Rash, Wounds Neurological: Denies: Headache, Weakness, Numbness Hematologic: Denies: Easy bruising, Easy bleeding Allergy: Denies: Uticaria, Swelling of the mouth Physical Exam Vital Signs/Narrative: Vital Signs Temp Pulse Resp BP Pulse Ox 02/13/19 19:30 91 18 02/13/19 18:27 91 18 115/83 H 100 02/13/19 16:19 98.9 F 116 H 24 H 129/67 H 100 Inital Vital Signs reviewed: Yes General: Well nourished, Well developed, No Acute Distress - Patient appears pale and ill Eyes: Perrl, EOMI, Pale conjunctiva. Negative for: Scleral icterus ENT: No rhinorrhea, TM's clear, Sinus tenderness Neck: Supple, Nontender, No JVD Cardiovascular: Regular rate, Regular rhythm, No murmurs, Normal S1, Normal S2 Respiratory: No distress, CTA bilaterally, Chest nontender Abdomen: Soft, No masses, Tender, Hyperactive bowel sounds. Negative for: Nontender, Nondistended, Normal bowel sounds, Guarding, Rebound tenderness, Hepatomegaly, Splenomegaly, Mass, Pulsatile mass Back: Nontender, Normal Inspection Extremities: Nontender, No edema Skin: No rash, Pallor. Negative for: Cyanosis, Jaundice Neurological: Alert, Oriented x3, Cranial nerves II-XII grossly intact, Normal Strength, Normal Sensation Psychological: Normal affect, Normal Mood Diagnostic/Tx/Re-eval Laboratory Results 02/13/19 02/13/19 02/13/19 18:15 18:15 18:15 WBC 5.1 RBC 2.96 L Hgb 9.0 L Hct 26.9 L MCV 90.9 MCH 30.4 MCHC 33.5 RDW 14.8 H RDW Differential 48.8 H Plt Count 227 MPV 9.1 Immature Gran % (Auto) 0.200 Neut % (Auto) 69.7 Lymph % (Auto) 20.8 [place] % (Auto) 8.3 Eos % (Auto) 0.4 Baso % (Auto) 0.6 Absolute Neuts (auto) 3.5 Absolute Lymphs (auto) 1.05 Total Counted Not Reportable PT 14.5 INR 1.2 APTT 28.2 Sodium 138 Potassium 3.1 L Chloride 98 Carbon Dioxide 33.0 H Anion Gap 7 BUN 34 H Creatinine 1.01 Estim Creat Clear Calc 82.64 Est GFR (MDRD) Af Amer 99 Est GFR (MDRD) Non-Af 82 BUN/Creatinine Ratio 33.7 H Glucose 109 H Lactic Acid Calcium 8.5 Blood Type Antibody Screen 02/13/19 02/13/19 18:15 18:15 WBC RBC Hgb Hct MCV MCH MCHC RDW RDW Differential Plt Count MPV Immature Gran % (Auto) Neut % (Auto) Lymph % (Auto) [place] % (Auto) Eos % (Auto) Baso % (Auto) Absolute Neuts (auto) Absolute Lymphs (auto) Total Counted PT INR APTT Sodium Potassium Chloride Carbon Dioxide Anion Gap BUN Creatinine Estim Creat Clear Calc Est GFR (MDRD) Af Amer Est GFR (MDRD) Non-Af BUN/Creatinine Ratio Glucose Lactic Acid 1.7 Calcium Blood Type A POSITIVE Antibody Screen NEGATIVE - Rhythm Strip Rhythm Strip: Sinus Rhythm Rate: 110 Ectopy: None - EKG Initial EKG Interpretation: Sinus Tachycardia - Ventricular rate is 101. MN interval, Q catholic and QT interval normal. [place] is left. There is no ischemic changes noted. - Medical Decision Making Patient rectal exam is marked for black stool. Patient is a GI bleed. NG was ordered to assess for active upper bleeding. 3 attempts to pass NG failed. This was aborted after discussion with Dr. Silva who has seen patient in the past. He requested IV bolus of Protonix and continuous drip. 1 he has a 1.9 g drop in hemoglobin since October. Coags are normal. BUN to creatinine ratio is elevated. He was typed and screened. Case was discussed with hospitalist for admission ED Disposition - Plan for ED Patient: Disposition: Acute Care Hospital [facility] Diagnosis: Upper GI hemorrhage, Sinus tachycardia by electrocardiogram, Anemia secondary to GI bleed Referrals: Drew Hardy MD [Primary Care Provider] -
--- NOTE | 2019-02-13 20:27 | HP.PCM_ITS ---
Problem List (1) esophageal erosions and ulceration Status: Chronic (2) Gastritis Status: Chronic (3) Duodenitis Status: Chronic (4) Migraine Status: Chronic (5) Hypokalemia Status: Acute (6) Gastroesophageal reflux disease Status: Chronic Qualifiers: History of Present Illness Date of Admission: 02/13/19 Chief Complaint: Black stools, dark emesis The patient is a 53 year old M with past medical history as mentioned above presented to the emergency room because of tarry black stools and dark emesis that has been going on for 3 days. He mentioned that his symptoms started around 3 days ago with small amount of coffee-ground emesis and dark tarry stool last night, he had syncopal episode. This morning, again he had black tarry stool, more than 3 times and at the edge of the toilet, he saw bright red blood as well, reported associated abdominal pain, vague abdominal pain, 4-5 out of 10 in severity, not radiating, associated with nausea and vomiting and without aggravating or relieving factors. He did mention that he has been having associated dizziness and lightheadedness. He denies chest pain, shortness of breath or palpitation. On October,, he had upper endoscopy done that revealed duodenitis, erosive gastritis and esophageal ulcerations as well as acute on chronic anemia. Past Medical History Past Medical History (Chronic Problems): Chronic Problems esophageal erosions and ulceration (Chronic) Gastritis (Chronic) Duodenitis (Chronic) Migraine (Chronic) Gastroesophageal reflux disease (Chronic) Allergies Penicillins Allergy (Verified 02/13/19 16:19) Anaphylaxis erythromycin base [Erythromycin Base] Adverse Reaction (Verified 02/13/19 16:19) Nausea milk Adverse Reaction (Verified 02/13/19 16:19) Upset Stomach Home Medications: Ambulatory Orders Medication Instructions Recorded Ondansetron [Zofran Odt] 4 mg PO Q8H PRN PRN 12/18/13 Rizatriptan Benzoate [Maxalt] 10 mg PO .X1 PRN 12/18/13 Aspirin 81 mg PO DAILY 10/11/18 Potassium Chloride [Klor-Con M20] 20 meq PO BID 10/11/18 Amitriptyline HCl 25 mg PO QHS 02/13/19 Famotidine 20 mg PO BID 02/13/19 Sucralfate [Carafate] 1 gm PO 4X/DAY 02/13/19 Surgical History: - - Removal of pancreatic cysts; intestinal surgery Psychiatric History: No pertinent psych hx Lives: Spouse/ Significant Other Smoking Status: Never smoker Alcohol: None, Occasional Drugs: None - *Family History Paternal History Items: Heart Disease Maternal History Items: Heart Disease, Hypertension Review of Systems Constitutional: Reports: Weakness. Denies: Anorexia, Chills, Fever Eyes: Denies: Blurred vision, Double vision, Drainage, Redness HEENT: Denies: Difficulty Hearing, Ear Pain, Eye Pain, Nasal Congestion, Sore Throat Cardiovascular: Reports: Light Headedness, Syncope. Denies: Chest Pain, Chest Pressure, Chest Tightness, Heaviness, Palpitations, Paroxysmal Noc. Dyspnea Respiratory: Denies: Cough, Pleuritic Pain, Shortness of Breath, Sputum production, Wheezing Gastrointestinal: Reports: Abdominal Pain, Nausea, Melena, Vomiting. Denies: Constipation, Diarrhea Genitourinary: Denies: Dysuria, Frequency, Hematuria Musculoskeletal: Denies: Arm Pain, Back Pain, Foot Pain Skin: Denies: Dryness, Rash Neurological: Denies: Balance problems, Double vision, Change in Speech, Slurred speech, Confusion, Focal weakness, Headaches, Incoordination Psychiatric: Denies: Anxiety, Depression Endocrine: Denies: Change in Body Habitus, Polydipsia VTE Information - Inpt Only VTE Present on Admission: No VTE Mechan Device Prophylaxis: SCD's VTE Pharm Prophylaxis ordered?: No - Physical Exam General: Alert, Oriented x3, Cooperative, No apparent distress HEENT: Atraumatic, PERRLA, EOMI, Normocephalic Oral: Moist Mucosa, No Gingival or Mucosal Lesions/ Ulcerations Neck: Supple, No JVD, Negative Carotid Bruits, Trachea Midline, Thyroid Normal Size and Texture Lungs: Clear to auscultation, No rhonchi, No wheeze, No rales, Diminished Cardiovascular: Regular rate, Regular Rhythm, Normal S1, Normal S2, PMI Normal Abdomen: Bowel Sounds Present, Soft, Non-Distended, No Hepato-splenomegaly, Tender Extremities: No clubbing, No cyanosis, No edema Skin: No rashes, No breakdown Lymphatic: No Cervical, Supraclavicular, or Inguinal Adenopathy Neurological: Cranial nerves II-XII grossly intact, Motor Exam 5/5 strength throughout Psych/Mental Status: Normal Affect, Appropriate, Alert and oriented to time, place, person, mood and affect Vital Signs Temp Pulse Resp BP Pulse Ox 98.9 F 105 H 18 133/74 H 100 02/13/19 16:19 02/13/19 20:09 02/13/19 20:09 02/13/19 20:09 02/13/19 20:09 Oxygen Flow Rate (L/min) 2 Oxygen Delivery Method Nasal Cannula Weight: 170 lb Body Mass Index (BMI) 25.1 Laboratory Tests Past 24 Hrs 02/13/19 02/13/19 02/13/19 18:15 18:15 18:15 WBC 5.1 RBC 2.96 L Hgb 9.0 L Hct 26.9 L MCV 90.9 MCH 30.4 MCHC 33.5 RDW 14.8 H RDW Differential 48.8 H Plt Count 227 MPV 9.1 Immature Gran % (Auto) 0.200 Neut % (Auto) 69.7 Lymph % (Auto) 20.8 Towns % (Auto) 8.3 Eos % (Auto) 0.4 Baso % (Auto) 0.6 Absolute Neuts (auto) 3.5 Absolute Lymphs (auto) 1.05 Total Counted Not Reportable PT 14.5 INR 1.2 APTT 28.2 Sodium 138 Potassium 3.1 L Chloride 98 Carbon Dioxide 33.0 H Anion Gap 7 BUN 34 H Creatinine 1.01 Estim Creat Clear Calc 82.64 Est GFR (MDRD) Af Amer 99 Est GFR (MDRD) Non-Af 82 BUN/Creatinine Ratio 33.7 H Glucose 109 H Lactic Acid Calcium 8.5 Blood Type Antibody Screen 02/13/19 02/13/19 18:15 18:15 WBC RBC Hgb Hct MCV MCH MCHC RDW RDW Differential Plt Count MPV Immature Gran % (Auto) Neut % (Auto) Lymph % (Auto) [place] % (Auto) Eos % (Auto) Baso % (Auto) Absolute Neuts (auto) Absolute Lymphs (auto) Total Counted PT INR APTT Sodium Potassium Chloride Carbon Dioxide Anion Gap BUN Creatinine Estim Creat Clear Calc Est GFR (MDRD) Af Amer Est GFR (MDRD) Non-Af BUN/Creatinine Ratio Glucose Lactic Acid 1.7 Calcium Blood Type A POSITIVE Antibody Screen NEGATIVE Assessment/Plan All Active Problems Hypokalemia (Acute) This is a 53 years old male patient presented to the emergency room because of tarry black stool, dark emesis and syncopal episode, found to have GI bleed likely upper GI bleed secondary to known history of duodenitis/gastritis and esophageal ulceration and also found to have acute on chronic anemia. #1 upper GI bleed: Probably secondary to duodenitis, gastritis and esophageal ulceration, new ulcers cannot be ruled out. At this time, vital signs are stable, not tachycardic, blood pressure maintained. Hemoglobin is 9 g/dL. Plan: Admit to [facility] floor, telemetry, complete bedrest, IV fluids, H&H every 8 hours, transfuse if hemoglobin less than 8 g/dL, IV Protonix drip, type and crossmatch 1 unit of packed RBCs, general surgery consult, upper endoscopy tomorrow morning, repeat CBC and BMP tomorrow morning, IV antiemetics. #2 acute on chronic anemia: Hemoglobin has been fluctuating anywhere from 7 up to 13 g/dL, admission hemoglobin is 9 g/dL, most recent hemoglobin was 10.9. Platelet count, pro time and INR were normal. Plan for H&H every 8 hours, diabetic of stage IV metastatic RBCs, transfuse blood if hemoglobin less than 8 g/dL. #3 syncope: Likely due to vasovagal syncope secondary to active bleeding. At this time, vital signs are stable. #4 hypokalemia: Replace potassium with potassium chloride added to IV fluids, repeat BMP tomorrow morning. #5 migraine headaches: Hold Maxalt. #6 DVT prophylaxis: SCDs, no chemical prophylaxis because of GI bleed. This note was generated with Presdo dictation software. It may contain incorrect words, spelling, and punctuation that were not noted in checking the note before signing. Code Visit Inpatient E&M: 19167 Init Hosp L2
[2019-02-13] MEDS: Morphine 2 MG/ML Syringe 1 MG IV (21:51)
[2019-02-13 23:38] LABS: Hematocrit 24.9 % (40-54); Hemoglobin 8.4 g/dl (13.0-16.5)
[2019-02-14] VITALS (21 sets, daily range): BP systolic 93–113; BP diastolic 53–85; PULSE 75–92; RESP 16–18; TEMP 36.5–37.1; O2SAT 94–100
--- NOTE | 2019-02-14 | GASB_PTH ---
PATIENT: GIBSON PATEL Jr. LOC: MS2 U#:[id number] AGE/SX: 53/M ROOM: [facility] [place]08 RE02/13/[address]: Dr. Mario Nieto MD : 1965 BED: 1 DIS: 02/15/2019 SPEC #: [id number] RECD: 02/14/19 17:46 STATUS: RADHA REQ #: [id number] MINDI: 02/14/19 00:[address]: Gibson Merida DEPT: SURGICAL PATHOLOGY RECD BY: Chad Mukherjee ENTERED: 02/15/19 08:55 SP TYPE: Gastric Bx OTHR DR: MD Dr. Drew Barakat MD Dr. Prakash Chand, MD Dr. Richard Guttman, MD Tissues: Gastric mucous membrane Procedures: Surgery Specimen Level IV Comments: @ Ordering doctor for SUIV edited from to DR.RGUTTM Oleary by REVA at 02/15/19 1311 @ Submitting doctor edited from to DR.RGUTTM Oleary by REVA at 02/15/19 1311 HEADER OPERATION: EGD ([facility] [place]) PRE-OP DIAGNOSIS: GI bleed TISSUE SUBMITTED: Antral biopsy for histo and H. pylori MICROSCOPIC DIAGNOSIS Antral biopsy: Mild gastritis. See microscopic description and comment. OLIVER:ricardo 02/16/19 COMMENT The results of immunohistochemistry for Helicobacter pylori will be reported separately ([id number]). MICROSCOPIC DESCRIPTION Slides are reviewed. The specimen shows fragments of gastric mucosa with chronic inflammatory cell infiltrates in the lamina propria consisting of lymphocytes and plasma cells, consistent with mild chronic gastritis. GROSS DESCRIPTION Received in fixative is one container labeled with the patient's name and designated antral biopsy. The specimen consists of one irregular fragment of light levy soft tissue that measures 0.5 x 0.3 x 0.1 cm. The specimen is totally submitted in one cassette. / OLIVER:ricardo 02/15/19 TC:3 [facility]: [id number]
[2019-02-14] MEDS: Morphine 2 MG/ML Syringe 1 MG IV ×3 (02:37→20:28)
[2019-02-14] MEDS: Ondansetron 4 MG/2 ML Vial IV (04:37)
[2019-02-14 06:27] LABS: Absolute Lymphocyte Count 0.95 X10^3/ul (0.83-4.51); Basophil# 0.03 X10^3/uL; Basophil% 0.9 % (0-1); Eosinophil# 0.07 X10^3/uL; Eosinophils% 2.1 % (0-5); Hematocrit 23.1 % (40-54); Hemoglobin 7.8 g/dl (13.0-16.5); Lymphocyte # 0.95 X10^3/ul (4.0); Lymphocyte % 28.4 % (19-41); Mean Corp Hgb Conc 33.8 g/gl (32-36); Mean Corpuscular Hgb 31.1 pg (27.0-32.0); Mean Platelet Vol. 9.5 fl (6.2-12.0); Monocyte# 0.29 X10^3/uL; Monocyte% 8.7 % (0-10); Neutrophil # 2.01 X10^3/uL (2.7-7.7); Neutrophil % 59.9 % (47-70); Platelet Count 163 K/mm3 (150-450); RBC Distribution Width CV 15.2 % (11.6-14.6); RBC Distribution Width SD 51.3 fl (35.1-43.9); Red Blood Count 2.51 M/mm3 (4.6-6.2); White Blood Count 3.4 K/mm3 (4.4-11.0)
[2019-02-14 06:29] LABS: POSITIVE COUNT NO; POSITIVE DIFFERENTIAL NO; POSITIVE MORPHOLOGY NO
[2019-02-14 06:57] LABS: Anion Gap 4 (5-15); BUN 25 mg/dL (7-18); BUN/Creat Ratio 25.1 RATIO (10-20); Calcium,Total 7.8 mg/dL (8.5-10.1); Chloride 107 mmol/L (98-107); EST Glomerular Filtration Rate 83 mL/min (>60); Est Glom Filt Rate - Afr Amer 100 mL/min (>60); Estimated Creatinine Clearance 80.75 ml/min; Glucose 85 mg/dL (74-106); Potassium 3.3 mmol/L (3.5-5.1); Sodium Level 141 mmol/L (136-145)
--- NOTE | 2019-02-14 11:45 | CASEMGMT ---
RN CM PRINCIPAL EXAMINER CM to room to meet with patient for initial transition planning/care coordination assessment. RN ZAHRA introduced self and role at [facility]. Pt voices understanding and consents to assessment at this time. Pt resting in bed in no distress at this time. Pt is A/O at this time and answers all questions appropriately. Care providers, pharmacy, and demographics verified/updated at this time. PCP: Antony. Specialists: Gastroenterologists @ [facility]: Dr Britton and Dr Chino. Surgeon @ [facility]: Dr Beka Zuniga. Preferred Pharmacy: Insurance: Prescription Benefit: Living Will/HPOA: does not have LW or HCPOA . Interested in more information and would like to talk to to complete paperwork. Given AD info packet and EMIL Rm, notified. LNOK: . States they are still but are and are still friends. She is supportive. Living Arrangements: Lives alone in one-story home w/4 steps to enter. Denies difficulty w/stairs. Independent with ADL's. will occasionally pay his to come clean his home. Transportation: Pt states drives self and states no transportation concerns at this time. DME: Denies using any DME and denies needs. has a cane available but does not need/use States used to have CPAP machine but was unable to tolerate it and did not want to use it any longer. has not used it for about 5 yrs. HHC/SNF: No history of either. Denies needs. No needs identified. Pt wishes to return home and states has no concerns with going home at time of discharge. CM to follow for any discharge planning/needs. Pt voices no further concerns/needs at this time. Advised pt to ask for CM if any further questions/concerns/needs arise. Voices understanding. PLAN: Home with discharge plans in place. EMIL C/S for AD Nasir WOODS RN, CM
--- NOTE | 2019-02-14 13:27 | CASEMGMT ---
SW met w/pt in regard to LW/POA forms, pt does not want to complete them today, may want to complete them tomorrow. SW gave pt the blank forms along w/a EMIL rack card w/the EMIL dept number, and explained will stop in to see pt again tomorrow in regard to completing the forms. Sujey Hernandez
--- NOTE | 2019-02-14 15:00 | IMM_PTH ---
PATIENT: GIBSON PATEL Jr. LOC: MS2 U#:[id number] AGE/SX: 53/M ROOM: [facility] [place] RE02/13/[address]: Dr. Mario Nieto MD : 1965 BED: 1 DIS: 02/15/2019 SPEC #: [id number] RECD: 02/16/19 09:18 STATUS: SOUT REQ #: [id number] MINDI: 02/14/19 15:[address]: Gibson Merida DEPT: IMMUNOHISTOCHEMISTRY RECD BY: Rosalva Ragland ENTERED: 02/16/19 09:18 SP TYPE: IMMUNO OTHR DR: MD Dr. Drew Barakat MD Dr. Prakash Chand, MD Tissues: Stomach, NOS Procedures: H Pylori (initial) Comments: @ Ordering doctor for H.PYLORI edited from to @ by REVA at 02/16/19918 @ Submitting doctor edited from to @ by REVA at 02/16/19918 PHYSICIAN & [place] [address] SPECIMEN INFORMATION: Tissue Source: Antral biopsy Clinical Info: GI bleed Specimen Number: [id number] CPT code: 88028 METHODOLOGY: Deparaffinized sections of prefer/formalin-fixed tissue or PAP/DQ stained slides are incubated with monoclonal/polyclonal antibodies/oligonucleotide probes. Localization is made via biotin free immunoperoxidase method. Appropriate controls are performed and reacted as expected. Results on target cell population are indicated in the following table: RESULTS: ANTIBODY / CLONE RESULT H Pylori (polyclonal) negative These tests were developed and their performance characteristics determined by [facility]. They may not have been cleared or approved by the U.S. Food and Drug Administration. The FDA has determined that such clearance or approval is not necessary. INTERPRETATION: Antral biopsy: Negative for Helicobacter pylori organisms. SJ:ricardo 02/16/19
--- NOTE | 2019-02-14 15:29 | PCM.PN.HOSP ---
Subjective: Patient has history of GI bleed and this 1 and the fourth time of GI bleed in the last 2-3 years. For last 2 previous admissions, he went to [facility] where he had EGD and colonoscopy. His GIs in [facility]. He has a history of esophageal ulcer, erosive gastritis and duodenitis as per last EGD of October 2018. This time, he is admitted with 3 days history of dark tarry like a stool suggestive of melena and syncopal episode. He denies of coffee-ground emesis although mentioned in H&P. Patient hemoglobin is close 7.8 and received 1 unit of PRBC transfusion. Scheduled for EGD and colonoscopy at 2 PM Vitals/I&O's: Vital Signs Temp Pulse Resp BP Pulse Ox 97.9 F 75 18 102/68 94 02/14/19 14:07 02/14/19 14:07 02/14/19 14:07 02/14/19 14:07 02/14/19 14:07 Oxygen Flow Rate (L/min) 2 Oxygen Delivery Method Room Air Weight: 166 lb 3.657 oz Body Mass Index (BMI) 25.2 Intake and Output for Last 24 Hours 02/12/19 02/13/19 02/14/19 23:59 23:59 23:59 Intake Total 234 / 234 2775 / 2775 Balance 234 / 234 2775 / 2775 General: Alert, Oriented x3, Cooperative HEENT: Atraumatic, PERRLA, EOMI, Normocephalic Neck: Supple, No JVD, Negative Carotid Bruits Lungs: Clear to auscultation, Normal air movement, No rhonchi, No rales Cardiovascular: Regular rate, Regular Rhythm, Normal S1, Normal S2, No murmurs Abdomen: Bowel Sounds Present, Soft, Non Tender, Non-Distended Extremities: No edema, Capillary Refill Less than 3 Seconds Skin: No rashes, No breakdown Musculoskeletal: No Tenderness to Palpation of Joints or Extremities Neurological: Cranial nerves II-XII grossly intact Psych/Mental Status: Normal Affect, Appropriate Laboratory Results 02/13/19 18:15: WBC 5.1, RBC 2.96 L, Hgb 9.0 L, Hct 26.9 L, MCV 90.9, MCH 30.4, MCHC 33.5, RDW 14.8 H, RDW Differential 48.8 H, Plt Count 227, MPV 9.1, Immature Gran % (Auto) 0.200, Neut % (Auto) 69.7, Lymph % (Auto) 20.8, [place] % (Auto) 8.3, Eos % (Auto) 0.4, Baso % (Auto) 0.6, Absolute Neuts (auto) 3.5, Absolute Lymphs (auto) 1.05, Total Counted Not Reportable 02/13/19 18:15: Sodium 138, Potassium 3.1 L, Chloride 98, Carbon Dioxide 33.0 H, Anion Gap 7, BUN 34 H, Creatinine 1.01, Estim Creat Clear Calc 82.64, Est GFR (MDRD) Af Amer 99, Est GFR (MDRD) Non-Af 82, BUN/Creatinine Ratio 33.7 H, Glucose 109 H, Calcium 8.5 02/13/19 18:15: PT 14.5, INR 1.2, APTT 28.2 02/13/19 18:15: Lactic Acid 1.7 02/13/19 18:15: Blood Type A POSITIVE, Antibody Screen NEGATIVE 02/13/19 18:15: Crossmatch See Detail 02/13/19 22:50: Hgb 8.4 L, Hct 24.9 L 02/14/19 05:50: WBC 3.4 L, RBC 2.51 L, Hgb 7.8 L, Hct 23.1 L, MCV 92.0, MCH 31.1, MCHC 33.8, RDW 15.2 H, RDW Differential 51.3 H, Plt Count 163, MPV 9.5, Immature Gran % (Auto) 0.000, Neut % (Auto) 59.9, Lymph % (Auto) 28.4, [place] % (Auto) 8.7, Eos % (Auto) 2.1, Baso % (Auto) 0.9, Absolute Neuts (auto) 2.0, Absolute Lymphs (auto) 0.95, Total Counted Not Reportable 02/14/19 05:50: Sodium 141, Potassium 3.3 L, Chloride 107, Carbon Dioxide 30.0, Anion Gap 4 L, BUN 25 H, Creatinine 1.00, Estim Creat Clear Calc 80.75, Est GFR (MDRD) Af Amer 100, Est GFR (MDRD) Non-Af 83, BUN/Creatinine Ratio 25.1 H, Glucose 85, Calcium 7.8 L Current Medications Pantoprazole Sodium 80 mg/ (Sodium Chloride) 100 mls @ 10 mls/hr CONT INF Q10H [facility] Last Admin: 02/14/19 07:50 Dose: 10 mls/hr Potassium Chloride/Sodium Chloride () 1,000 mls @ 100 mls/hr IV .Q10H [facility] Last Admin: 02/14/19 07:00 Dose: 100 mls/hr Morphine Sulfate () 1 mg IV Q4H PRN PRN PRN Reason: Severe pain (7-08/02) Last Admin: 02/14/19 10:25 Dose: 1 mg Nutritional Formula (Lactose Free) (Ensure Clear) 120 ml PO 4X/DAY [facility] Last Admin: 02/14/19 13:51 Dose: Not Given Ondansetron HCl (Zofran) 4 mg IV Q6H PRN PRN PRN Reason: NAUSEA/VOMITING Last Admin: 02/14/19 04:37 Dose: 4 mg Potassium Chloride (K-Dur) 40 meq PO Q3H [facility] Stop: 02/14/19 18:31 Promethazine HCl (Phenergan) 25 mg IM Q6H PRN PRN PRN Reason: Breakthrough nausea/vomiting Sodium Chloride () 5 - 15 ml IV UD PRN PRN Reason: SALINE FLUSH Medical Necessity - Tobacco Use Smoking Status: Never smoker Assessment/Plan All Active Problems Hypokalemia (Acute) This is a 53 years old male patient presented to the emergency room because of tarry black stool, for 3 days resulting into syncopal episode, found to have GI bleed likely upper GI bleed secondary to known history of duodenitis/gastritis and esophageal ulceration and also found to have acute on chronic anemia.Patient has history of GI bleed and this one is fourth time of GI bleed in the last 2-3 years. For last 2 previous admissions, he went to [facility] where he had EGD and colonoscopy. His GIs in [facility]. He has a history of esophageal ulcer, erosive gastritis and duodenitis as per last EGD of October 2018. #1 upper GI bleed: Probably secondary to duodenitis, gastritis and esophageal ulceration, new ulcers cannot be ruled out. At this time, blood pressure 110/68, not tachycardic. H&H dropped from 926.9-7 0.8/23 in a.m. therefore 1 unit of transfusion, PRBC was given. Repeat H&H ordered. Patient is on IV Protonix drip. Dr. Silva is been consulted. Further management as per EGD and colonoscopy findings. Monitor CBC, BMP. #2 acute on chronic anemia: The patient always has intermittent low hemoglobin secondary to GI bleed. It fluctuates from 7 to 13 g% deciliter. Hemoglobin has been fluctuating anywhere from 7 up to 13 g/dL, admission hemoglobin is 9 g/dL, most recent hemoglobin was 10.9. Platelet count, pro time and INR were normal. #3 syncope: Likely due to vasovagal syncope secondary to active bleeding. At this time, vital signs are stable. #4 hypokalemia: Replace potassium. Monitor BMP and magnesium tomorrow a.m. #5 migraine headaches: Hold Maxalt. #6 DVT prophylaxis: SCDs, pharmacological prophylaxis is absolutely contraindicated because of GI bleed. Laboratory Results 02/13/19 18:15: WBC 5.1, RBC 2.96 L, Hgb 9.0 L, Hct 26.9 L, MCV 90.9, MCH 30.4, MCHC 33.5, RDW 14.8 H, RDW Differential 48.8 H, Plt Count 227, MPV 9.1, Immature Gran % (Auto) 0.200, Neut % (Auto) 69.7, Lymph % (Auto) 20.8, [place] % (Auto) 8.3, Eos % (Auto) 0.4, Baso % (Auto) 0.6, Absolute Neuts (auto) 3.5, Absolute Lymphs (auto) 1.05, Total Counted Not Reportable 02/13/19 18:15: Sodium 138, Potassium 3.1 L, Chloride 98, Carbon Dioxide 33.0 H, Anion Gap 7, BUN 34 H, Creatinine 1.01, Estim Creat Clear Calc 82.64, Est GFR (MDRD) Af Amer 99, Est GFR (MDRD) Non-Af 82, BUN/Creatinine Ratio 33.7 H, Glucose 109 H, Calcium 8.5 02/13/19 18:15: PT 14.5, INR 1.2, APTT 28.2 02/13/19 18:15: Lactic Acid 1.7 02/13/19 18:15: Blood Type A POSITIVE, Antibody Screen NEGATIVE 02/13/19 18:15: Crossmatch See Detail 02/13/19 22:50: Hgb 8.4 L, Hct 24.9 L 02/14/19 05:50: WBC 3.4 L, RBC 2.51 L, Hgb 7.8 L, Hct 23.1 L, MCV 92.0, MCH 31.1, MCHC 33.8, RDW 15.2 H, RDW Differential 51.3 H, Plt Count 163, MPV 9.5, Immature Gran % (Auto) 0.000, Neut % (Auto) 59.9, Lymph % (Auto) 28.4, [place] % (Auto) 8.7, Eos % (Auto) 2.1, Baso % (Auto) 0.9, Absolute Neuts (auto) 2.0, Absolute Lymphs (auto) 0.95, Total Counted Not Reportable 02/14/19 05:50: Sodium 141, Potassium 3.3 L, Chloride 107, Carbon Dioxide 30.0, Anion Gap 4 L, BUN 25 H, Creatinine 1.00, Estim Creat Clear Calc 80.75, Est GFR (MDRD) Af Amer 100, Est GFR (MDRD) Non-Af 83, BUN/Creatinine Ratio 25.1 H, Glucose 85, Calcium 7.8 L Active Medications Pantoprazole Sodium 80 mg/ (Sodium Chloride) 100 mls @ 10 mls/hr CONT INF Q10H [facility] Last Admin: 02/14/19 07:50 Dose: 10 mls/hr Potassium Chloride/Sodium Chloride () 1,000 mls @ 100 mls/hr IV .Q10H [facility] Last Admin: 02/14/19 07:00 Dose: 100 mls/hr Morphine Sulfate () 1 mg IV Q4H PRN PRN PRN Reason: Severe pain (7-10/10) Last Admin: 02/14/19 10:25 Dose: 1 mg Nutritional Formula (Lactose Free) (Ensure Clear) 120 ml PO 4X/DAY [facility] Last Admin: 02/14/19 13:51 Dose: Not Given Ondansetron HCl (Zofran) 4 mg IV Q6H PRN PRN PRN Reason: NAUSEA/VOMITING Last Admin: 02/14/19 04:37 Dose: 4 mg Potassium Chloride (K-Dur) 40 meq PO Q3H [facility] Stop: 02/14/19 18:31 Promethazine HCl (Phenergan) 25 mg IM Q6H PRN PRN PRN Reason: Breakthrough nausea/vomiting Sodium Chloride () 5 - 15 ml IV UD PRN PRN Reason: SALINE FLUSH Code Visit Inpatient E&M: 48408 Subs Hosp L3
--- NOTE | 2019-02-14 15:37 | PN_ITS ---
Subjective: Patient has history of GI bleed and this 1 and the fourth time of GI bleed in the last 2-3 years. For last 2 previous admissions, he went to [facility] where he had EGD and colonoscopy. His GIs in [facility]. He has a history of esophageal ulcer, erosive gastritis and duodenitis as per last EGD of October 2018. This time, he is admitted with 3 days history of dark tarry like a stool suggestive of melena and syncopal episode. He denies of coffee-ground emesis although mentioned in H&P. Patient hemoglobin is close 7.8 and received 1 unit of PRBC transfusion. Scheduled for EGD and colonoscopy at 2 PM Vitals/I&O's: Vital Signs Temp Pulse Resp BP Pulse Ox 97.9 F 75 18 102/68 94 02/14/19 14:07 02/14/19 14:07 02/14/19 14:07 02/14/19 14:07 02/14/19 14:07 Oxygen Flow Rate (L/min) 2 Oxygen Delivery Method Room Air Weight: 166 lb 3.657 oz Body Mass Index (BMI) 25.2 Intake and Output for Last 24 Hours 02/12/19 02/13/19 02/14/19 23:59 23:59 23:59 Intake Total 234 / 234 2775 / 2775 Balance 234 / 234 2775 / 2775 General: Alert, Oriented x3, Cooperative HEENT: Atraumatic, PERRLA, EOMI, Normocephalic Neck: Supple, No JVD, Negative Carotid Bruits Lungs: Clear to auscultation, Normal air movement, No rhonchi, No rales Cardiovascular: Regular rate, Regular Rhythm, Normal S1, Normal S2, No murmurs Abdomen: Bowel Sounds Present, Soft, Non Tender, Non-Distended Extremities: No edema, Capillary Refill Less than 3 Seconds Skin: No rashes, No breakdown Musculoskeletal: No Tenderness to Palpation of Joints or Extremities Neurological: Cranial nerves II-XII grossly intact Psych/Mental Status: Normal Affect, Appropriate Laboratory Results 02/13/19 18:15: WBC 5.1, RBC 2.96 L, Hgb 9.0 L, Hct 26.9 L, MCV 90.9, MCH 30.4, MCHC 33.5, RDW 14.8 H, RDW Differential 48.8 H, Plt Count 227, MPV 9.1, Immature Gran % (Auto) 0.200, Neut % (Auto) 69.7, Lymph % (Auto) 20.8, [place] % (Auto) 8.3, Eos % (Auto) 0.4, Baso % (Auto) 0.6, Absolute Neuts (auto) 3.5, Absolute Lymphs (auto) 1.05, Total Counted Not Reportable 02/13/19 18:15: Sodium 138, Potassium 3.1 L, Chloride 98, Carbon Dioxide 33.0 H, Anion Gap 7, BUN 34 H, Creatinine 1.01, Estim Creat Clear Calc 82.64, Est GFR (MDRD) Af Amer 99, Est GFR (MDRD) Non-Af 82, BUN/Creatinine Ratio 33.7 H, Glucose 109 H, Calcium 8.5 02/13/19 18:15: PT 14.5, INR 1.2, APTT 28.2 02/13/19 18:15: Lactic Acid 1.7 02/13/19 18:15: Blood Type A POSITIVE, Antibody Screen NEGATIVE 02/13/19 18:15: Crossmatch See Detail 02/13/19 22:50: Hgb 8.4 L, Hct 24.9 L 02/14/19 05:50: WBC 3.4 L, RBC 2.51 L, Hgb 7.8 L, Hct 23.1 L, MCV 92.0, MCH 31.1, MCHC 33.8, RDW 15.2 H, RDW Differential 51.3 H, Plt Count 163, MPV 9.5, Immature Gran % (Auto) 0.000, Neut % (Auto) 59.9, Lymph % (Auto) 28.4, [place] % (Auto) 8.7, Eos % (Auto) 2.1, Baso % (Auto) 0.9, Absolute Neuts (auto) 2.0, Absolute Lymphs (auto) 0.95, Total Counted Not Reportable 02/14/19 05:50: Sodium 141, Potassium 3.3 L, Chloride 107, Carbon Dioxide 30.0, Anion Gap 4 L, BUN 25 H, Creatinine 1.00, Estim Creat Clear Calc 80.75, Est GFR (MDRD) Af Amer 100, Est GFR (MDRD) Non-Af 83, BUN/Creatinine Ratio 25.1 H, Glucose 85, Calcium 7.8 L Current Medications Pantoprazole Sodium 80 mg/ (Sodium Chloride) 100 mls @ 10 mls/hr CONT INF Q10H [facility] Last Admin: 02/14/19 07:50 Dose: 10 mls/hr Potassium Chloride/Sodium Chloride () 1,000 mls @ 100 mls/hr IV .Q10H [facility] Last Admin: 02/14/19 07:00 Dose: 100 mls/hr Morphine Sulfate () 1 mg IV Q4H PRN PRN PRN Reason: Severe pain (7-08/02) Last Admin: 02/14/19 10:25 Dose: 1 mg Nutritional Formula (Lactose Free) (Ensure Clear) 120 ml PO 4X/DAY [facility] Last Admin: 02/14/19 13:51 Dose: Not Given Ondansetron HCl (Zofran) 4 mg IV Q6H PRN PRN PRN Reason: NAUSEA/VOMITING Last Admin: 02/14/19 04:37 Dose: 4 mg Potassium Chloride (K-Dur) 40 meq PO Q3H [facility] Stop: 02/14/19 18:31 Promethazine HCl (Phenergan) 25 mg IM Q6H PRN PRN PRN Reason: Breakthrough nausea/vomiting Sodium Chloride () 5 - 15 ml IV UD PRN PRN Reason: SALINE FLUSH Medical Necessity - Tobacco Use Smoking Status: Never smoker Assessment/Plan All Active Problems Hypokalemia (Acute) This is a 53 years old male patient presented to the emergency room because of tarry black stool, for 3 days resulting into syncopal episode, found to have GI bleed likely upper GI bleed secondary to known history of duodenitis/gastritis and esophageal ulceration and also found to have acute on chronic anemia.Patient has history of GI bleed and this one is fourth time of GI bleed in the last 2-3 years. For last 2 previous admissions, he went to [facility] where he had EGD and colonoscopy. His GIs in [facility]. He has a history of esophageal ulcer, erosive gastritis and duodenitis as per last EGD of October 2018. #1 upper GI bleed: Probably secondary to duodenitis, gastritis and esophageal ulceration, new ulcers cannot be ruled out. At this time, blood pressure 110/68, not tachycardic. H&H dropped from 926.9-7 0.8/23 in a.m. therefore 1 unit of transfusion, PRBC was given. Repeat H&H ordered. Patient is on IV Protonix drip. Dr. Silva is been consulted. Further management as per EGD and colonoscopy findings. Monitor CBC, BMP. #2 acute on chronic anemia: The patient always has intermittent low hemoglobin secondary to GI bleed. It fluctuates from 7 to 13 g% deciliter. Hemoglobin has been fluctuating anywhere from 7 up to 13 g/dL, admission hemoglobin is 9 g/dL, most recent hemoglobin was 10.9. Platelet count, pro time and INR were normal. #3 syncope: Likely due to vasovagal syncope secondary to active bleeding. At this time, vital signs are stable. #4 hypokalemia: Replace potassium. Monitor BMP and magnesium tomorrow a.m. #5 migraine headaches: Hold Maxalt. #6 DVT prophylaxis: SCDs, pharmacological prophylaxis is absolutely contraindicated because of GI bleed. Laboratory Results 02/13/19 18:15: WBC 5.1, RBC 2.96 L, Hgb 9.0 L, Hct 26.9 L, MCV 90.9, MCH 30.4, MCHC 33.5, RDW 14.8 H, RDW Differential 48.8 H, Plt Count 227, MPV 9.1, Immature Gran % (Auto) 0.200, Neut % (Auto) 69.7, Lymph % (Auto) 20.8, [place] % (Auto) 8.3, Eos % (Auto) 0.4, Baso % (Auto) 0.6, Absolute Neuts (auto) 3.5, Absolute Lymphs (auto) 1.05, Total Counted Not Reportable 02/13/19 18:15: Sodium 138, Potassium 3.1 L, Chloride 98, Carbon Dioxide 33.0 H, Anion Gap 7, BUN 34 H, Creatinine 1.01, Estim Creat Clear Calc 82.64, Est GFR (MDRD) Af Amer 99, Est GFR (MDRD) Non-Af 82, BUN/Creatinine Ratio 33.7 H, Glucose 109 H, Calcium 8.5 02/13/19 18:15: PT 14.5, INR 1.2, APTT 28.2 02/13/19 18:15: Lactic Acid 1.7 02/13/19 18:15: Blood Type A POSITIVE, Antibody Screen NEGATIVE 02/13/19 18:15: Crossmatch See Detail 02/13/19 22:50: Hgb 8.4 L, Hct 24.9 L 02/14/19 05:50: WBC 3.4 L, RBC 2.51 L, Hgb 7.8 L, Hct 23.1 L, MCV 92.0, MCH 31.1, MCHC 33.8, RDW 15.2 H, RDW Differential 51.3 H, Plt Count 163, MPV 9.5, Immature Gran % (Auto) 0.000, Neut % (Auto) 59.9, Lymph % (Auto) 28.4, [place] % (Auto) 8.7, Eos % (Auto) 2.1, Baso % (Auto) 0.9, Absolute Neuts (auto) 2.0, Absolute Lymphs (auto) 0.95, Total Counted Not Reportable 02/14/19 05:50: Sodium 141, Potassium 3.3 L, Chloride 107, Carbon Dioxide 30.0, Anion Gap 4 L, BUN 25 H, Creatinine 1.00, Estim Creat Clear Calc 80.75, Est GFR (MDRD) Af Amer 100, Est GFR (MDRD) Non-Af 83, BUN/Creatinine Ratio 25.1 H, Glucose 85, Calcium 7.8 L Active Medications Pantoprazole Sodium 80 mg/ (Sodium Chloride) 100 mls @ 10 mls/hr CONT INF Q10H [facility] Last Admin: 02/14/19 07:50 Dose: 10 mls/hr Potassium Chloride/Sodium Chloride () 1,000 mls @ 100 mls/hr IV .Q10H [facility] Last Admin: 02/14/19 07:00 Dose: 100 mls/hr Morphine Sulfate () 1 mg IV Q4H PRN PRN PRN Reason: Severe pain (7-10/10) Last Admin: 02/14/19 10:25 Dose: 1 mg Nutritional Formula (Lactose Free) (Ensure Clear) 120 ml PO 4X/DAY [facility] Last Admin: 02/14/19 13:51 Dose: Not Given Ondansetron HCl (Zofran) 4 mg IV Q6H PRN PRN PRN Reason: NAUSEA/VOMITING Last Admin: 02/14/19 04:37 Dose: 4 mg Potassium Chloride (K-Dur) 40 meq PO Q3H [facility] Stop: 02/14/19 18:31 Promethazine HCl (Phenergan) 25 mg IM Q6H PRN PRN PRN Reason: Breakthrough nausea/vomiting Sodium Chloride () 5 - 15 ml IV UD PRN PRN Reason: SALINE FLUSH Code Visit Inpatient E&M: 80449 Subs Hosp L3
--- NOTE | 2019-02-14 16:21 | PCA ---
pt off floor
--- NOTE | 2019-02-14 17:09 | OP.ENDO_ITS ---
02/14/2019 Drew Hardy [address] [place] [address] Re : Upper GI endoscopy procedure for Marcos Peralta Dear Dr. Hardy This procedure was performed on Thursday, February 14, 2019. My impressions and recommendations are as follows: Impressions : - Normal examined jejunum. - One non-bleeding duodenal ulcer with no stigmata of bleeding. - Duodenitis. - Gastritis. Biopsied. - Non-bleeding esophageal ulcers. Recommendations : - Use Protonix (pantoprazole) 40 mg PO BID. - Continue present medications. My findings are described in the full procedure note, which is enclosed. If I can be of further assistance, please feel free to contact me at Doctor phone number(s): , Work: . Sincerely, Marcos Merida MD 02/14/2019 5:08:53 PM This report has been signed electronically.
--- NOTE | 2019-02-14 17:42 | PCM.PN.SRG ---
Subjective: no further bleeding today - Physical Exam Abdomen: Bowel Sounds Present, Soft, Non Tender Vital Signs Temp Pulse Resp BP Pulse Ox 98.7 F 83 18 113/76 100 02/14/19 17:35 02/14/19 17:35 02/14/19 17:35 02/14/19 17:35 02/14/19 17:35 Oxygen Flow Rate (L/min) 2 Oxygen Delivery Method Room Air Weight: 75.4 kg Body Mass Index (BMI) 25.2 Intake and Output for Last 24 Hours 02/12/19 02/13/19 02/14/19 23:59 23:59 23:59 Intake Total 234 / 234 3275 / 3275 Balance 234 / 234 3275 / 3275 Laboratory Tests Past 24 Hrs 02/13/19 02/13/19 02/13/19 18:15 18:15 18:15 WBC 5.1 RBC 2.96 L Hgb 9.0 L Hct 26.9 L MCV 90.9 MCH 30.4 MCHC 33.5 RDW 14.8 H RDW Differential 48.8 H Plt Count 227 MPV 9.1 Immature Gran % (Auto) 0.200 Neut % (Auto) 69.7 Lymph % (Auto) 20.8 [place] % (Auto) 8.3 Eos % (Auto) 0.4 Baso % (Auto) 0.6 Absolute Neuts (auto) 3.5 Absolute Lymphs (auto) 1.05 Total Counted Not Reportable PT 14.5 INR 1.2 APTT 28.2 Sodium 138 Potassium 3.1 L Chloride 98 Carbon Dioxide 33.0 H Anion Gap 7 BUN 34 H Creatinine 1.01 Estim Creat Clear Calc 82.64 Est GFR (MDRD) Af Amer 99 Est GFR (MDRD) Non-Af 82 BUN/Creatinine Ratio 33.7 H Glucose 109 H Lactic Acid Calcium 8.5 Blood Type Antibody Screen Crossmatch 02/13/19 02/13/19 02/13/19 18:15 18:15 18:15 WBC RBC Hgb Hct MCV MCH MCHC RDW RDW Differential Plt Count MPV Immature Gran % (Auto) Neut % (Auto) Lymph % (Auto) [place] % (Auto) Eos % (Auto) Baso % (Auto) Absolute Neuts (auto) Absolute Lymphs (auto) Total Counted PT INR APTT Sodium Potassium Chloride Carbon Dioxide Anion Gap BUN Creatinine Estim Creat Clear Calc Est GFR (MDRD) Af Amer Est GFR (MDRD) Non-Af BUN/Creatinine Ratio Glucose Lactic Acid 1.7 Calcium Blood Type A POSITIVE Antibody Screen NEGATIVE Crossmatch See Detail 02/13/19 02/14/19 02/14/19 22:50 05:50 05:50 WBC 3.4 L RBC 2.51 L Hgb 8.4 L 7.8 L Hct 24.9 L 23.1 L MCV 92.0 MCH 31.1 MCHC 33.8 RDW 15.2 H RDW Differential 51.3 H Plt Count 163 MPV 9.5 Immature Gran % (Auto) 0.000 Neut % (Auto) 59.9 Lymph % (Auto) 28.4 [place] % (Auto) 8.7 Eos % (Auto) 2.1 Baso % (Auto) 0.9 Absolute Neuts (auto) 2.0 Absolute Lymphs (auto) 0.95 Total Counted Not Reportable PT INR APTT Sodium 141 Potassium 3.3 L Chloride 107 Carbon Dioxide 30.0 Anion Gap 4 L BUN 25 H Creatinine 1.00 Estim Creat Clear Calc 80.75 Est GFR (MDRD) Af Amer 100 Est GFR (MDRD) Non-Af 83 BUN/Creatinine Ratio 25.1 H Glucose 85 Lactic Acid Calcium 7.8 L Blood Type Antibody Screen Crossmatch Medical Necessity - Tobacco Use Smoking Status: Never smoker Assessment/Plan All Active Problems Hypokalemia (Acute) GI bleed - clinically upper/duodenal ulcer?- history of esophageal ulcerations, gastritis and duodenitis Upper endoscopy demonstrated what appeared to be healing duodenal ulcer with duodenitis and gastritis, biopsies for H. pylori and passed through obtained from the stomach. The patient also had a persistent white-based esophageal ulcer. There was no sign for recent or active bleeding. The presumed etiology was duodenal ulcer. I'm comfortable restarting an oral diet and having the patient take Protonix 40 mg twice a day and will check hemoglobin and morning to assure stability.
--- NOTE | 2019-02-14 17:55 | PCA ---
pt off floor
[2019-02-14] MEDS: Pantoprazole Sodium 40 MG Tablet PO (21:38)
[2019-02-14] MEDS: Ensure Clear 120 ML Liquid PO (21:38)
[2019-02-15] MEDS: Morphine 2 MG/ML Syringe 1 MG IV (01:34)
[2019-02-15] MEDS: Ondansetron 4 MG/2 ML Vial IV (01:34)
[2019-02-15 02:04] VITALS: PULSE 85
[2019-02-15 02:07] VITALS: BP 98/62; PULSE 83; RESP 16; TEMP 36.6; O2SAT 99
[2019-02-15 04:38] VITALS: PULSE 81
[2019-02-15 06:05] LABS: Basophil# 0.02 X10^3/uL; Basophil% 0.7 % (0-1); Eosinophils% 3.5 % (0-5); Hematocrit 24.2 % (40-54); Lymphocyte % 20.8 % (19-41); Mean Corp Hgb Conc 33.1 g/gl (32-36); Mean Corpuscular Hgb 30.9 pg (27.0-32.0); Mean Corpuscular Volume 93.4 fL (80-94); Mean Platelet Vol. 9.9 fl (6.2-12.0); Monocyte# 0.22 X10^3/uL; Monocyte% 7.6 % (0-10); Neutrophil # 1.95 X10^3/uL (2.7-7.7); Neutrophil % 67.4 % (47-70); Platelet Count 136 K/mm3 (150-450); RBC Distribution Width CV 15.7 % (11.6-14.6); RBC Distribution Width SD 51.4 fl (35.1-43.9); Red Blood Count 2.59 M/mm3 (4.6-6.2); White Blood Count 2.9 K/mm3 (4.4-11.0)
[2019-02-15 06:07] LABS: Differential Indicated SCAN CRITERIA MET; POSITIVE COUNT NO; POSITIVE DIFFERENTIAL YES; POSITIVE MORPHOLOGY NO
[2019-02-15 06:08] LABS: Anion Gap 2 (5-15); BUN 12 mg/dL (7-18); BUN/Creat Ratio 11.2 RATIO (10-20); Calcium,Total 7.6 mg/dL (8.5-10.1); Chloride 111 mmol/L (98-107); Creatinine, Serum 1.07 mg/dL (0.70-1.30); EST Glomerular Filtration Rate 76 mL/min (>60); Est Glom Filt Rate - Afr Amer 92 mL/min (>60); Estimated Creatinine Clearance 75.47 ml/min; Glucose 92 mg/dL (74-106); Magnesium 1.6 mg/dL (1.6-2.6); Potassium 4.8 mmol/L (3.5-5.1); Sodium Level 141 mmol/L (136-145)
[2019-02-15 07:00] VITALS: O2SAT 97
--- NOTE | 2019-02-15 07:15 | PN.SURG_ITS ---
Subjective: no further bleeding - Physical Exam General: Alert, Oriented x3, Cooperative Lungs: Clear to auscultation, Normal air movement Cardiovascular: Regular rate, No murmurs Abdomen: Bowel Sounds Present, Soft, Non Tender Vital Signs Temp Pulse Resp BP Pulse Ox 97.8 F 81 16 98/62 99 02/15/19 02:07 02/15/19 04:38 02/15/19 02:07 02/15/19 02:07 02/15/19 02:07 Oxygen Flow Rate (L/min) 2 Oxygen Delivery Method Room Air Weight: 75.4 kg Body Mass Index (BMI) 25.2 Intake and Output for Last 24 Hours 02/13/19 02/14/19 02/15/19 23:59 23:59 23:59 Intake Total 234 / 234 3835 / 3835 2016 Balance 234 / 234 3835 / 3835 2016 Laboratory Tests Past 24 Hrs 02/13/19 02/14/19 02/15/19 18:15 18:40 05:30 WBC 2.9 L RBC 2.59 L Hgb 9.0 L 8.0 L Hct 27.0 L 24.2 L MCV 93.4 MCH 30.9 MCHC 33.1 RDW 15.7 H RDW Differential 51.4 H Plt Count 136 L MPV 9.9 Immature Gran % (Auto) 0.000 Neut % (Auto) 67.4 Lymph % (Auto) 20.8 [place] % (Auto) 7.6 Eos % (Auto) 3.5 Baso % (Auto) 0.7 Absolute Neuts (auto) 2.0 Absolute Lymphs (auto) 0.60 L Total Counted Not Reportable Diff Path Review May foll Sodium Potassium Chloride Carbon Dioxide Anion Gap BUN Creatinine Estim Creat Clear Calc Est GFR (MDRD) Af Amer Est GFR (MDRD) Non-Af BUN/Creatinine Ratio Glucose Calcium Magnesium Crossmatch See Detail 02/15/19 05:30 WBC RBC Hgb Hct MCV MCH MCHC RDW RDW Differential Plt Count MPV Immature Gran % (Auto) Neut % (Auto) Lymph % (Auto) [place] % (Auto) Eos % (Auto) Baso % (Auto) Absolute Neuts (auto) Absolute Lymphs (auto) Total Counted Diff Path Review Sodium 141 Potassium 4.8 Chloride 111 H Carbon Dioxide 28.0 Anion Gap 2 L BUN 12 Creatinine 1.07 Estim Creat Clear Calc 75.47 Est GFR (MDRD) Af Amer 92 Est GFR (MDRD) Non-Af 76 BUN/Creatinine Ratio 11.2 Glucose 92 Calcium 7.6 L Magnesium 1.6 Crossmatch Medical Necessity - Tobacco Use Smoking Status: Never smoker Assessment/Plan All Active Problems Hypokalemia (Acute) GI bleed - clinically upper/duodenal ulcer?- history of esophageal ulcerations, gastritis and duodenitis Upper endoscopy demonstrated what appeared to be healing duodenal ulcer with duodenitis and gastritis, biopsies for H. pylori and passed through obtained from the stomach. The patient also had a persistent white-based esophageal ulcer. There was no sign for recent or active bleeding. The presumed etiology was duodenal ulcer. I'm comfortable restarting an oral diet and having the patient take Protonix 40 mg twice a day. hemoglobin this morning stable from lowest point of 7.9-question 9.0 hemoglobin yesterday given no transfusion. I'm comfortable with the patient being discharged home and have him follow-up in my office in one week for pathology results.
[2019-02-15 07:30] VITALS: PULSE 80
--- NOTE | 2019-02-15 07:58 | DCINST_ITS ---
- Discharge Diagnoses Current Active Problems: Current Active and Chronic Problems esophageal erosions and ulceration (Chronic) Gastritis (Chronic) Duodenitis (Chronic) You will use the following diet at home:: Other - transition diet, low residue soft for 3 days and then advance Your food should be the consistency of: Regular Discharge Activity: May not drive while taking narcotic pain medications. Call your doctor if you observe: Fever of 101 or Higher, Change in Color, Inability to have a bowel movement, Shortness of breath, Fainting spells, Chest pain, Increased palpitations (irregular heartbeat), Uncontrolled pain Allergies/Adverse Reactions: Allergies Penicillins Allergy (Verified 02/13/19 16:19) Anaphylaxis erythromycin base [Erythromycin Base] Adverse Reaction (Verified 02/13/19 16:19) Nausea milk Adverse Reaction (Verified 02/13/19 16:19) Upset Stomach Medications to take at Discharge Ondansetron [Zofran Odt] 4 mg PO Q8H PRN PRN 12/18/13 Rizatriptan Benzoate [Maxalt] 10 mg PO .X1 PRN 12/18/13 Amitriptyline HCl 25 mg PO QHS 02/13/19 Pantoprazole Sodium [Protonix] 40 mg PO BID #60 tablet 02/15/19 Sucralfate [Carafate] 1 gm PO 4X/DAY #120 tablet 02/15/19 The following prescriptions were given: Pantoprazole Sodium [Protonix] 40 mg PO BID #60 tablet Sucralfate [Carafate] 1 gm PO 4X/DAY #120 tablet Primary Care Physician: Drew Hardy MD [Primary Care Provider] - Please follow up with your Primary Care Physician in: in 1-2 weeks Test Results: Test results from this visit will be discussed in further detail at your follow- up appointment, if applicable. Please Follow Up With: Marcos Merida MD When: in 1 week to follow up pathology
--- NOTE | 2019-02-15 07:58 | DS.PCM_ITS ---
Discharge Date and Diagnosis Date of Admission: 02/13/19 Date of Discharge: 02/15/19 - Secondary Discharge Diagnosis Chronic Problems esophageal erosions and ulceration (Chronic) Gastritis (Chronic) Duodenitis (Chronic) Migraine (Chronic) Gastroesophageal reflux disease (Chronic) Hospital Course and Treatment Operations: None Summary of Care Provided: [] This is a 53 years old male patient presented to the emergency room because of tarry black stool, for 3 days resulting into syncopal episode, found to have GI bleed likely upper GI bleed secondary to known history of duodenitis/gastritis and esophageal ulceration and also found to have acute on chronic anemia.Patient has history of GI bleed and this one is fourth time of GI bleed in the last 2-3 years. For last 2 previous admissions, he went to [facility] where he had EGD and colonoscopy. His GIs in [facility]. He has a history of esophageal ulcer, erosive gastritis and duodenitis as per last EGD of October 2018. #1 upper GI bleed: Probably secondary to duodenitis, gastritis and esophageal ulceration, new ulcers cannot be ruled out. At this time, blood pressure 110/68, not tachycardic. H&H dropped from 926.9-7 0.8/23 in a.m. therefore 1 unit of transfusion, PRBC was given. Patient had EGD done which shows nonhealing duodenal ulcer with no stigmata of bleeding. Duodenitis. Gastritis biopsied. Nonbleeding esophageal ulcers. Patient is on Protonix 40 mg twice daily and Carafate. Patient was seen in follow-up done by Dr. Merida. Discussed with him. Patient H&H improved to 9.0/27.0. In the morning it was 8/24.2. Patient is being discharged on ferrous sulfate. #2 acute on chronic anemia: The patient always has intermittent low hemoglobin secondary to GI bleed. It fluctuates from 7 to 13 g% deciliter. Hemoglobin has been fluctuating anywhere from 7 up to 13 g/dL, admission hemoglobin is 9 g/dL, most recent hemoglobin was 10.9. Platelet count, pro time and INR were normal. #3 syncope: Likely due to vasovagal syncope secondary to active bleeding. At this time, vital signs are stable. #4 hypokalemia: Replace potassium. Monitor BMP and magnesium tomorrow a.m. #5 migraine headaches: Hold Maxalt. #6 DVT prophylaxis: SCDs, pharmacological prophylaxis is absolutely contraindicated because of GI bleed. Discharge medication reconciliation done. Discharge follow-up instructions completed. Discharge process discussed with the patient and all questions were answered to patient's satisfaction. Scripts were given for Protonix, sucralfate and ferrous sulfate. Advised to follow-up with Dr. Silva in 1 week to go through the biopsy. Total time spent, exact 35 minutes on discharge meds reconciliation, examination, review of imaging and blood test and discussion with the patient on follow-up instructions. Subjective: Seen and examined. Patient does not have abdominal pain, nausea or vomiting. Patient has tolerated solid diet. - Physical Exam General: Alert, Oriented x3, Cooperative HEENT: Atraumatic, PERRLA, EOMI, Normocephalic Neck: Supple, No JVD, Negative Carotid Bruits Lungs: Clear to auscultation, Normal air movement, No rhonchi, No wheeze, No rales Cardiovascular: Regular rate, Regular Rhythm, Normal S1, Normal S2, No murmurs Abdomen: Bowel Sounds Present, Soft, Non Tender, Non-Distended Extremities: No edema, Capillary Refill Less than 3 Seconds Skin: No rashes, No breakdown Musculoskeletal: No Tenderness to Palpation of Joints or Extremities, Arthritic Changes Neurological: Cranial nerves II-XII grossly intact Psych/Mental Status: Normal Affect, Appropriate Vital Signs Temp Pulse Resp BP Pulse Ox 97.8 F 80 16 98/62 99 02/15/19 02:07 02/15/19 07:30 02/15/19 02:07 02/15/19 02:07 02/15/19 02:07 Oxygen Flow Rate (L/min) 2 Oxygen Delivery Method Room Air Weight: 166 lb 3.657 oz Body Mass Index (BMI) 25.2 Intake and Output for Last 24 Hours 02/13/19 02/14/19 02/15/19 23:59 23:59 23:59 Intake Total 234 / 234 3835 / 3835 2016 Balance 234 / 234 3835 / 3835 2016 Laboratory Tests Past 24 Hrs 02/13/19 02/14/19 02/15/19 18:15 18:40 05:30 WBC 2.9 L RBC 2.59 L Hgb 9.0 L 8.0 L Hct 27.0 L 24.2 L MCV 93.4 MCH 30.9 MCHC 33.1 RDW 15.7 H RDW Differential 51.4 H Plt Count 136 L MPV 9.9 Immature Gran % (Auto) 0.000 Neut % (Auto) 67.4 Lymph % (Auto) 20.8 [place] % (Auto) 7.6 Eos % (Auto) 3.5 Baso % (Auto) 0.7 Absolute Neuts (auto) 2.0 Absolute Lymphs (auto) 0.60 L Total Counted Not Reportable Diff Path Review May foll Sodium Potassium Chloride Carbon Dioxide Anion Gap BUN Creatinine Estim Creat Clear Calc Est GFR (MDRD) Af Amer Est GFR (MDRD) Non-Af BUN/Creatinine Ratio Glucose Calcium Magnesium Crossmatch See Detail 02/15/19 05:30 WBC RBC Hgb Hct MCV MCH MCHC RDW RDW Differential Plt Count MPV Immature Gran % (Auto) Neut % (Auto) Lymph % (Auto) [place] % (Auto) Eos % (Auto) Baso % (Auto) Absolute Neuts (auto) Absolute Lymphs (auto) Total Counted Diff Path Review Sodium 141 Potassium 4.8 Chloride 111 H Carbon Dioxide 28.0 Anion Gap 2 L BUN 12 Creatinine 1.07 Estim Creat Clear Calc 75.47 Est GFR (MDRD) Af Amer 92 Est GFR (MDRD) Non-Af 76 BUN/Creatinine Ratio 11.2 Glucose 92 Calcium 7.6 L Magnesium 1.6 Crossmatch Discharge Activity: May not drive while taking narcotic pain medications. Call your doctor if you observe: Fever of 101 or Higher, Change in Color, Inability to have a bowel movement, Shortness of breath, Fainting spells, Chest pain, Increased palpitations (irregular heartbeat), Uncontrolled pain Home Medications: Medications to take at Discharge Ondansetron [Zofran Odt] 4 mg PO Q8H PRN PRN 12/18/13 Rizatriptan Benzoate [Maxalt] 10 mg PO .X1 PRN 12/18/13 Amitriptyline HCl 25 mg PO QHS 02/13/19 Ferrous Sulfate 325 mg PO BIDCM #60 tablet 02/15/19 Pantoprazole Sodium [Protonix] 40 mg PO BID #60 tablet 02/15/19 Sucralfate [Carafate] 1 gm PO 4X/DAY #120 tablet 02/15/19 Following Prescrptions Were Given to Patient: Ferrous Sulfate 325 mg PO BIDCM #60 tablet Pantoprazole Sodium [Protonix] 40 mg PO BID #60 tablet Sucralfate [Carafate] 1 gm PO 4X/DAY #120 tablet Primary Care Physician: Drew Hardy MD [Primary Care Provider] - Please follow up with your Primary Care Physician in: in 1-2 weeks Please Follow Up With: Marcos Merida MD When: in 1 week to follow up pathology Medical Necessity - Tobacco Use Smoking Status: Never smoker Meaningful Use Info Meaningful Use Diagnoses (Choose all that apply): None applicable Code Visit Inpatient E&M: 66258 Disch Hosp
[2019-02-15 08:18] VITALS: BP 104/69; PULSE 88; RESP 18; TEMP 36.7; O2SAT 100
[2019-02-15] MEDS: Pantoprazole Sodium 40 MG Tablet PO (08:18)
--- NOTE | 2019-02-15 09:37 | CASEMGMT ---
Pt was already discharged and has left, so SW was not able to speak w/pt again in regard to completing POA forms. Pt was given the forms yesterday however and has the number to call the SW dept to set up an appointment to complete the forms. LEXI Briones
[2019-02-15 12:40] LABS: Pathologist Review Reviewed
== END 2019-02-15 08:52 | disposition home or self-care (01) | DRG 381 ==
LOC: ED 20:15 → MS2 21:07
PROVIDERS: Surgery; Admitting Provider Hospitalist; Emergency Provider Emergency Medicine; Family Provider Family Medicine; PCP Family Medicine; Referring Provider Hospitalist; Visit Provider Internal Medicine
PROC: 0DJ08ZZ Inspection of Upper Intestinal Tract, Via Natural or Artificial Opening Endoscopic (ICD-10-PCS; CPT 43235; principal; 2019-02-14 14:55)
DX: K22.11 Ulcer of esophagus with bleeding (principal); D62 Acute posthemorrhagic anemia; K29.71 Gastritis, unspecified, with bleeding; K29.81 Duodenitis with bleeding; R55 Syncope and collapse; E87.6 Hypokalemia; G43.909 Migraine, unspecified, not intractable, without status migrainosus; K21.9 Gastro-esophageal reflux disease without esophagitis; D50.0 Iron deficiency anemia secondary to blood loss (chronic); K26.9 Duodenal ulcer, unspecified as acute or chronic, without hemorrhage or perforation
CPT/HCPCS: 36415; 80048; 83605; 83735; 85014; 85018; 85025; 85610; 85730; 86850; 86900; 86920; 88305; 88342; 93005; 94640; 97802; 99284; J7030; P9016; A4216; J2405; J3490

== ENCOUNTER 2020-04-09 09:41 | Inpatient (IN) | payer OTHER, SELFPAY ==
[2019-02-13 21:25] VITALS: BMI 25.2
[2020-04-09] VITALS (21 sets, daily range): BP systolic 106–150; BP diastolic 56–110; PULSE 100–129; RESP 17–36; TEMP 35.9–37.5; O2SAT 90–100; BMI 28.5; BMI 27.1
--- NOTE | 2020-04-09 09:53 | EKG12_ITS ---
Test Reason : DIZZINESS Blood Pressure : / mmHG Vent. Rate : 116 BPM Atrial Rate : 116 BPM P-R Int : 112 ms QRS Dur : 082 ms QT Int : 452 ms P-R-T Axes : 000 -33 027 degrees QTc Int : 628 ms Sinus tachycardia Left axis deviation Nonspecific ST and T wave abnormality Abnormal ECG Confirmed by RHONDA JOE, LIZBET ([id number]), publication editor ADRIÁN VILLAR ([id number]) on 04/11/2020 11:09:57 AM Referred By: ASHUTOSH Confirmed By:LIZBET ELLIS MD
--- NOTE | 2020-04-09 09:53 | CT_ITS ---
STUDY: CT BRAIN WITHOUT CONTRAST REASON FOR EXAM: Male, 54 years old. SLURRED SPEECH THIS A.M, BLURRED VISION, WEAKNESS RADIATION DOSAGE (If Supplied By Facility): CTDIvol = ( 44.99 ) mGy, DLP = ( 863.60 ) mGycm TECHNIQUE: Transaxial CT imaging of the brain was performed without administration of intravenous contrast material. Individualized dose optimization techniques were used for this CT. COMPARISON: No relevant priors. FINDINGS: Normal soft tissue structures. Normal calvarium. There is mild cerebral atrophy with widening of the extra-axial spaces and ventricular dilatation. Normal white matter tracts of the cerebral hemispheres. Normal basal ganglia and thalami. Normal brainstem. Normal cerebellum. There is no intracranial hemorrhage. There are no findings of an acute ischemic infarction. Minimal mucosal thickening of the maxillary sinuses bilaterally. CT/Brain/Head without Contrast IMPRESSION: Chronic involutional changes of the brain. Electronically Signed: Jake Johnson, at 12:16 EDT , Service support ,
[2020-04-09 09:56] LABS: Bedside Glucose 58 mg/dL (70-110)
--- NOTE | 2020-04-09 09:56 | ED.VIS.GEN ---
History of Present Illness Chief Complaint: Neuro S/Sx Detail of Chief Complaint: Falls, shortness of breath, weakness, slurred speech Informant: Patient Onset: Days - 4 days Context: Gradual Onset Current Severity: Moderate Maximum Severity: Moderate Narrative: Patient presents secondary to generalized weakness that started on Tuesday. He states with any exertion he will get very winded and have to stop and rest for 5 minutes. He has had a mild cough. He has had some chills. Patient states that he has been off balance and falling frequently since Tuesday. When coworkers stopped to pick him up today for work they thought his speech was slurred and felt he should come to the emergency room. Patient states he feels very thirsty. He has no known history of diabetes. He does report a history of GI bleed. He states a few days ago he had one stool that was dark black, but it cleared up after that single episode. - Past Medical History (1) Gastritis Status: Chronic (2) Gastroesophageal reflux disease Status: Chronic (3) Migraine Status: Chronic Past Medical History - Allergies and Home Meds Allergies/Adverse Reactions: Allergies Penicillins Allergy (Verified 04/09/20 09:47) Anaphylaxis erythromycin base [Erythromycin Base] Adverse Reaction (Verified 04/09/20 09:47) Nausea milk Adverse Reaction (Verified 04/09/20 09:47) Upset Stomach Primary Care Physician: Drew Hardy MD [Primary Care Provider] - Prior records reviewed: Yes Surgical History: - - Removal of pancreatic cysts; intestinal surgery Lives: Alone Smoking Status: Never smoker - Family History Paternal Family History: Reports: Heart Disease Maternal Family History: Reports: Heart Disease, Hypertension Review of Systems General: Reports: Chills. Denies: Fever Eyes: Denies: Visual changes - bilaterally ENT: Denies: Bilateral ear pain Cardiovascular: Denies: Chest pain Respiratory: Reports: Dyspnea, Cough Gastrointestinal: Reports: Nausea. Denies: Abdominal pain, Vomiting Musculoskeletal: Reports: Extremity Pain - Bilateral knee pain Skin: Denies: Rash Neurological: Reports: Headache, Weakness, Parasthesia - Tingling to both feet Hematologic: Denies: Easy bruising, Easy bleeding Allergy: Denies: Uticaria Physical Exam Vital Signs/Narrative: Vital Signs Temp Pulse Resp BP Pulse Ox 04/09/20 09:48 91 04/09/20 09:42 96.6 F L 122 H 36 H 120/81 H Inital Vital Signs reviewed: Yes General: Well nourished, Well developed Head: Normocephalic ENT: Moist mucous membranes Neck: Supple Cardiovascular: Tachycardia Respiratory: No distress, CTA bilaterally Abdomen: Soft, Nontender, Normal bowel sounds Extremities: - - Superficial abrasions over the anterior knees. No bony tenderness. Neurological: Alert, Oriented x3, Normal Strength, Normal Sensation, - - NIH=0 Psychological: - - Anxious Diagnostic/Tx/Re-eval Impressions Brain CT 04/09/20 09:53 IMPRESSION: Chronic involutional changes of the brain. Electronically Signed: Jake Alex, at 12:16 EDT , Service support , Chest X-Ray 04/09/20 11:45 IMPRESSION: Mild degree of increased markings at the left lung base suggestive of atelectasis and/or early infiltrate. Electronically Signed: Jake Johnson, at 12:19 EDT , Service support , 04/09/20 09:53 Brain/Head without Contrast [CT] Stat 04/09/20 11:45 Chest 1 View (Portable) [RAD] Stat Laboratory Results 04/09/20 04/09/20 04/09/20 09:50 09:51 09:51 WBC 6.4 RBC 3.66 L Hgb 11.8 L Hct 37.1 L MCV 101.4 H MCH 32.2 H MCHC 31.8 L RDW Std Deviation 74.4 H RDW Coeff of Jessica 19.9 H Plt Count 181 MPV 11.3 Immature Gran % (Auto) 0.800 Neut % (Auto) 82.9 H Lymph % (Auto) 8.5 L [place] % (Auto) 6.7 Eos % (Auto) 0.3 Baso % (Auto) 0.8 Absolute Neuts (auto) 5.3 Absolute Lymphs (auto) 0.54 L Nucleated RBC % 0.6 PT 16.1 H INR 1.4 APTT 35.1 D-Dimer Quant (PE/DVT) Sodium Potassium Chloride Carbon Dioxide Anion Gap BUN Creatinine Estim Creat Clear Calc Est GFR (MDRD) Af Amer Est GFR (MDRD) Non-Af BUN/Creatinine Ratio Glucose Lactic Acid Calcium Total Bilirubin Direct Bilirubin AST ALT Alkaline Phosphatase Troponin I Total Protein Albumin Globulin POC Glucose 58 L 04/09/20 04/09/20 04/09/20 09:51 09:51 11:00 WBC RBC Hgb Hct MCV MCH MCHC RDW Std Deviation RDW Coeff of Jessica Plt Count MPV Immature Gran % (Auto) Neut % (Auto) Lymph % (Auto) [place] % (Auto) Eos % (Auto) Baso % (Auto) Absolute Neuts (auto) Absolute Lymphs (auto) Nucleated RBC % PT INR APTT D-Dimer Quant (PE/DVT) 7.38 H* Sodium 135 L Potassium 3.5 Chloride 88 L Carbon Dioxide 17.0 L Anion Gap 30 H BUN 25 H Creatinine 2.14 H Estim Creat Clear Calc 37.29 Est GFR (MDRD) Af Amer 41 L Est GFR (MDRD) Non-Af 34 L BUN/Creatinine Ratio 11.7 Glucose 44 L* Lactic Acid Calcium 7.5 L Total Bilirubin 4.50 H Direct Bilirubin 1.71 H AST 168 H ALT 66 H Alkaline Phosphatase 78 Troponin I < 0.015 Total Protein 7.6 Albumin 3.7 Globulin 3.9 POC Glucose 119 H 04/09/20 11:03 WBC RBC Hgb Hct MCV MCH MCHC RDW Std Deviation RDW Coeff of Jessica Plt Count MPV Immature Gran % (Auto) Neut % (Auto) Lymph % (Auto) [place] % (Auto) Eos % (Auto) Baso % (Auto) Absolute Neuts (auto) Absolute Lymphs (auto) Nucleated RBC % PT INR APTT D-Dimer Quant (PE/DVT) Sodium Potassium Chloride Carbon Dioxide Anion Gap BUN Creatinine Estim Creat Clear Calc Est GFR (MDRD) Af Amer Est GFR (MDRD) Non-Af BUN/Creatinine Ratio Glucose Lactic Acid 6.1 H* Calcium Total Bilirubin Direct Bilirubin AST ALT Alkaline Phosphatase Troponin I Total Protein Albumin Globulin POC Glucose - EKG Initial EKG Interpretation: Sinus Tachycardia - Sinus tach at 116. No, 1/[address] depression in the lateral precordial leads. - Medical Decision Making Patient's blood sugar was 58 by fingerstick on arrival. An amp of D50 was ordered. IV fluids were started. Patient has a significant elevation of his anion gap along with acute renal failure. LFTs are also bumped. Chest x-ray is clear. We are unable to get a CT of the chest secondary to his renal failure. Patient does have significant elevation in his lactic acid. After returning from CT scan blood sugar had gone from 119 down into the 80s. D5 water was started at 125 an hour. At this time patient's heart rate is around 110. Respiratory rate is improving. Patient is very adamant that he has not started drinking again. When asked about excessive aspirin use he states he takes 2 baby aspirin daily. I spoke with the hospitalist. He would like me to give sepsis antibiotics for unknown source. He will receive 30/kg bolus of IV fluid. He will give Lovenox in the unit. - Critical Care Time Critical care time (excluding procedures): 30-74 minutes ED Disposition - Plan for ED Patient: Referrals: Drew Hardy MD [Primary Care Provider] -
[2020-04-09 10:06] LABS: Absolute Lymphocyte Count 0.54 X10^3/uL (0.83-4.51); Absolute Neutrophil Count 5.3 X10^3/uL (2.0-7.7); Basophil# 0.05 X10^3/uL; Basophil% 0.8 % (0-1); Eosinophil# 0.02 X10^3/uL; Eosinophils% 0.3 % (0-5); Hematocrit 37.1 % (40-54); Hemoglobin 11.8 g/dL (13.0-16.5); Lymphocyte # 0.54 X10^3/ul (4.0); Lymphocyte % 8.5 % (19-41); Mean Corp Hgb Conc 31.8 g/dL (32-36); Mean Corpuscular Hgb 32.2 pg (27.0-32.0); Mean Corpuscular Volume 101.4 fL (80-94); Mean Platelet Vol. 11.3 fl (6.2-12.0); Monocyte# 0.43 X10^3/uL; Monocyte% 6.7 % (0-10); NRBC Flagged by Analyzer 0.6 % (0-5); Neutrophil # 5.29 X10^3/uL (2.7-7.7); Neutrophil % 82.9 % (47-70); POSITIVE DIFFERENTIAL YES; POSITIVE MORPHOLOGY YES; Platelet Count 181 K/mm3 (150-450); RBC Distribution Width CV 19.9 % (11.6-14.6); RBC Distribution Width SD 74.4 fl (35.1-43.9); Red Blood Count 3.66 M/mm3 (4.6-6.2); White Blood Count 6.4 K/mm3 (4.4-11.0)
[2020-04-09 10:07] LABS: Differential Indicated SCAN CRITERIA MET
[2020-04-09 10:20] LABS: International Normalized Ratio 1.4; Prothrombin Time (Protime)PT. 16.1 SECONDS (11.7-14.9)
[2020-04-09 10:21] LABS: Partial Thromboplast Time 35.1 Seconds (24.1-36.2)
[2020-04-09 10:24] LABS: AST(SGOT) 168 U/L (15-37); Alanine Aminotransfer ALT/SGPT 66 U/L (16-61); Albumin, Serum 3.7 g/dL (3.2-5.0); Alkaline Phosphatase 78 U/L (45-117); Anion Gap 30 (5-15); BUN 25 mg/dL (7-18); BUN/Creat Ratio 11.7 RATIO (10-20); Bilirubin, Direct 1.71 mg/dL (0.00-0.30); Calcium,Total 7.5 mg/dL (8.5-10.1); Chloride 88 mmol/L (98-107); Creatinine, Serum 2.14 mg/dL (0.70-1.30); EST Glomerular Filtration Rate 34 mL/min (>60); Est Glom Filt Rate - Afr Amer 41 mL/min (>60); Estimated Creatinine Clearance 37.29 ml/min; Globulin 3.9 g/dL (2.2-4.2); Glucose 44 mg/dL (74-106); Potassium 3.5 mmol/L (3.5-5.1); Protein, Total 7.6 g/dL (6.4-8.2); Sodium Level 135 mmol/L (136-145)
[2020-04-09] MEDS: Dextrose 50%-Water 25 GM/50 ML DISP.SYRIN IV ×2 (10:36→14:45)
[2020-04-09] MEDS: 0.9% Normal Saline 1,000 ML 150 ML IV (10:36)
[2020-04-09] MEDS: 0.9% Normal Saline 1,000 ML 999 ML IV ×2 (10:38→12:57)
[2020-04-09 11:02] LABS: D-Dimer Quantitative (DVT/PE) 7.38 FEU/ug/m (0.27-0.49)
[2020-04-09 11:05] LABS: Bedside Glucose 119 mg/dL (70-110)
--- NOTE | 2020-04-09 11:45 | RAD_ITS ---
STUDY: X-RAY CHEST REASON FOR EXAM: Male, 54 years old. SLURRED SPEECH SINCE THIS AM, FREQUENT FALLS SINCE TUESDAY. ALSO SINCE TUESDAY PT REPORTS RUNNING INTO WALLER, HEADACHE, and quot;SOMETHING NOT FEELING RIGHT and quot;, PASSING OUT, BLURRED VISION, WEAKNESS AND PAIN IN LEGS. TECHNIQUE: Single AP portable view of the chest. COMPARISON: Comparison is made with prior study dated October 16, 2018. FINDINGS: EKG electrodes are seen. Mild degree of increased markings at the left lung base suggestive of either atelectasis and/or early infiltrate. There is no demonstrated pleural abnormality. Normal size heart. Normal mediastinum and boris. Normal visualized pulmonary arteries. Normal visualized aortic arch and descending thoracic aorta. There are degenerative changes of the visualized thoracic spine. Normal visualized ribs, clavicles, and shoulders. There is no demonstrated abnormality of the visualized soft tissue structures of the upper abdomen. RAD/Chest 1 View (Portable) IMPRESSION: Mild degree of increased markings at the left lung base suggestive of atelectasis and/or early infiltrate. Electronically Signed: Jake Johnson, at 12:19 EDT , Service support ,
[2020-04-09 11:46] LABS: Lactic Acid 6.1 mmol/L (0.4-1.9)
[2020-04-09] MEDS: Dextrose 5% 250 ML 150 ML IV (12:15)
--- NOTE | 2020-04-09 12:31 | ED.RN ---
AWARE THAT PT UNABLE TO PROVIDE U/A AT THIS TIME. NO NEW ORDERS GIVEN.
--- NOTE | 2020-04-09 12:41 | ED.RN ---
AWARE THAT MULTIPLE RN'S AND LAB ARE UNABLE TO OBTAIN LAB DRAW FOR SALICYLATE.
--- NOTE | 2020-04-09 12:49 | ED.RN ---
PER D/C DEXTROSE TO BEGIN ATB'S. UNABLE TO ACCESS MORE THAN ONE IV SITE.
--- NOTE | 2020-04-09 12:55 | PCM.HP.STD ---
Problem List (1) Septic shock Status: Acute (2) Pneumonia Status: Acute Qualifiers: Pneumonia type: due to unspecified organism Laterality: left Lung location: lower lobe of lung Qualified Code(s): J18.9 - Pneumonia, unspecified organism (3) MAICOL (acute kidney injury) Status: Acute (4) Elevated d-dimer Status: Acute (5) Hypokalemia Status: Acute (6) Duodenitis Status: Chronic (7) Gastritis Status: Chronic (8) Gastroesophageal reflux disease Status: Chronic Qualifiers: (9) Migraine Status: Chronic (10) esophageal erosions and ulceration Status: Chronic History of Present Illness Date of Admission: 04/09/20 Chief Complaint: Generalized weakness The patient is a 54 year old M with past medical history significant for severe GERD hypertension migraine headaches who presented to the emergency department with 4-day history of generalized malaise. Patient reports significant cough over the same.. Patient also felt something was not right. 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 On further questioning he denied any fever but admitted to some chills. Patient also reported falls as well as feeling lightheaded with profound weakness and his lower extremity. In view of worsening condition patient elected to present to the emergency room. In the ED chest x-ray demonstrated questionable left lower lobe infiltrate. Patient had normal WBC count however his lactic acid level was markedly elevated at 6.1, elevated d-dimer at 7.34 and creatinine of 2.14. The present of diagnosis of septic shock was made treatment initiated in the ED and patient admitted to the intensive care unit for further management. Past Medical History Past Medical History (Chronic Problems): Chronic Problems esophageal erosions and ulceration (Chronic) Gastritis (Chronic) Duodenitis (Chronic) Migraine (Chronic) Gastroesophageal reflux disease (Chronic) Allergies Penicillins Allergy (Verified 04/09/20 09:47) Anaphylaxis erythromycin base [Erythromycin Base] Adverse Reaction (Verified 04/09/20 09:47) Nausea milk Adverse Reaction (Verified 04/09/20 09:47) Upset Stomach Home Medications: Ambulatory Orders Medication Instructions Recorded Rizatriptan Benzoate [Maxalt] 10 mg PO .X1 PRN 12/18/13 Amitriptyline HCl 25 mg PO QHS 02/13/19 Ferrous Sulfate 325 mg PO BIDCM #60 tablet 02/15/19 Pantoprazole Sodium [Protonix] 40 mg PO BID #60 tablet 02/15/19 Aspirin 2 tab PO DAILY 04/09/20 Famotidine [Pepcid] 20 mg PO DAILY 04/09/20 Surgical History: - - Removal of pancreatic cysts; intestinal surgery Psychiatric History: No pertinent psych hx Lives: Alone Smoking Status: Current every day smoker Tobacco Use: Cigarettes - *Family History Paternal History Items: Heart Disease Maternal History Items: Heart Disease, Hypertension Review of Systems Constitutional: Reports: Anorexia, Chills, Malaise, Weakness, Fatigue HEENT: Denies: Head Aches, Sinus Congestion, Sinus Drainage Cardiovascular: Denies: Chest Pain, Orthopnea, Palpitations, Paroxysmal Noc. Dyspnea Respiratory: Reports: Cough, Shortness of Breath Gastrointestinal: Denies: Abdominal Pain, Hematemesis, Hematochezia, Nausea, Melena, Vomiting Genitourinary: Denies: Dysuria, Frequency, Hematuria, Urgency Musculoskeletal: Reports: Muscle pain Neurological: Reports: Balance problems Psychiatric: Denies: Homicidal Ideations, Suicidal Ideations Hematologic/ Lymphatic: Denies: Easy Bruising, Easy Bleeding VTE Information - Inpt Only VTE Present on Admission: No VTE Mechan Device Prophylaxis: None VTE Pharm Prophylaxis ordered?: Yes Patient Problems: Active and Suspected Problems Septic shock (Acute) Pneumonia (Acute) MAICOL (acute kidney injury) (Acute) Elevated d-dimer (Acute) Objective: GENERAL: cooperative appears ill looking HEENT: Atraumatic; EYES; Anicteric, Normal Conjunctiva NECK; supple, normal thyroid, RESPIRATORY: Diminished to auscultation with bibasilar crackles tachypneic CARDIOVASCULAR: Regular S1 S2, cardiac GI: soft, normoactive bowel sounds, : No Renal angle tenderness; EXTREMITIES: No edema, no clubbing, MUSCULOSKELETAL: no muscle waisting NEURO: Somewhat lethargic; no lateralizing signs. SKIN: No Rash PSYCH; Flat affect - Physical Exam Vitals/I&O's: Vital Signs Temp Pulse Resp BP Pulse Ox 96.6 F L 115 H 25 H 143/92 H 96 04/09/20 09:42 04/09/20 12:27 04/09/20 12:27 04/09/20 12:27 04/09/20 11:41 Oxygen Flow Rate (L/min) 2 Oxygen Delivery Method Nasal Cannula Weight: 85.1 kg Body Mass Index (BMI) 28.5 Finger Stick Blood Glucose 119 Intake and Output for Last 24 Hours 04/07/20 04/08/20 04/09/20 23:59 23:59 23:59 Intake Total 1082.5 / 1082.5 Balance 1082.5 / 1082.5 Laboratory Results 04/09/20 09:50: POC Glucose 58 L 04/09/20 09:51: WBC 6.4, RBC 3.66 L, Hgb 11.8 L, Hct 37.1 L, MCV 101.4 H, MCH 32.2 H, MCHC 31.8 L, RDW Std Deviation 74.4 H, RDW Coeff of Jessica 19.9 H, Plt Count 181, MPV 11.3, Immature Gran % (Auto) 0.800, Neut % (Auto) 82.9 H, Lymph % (Auto) 8.5 L, [place] % (Auto) 6.7, Eos % (Auto) 0.3, Baso % (Auto) 0.8, Absolute Neuts (auto) 5.3, Absolute Lymphs (auto) 0.54 L, Nucleated RBC % 0.6 04/09/20 09:51: PT 16.1 H, INR 1.4, APTT 35.1 04/09/20 09:51: Sodium 135 L, Potassium 3.5, Chloride 88 L, Carbon Dioxide 17.0 L, Anion Gap 30 H, BUN 25 H, Creatinine 2.14 H, Estim Creat Clear Calc 37.29, Est GFR (MDRD) Af Amer 41 L, Est GFR (MDRD) Non-Af 34 L, BUN/Creatinine Ratio 11.7, Glucose 44 L*, Calcium 7.5 L, Total Bilirubin 4.50 H, Direct Bilirubin 1.71 H, AST 168 H, ALT 66 H, Alkaline Phosphatase 78, Troponin I < 0.015, Total Protein 7.6, Albumin 3.7, Globulin 3.9 04/09/20 09:51: COVID-19 (CRISELDA) Pending 04/09/20 09:51: D-Dimer Quant (PE/DVT) 7.38 H* 04/09/20 11:00: POC Glucose 119 H 04/09/20 11:03: Lactic Acid 6.1 H* Current Medications Sodium Chloride () 1,000 mls @ 150 mls/hr IV .Q6H40M [facility] Last Admin: 04/09/20 10:36 Dose: 150 mls/hr Documented by: Dextrose () 250 mls @ 150 mls/hr IV .Q1H40M [facility] Last Infusion: 04/09/20 12:48 Dose: Infused Documented by: Sodium Chloride () 1,000 mls @ 999 mls/hr IV .Q1H1M ONE Stop: 04/09/20 13:44 Sodium Chloride () 500 mls @ 999 mls/hr IV .Q31M [facility] Stop: 04/09/20 13:15 Ciprofloxacin (Cipro) 400 mg in 200 mls @ 200 mls/hr IV X1 ONE Stop: 04/09/20 13:45 Vancomycin HCl 2,000 mg/ (Sodium Chloride) 540 mls @ 250 mls/hr IV X1 ONE Stop: 04/09/20 15:24 Assessment/Plan All Active Problems Septic shock (Acute) Pneumonia (Acute) MAICOL (acute kidney injury) (Acute) Elevated d-dimer (Acute) Hypokalemia (Acute) Patient is a 54-year-old gentleman presented with multiple complaints. Found to have hypoglycemia, elevated lactic acid level elevated d-dimer and right lower lobe infiltrate admitted to the intensive care unit for further management 1. Septic shock ?Suspected to be secondary to pneumonia. Cultures including sputum and blood ordered. Patient started on broad-spectrum antibiotic therapy with Rocephin and Levaquin. Patient was also placed under droplet and contact isolation whilst COVID 19 infection is been ruled out. Consult was placed to both infectious disease as well as pulmonary medicine (Case was discussed with Dr. [place]) 2. Acute respiratory insufficiency secondary to above ?Patient placed on supplemental oxygen in addition to aerosol treatment as needed 3. Hypoglycemia ?Suspected to be secondary to low oral intake patient was placed on D5 saline with serial monitoring of glucose levels ordered 4. Acute kidney injury ?Patient had normal kidney function in January 2019. Do suspect ATN from patient underlying infectious etiology and IV fluids with subsequent monitoring of electrolyte 5. Elevated d-dimer ?Patient was placed on heparin due to his impaired kidney function. Ordered venous duplex as well as VQ scan. 6. Abnormal LFTs ?suspected to be secondary to patient underlying infection plan is to monitor with daily LFTs and avoid potential hepatotoxic medications 7. Essential hypertension ?Patient is on atenolol held on admission 8. Severe GERD ?Patient is on PPI did continue 9. Migraine headaches ?Patient is on amitriptyline 10. DVT prophylaxis - on heparin
[2020-04-09] MEDS: Ciprofloxacin 400 MG/200 ML BAG 200 MG IV (12:57)
--- NOTE | 2020-04-09 13:06 | NURSING ---
ICU SEPTIC SHOCK KITTOE
--- NOTE | 2020-04-09 13:07 | NURSING ---
ICU 3
--- NOTE | 2020-04-09 13:12 | ED.RN ---
UNABLE TO ACCESS A 2ND IV SITE.
[2020-04-09 13:25] LABS: Bedside Glucose 83 mg/dL (70-110)
[2020-04-09 13:40] LABS: Bedside Glucose 78 mg/dL (70-110)
--- NOTE | 2020-04-09 13:51 | PCM.CON.CC ---
Reason for Consult Date of Consultation: 04/09/20 Reason for Consultation: Acute respiratory insufficiency History of Present Illness: The patient is a 54-year-old male, with a history as outlined below, who presented to the emergency department on April 09 with complaints of generalized weakness and shortness of breath. The patient also reported the presence of a dry, nonproductive cough. The patient is currently employed in the [employer]. Although the patient reported a history of prior alcohol dependency, nursing staff later confirmed with his that the patient does in fact drink on a daily basis. On presentation to the emergency department, the patient was noted to be afebrile, but was tachycardic and tachypneic. Laboratory evaluation revealed no evidence of an elevated white blood cell count. D-dimer was elevated to 7.38. Chemistry profile was notable for a bicarbonate of 17 and creatinine of 2.14. Creatinine was last noted to be 1.07 in January 2019. Glucose was low at 44. Lactate was elevated to 6.1. Total bili was increased to 4.5 with an elevated AST of 168 and ALT of 66. Coronavirus PCR was negative. CT head revealed only chronic involutional changes of the brain. Initial plain film chest x-ray was clear without focal infiltrate or consolidation. The patient was placed on antimicrobials and started on supplemental IV fluids. He was subsequently admitted to the medical intensive care unit for further management. Past Medical History Past Medical History (Chronic Problems): Chronic Problems esophageal erosions and ulceration (Chronic) Gastritis (Chronic) Duodenitis (Chronic) Migraine (Chronic) Gastroesophageal reflux disease (Chronic) Allergies Penicillins Allergy (Verified 04/09/20 09:47) Anaphylaxis erythromycin base [Erythromycin Base] Adverse Reaction (Verified 04/09/20 09:47) Nausea milk Adverse Reaction (Verified 04/09/20 09:47) Upset Stomach Home Medications: Ambulatory Orders Medication Instructions Recorded Rizatriptan Benzoate [Maxalt] 10 mg PO .X1 PRN 12/18/13 Amitriptyline HCl 25 mg PO QHS 02/13/19 Aspirin 162 mg PO DAILY 04/09/20 Dupilumab [Dupixent] 300 mg SQ [id number] 04/09/20 Famotidine [Pepcid] 20 mg PO DAILY 04/09/20 Ferrous Sulfate 325 mg PO QHS 04/09/20 Pantoprazole Sodium [Protonix] 40 mg PO BID 04/09/20 Surgical History: - - Removal of pancreatic cysts; intestinal surgery Psychiatric History: No pertinent psych hx Lives: Alone Smoking Status: Current every day smoker Tobacco Use: Cigarettes - *Family History Paternal History Items: Heart Disease Maternal History Items: Heart Disease, Hypertension Review of Systems Constitutional: Reports: Malaise, Weakness, Fatigue Eyes: Denies: Blurred vision, Double vision HEENT: Denies: Head Aches, Sinus Congestion, Sinus Drainage Cardiovascular: Denies: Chest Pain, Palpitations Respiratory: Reports: Cough, Shortness of Breath. Denies: Sputum production Gastrointestinal: Reports: Nausea. Denies: Diarrhea Genitourinary: Denies: Dysuria Musculoskeletal: Denies: Joint Pain, Joint Tenderness Skin: Denies: Rash, Wounds Neurological: Denies: Numbness, Tingling, Focal weakness Psychiatric: Denies: Anxiety, Depression, Homicidal Ideations, Suicidal Ideations Hematologic/ Lymphatic: Reports: Anemia Patient Problems: Active and Suspected Problems Septic shock (Acute) Pneumonia (Acute) MAICOL (acute kidney injury) (Acute) Elevated d-dimer (Acute) Objective: The patient's most recent lab work, culture data and imaging studies have all been personally reviewed. - Physical Exam Vitals/I&O's: Vital Signs Temp Pulse Resp BP Pulse Ox 98.1 F 113 H 21 H 138/90 H 96 04/09/20 13:08 04/09/20 13:08 04/09/20 13:08 04/09/20 13:08 04/09/20 11:41 Oxygen Flow Rate (L/min) 2 Oxygen Delivery Method Nasal Cannula Weight: 187 lb 9.814 oz Body Mass Index (BMI) 28.5 Finger Stick Blood Glucose 78 Intake and Output for Last 24 Hours 04/07/20 04/08/20 04/09/20 23:59 23:59 23:59 Intake Total 1082.5 / 1082.5 Balance 1082.5 / 1082.5 General: Alert, Cooperative, No apparent distress HEENT: Atraumatic, PERRLA, Normocephalic Oral: Dry Mucosa Neck: Supple, No Nodes, Trachea Midline Lungs: Diminished, Tachypneic Cardiovascular: Normal S1, Normal S2, No murmurs, Tachycardic Abdomen: Bowel Sounds Present, Soft, Non Tender Extremities: No clubbing, No cyanosis, No edema Skin: No breakdown Musculoskeletal: No Tenderness to Palpation of Joints or Extremities Neurological: Cranial nerves II-XII grossly intact, Neuro grossly intact Psych/Mental Status: Normal Affect, Appropriate Labs (Last 48 Hours) 04/09/20 04/09/20 04/09/20 09:50 09:51 09:51 WBC 6.4 RBC 3.66 L Hgb 11.8 L Hct 37.1 L MCV 101.4 H MCH 32.2 H MCHC 31.8 L RDW Std Deviation 74.4 H RDW Coeff of Jessica 19.9 H Plt Count 181 MPV 11.3 Immature Gran % (Auto) 0.800 Neut % (Auto) 82.9 H Lymph % (Auto) 8.5 L [place] % (Auto) 6.7 Eos % (Auto) 0.3 Baso % (Auto) 0.8 Absolute Neuts (auto) 5.3 Absolute Lymphs (auto) 0.54 L Nucleated RBC % 0.6 PT 16.1 H INR 1.4 APTT 35.1 D-Dimer Quant (PE/DVT) Sodium Potassium Chloride Carbon Dioxide Anion Gap BUN Creatinine Estim Creat Clear Calc Est GFR (MDRD) Af Amer Est GFR (MDRD) Non-Af BUN/Creatinine Ratio Glucose Lactic Acid Calcium Total Bilirubin Direct Bilirubin AST ALT Alkaline Phosphatase Troponin I Total Protein Albumin Globulin COVID-19 (CRISELDA) POC Glucose 58 L 04/09/20 04/09/20 04/09/20 09:51 09:51 09:51 WBC RBC Hgb Hct MCV MCH MCHC RDW Std Deviation RDW Coeff of Jessica Plt Count MPV Immature Gran % (Auto) Neut % (Auto) Lymph % (Auto) [place] % (Auto) Eos % (Auto) Baso % (Auto) Absolute Neuts (auto) Absolute Lymphs (auto) Nucleated RBC % PT INR APTT D-Dimer Quant (PE/DVT) 7.38 H* Sodium 135 L Potassium 3.5 Chloride 88 L Carbon Dioxide 17.0 L Anion Gap 30 H BUN 25 H Creatinine 2.14 H Estim Creat Clear Calc 37.29 Est GFR (MDRD) Af Amer 41 L Est GFR (MDRD) Non-Af 34 L BUN/Creatinine Ratio 11.7 Glucose 44 L* Lactic Acid Calcium 7.5 L Total Bilirubin 4.50 H Direct Bilirubin 1.71 H AST 168 H ALT 66 H Alkaline Phosphatase 78 Troponin I < 0.015 Total Protein 7.6 Albumin 3.7 Globulin 3.9 COVID-19 (CRISELDA) Not Detected POC Glucose 04/09/20 04/09/20 04/09/20 11:00 11:03 12:03 WBC RBC Hgb Hct MCV MCH MCHC RDW Std Deviation RDW Coeff of Jessica Plt Count MPV Immature Gran % (Auto) Neut % (Auto) Lymph % (Auto) [place] % (Auto) Eos % (Auto) Baso % (Auto) Absolute Neuts (auto) Absolute Lymphs (auto) Nucleated RBC % PT INR APTT D-Dimer Quant (PE/DVT) Sodium Potassium Chloride Carbon Dioxide Anion Gap BUN Creatinine Estim Creat Clear Calc Est GFR (MDRD) Af Amer Est GFR (MDRD) Non-Af BUN/Creatinine Ratio Glucose Lactic Acid 6.1 H* Calcium Total Bilirubin Direct Bilirubin AST ALT Alkaline Phosphatase Troponin I Total Protein Albumin Globulin COVID-19 (CRISELDA) POC Glucose 119 H 83 04/09/20 13:35 WBC RBC Hgb Hct MCV MCH MCHC RDW Std Deviation RDW Coeff of Jessica Plt Count MPV Immature Gran % (Auto) Neut % (Auto) Lymph % (Auto) [place] % (Auto) Eos % (Auto) Baso % (Auto) Absolute Neuts (auto) Absolute Lymphs (auto) Nucleated RBC % PT INR APTT D-Dimer Quant (PE/DVT) Sodium Potassium Chloride Carbon Dioxide Anion Gap BUN Creatinine Estim Creat Clear Calc Est GFR (MDRD) Af Amer Est GFR (MDRD) Non-Af BUN/Creatinine Ratio Glucose Lactic Acid Calcium Total Bilirubin Direct Bilirubin AST ALT Alkaline Phosphatase Troponin I Total Protein Albumin Globulin COVID-19 (CRISELDA) POC Glucose 78 Clinical Impression(s) from Imaging Studies Brain CT 04/09/20 09:53 IMPRESSION: Chronic involutional changes of the brain. Electronically Signed: Jake Johnson, at 12:16 EDT , Service support , Chest X-Ray 04/09/20 11:45 IMPRESSION: Mild degree of increased markings at the left lung base suggestive of atelectasis and/or early infiltrate. Electronically Signed: Jake Johnson, at 12:19 EDT , Service support , Current Medications Sodium Chloride () 1,000 mls @ 150 mls/hr IV .[id number] [facility] Last Admin: 04/09/20 10:36 Dose: 150 mls/hr Documented by: Dextrose () 250 mls @ 150 mls/hr IV .Q1H40M [facility] Last Infusion: 04/09/20 12:48 Dose: Infused Documented by: Vancomycin HCl 2,000 mg/ (Sodium Chloride) 540 mls @ 250 mls/hr IV X1 ONE Stop: 04/09/20 15:24 Assessment/Plan Active and Suspected Problems Septic shock (Acute) Pneumonia (Acute) MAICOL (acute kidney injury) (Acute) Elevated d-dimer (Acute) RECOMMENDATIONS: 1. Continue broad-spectrum antimicrobials, pending evaluation by infectious diseases. 2. Obtain abdominal ultrasound and lower extremity Doppler studies. 3. If lower extremity Dopplers are negative, consider obtaining CTA chest once renal function improves. 4. Continue therapeutic heparin infusion. 5. Continue IV fluid hydration. 6. Initiate CIWA protocol and monitor for signs of alcohol withdrawal. IMPRESSIONS: 1. Septic shock Although the patient met septic shock criteria upon admission, he has never been hemodynamically unstable. The patient has symptoms concerning for COVID, despite negative PCR testing. Therefore, he will remain in precautions accordingly. Inflammatory markers are elevated, including elevated d-dimer. The patient will be started on a continuous heparin infusion for the aforementioned. Chest x-ray on my review is clear. The patient's current renal function would preclude our ability to obtain a CTA chest to evaluate for pulmonary emboli. Nevertheless, lower extremity Doppler study is pending. Infectious diseases consultation is pending. Broad-spectrum antimicrobials will be continued. Given derangements in hepatic function, abdominal ultrasound is also pending to evaluate for the presence of an infectious etiology. 2. Acute kidney injury Likely prerenal in etiology. Anticipate improvement with volume expansion. Continue to monitor urine output for now. There is no current indication for renal replacement therapy. 3. Abnormal liver function studies Abdominal ultrasound is pending for further evaluation. On further discussion with the patient's family, he does have a history of alcohol dependency. 4. Chronic alcohol dependency/hypertension/GERD/history of migraine headaches Complicates care, management, recovery and prognosis. Monitor for signs of alcohol withdrawal. Initiate CIWA protocol. This note was generated with [employer] dictation software. It may contain incorrect words, spelling, and punctuation that were not noted in checking the note before signing. Inpatient E&M: 75995 Init Hosp L3
--- NOTE | 2020-04-09 14:00 | VDLE_ITS ---
Reason For Study: Elevated D-dimer RIGHT LEFT GSV is normal. GSV is normal. Right CFV, SFJ, FV and PopV are compressible. Left CFV, SFJ, FV and PopV are compressible. Nonvascularized structure noted in the right Nonvascularized structure noted in the left popliteal space measuring approximently 2.2 x popliteal space measuring approximently 1.5 x 2.9 x 4.2 cm. 2.9 x 4.5 cm. T/P Trunk is compressible. T/P Trunk is compressible. PTV is compressible. PTV is compressible. RT PerV is compressible. LT PerV is compressible. Procedure Exam performed portable in patient room. The exam was abbreviated due to the COVID 19 protocol. A preliminary report was called and/or faxed to [facility] [employer]. Interpretation Summary No evidence for acute deep venous thrombosis bilateral lower extremities with patent and compressible bilateral great saphenous veins. Right popliteal cyst 2.2 x 2.9 x 4.2cm Left popliteal cyst 1.5 x 2.9 x 4.5cm Abreviated Covid 19 protocol Ordering Physician: Thuan Bloom Referring Physician: MD Antony Drew Performed By: Fatimah Miles RVT
[2020-04-09 14:51] LABS: BNP,B-Type NATRIURETIC PEPTIDE 72.1 pg/mL (0-100)
[2020-04-09] MEDS: Dextrose 5%/0.9% NaCl 1,000 ML 150 ML IV ×2 (15:05→22:46)
[2020-04-09 15:07] LABS: Reflex Lactate? Y
[2020-04-09 15:26] LABS: Bedside Glucose 86 mg/dL (70-110)
[2020-04-09 15:26] LABS: Bedside Glucose 48 mg/dL (70-110)
--- NOTE | 2020-04-09 16:18 | CON.PCM_ITS ---
Problem List (1) Septic shock Status: Acute Reason for Consult: septic shock Consulted by: Dr. Bloom History of Present Illness: The patient is a 54 year old M with h/o GERD presented to ED yesterday with 5 days of not feeling well. Reports dizziness, chills, dyspnea on exertion, n/v, worsened acid reflux, headache, dry cough. Some aches in legs. 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 No change in taste/ smell. No recent changes in meds. No known sick contacts. Came to ED, found to have septic shock, admitted to icu in [facility], on vanc/ceftriaxone/levaquin. No abd pain except for some muscle soreness from emesis. Full ROS performed and neg except as noted above. - Medical History Past Medical History (Chronic Problems): Chronic Problems esophageal erosions and ulceration (Chronic) Gastritis (Chronic) Duodenitis (Chronic) Migraine (Chronic) Gastroesophageal reflux disease (Chronic) Allergies/Adverse Reactions: Allergies Penicillins Allergy (Verified 04/09/20 09:47) Anaphylaxis erythromycin base [Erythromycin Base] Adverse Reaction (Verified 04/09/20 09:47) Nausea milk Adverse Reaction (Verified 04/09/20 09:47) Upset Stomach Home Medications: Ambulatory Orders Medication Instructions Recorded Rizatriptan Benzoate [Maxalt] 10 mg PO .X1 PRN 12/18/13 Amitriptyline HCl 25 mg PO QHS 02/13/19 Aspirin 162 mg PO DAILY 04/09/20 Dupilumab [Dupixent] 300 mg SQ .[id number] 04/09/20 Famotidine [Pepcid] 20 mg PO DAILY 04/09/20 Ferrous Sulfate 325 mg PO QHS 04/09/20 Pantoprazole Sodium [Protonix] 40 mg PO BID 04/09/20 - Social History Tobacco Use: non-smoker Vital Signs Temp Pulse Resp BP Pulse Ox 98.1 F 126 H 21 H 138/90 H 96 04/09/20 13:08 04/09/20 14:29 04/09/20 13:08 04/09/20 13:08 04/09/20 11:41 Oxygen Flow Rate (L/min) 2 Oxygen Delivery Method Nasal Cannula Weight: 83.3 kg Body Mass Index (BMI) 27.1 Finger Stick Blood Glucose 78 Laboratory Tests Past 24 Hrs 04/09/20 04/09/20 04/09/20 09:51 09:51 09:51 WBC 6.4 RBC 3.66 L Hgb 11.8 L Hct 37.1 L MCV 101.4 H MCH 32.2 H MCHC 31.8 L RDW Std Deviation 74.4 H RDW Coeff of Jessica 19.9 H Plt Count 181 MPV 11.3 Immature Gran % (Auto) 0.800 Neut % (Auto) 82.9 H Lymph % (Auto) 8.5 L [place] % (Auto) 6.7 Eos % (Auto) 0.3 Baso % (Auto) 0.8 Absolute Neuts (auto) 5.3 Absolute Lymphs (auto) 0.54 L Nucleated RBC % 0.6 PT 16.1 H INR 1.4 APTT 35.1 D-Dimer Quant (PE/DVT) Sodium 135 L Potassium 3.5 Chloride 88 L Carbon Dioxide 17.0 L Anion Gap 30 H BUN 25 H Creatinine 2.14 H Estim Creat Clear Calc 37.29 Est GFR (MDRD) Af Amer 41 L Est GFR (MDRD) Non-Af 34 L BUN/Creatinine Ratio 11.7 Glucose 44 L* Lactic Acid Calcium 7.5 L Total Bilirubin 4.50 H Direct Bilirubin 1.71 H AST 168 H ALT 66 H Alkaline Phosphatase 78 Troponin I < 0.015 B-Natriuretic Peptide Total Protein 7.6 Albumin 3.7 Globulin 3.9 COVID-19 (CRISELDA) MRSA (PCR) 04/09/20 04/09/20 04/09/20 09:51 09:51 09:51 WBC RBC Hgb Hct MCV MCH MCHC RDW Std Deviation RDW Coeff of Jessica Plt Count MPV Immature Gran % (Auto) Neut % (Auto) Lymph % (Auto) [place] % (Auto) Eos % (Auto) Baso % (Auto) Absolute Neuts (auto) Absolute Lymphs (auto) Nucleated RBC % PT INR APTT D-Dimer Quant (PE/DVT) 7.38 H* Sodium Potassium Chloride Carbon Dioxide Anion Gap BUN Creatinine Estim Creat Clear Calc Est GFR (MDRD) Af Amer Est GFR (MDRD) Non-Af BUN/Creatinine Ratio Glucose Lactic Acid Calcium Total Bilirubin Direct Bilirubin AST ALT Alkaline Phosphatase Troponin I B-Natriuretic Peptide 72.1 Total Protein Albumin Globulin COVID-19 (CRISELDA) Not Detected MRSA (PCR) 04/09/20 04/09/20 11:03 14:40 WBC RBC Hgb Hct MCV MCH MCHC RDW Std Deviation RDW Coeff of Jessica Plt Count MPV Immature Gran % (Auto) Neut % (Auto) Lymph % (Auto) [place] % (Auto) Eos % (Auto) Baso % (Auto) Absolute Neuts (auto) Absolute Lymphs (auto) Nucleated RBC % PT INR APTT D-Dimer Quant (PE/DVT) Sodium Potassium Chloride Carbon Dioxide Anion Gap BUN Creatinine Estim Creat Clear Calc Est GFR (MDRD) Af Amer Est GFR (MDRD) Non-Af BUN/Creatinine Ratio Glucose Lactic Acid 6.1 H* Calcium Total Bilirubin Direct Bilirubin AST ALT Alkaline Phosphatase Troponin I B-Natriuretic Peptide Total Protein Albumin Globulin COVID-19 (CRISELDA) MRSA (PCR) Pending - Other Studies Radiology: [] reviewed Other Studies: [] Route of nutrition/ use of supplements: [] Nutritional Intake: [] IV Site: [] George Catheter: [] - Physical Exam General: Alert, Oriented x3, Cooperative, No apparent distress HEENT: Atraumatic, PERRLA, EOMI Neck: Supple, No Nodes Lungs: Diminished Cardiovascular: Regular rate, Regular Rhythm Abdomen: Soft, Non Tender, Non-Distended Extremities: No edema Skin: No rashes IV Site: Peripheral, without redness Musculoskeletal: No Tenderness to Palpation of Joints or Extremities Neurological: Cranial nerves II-XII grossly intact - Assessment/Plan Antibiotics: [] Assessment/Plan: [] Active and Suspected Problems Septic shock (Acute) Pneumonia (Acute) MAICOL (acute kidney injury) (Acute) Elevated d-dimer (Acute) Covid neg, but at risk for infection. Would keep in precautions, inflammatory markers pending. Elevated d-dimer, elevated lactate, no fever, (+) lymphopenia, MAICOL, and high bilirubin with mild elevation AST/ALT. CXR relatively clear, but having dry cough, some dyspnea. VQ and BLE doppler pending. Will order CT abd/pelvis with po contrast to eval his kidneys and for possible cholangitis. Narrow abx to ceftriaxone/flagyl for now. Will follow, thank you, d/w nursing.
[2020-04-09 16:33] LABS: M R Staph aureus DNA By PCR Negative (Negative); Probe Check PASS; Specimen Processing Control PASS
[2020-04-09] MEDS: HEPARIN/D5w 25,000 UNITS 25,000 UNITS/250 ML IV.SOLN. 12 UNITS IV (16:48)
[2020-04-09 17:15] LABS: Bedside Glucose 77 mg/dL (70-110)
--- NOTE | 2020-04-09 17:28 | US_ITS ---
STUDY: ABDOMINAL ULTRASOUND REASON FOR EXAM: Male, 54 years old. Elevated LFTs TECHNIQUE: Transabdominal ultrasound was performed with real-time and static savage scale imaging. TECHNICAL QUALITY: Limited by body habitus and bowel gas. COMPARISON: CT dated 10/16/2018 FINDINGS: Liver: The liver measures 19.1 cm. There is increased echogenicity consistent with fatty infiltration. The bile ducts are within normal limits. There is hepatic color flow. The direction of portal flow is hepatopetal. There is no demonstrated mass lesion. Gallbladder: Normal distended gallbladder. The gallbladder wall measures 2 mm. There is a negative sonographic Arcos''s sign. There is no pericholecystic fluid. There are no gallstones. Common Bile Duct (C.B.D.): The common bile duct measures 4 mm. Pancreas: The pancreatic head and body are within normal limits. The pancreatic tail is not visualized. There is no demonstrated pancreatic mass or cyst. Spleen: Normal size of the spleen. The spleen measures 12.3 cm. Right Kidney: Normal size of the right kidney. The right kidney measures 11.2 cm. Normal renal cortex. There is no demonstrated renal mass or cyst. There is no right hydronephrosis. Left Kidney: Normal size of the left kidney. The left kidney measures 10.6 cm. Normal renal cortex. There is no demonstrated renal mass or cyst. There is no left hydronephrosis. Aorta: The aorta is normal in caliber. I.V.C.: The IVC is patent. There is no ascites. US/Abdomen Complete IMPRESSION: Enlarged, fatty liver. No focal hepatic lesions. Mild splenomegaly. Electronically Signed: Saurabh Licona, at 19:09 EDT Tel , Service support ,
[2020-04-09 18:05] LABS: Bedside Glucose 86 mg/dL (70-110)
[2020-04-09 18:12] LABS: Color, Urine Yellow (Yellow); Glucose, Dipstick Normal (Normal); Leukocyte Esterase-Dipstick 25 /ul (Negative); Mucous, Urine 0 SEEN /hpf (<or=2+); Nitrite-Dipstick Positive (Negative); Occult Blood-Urine 250 /ul (Negative); Protein-Dipstick 100 mg/dl (Negative); Specific Gravity, Urine 1.015 (1.002-1.030); Squamous Epithelial Cells - UA 0 SEEN /hpf (0-5); Urine Clarity Sl. Cloudy (Clear); Urine Urobilinogen 8 mg/dl (Normal)
[2020-04-09 18:16] LABS: Urine Bilirubin Dipstick 3 mg/dL (Negative)
[2020-04-09 18:24] LABS: Ketone-Dipstick 150 mg/dl (Negative)
[2020-04-09 18:27] LABS: Bacteria RARE /hpf (None Seen); Red Blood Cells-Urine 0-5 SEEN /hpf (0-5); White Blood Cells 0-5 SEEN /hpf (0-5)
[2020-04-09] MEDS: Haloperidol Lactate 5 MG/ML Vial 2 MG IM (20:05)
--- NOTE | 2020-04-09 21:45 | NURSING ---
Picc line just placed by accessioner's. Ok given to utilize picc at this time from accessioner's. Outstanding labs obtained at this time.
[2020-04-09] MEDS: 0.9% Saline Lock 10 ML Syringe IV (22:10)
[2020-04-09 22:33] LABS: International Normalized Ratio 1.4; Prothrombin Time (Protime)PT. 16.9 SECONDS (11.7-14.9)
[2020-04-09 22:34] LABS: Fibrinogen 375 mg/dl (203-444); Partial Thromboplast Time 38.4 Seconds (24.1-36.2)
[2020-04-09 22:43] LABS: Lactic Acid 1.7 mmol/L (0.4-1.9)
[2020-04-09 22:48] LABS: Glucose 79 mg/dL (74-106)
[2020-04-09] MEDS: Heparin Injection (Vial) 5,000 UNIT/ML VIAL IV (22:48)
[2020-04-09 23:04] LABS: CPK Total, Creatine Kinase 1117 U/L (39-308); LDH 254 U/L (87-241)
[2020-04-09 23:10] LABS: Salicylate < 1.7 mg/dL (2.8-20.0)
[2020-04-09 23:28] LABS: Procalcitonin 1.86 ng/mL (0.00-0.09)
[2020-04-10] VITALS (27 sets, daily range): BP systolic 80–115; BP diastolic 50–88; PULSE 68–118; RESP 14–29; TEMP 35.9–36.8; O2SAT 91–99
--- NOTE | 2020-04-10 00:01 | NURSING ---
spoke with dr marmolejo, he said it is ok to place the patient on the maximum dose of precedex of 1.5mcg at this time.
[2020-04-10] MEDS: 0.9% Saline Lock 10 ML Syringe IV ×3 (01:47→06:58)
[2020-04-10] MEDS: cloNIDine HCl 0.1 MG Patch TRANSDERM. (02:40)
[2020-04-10] MEDS: Haloperidol Lactate 5 MG/ML Vial 2 MG IV (02:40)
[2020-04-10] MEDS: Dextrose 5%/0.9% NaCl 1,000 ML 150 ML IV (05:13)
[2020-04-10 05:15] LABS: Absolute Lymphocyte Count 0.37 X10^3/uL (0.83-4.51); Absolute Neutrophil Count 1.6 X10^3/uL (2.0-7.7); Basophil# 0.02 X10^3/uL; Basophil% 0.9 % (0-1); Eosinophil# 0.02 X10^3/uL; Eosinophils% 0.9 % (0-5); Hematocrit 23.9 % (40-54); Hemoglobin 7.9 g/dL (13.0-16.5); Lymphocyte # 0.37 X10^3/ul (4.0); Lymphocyte % 15.9 % (19-41); Mean Corp Hgb Conc 33.1 g/dL (32-36); Mean Corpuscular Hgb 32.9 pg (27.0-32.0); Mean Corpuscular Volume 99.6 fL (80-94); Mean Platelet Vol. 10.5 fl (6.2-12.0); Monocyte# 0.25 X10^3/uL; Monocyte% 10.7 % (0-10); NRBC Flagged by Analyzer 0 % (0-5); Neutrophil # 1.64 X10^3/uL (2.7-7.7); Neutrophil % 70.3 % (47-70); POSITIVE COUNT YES; POSITIVE DIFFERENTIAL YES; POSITIVE MORPHOLOGY YES; Platelet Count 80 K/mm3 (150-450); RBC Distribution Width CV 19.6 % (11.6-14.6); RBC Distribution Width SD 71.5 fl (35.1-43.9); White Blood Count 2.3 K/mm3 (4.4-11.0)
[2020-04-10 05:26] LABS: Differential Indicated SCAN CRITERIA MET
[2020-04-10 05:33] LABS: Partial Thromboplast Time 130.8 Seconds (24.1-36.2)
[2020-04-10] MEDS: metroNIDAZOLE 500 MG/100 ML BAG 100 MG IV ×2 (05:40→13:57)
[2020-04-10 05:42] LABS: Differential Comment SCANNED; Platelet Estimate MOD DEC (ADEQ)
[2020-04-10 05:56] LABS: AST(SGOT) 144 U/L (15-37); Alanine Aminotransfer ALT/SGPT 52 U/L (16-61); Albumin, Serum 2.5 g/dL (3.2-5.0); Alkaline Phosphatase 60 U/L (45-117); Anion Gap 14 (5-15); BUN 20 mg/dL (7-18); BUN/Creat Ratio 18.3 RATIO (10-20); Calcium,Total 5.8 mg/dL (8.5-10.1); Chloride 101 mmol/L (98-107); Creatinine, Serum 1.09 mg/dL (0.70-1.30); EST Glomerular Filtration Rate 74 mL/min (>60); Est Glom Filt Rate - Afr Amer 90 mL/min (>60); Estimated Creatinine Clearance 75.67 ml/min; Globulin 2.6 g/dL (2.2-4.2); Glucose 92 mg/dL (74-106); Magnesium 0.6 mg/dL (1.6-2.6); Phosphorus 0.9 mg/dL (2.5-4.9); Potassium 2.5 mmol/L (3.5-5.1); Protein, Total 5.1 g/dL (6.4-8.2); Sodium Level 140 mmol/L (136-145)
--- NOTE | 2020-04-10 06:07 | PN_ITS ---
Subjective: The patient was seen and examined at the bedside this morning. Events from the last 24 hours have been reviewed. The patient is currently afebrile, hemodynamically stable and maintaining appropriate oxygen saturations on 2 L/min via nasal cannula. The patient is now pancytopenic this morning. D-dimer remains elevated at 4.3. There are a number of electrolyte abnormalities including hypokalemia, hypophosphatemia and hypomagnesemia. Overnight, the patient began to demonstrate signs/symptoms of acute alcohol withdrawal. He did receive Haldol and was eventually placed on a Precedex infusion. The patient is quite somnolent this morning and unable to answer any questions. The patient is currently documented to be overall net +6.2 L for the hospital admission. Objective: The patient's most recent lab work, culture data and imaging studies have all been personally reviewed. Coronavirus PCR was negative. Respiratory viral panel is pending. Blood and urine cultures are pending. Lower extremity Doppler study was negative. Abdominal ultrasound revealed an enlarged fatty liver without focal hepatic lesions. General: - - The patient is currently sedated on a Precedex drip and nonresponsive to verbal stimulation. HEENT: Atraumatic, Normocephalic Oral: No Gingival or Mucosal Lesions/ Ulcerations Neck: Supple, No Nodes, Trachea Midline Lungs: No rhonchi, No wheeze, No rales, Diminished Cardiovascular: Regular rate, Regular Rhythm, Normal S1, Normal S2 Abdomen: Bowel Sounds Present, Soft, Non Tender Extremities: No clubbing, No cyanosis Skin: No breakdown Musculoskeletal: No Muscle Wasting Lymphatic: No Cervical, Supraclavicular, or Inguinal Adenopathy Neurological: - - No focal neurological deficits. Psych/Mental Status: Flat Affect Vital Signs Temp Pulse Resp BP Pulse Ox 96.9 F L 68 24 H 112/65 94 04/10/20 04:00 04/10/20 06:00 04/10/20 06:00 04/10/20 06:04/10/20 06:00 Oxygen Flow Rate (L/min) 2 Oxygen Delivery Method Nasal Cannula Weight: 195 lb 15.855 oz Body Mass Index (BMI) 27.1 Finger Stick Blood Glucose 78 Intake and Output for Last 24 Hours 04/08/20 04/09/20 04/10/20 23:59 23:59 23:59 Intake Total 5011.77 / 5018.02 1254.18 / 1254.18 Output Total 175 / 175 Balance 4836.77 / 4843.02 1254.18 / 1254.18 Labs (Last 48 Hours) 04/09/20 04/09/20 04/09/20 09:50 09:51 09:51 WBC 6.4 RBC 3.66 L Hgb 11.8 L Hct 37.1 L MCV 101.4 H MCH 32.2 H MCHC 31.8 L RDW Std Deviation 74.4 H RDW Coeff of Jessica 19.9 H Plt Count 181 MPV 11.3 Immature Gran % (Auto) 0.800 Neut % (Auto) 82.9 H Lymph % (Auto) 8.5 L Tucker % (Auto) 6.7 Eos % (Auto) 0.3 Baso % (Auto) 0.8 Absolute Neuts (auto) 5.3 Absolute Lymphs (auto) 0.54 L Nucleated RBC % 0.6 Differential Comment Diff Path Review Platelet Estimate PT 16.1 H INR 1.4 APTT 35.1 Fibrinogen D-Dimer Quant (PE/DVT) Sodium Potassium Chloride Carbon Dioxide Anion Gap BUN Creatinine Estim Creat Clear Calc Est GFR (MDRD) Af Amer Est GFR (MDRD) Non-Af BUN/Creatinine Ratio Glucose Lactic Acid Calcium Phosphorus Magnesium Total Bilirubin Direct Bilirubin AST ALT Alkaline Phosphatase Lactate Dehydrogenase Total Creatine Kinase Troponin I C-React Prot Ext Range B-Natriuretic Peptide Total Protein Albumin Globulin Albumin/Globulin Ratio Procalcitonin Urine Color Urine Clarity Urine pH Ur Specific [place] Urine Protein Urine Glucose (UA) Urine Ketones Urine Occult Blood Urine Nitrite Urine Bilirubin Urine Urobilinogen Ur Leukocyte Esterase Urine RBC Urine WBC Ur Squamous Epith Cells Urine Bacteria Urine Mucus Salicylates COVID-19 (CRISELDA) MRSA (PCR) POC Glucose 58 L 04/09/20 04/09/20 04/09/20 09:51 09:51 09:51 WBC RBC Hgb Hct MCV MCH MCHC RDW Std Deviation RDW Coeff of Jessica Plt Count MPV Immature Gran % (Auto) Neut % (Auto) Lymph % (Auto) Tucker % (Auto) Eos % (Auto) Baso % (Auto) Absolute Neuts (auto) Absolute Lymphs (auto) Nucleated RBC % Differential Comment Diff Path Review Platelet Estimate PT INR APTT Fibrinogen D-Dimer Quant (PE/DVT) 7.38 H* Sodium 135 L Potassium 3.5 Chloride 88 L Carbon Dioxide 17.0 L Anion Gap 30 H BUN 25 H Creatinine 2.14 H Estim Creat Clear Calc 37.29 Est GFR (MDRD) Af Amer 41 L Est GFR (MDRD) Non-Af 34 L BUN/Creatinine Ratio 11.7 Glucose 44 L* Lactic Acid Calcium 7.5 L Phosphorus Magnesium Total Bilirubin 4.50 H Direct Bilirubin 1.71 H AST 168 H ALT 66 H Alkaline Phosphatase 78 Lactate Dehydrogenase Total Creatine Kinase Troponin I < 0.015 C-React Prot Ext Range B-Natriuretic Peptide Total Protein 7.6 Albumin 3.7 Globulin 3.9 Albumin/Globulin Ratio Procalcitonin Urine Color Urine Clarity Urine pH Ur Specific [place] Urine Protein Urine Glucose (UA) Urine Ketones Urine Occult Blood Urine Nitrite Urine Bilirubin Urine Urobilinogen Ur Leukocyte Esterase Urine RBC Urine WBC Ur Squamous Epith Cells Urine Bacteria Urine Mucus Salicylates COVID-19 (CRISELDA) Not Detected MRSA (PCR) POC Glucose 04/09/20 04/09/20 04/09/20 09:51 11:00 11:03 WBC RBC Hgb Hct MCV MCH MCHC RDW Std Deviation RDW Coeff of Jessica Plt Count MPV Immature Gran % (Auto) Neut % (Auto) Lymph % (Auto) Tucker % (Auto) Eos % (Auto) Baso % (Auto) Absolute Neuts (auto) Absolute Lymphs (auto) Nucleated RBC % Differential Comment Diff Path Review Platelet Estimate PT INR APTT Fibrinogen D-Dimer Quant (PE/DVT) Sodium Potassium Chloride Carbon Dioxide Anion Gap BUN Creatinine Estim Creat Clear Calc Est GFR (MDRD) Af Amer Est GFR (MDRD) Non-Af BUN/Creatinine Ratio Glucose Lactic Acid 6.1 H* Calcium Phosphorus Magnesium Total Bilirubin Direct Bilirubin AST ALT Alkaline Phosphatase Lactate Dehydrogenase Total Creatine Kinase Troponin I C-React Prot Ext Range B-Natriuretic Peptide 72.1 Total Protein Albumin Globulin Albumin/Globulin Ratio Procalcitonin Urine Color Urine Clarity Urine pH Ur Specific [place] Urine Protein Urine Glucose (UA) Urine Ketones Urine Occult Blood Urine Nitrite Urine Bilirubin Urine Urobilinogen Ur Leukocyte Esterase Urine RBC Urine WBC Ur Squamous Epith Cells Urine Bacteria Urine Mucus Salicylates COVID-19 (CRISELDA) MRSA (PCR) POC Glucose 119 H 04/09/20 04/09/20 04/09/20 12:03 13:35 14:38 WBC RBC Hgb Hct MCV MCH MCHC RDW Std Deviation RDW Coeff of Jessica Plt Count MPV Immature Gran % (Auto) Neut % (Auto) Lymph % (Auto) Tucker % (Auto) Eos % (Auto) Baso % (Auto) Absolute Neuts (auto) Absolute Lymphs (auto) Nucleated RBC % Differential Comment Diff Path Review Platelet Estimate PT INR APTT Fibrinogen D-Dimer Quant (PE/DVT) Sodium Potassium Chloride Carbon Dioxide Anion Gap BUN Creatinine Estim Creat Clear Calc Est GFR (MDRD) Af Amer Est GFR (MDRD) Non-Af BUN/Creatinine Ratio Glucose Lactic Acid Calcium Phosphorus Magnesium Total Bilirubin Direct Bilirubin AST ALT Alkaline Phosphatase Lactate Dehydrogenase Total Creatine Kinase Troponin I C-React Prot Ext Range B-Natriuretic Peptide Total Protein Albumin Globulin Albumin/Globulin Ratio Procalcitonin Urine Color Urine Clarity Urine pH Ur Specific [place] Urine Protein Urine Glucose (UA) Urine Ketones Urine Occult Blood Urine Nitrite Urine Bilirubin Urine Urobilinogen Ur Leukocyte Esterase Urine RBC Urine WBC Ur Squamous Epith Cells Urine Bacteria Urine Mucus Salicylates COVID-19 (CRISELDA) MRSA (PCR) POC Glucose 83 78 48 L 04/09/20 04/09/20 04/09/20 14:40 15:09 16:13 WBC RBC Hgb Hct MCV MCH MCHC RDW Std Deviation RDW Coeff of Jessica Plt Count MPV Immature Gran % (Auto) Neut % (Auto) Lymph % (Auto) Tucker % (Auto) Eos % (Auto) Baso % (Auto) Absolute Neuts (auto) Absolute Lymphs (auto) Nucleated RBC % Differential Comment Diff Path Review Platelet Estimate PT INR APTT Fibrinogen D-Dimer Quant (PE/DVT) Sodium Potassium Chloride Carbon Dioxide Anion Gap BUN Creatinine Estim Creat Clear Calc Est GFR (MDRD) Af Amer Est GFR (MDRD) Non-Af BUN/Creatinine Ratio Glucose Lactic Acid Calcium Phosphorus Magnesium Total Bilirubin Direct Bilirubin AST ALT Alkaline Phosphatase Lactate Dehydrogenase Total Creatine Kinase Troponin I C-React Prot Ext Range B-Natriuretic Peptide Total Protein Albumin Globulin Albumin/Globulin Ratio Procalcitonin Urine Color Urine Clarity Urine pH Ur Specific [place] Urine Protein Urine Glucose (UA) Urine Ketones Urine Occult Blood Urine Nitrite Urine Bilirubin Urine Urobilinogen Ur Leukocyte Esterase Urine RBC Urine WBC Ur Squamous Epith Cells Urine Bacteria Urine Mucus Salicylates COVID-19 (CRISELDA) MRSA (PCR) Negative POC Glucose 86 77 06/04/09/20 04/09/20 17:57 18:00 22:05 WBC RBC Hgb Hct MCV MCH MCHC RDW Std Deviation RDW Coeff of Jessica Plt Count MPV Immature Gran % (Auto) Neut % (Auto) Lymph % (Auto) Tucker % (Auto) Eos % (Auto) Baso % (Auto) Absolute Neuts (auto) Absolute Lymphs (auto) Nucleated RBC % Differential Comment Diff Path Review Platelet Estimate PT INR APTT Fibrinogen D-Dimer Quant (PE/DVT) Sodium Potassium Chloride Carbon Dioxide Anion Gap BUN Creatinine Estim Creat Clear Calc Est GFR (MDRD) Af Amer Est GFR (MDRD) Non-Af BUN/Creatinine Ratio Glucose Lactic Acid Calcium Phosphorus Magnesium Total Bilirubin Direct Bilirubin AST ALT Alkaline Phosphatase Lactate Dehydrogenase Total Creatine Kinase Troponin I C-React Prot Ext Range B-Natriuretic Peptide Total Protein Albumin Globulin Albumin/Globulin Ratio Procalcitonin Urine Color Yellow Urine Clarity Sl. Cloudy Urine pH 6.0 Ur Specific [place] 1.015 Urine Protein 100 H Urine Glucose (UA) Normal Urine Ketones 150 H Urine Occult Blood 250 H Urine Nitrite Positive H Urine Bilirubin 3 H Urine Urobilinogen 8 H Ur Leukocyte Esterase 25 H Urine RBC 0-5 SEEN Urine WBC 0-5 SEEN Ur Squamous Epith Cells 0 SEEN Urine Bacteria RARE Urine Mucus 0 SEEN Salicylates < 1.7 L COVID-19 (CRISELDA) MRSA (PCR) POC Glucose 86 04/09/20 04/09/20 04/09/20 22:05 22:05 22:05 WBC RBC Hgb Hct MCV MCH MCHC RDW Std Deviation RDW Coeff of Jessica Plt Count MPV Immature Gran % (Auto) Neut % (Auto) Lymph % (Auto) Tucker % (Auto) Eos % (Auto) Baso % (Auto) Absolute Neuts (auto) Absolute Lymphs (auto) Nucleated RBC % Differential Comment Diff Path Review Platelet Estimate PT 16.9 H INR 1.4 APTT 38.4 H Fibrinogen 375 D-Dimer Quant (PE/DVT) Sodium Potassium Chloride Carbon Dioxide Anion Gap BUN Creatinine Estim Creat Clear Calc Est GFR (MDRD) Af Amer Est GFR (MDRD) Non-Af BUN/Creatinine Ratio Glucose Lactic Acid Calcium Phosphorus Magnesium Total Bilirubin Direct Bilirubin AST ALT Alkaline Phosphatase Lactate Dehydrogenase 254 H Total Creatine Kinase 1117 H Troponin I 0.028 C-React Prot Ext Range 91.00 H B-Natriuretic Peptide Total Protein Albumin Globulin Albumin/Globulin Ratio Procalcitonin 1.86 H Urine Color Urine Clarity Urine pH Ur Specific [place] Urine Protein Urine Glucose (UA) Urine Ketones Urine Occult Blood Urine Nitrite Urine Bilirubin Urine Urobilinogen Ur Leukocyte Esterase Urine RBC Urine WBC Ur Squamous Epith Cells Urine Bacteria Urine Mucus Salicylates COVID-19 (CRISELDA) MRSA (PCR) POC Glucose 04/09/20 04/09/20 04/10/20 22:05 22:05 01:35 WBC RBC Hgb Hct MCV MCH MCHC RDW Std Deviation RDW Coeff of Jessica Plt Count MPV Immature Gran % (Auto) Neut % (Auto) Lymph % (Auto) Tucker % (Auto) Eos % (Auto) Baso % (Auto) Absolute Neuts (auto) Absolute Lymphs (auto) Nucleated RBC % Differential Comment Diff Path Review Platelet Estimate PT INR APTT Fibrinogen D-Dimer Quant (PE/DVT) Sodium Potassium Chloride Carbon Dioxide Anion Gap BUN Creatinine Estim Creat Clear Calc Est GFR (MDRD) Af Amer Est GFR (MDRD) Non-Af BUN/Creatinine Ratio Glucose 79 Lactic Acid 1.7 Calcium Phosphorus Magnesium Total Bilirubin Direct Bilirubin AST ALT Alkaline Phosphatase Lactate Dehydrogenase Total Creatine Kinase Troponin I 0.025 C-React Prot Ext Range B-Natriuretic Peptide Total Protein Albumin Globulin Albumin/Globulin Ratio Procalcitonin Urine Color Urine Clarity Urine pH Ur Specific [place] Urine Protein Urine Glucose (UA) Urine Ketones Urine Occult Blood Urine Nitrite Urine Bilirubin Urine Urobilinogen Ur Leukocyte Esterase Urine RBC Urine WBC Ur Squamous Epith Cells Urine Bacteria Urine Mucus Salicylates COVID-19 (CRISELDA) MRSA (PCR) POC Glucose 04/10/20 04/10/20 04/10/20 04:15 04:15 04:15 WBC 2.3 L RBC 2.40 L Hgb 7.9 L Hct 23.9 L MCV 99.6 H MCH 32.9 H MCHC 33.1 RDW Std Deviation 71.5 H RDW Coeff of Jessica 19.6 H Plt Count 80 L MPV 10.5 Immature Gran % (Auto) 1.300 H Neut % (Auto) 70.3 H Lymph % (Auto) 15.9 L Tucker % (Auto) 10.7 H Eos % (Auto) 0.9 Baso % (Auto) 0.9 Absolute Neuts (auto) 1.6 L Absolute Lymphs (auto) 0.37 L Nucleated RBC % 0 Differential Comment SCANNED Diff Path Review May foll Platelet Estimate MOD DEC PT INR APTT Fibrinogen D-Dimer Quant (PE/DVT) 4.30 H* Sodium 140 Potassium 2.5 L* Chloride 101 Carbon Dioxide 25.0 Anion Gap 14 BUN 20 H Creatinine 1.09 Estim Creat Clear Calc 75.67 Est GFR (MDRD) Af Amer 90 Est GFR (MDRD) Non-Af 74 BUN/Creatinine Ratio 18.3 Glucose 92 Lactic Acid Calcium 5.8 L* Phosphorus 0.9 L* Magnesium 0.6 L* Total Bilirubin 1.70 H Direct Bilirubin AST 144 H ALT 52 Alkaline Phosphatase 60 Lactate Dehydrogenase Total Creatine Kinase Troponin I C-React Prot Ext Range B-Natriuretic Peptide Total Protein 5.1 L Albumin 2.5 L Globulin 2.6 Albumin/Globulin Ratio 1.0 Procalcitonin Urine Color Urine Clarity Urine pH Ur Specific [place] Urine Protein Urine Glucose (UA) Urine Ketones Urine Occult Blood Urine Nitrite Urine Bilirubin Urine Urobilinogen Ur Leukocyte Esterase Urine RBC Urine WBC Ur Squamous Epith Cells Urine Bacteria Urine Mucus Salicylates COVID-19 (CRISELDA) MRSA (PCR) POC Glucose 04/10/20 04/10/20 04:15 04:15 WBC RBC Hgb Hct MCV MCH MCHC RDW Std Deviation RDW Coeff of Jessica Plt Count MPV Immature Gran % (Auto) Neut % (Auto) Lymph % (Auto) Tucker % (Auto) Eos % (Auto) Baso % (Auto) Absolute Neuts (auto) Absolute Lymphs (auto) Nucleated RBC % Differential Comment Diff Path Review Platelet Estimate PT INR APTT 130.8 H* Fibrinogen D-Dimer Quant (PE/DVT) Sodium Potassium Chloride Carbon Dioxide Anion Gap BUN Creatinine Estim Creat Clear Calc Est GFR (MDRD) Af Amer Est GFR (MDRD) Non-Af BUN/Creatinine Ratio Glucose Lactic Acid Calcium Phosphorus Magnesium Total Bilirubin Direct Bilirubin AST ALT Alkaline Phosphatase Lactate Dehydrogenase Total Creatine Kinase Troponin I 0.021 C-React Prot Ext Range B-Natriuretic Peptide Total Protein Albumin Globulin Albumin/Globulin Ratio Procalcitonin Urine Color Urine Clarity Urine pH Ur Specific [place] Urine Protein Urine Glucose (UA) Urine Ketones Urine Occult Blood Urine Nitrite Urine Bilirubin Urine Urobilinogen Ur Leukocyte Esterase Urine RBC Urine WBC Ur Squamous Epith Cells Urine Bacteria Urine Mucus Salicylates COVID-19 (CRISELDA) MRSA (PCR) POC Glucose Microbiology 04/09/20 15:15 Mucosa - Nasopharyngeal Respiratory Panel (PCR) - Preliminary Clinical Impression(s) from Imaging Studies Brain CT 04/09/20 09:53 IMPRESSION: Chronic involutional changes of the brain. Electronically Signed: Jake Sotodebra, at 12:16 EDT , Service support , Chest X-Ray 04/09/20 11:45 IMPRESSION: Mild degree of increased markings at the left lung base suggestive of atelectasis and/or early infiltrate. Electronically Signed: Jake Alex, at 12:19 EDT , Service support , Abdomen Ultrasound 04/09/20 17:28 IMPRESSION: Enlarged, fatty liver. No focal hepatic lesions. Mild splenomegaly. Electronically Signed: Saurabh Licona, at 19:09 EDT Tel , Service support , Medical Necessity - Tobacco Use Smoking Status: Current every day smoker Tobacco Use: Cigarettes Assessment/Plan All Active Problems Septic shock (Acute) Pneumonia (Acute) MAICOL (acute kidney injury) (Acute) Elevated d-dimer (Acute) Hypokalemia (Acute) RECOMMENDATIONS: 1. Wean Precedex. Start thiamine, folate and multivitamin. 2. Discontinue order for VQ scan. Obtain CTA chest. 3. Continue antimicrobial therapy per infectious diseases recommendations. 4. Aggressive electrolyte repletion. 5. Send type and screen. Monitor blood counts closely and transfuse if hemoglobin drops below 7 g/dL. 6. Stop continuous supplemental IV fluids. IMPRESSIONS: 1. Septic shock Although the patient met septic shock criteria upon admission, he has never been hemodynamically unstable. The patient has symptoms concerning for COVID, despite negative PCR testing. Therefore, he will remain in precautions accordingly. Inflammatory markers are elevated, including elevated d-dimer. The patient will be continued on a heparin infusion for the aforementioned. Follow-up CTA chest did not demonstrate evidence for pulmonary embolism. However, there was evidence of left basilar airspace disease. Antibiotics will be continued based upon ID recommendations. 2. Acute kidney injury Resolved. Likely prerenal in etiology with subsequent ATN related to #1. Creatinine has improved with volume resuscitation. Continue to monitor urine output. No current indication for renal replacement therapy. 3. Acute alcohol withdrawal Aggressively wean Precedex for symptom management of alcohol withdrawal. Goal to maintain a RASS of -1 to 1. Start thiamine, folate and multivitamin. 4. Pancytopenia Likely multifactorial with a component of dilution and myelosuppression from infection. Will send type and screen today. Monitor platelet count, especially in light of the patient's need for systemic anticoagulation. 5. Hypokalemia/hypomagnesemia/hypophosphatemia Given the patient's history of alcohol dependency, he is high risk for refeeding syndrome. Aggressively replete electrolytes as ordered. Recheck levels in the morning. 6. Abnormal liver function studies Likely secondary to fatty infiltration of the liver, noted on abdominal ultrasound. 7. Chronic alcohol dependency/hypertension/GERD/history of migraine headaches Complicates care, management, recovery and prognosis. Continue management of alcohol withdrawal symptoms as noted above. This note was generated with [employer] dictation software. It may contain incorrect words, spelling, and punctuation that were not noted in checking the note before signing. Inpatient E&M: 45685 Subs Hosp L3
[2020-04-10 06:35] LABS: Bedside Glucose 111 mg/dL (70-110)
[2020-04-10 06:44] LABS: Hematocrit 24.2 % (40-54); Hemoglobin 7.9 g/dL (13.0-16.5); Mean Corp Hgb Conc 32.6 g/dL (32-36); Mean Corpuscular Hgb 32.8 pg (27.0-32.0); Mean Corpuscular Volume 100.4 fL (80-94); POSITIVE COUNT YES; POSITIVE DIFFERENTIAL YES; POSITIVE MORPHOLOGY YES; Platelet Count 79 K/mm3 (150-450); RBC Distribution Width CV 19.8 % (11.6-14.6); RBC Distribution Width SD 72.8 fl (35.1-43.9); Red Blood Count 2.41 M/mm3 (4.6-6.2); White Blood Count 2.2 K/mm3 (4.4-11.0)
[2020-04-10 06:47] LABS: Differential Indicated MANUAL DIFF
[2020-04-10 07:04] LABS: ALB/GLOB Ratio 0.9 RATIO (0.9-2.4); AST(SGOT) 134 U/L (15-37); Alanine Aminotransfer ALT/SGPT 50 U/L (16-61); Albumin, Serum 2.4 g/dL (3.2-5.0); Alkaline Phosphatase 61 U/L (45-117); Anion Gap 12 (5-15); BUN 19 mg/dL (7-18); BUN/Creat Ratio 18.4 RATIO (10-20); Chloride 105 mmol/L (98-107); Creatinine, Serum 1.03 mg/dL (0.70-1.30); EST Glomerular Filtration Rate 79 mL/min (>60); Est Glom Filt Rate - Afr Amer 96 mL/min (>60); Estimated Creatinine Clearance 80.08 ml/min; Globulin 2.7 g/dL (2.2-4.2); Glucose 101 mg/dL (74-106); Magnesium 0.7 mg/dL (1.6-2.6); Potassium 2.5 mmol/L (3.5-5.1); Protein, Total 5.1 g/dL (6.4-8.2); Sodium Level 143 mmol/L (136-145)
--- NOTE | 2020-04-10 07:09 | CT_ITS ---
STUDY: CTA CHEST REASON FOR EXAM: Male, 54 years old. LLL PNEUMONIA, ELEV D DIMER, SEPTIC SHOCK, GERD, ABN ELECTROLYTES, PANCREATIC CYST REMOVED RADIATION DOSAGE (If Supplied By Facility): CTDIvol = ( 9.04 ) mGy, DLP = ( 421.24 ) mGycm TECHNIQUE: The examination was performed with the intravenous administration of IV 100mL Isovue-370. Post-processing of the angiographic images was performed, with multiplanar reformation and 3D reconstruction. Individualized dose optimization techniques were used for this CT. COMPARISON: Comparison is made with prior chest radiograph dated April 09, 2020. FINDINGS: Normal enhancement of the main pulmonary artery and right and left pulmonary arteries. Normal enhancement of the bilateral peripheral pulmonary arteries. There is no demonstrated pulmonary embolism. Normal thoracic aorta and visualized great vessels. There is no demonstrated aortic dissection. There are calcifications of the coronary arteries. Normal mediastinum. Normal hilar regions. Normal visualized trachea and bronchi. The lungs are well expanded. Left lower lobe consolidation. Focal infiltrate in the lateral aspect of the lingular segment of the left upper lobe. Minimal increased markings at the right lung base. Normal pleura. Normal chest wall structures. There are mild degenerative changes of thoracic spine. Diffuse fatty infiltration of the liver. CT/CTA Chest W/WO Contrast IMPRESSION: Left lower lobe consolidation with patchy infiltrate in the lateral aspect of the lingular segment of the left upper lobe. Minimal increased markings at the right lung base. No evidence of a pulmonary embolism. Diffuse fatty infiltration of the liver. Electronically Signed: Jake Johnson, at 10:22 EDT , Service support ,
[2020-04-10 07:12] LABS: Partial Thromboplast Time 57.9 Seconds (24.1-36.2)
[2020-04-10 07:23] LABS: Lymphocyte 30 % (19-41); Metamyelocyte 4 % (0-1); Neutrophil-Band 7 % (0-5); Neutrophil-Segmented 57 % (47-70); Total Cells Counted 100 (MANUAL DIFF)
[2020-04-10 07:24] LABS: Absolute Lymphocyte Count 0.67 X10^3/uL (0.83-4.51); Absolute Neutrophil Count 1.4 X10^3/uL (2.0-7.7); Lymphocyte # 0.67 X10^3/ul (4.0); Monocyte 6 % (0-10); Neutrophil # 1.42 X10^3/uL (2.7-7.7)
[2020-04-10 07:25] LABS: Hypochromasia RARE; Microcytosis RARE; Monocyte# 0.13 X10^3/uL; Ovalocyte RARE
[2020-04-10 07:26] LABS: D-Dimer Quantitative (DVT/PE) 3.39 FEU/ug/m (0.27-0.49)
[2020-04-10] MEDS: Magnesium Sulfate 4gm/100mL 4 GM/100 ML IV.SOLN. IV (08:59)
[2020-04-10 12:20] LABS: Bedside Glucose 76 mg/dL (70-110)
--- NOTE | 2020-04-10 13:35 | CASEMGMT ---
RN CM ASSESSMENT Pt is confused. Call placed to pt's , Lucy, at this time to complete RN CM assessment. Per , they have been for 7 years but they are still legally and she is still very involved with pt and his care. The following information was received from Lucy. PCP: Dr Hardy Specialists: states pt has many specialists a whole team @ [facility], but she is not sure what specialists or names. She states pt sees them often. Preferred Pharmacy: [facility] Insurance: MMO Prescription Benefit: Yes Living Will/HPOA: is not sure if pt has completed these. LNOK: . 5 children Living Arrangements: Lives alone in mobile home w/3-4 steps to enter. states pt is independent @ home. She states he is self-employed/works full-time. Transportation: Pt drives. states she can take pt home @ discharge. DME: does not think pt uses any DME and is not aware of any needs. HHC/SNF: does not think pt has been to a SNF or had HHC. PLAN: TBD. CM to follow. PT/OT evals pendings. Nasir WOODS RN CM
[2020-04-10] MEDS: 0.9% Normal Saline 1,000 ML 125 ML IV (13:56)
--- NOTE | 2020-04-10 15:05 | PN_ITS ---
Patient Problems: Active and Suspected Problems Septic shock (Acute) Pneumonia (Acute) MAICOL (acute kidney injury) (Acute) Elevated d-dimer (Acute) Subjective: Patient was seen and examined today in ICU, he is alert and appropriate, he wants to know when his soft restraints can be removed, I told him his nurse would reevaluate him. Patient has had no urine output this morning, he does not have any IV fluids running and I have started him back on some IV fluids at this time. Patient CTA of his chest did not show evidence of pulmonary emboli, there is noted to be a left lower lobe consolidation with patchy infiltrates in the lateral aspect of the lingular segment of the left upper lobe. Fatty infiltration of the liver was noted to be present. Patient has no complaints of any shortness of breath, chills, or fever. - Physical Exam Vitals/I&O's: Vital Signs Temp Pulse Resp BP Pulse Ox 96.7 F L 69 16 80/56 L 94 04/10/20 12:00 04/10/20 13:00 04/10/20 13:00 04/10/20 13:00 04/10/20 13:00 Oxygen Flow Rate (L/min) 2 Oxygen Delivery Method Nasal Cannula Weight: 88.9 kg Body Mass Index (BMI) 27.1 Finger Stick Blood Glucose 78 Intake and Output for Last 24 Hours 04/08/20 04/09/20 04/10/20 23:59 23:59 23:59 Intake Total 5011.77 / 5018.02 2281.91 / 2281.91 Output Total 175 / 175 0 / 0 Balance 4836.77 / 4843.02 2281.91 / 2281.91 General: Alert, Oriented x3, Cooperative HEENT: Atraumatic, PERRLA, EOMI, Normocephalic Oral: Moist Mucosa Neck: Supple, No JVD, Negative Carotid Bruits Lungs: Clear to auscultation, Normal air movement, No rhonchi, No wheeze, No rales Cardiovascular: Regular rate, Regular Rhythm, Normal S1, Normal S2, No murmurs, PMI Normal, No rub noted, No Gallop Abdomen: Bowel Sounds Present, Soft, Non Tender, Non-Distended, No hernias noted Extremities: No clubbing, No cyanosis, No edema, Capillary Refill Less than 3 Seconds Skin: No rashes, No breakdown Musculoskeletal: No Tenderness to Palpation of Joints or Extremities Neurological: Cranial nerves II-XII grossly intact, Neuro grossly intact, Sensory exam intact to light touch and pain, Coordination normal Psych/Mental Status: Normal Affect, Appropriate, Alert and oriented to time, place, person, mood and affect Microbiology Past 72 Hours 04/09/20 15:15 Mucosa - Nasopharyngeal Respiratory Panel (PCR) - Final Laboratory Results 04/09/20 14:38: POC Glucose 48 L 04/09/20 14:40: MRSA (PCR) Negative 04/09/20 15:09: POC Glucose 86 04/09/20 16:13: POC Glucose 77 04/09/20 17:57: POC Glucose 86 04/09/20 18:00: Urine Color Yellow, Urine Clarity Sl. Cloudy, Urine pH 6.0, Ur Specific [place] 1.015, Urine Protein 100 H, Urine Glucose (UA) Normal, Urine Ketones 150 H, Urine Occult Blood 250 H, Urine Nitrite Positive H, Urine Bilirubin 3 H, Urine Urobilinogen 8 H, Ur Leukocyte Esterase 25 H, Urine RBC 0-5 SEEN, Urine WBC 0-5 SEEN, Ur Squamous Epith Cells 0 SEEN, Urine Bacteria RARE, Urine Mucus 0 SEEN 04/09/20 22:05: Salicylates < 1.7 L 04/09/20 22:05: PT 16.9 H, INR 1.4, APTT 38.4 H, Fibrinogen 375 04/09/20 22:05: Lactate Dehydrogenase 254 H, Total Creatine Kinase 1117 H, Troponin I 0.028, C-React Prot Ext Range 91.00 H 04/09/20 22:05: Procalcitonin 1.86 H 04/09/20 22:05: Lactic Acid 1.7 04/09/20 22:05: Glucose 79 04/10/20 01:35: Troponin I 0.025 04/10/20 04:15: D-Dimer Quant (PE/DVT) 4.30 H* 04/10/20 04:15: WBC 2.3 L, RBC 2.40 L, Hgb 7.9 L, Hct 23.9 L, MCV 99.6 H, MCH 32.9 H, MCHC 33.1, RDW Std Deviation 71.5 H, RDW Coeff of Jessica 19.6 H, Plt Count 80 L, MPV 10.5, Immature Gran % (Auto) 1.300 H, Neut % (Auto) 70.3 H, Lymph % (Auto) 15.9 L, [place] % (Auto) 10.7 H, Eos % (Auto) 0.9, Baso % (Auto) 0.9, Absolute Neuts (auto) 1.6 L, Absolute Lymphs (auto) 0.37 L, Nucleated RBC % 0, Differential Comment SCANNED, Diff Path Review February, Platelet Estimate MOD 04/10/20 04:15: Sodium 140, Potassium 2.5 L*, Chloride 101, Carbon Dioxide 25.0, Anion Gap 14, BUN 20 H, Creatinine 1.09, Estim Creat Clear Calc 75.67, Est GFR (MDRD) Af Amer 90, Est GFR (MDRD) Non-Af 74, BUN/Creatinine Ratio 18.3, Glucose 92, Calcium 5.8 L*, Phosphorus 0.9 L*, Magnesium 0.6 L*, Total Bilirubin 1.70 H, AST 144 H, ALT 52, Alkaline Phosphatase 60, Total Protein 5.1 L, Albumin 2.5 L, Globulin 2.6, Albumin/Globulin Ratio 1.0 04/10/20 04:15: APTT 130.8 H* 04/10/20 04:15: Troponin I 0.021 04/10/20 05:55: POC Glucose 111 H 04/10/20 06:17: Sodium 143, Potassium 2.5 L*, Chloride 105, Carbon Dioxide 26.0, Anion Gap 12, BUN 19 H, Creatinine 1.03, Estim Creat Clear Calc 80.08, Est GFR (MDRD) Af Amer 96, Est GFR (MDRD) Non-Af 79, BUN/Creatinine Ratio 18.4, Glucose 101, Calcium 6.0 L*, Phosphorus 1.0 L*, Magnesium 0.7 L*, Total Bilirubin 1.60 H , AST 134 H, ALT 50, Alkaline Phosphatase 61, Troponin I < 0.015, Total Protein 5.1 L, Albumin 2.4 L, Globulin 2.7, Albumin/Globulin Ratio 0.9 04/10/20 06:17: APTT Cancelled, D-Dimer Quant (PE/DVT) Cancelled 04/10/20 06:17: WBC 2.2 L, RBC 2.41 L, Hgb 7.9 L, Hct 24.2 L, MCV 100.4 H, MCH 32.8 H, MCHC 32.6, RDW Std Deviation 72.8 H, RDW Coeff of Jessica 19.8 H, Plt Count 79 L, MPV 11.0, Neut % (Auto) Not Reportable, Absolute Neuts (auto) 1.4 L, Absolute Lymphs (auto) 0.67 L, Total Counted 100, Neutrophils % (Manual) 57, Band Neutrophils % 7 H, Lymphocytes % (Manual) 30, Monocytes % (Manual) 6, Metamyelocytes % 4 H, Diff Path Review May foll, Hypochromasia RARE, Microcytosis RARE, Ovalocytes RARE 04/10/20 06:55: APTT 57.9 H, D-Dimer Quant (PE/DVT) 3.39 H* 04/10/20 08:50: Blood Type A POSITIVE, Antibody Screen NEGATIVE 04/10/20 12:12: POC Glucose 76 Current Medications Acetaminophen (Tylenol) 650 mg PO Q6H PRN PRN PRN Reason: Pain Score 1-10/Temp > 100.7 F Al Hydroxide/Mg Hydroxide (Mylanta Ii) 30 ml PO Q6H PRN PRN PRN Reason: Gastric Burning Albuterol Sulfate (Ventolin Aerosols) 2.5 mg INHALATION Q2H PRN PRN PRN Reason: SOB/Wheezing Amitriptyline HCl (Elavil) 25 mg PO QHS [facility] Last Admin: 04/09/20 21:17 Dose: Not Given Documented by: Clonidine HCl (Catapres-Tts1) 0.1 mg TRANSDERM. QWEEK [facility] Last Admin: 04/10/20 02:40 Dose: 0.1 mg Documented by: Dextrose (D50w Syringe) 0 gm IV X1 PRN; Protocol PRN Reason: Hypoglycemia Last Admin: 04/09/20 14:45 Dose: 25 gm Documented by: Enoxaparin Sodium (Lovenox) 90 mg SC Q12@0600,1800 [facility] Ferrous Sulfate (Ferrous Sulfate) 325 mg PO BIDCM [facility] Last Admin: 04/10/20 08:34 Dose: Not Given Documented by: Folic Acid (Folic Acid) 1 mg PO DAILY@0800 [facility] Stop: 04/12/20 08:01 Last Admin: 04/10/20 08:34 Dose: Not Given Documented by: Glucagon () 1 mg IM .X1 PRN PRN Reason: Hypoglycemia Guaifenesin (Robitussin) 10 ml PO Q4H PRN PRN PRN Reason: COUGH Heparin Sodium (Porcine) (Heparin Na) 0 unit IV UD PRN; Protocol Last Admin: 04/09/20 22:48 Dose: 3,000 unit Documented by: Ceftriaxone Sodium 2 gm/ (Sodium Chloride) 50 mls @ 100 mls/hr IV Q24 [facility] Stop: 04/16/20 10:29 Last Infusion: 04/10/20 11:13 Dose: Infused Documented by: Sodium Chloride () 250 mls @ 15 mls/hr IV .[id number] PRN PRN Reason: Saline Flush Sodium Chloride () 250 mls @ 15 mls/hr IV .[id number] PRN PRN Reason: Additional IVPB Infusion Dexmedetomidine HCl 400 mcg/ (Sodium Chloride) 100 mls @ 10.413 mls/hr CONT INF .Q9H37M [facility]; Protocol Last Titration: 04/10/20 13:45 Dose: 0.4 mcg/kg/hr, 8.3 mls/hr Documented by: Metronidazole (Flagyl) 500 mg in 100 mls @ 100 mls/hr IV Q8 [facility] Last Infusion: 04/10/20 15:00 Dose: Infused Documented by: Potassium Phosphate 40 mm/ (Sodium Chloride) 513.3333 mls @ 62.5 mls/hr IV X1 [facility] Stop: 04/10/20 17:12 Last Admin: 04/10/20 12:04 Dose: 62.5 mls/hr Documented by: Sodium Chloride () 1,000 mls @ 125 mls/hr IV .Q8H [facility] Last Admin: 04/10/20 13:56 Dose: 125 mls/hr Documented by: Multivitamins/Minerals (Multivitamin With Minerals (Bkc)) [facility] Last Admin: 04/10/20 08:34 Dose: Not Given Documented by: Ondansetron HCl (Zofran) 4 mg IV Q8H PRN PRN PRN Reason: NAUSEA/VOMITING Pantoprazole Sodium (Protonix) 40 mg PO BID [facility] Last Admin: 04/10/20 09:21 Dose: Not Given Documented by: Senna/Docusate Sodium (Senokot-S, Kia-Colace) 2 tablet PO BID PRN PRN Reason: Constipation Sodium Chloride () 10 - 40 ml IV UD PRN PRN Reason: SALINE FLUSH Last Admin: 04/10/20 06:58 Dose: 20 ml Documented by: Thiamine HCl (Vitamin B1) 100 mg PO BIDCM [facility] Stop: 04/12/20 17:01 Last Admin: 04/10/20 08:35 Dose: Not Given Documented by: Medical Necessity - Tobacco Use Smoking Status: Current every day smoker Tobacco Use: Cigarettes Assessment/Plan All Active Problems Septic shock (Acute) Pneumonia (Acute) MAICOL (acute kidney injury) (Acute) Elevated d-dimer (Acute) Hypokalemia (Acute) #1 septic shock-etiology unclear, possibly secondary to community-acquired pneumonia-continue antibiotic coverage per infectious diseases #2 acute kidney injury-resolved at this time, due to lack of urinary output today I have decided to place patient on IV fluids. #3 acute alcohol withdrawal-patient appears calm at this time, Precedex will be weaned #4 pancytopenia-probably secondary to myelosuppression from infection, labs will be monitored #5 increased liver function tests-possibly secondary to alcoholic hepatitis- monitor liver enzymes #6 elevated [id number] unclear at this point, patient will remain on full anticoagulation due to concerns of COVID infection, ID has not ruled out the possibility patient might have COVID. #7 community-acquired pneumonia-organism unknown, infectious diseases is directing antibiotic coverage Inpatient E&M: [id number] Subs Hosp L2
--- NOTE | 2020-04-10 17:12 | PCM.PN.ID ---
Patient Problems: Active and Suspected Problems Septic shock (Acute) Pneumonia (Acute) MAICOL (acute kidney injury) (Acute) Elevated d-dimer (Acute) Subjective: Had a rough night, no fever, overall feeling better. - Physical Exam Vitals/I&O's: Vital Signs Temp Pulse Resp BP Pulse Ox 96.7 F L 87 15 91/50 L 94 04/10/20 12:00 04/10/20 15:30 04/10/20 15:00 04/10/20 15:00 04/10/20 15:00 Oxygen Flow Rate (L/min) 2 Oxygen Delivery Method Nasal Cannula Weight: 88.9 kg Body Mass Index (BMI) 27.1 Finger Stick Blood Glucose 78 Intake and Output for Last 24 Hours 04/08/20 04/09/20 04/10/20 23:59 23:59 23:59 Intake Total 5011.77 / 5018.02 2653.22 / 2653.22 Output Total 175 / 175 0 / 0 Balance 4836.77 / 4843.02 2653.22 / 2653.22 General: Alert, Cooperative, No apparent distress Lungs: Rhonchi Cardiovascular: Regular rate, Regular Rhythm Abdomen: Soft, Non Tender, Non-Distended Skin: No rashes Microbiology Past 72 Hours 04/09/20 15:15 Mucosa - Nasopharyngeal Respiratory Panel (PCR) - Final Laboratory Results 04/09/20 16:13: POC Glucose 77 04/09/20 17:57: POC Glucose 86 04/09/20 18:00: Urine Color Yellow, Urine Clarity Sl. Cloudy, Urine pH 6.0, Ur Specific [place] 1.015, Urine Protein 100 H, Urine Glucose (UA) Normal, Urine Ketones 150 H, Urine Occult Blood 250 H, Urine Nitrite Positive H, Urine Bilirubin 3 H, Urine Urobilinogen 8 H, Ur Leukocyte Esterase 25 H, Urine RBC 0-5 SEEN, Urine WBC 0-5 SEEN, Ur Squamous Epith Cells 0 SEEN, Urine Bacteria RARE, Urine Mucus 0 SEEN 04/09/20 22:05: Salicylates < 1.7 L 04/09/20 22:05: PT 16.9 H, INR 1.4, APTT 38.4 H, Fibrinogen 375 04/09/20 22:05: Lactate Dehydrogenase 254 H, Total Creatine Kinase 1117 H, Troponin I 0.028, C-React Prot Ext Range 91.00 H 04/09/20 22:05: Procalcitonin 1.86 H 04/09/20 22:05: Lactic Acid 1.7 04/09/20 22:05: Glucose 79 04/10/20 01:35: Troponin I 0.025 04/10/20 04:15: D-Dimer Quant (PE/DVT) 4.30 H* 04/10/20 04:15: WBC 2.3 L, RBC 2.40 L, Hgb 7.9 L, Hct 23.9 L, MCV 99.6 H, MCH 32.9 H, MCHC 33.1, RDW Std Deviation 71.5 H, RDW Coeff of Jessica 19.6 H, Plt Count 80 L, MPV 10.5, Immature Gran % (Auto) 1.300 H, Neut % (Auto) 70.3 H, Lymph % (Auto) 15.9 L, [place] % (Auto) 10.7 H, Eos % (Auto) 0.9, Baso % (Auto) 0.9, Absolute Neuts (auto) 1.6 L, Absolute Lymphs (auto) 0.37 L, Nucleated RBC % 0, Differential Comment SCANNED, Diff Path Review February, Platelet Estimate MOD 04/10/20 04:15: Sodium 140, Potassium 2.5 L*, Chloride 101, Carbon Dioxide 25.0, Anion Gap 14, BUN 20 H, Creatinine 1.09, Estim Creat Clear Calc 75.67, Est GFR (MDRD) Af Amer 90, Est GFR (MDRD) Non-Af 74, BUN/Creatinine Ratio 18.3, Glucose 92, Calcium 5.8 L*, Phosphorus 0.9 L*, Magnesium 0.6 L*, Total Bilirubin 1.70 H, AST 144 H, ALT 52, Alkaline Phosphatase 60, Total Protein 5.1 L, Albumin 2.5 L, Globulin 2.6, Albumin/Globulin Ratio 1.0 04/10/20 04:15: APTT 130.8 H* 04/10/20 04:15: Troponin I 0.021 04/10/20 05:55: POC Glucose 111 H 04/10/20 06:17: Sodium 143, Potassium 2.5 L*, Chloride 105, Carbon Dioxide 26.0, Anion Gap 12, BUN 19 H, Creatinine 1.03, Estim Creat Clear Calc 80.08, Est GFR (MDRD) Af Amer 96, Est GFR (MDRD) Non-Af 79, BUN/Creatinine Ratio 18.4, Glucose 101, Calcium 6.0 L*, Phosphorus 1.0 L*, Magnesium 0.7 L*, Total Bilirubin 1.60 H, AST 134 H, ALT 50, Alkaline Phosphatase 61, Troponin I < 0.015, Total Protein 5.1 L, Albumin 2.4 L, Globulin 2.7, Albumin/Globulin Ratio 0.9 04/10/20 06:17: APTT Cancelled, D-Dimer Quant (PE/DVT) Cancelled 04/10/20 06:17: WBC 2.2 L, RBC 2.41 L, Hgb 7.9 L, Hct 24.2 L, MCV 100.4 H, MCH 32.8 H, MCHC 32.6, RDW Std Deviation 72.8 H, RDW Coeff of Jessica 19.8 H, Plt Count 79 L, MPV 11.0, Neut % (Auto) Not Reportable, Absolute Neuts (auto) 1.4 L, Absolute Lymphs (auto) 0.67 L, Total Counted 100, Neutrophils % (Manual) 57, Band Neutrophils % 7 H, Lymphocytes % (Manual) 30, Monocytes % (Manual) 6, Metamyelocytes % 4 H, Diff Path Review May foll, Hypochromasia RARE, Microcytosis RARE, Ovalocytes RARE 04/10/20 06:55: APTT 57.9 H, D-Dimer Quant (PE/DVT) 3.39 H* 04/10/20 08:50: Blood Type A POSITIVE, Antibody Screen NEGATIVE 04/10/20 12:12: POC Glucose 76 Current Medications Acetaminophen (Tylenol) 650 mg PO Q6H PRN PRN PRN Reason: Pain Score 1-10/Temp > 100.7 F Al Hydroxide/Mg Hydroxide (Mylanta Ii) 30 ml PO Q6H PRN PRN PRN Reason: Gastric Burning Albuterol Sulfate (Ventolin Aerosols) 2.5 mg INHALATION Q2H PRN PRN PRN Reason: SOB/Wheezing Amitriptyline HCl (Elavil) 25 mg PO QHS [facility] Last Admin: 04/09/20 21:17 Dose: Not Given Documented by: Clonidine HCl (Catapres-Tts1) 0.1 mg TRANSDERM. QWEEK [facility] Last Admin: 04/10/20 02:40 Dose: 0.1 mg Documented by: Dextrose (D50w Syringe) 0 gm IV X1 PRN; Protocol PRN Reason: Hypoglycemia Last Admin: 04/09/20 14:45 Dose: 25 gm Documented by: Enoxaparin Sodium (Lovenox) 90 mg SC Q12@0600,1800 [facility] Ferrous Sulfate (Ferrous Sulfate) 325 mg PO BIDCM [facility] Last Admin: 04/10/20 16:42 Dose: Not Given Documented by: Folic Acid (Folic Acid) 1 mg PO DAILY@0800 [facility] Stop: 04/12/20 08:01 Last Admin: 04/10/20 08:34 Dose: Not Given Documented by: Glucagon () 1 mg IM .X1 PRN PRN Reason: Hypoglycemia Guaifenesin (Robitussin) 10 ml PO Q4H PRN PRN PRN Reason: COUGH Heparin Sodium (Porcine) (Heparin Na) 0 unit IV UD PRN; Protocol Last Admin: 04/09/20 22:48 Dose: 3,000 unit Documented by: Ceftriaxone Sodium 2 gm/ (Sodium Chloride) 50 mls @ 100 mls/hr IV Q24 [facility] Stop: 04/16/20 10:29 Last Infusion: 04/10/20 11:13 Dose: Infused Documented by: Sodium Chloride () 250 mls @ 15 mls/hr IV .[id number] PRN PRN Reason: Saline Flush Sodium Chloride () 250 mls @ 15 mls/hr IV .[id number] PRN PRN Reason: Additional IVPB Infusion Dexmedetomidine HCl 400 mcg/ (Sodium Chloride) 100 mls @ 10.413 mls/hr CONT INF .Q9H37M [facility]; Protocol Last Titration: 04/10/20 16:30 Dose: 0.2 mcg/kg/hr, 4.2 mls/hr Documented by: Sodium Chloride () 1,000 mls @ 125 mls/hr IV .Q8H [facility] Last Infusion: 04/10/20 16:45 Dose: 125 mls/hr Documented by: Multivitamins/Minerals (Multivitamin With Minerals (Bkc)) [facility] Last Admin: 04/10/20 08:34 Dose: Not Given Documented by: Ondansetron HCl (Zofran) 4 mg IV Q8H PRN PRN PRN Reason: NAUSEA/VOMITING Pantoprazole Sodium (Protonix) 40 mg PO BID [facility] Last Admin: 04/10/20 09:21 Dose: Not Given Documented by: Senna/Docusate Sodium (Senokot-S, Kia-Colace) 2 tablet PO BID PRN PRN Reason: Constipation Sodium Chloride () 10 - 40 ml IV UD PRN PRN Reason: SALINE FLUSH Last Admin: 04/10/20 06:58 Dose: 20 ml Documented by: Tamsulosin HCl (Flomax) 0.4 mg PO DAILY@1730 [facility] Last Admin: 04/10/20 16:43 Dose: Not Given Documented by: Thiamine HCl (Vitamin B1) 100 mg PO BIDCM [facility] Stop: 04/12/20 17:01 Last Admin: 04/10/20 16:42 Dose: Not Given Documented by: Medical Necessity - Tobacco Use Smoking Status: Current every day smoker Tobacco Use: Cigarettes Route of nutrition/ use of supplements: [] Nutritional Intake: [] IV Site: [] George Catheter: [] - Assessment/Plan Antibiotics: [] Assessment/Plan: [] Active and Suspected Problems Septic shock (Acute) Pneumonia (Acute) MAICOL (acute kidney injury) (Acute) Elevated d-dimer (Acute) Overall doing better. COVID pcr neg. In precautions. Pancytopenia, improving Cr and bilirubin. CT-PE neg for PE. Cont ceftriaxone for CAP coverage, stop flagyl given normal abd u/s. Will check repeat labs in AM including covid serology, hep panel. Will follow, d/w nursing.
[2020-04-10] MEDS: Dextrose 50%-Water 25 GM/50 ML DISP.SYRIN IV ×4 (17:33→23:18)
[2020-04-10] MEDS: Enoxaparin 100 MG/ML Syringe 90 MG SC (17:34)
[2020-04-10 18:31] LABS: Bedside Glucose 66 mg/dL (70-110)
[2020-04-10] MEDS: Sodium Chloride 19.25 MEQ in Dextrose 10%-Water 250 ML 60 MEQ IV (20:16)
[2020-04-10 21:21] LABS: Bedside Glucose 61 mg/dL (70-110)
[2020-04-10 23:20] LABS: Bedside Glucose 56 mg/dL (70-110)
[2020-04-10 23:20] LABS: Bedside Glucose 89 mg/dL (70-110)
[2020-04-10 23:20] LABS: Bedside Glucose 48 mg/dL (70-110)
[2020-04-10 23:20] LABS: Bedside Glucose 52 mg/dL (70-110)
[2020-04-11] VITALS (26 sets, daily range): BP systolic 99–156; BP diastolic 55–91; PULSE 90–102; RESP 12–30; TEMP 36.2–37.2; O2SAT 82–100
[2020-04-11] MEDS: Dextrose 50%-Water 25 GM/50 ML DISP.SYRIN IV ×2 (00:13→01:53)
[2020-04-11] MEDS: Sodium Chloride 19.25 MEQ in Dextrose 10%-Water 250 ML 60 MEQ IV (00:27)
--- NOTE | 2020-04-11 00:44 | EKG12_ITS ---
Test Reason : CHEST PAIN Blood Pressure : / mmHG Vent. Rate : 099 BPM Atrial Rate : 099 BPM P-R Int : 136 ms QRS Dur : 082 ms QT Int : 380 ms P-R-T Axes : 046 -06 026 degrees QTc Int : 487 ms Sinus rhythm Nonspecific ST abnormality Prolonged QT Abnormal ECG When compared with ECG of 09-APR-2020 10:04, MANUAL COMPARISON REQUIRED, DATA IS UNCONFIRMED Confirmed by AYDEE MITTAL ([id number]), managing editor NANCY ALONZO ([id number]) on 04/22/2020 11:29:41 AM Referred By: [place] Confirmed By:AYDEE MITTAL
[2020-04-11] MEDS: Albuterol 2.5 MG/3 ML VIAL.NEB. INHALATION ×2 (00:52→04:27)
[2020-04-11 01:11] LABS: Bedside Glucose 66 mg/dL (70-110)
[2020-04-11 01:11] LABS: Bedside Glucose 102 mg/dL (70-110)
[2020-04-11] MEDS: Sodium Chloride 19.25 MEQ in Dextrose 10%-Water 250 ML 100 MEQ IV ×2 (03:38→06:14)
[2020-04-11 03:52] LABS: Absolute Lymphocyte Count 0.52 X10^3/uL (0.83-4.51); Basophil# 0.02 X10^3/uL; Basophil% 0.7 % (0-1); Eosinophil# 0.05 X10^3/uL; Eosinophils% 1.7 % (0-5); Hematocrit 23.9 % (40-54); Hemoglobin 7.4 g/dL (13.0-16.5); Lymphocyte # 0.52 X10^3/ul (4.0); Lymphocyte % 17.6 % (19-41); Mean Corpuscular Hgb 32.3 pg (27.0-32.0); Mean Corpuscular Volume 104.4 fL (80-94); Mean Platelet Vol. 10.5 fl (6.2-12.0); Monocyte# 0.31 X10^3/uL; Monocyte% 10.5 % (0-10); NRBC Flagged by Analyzer 0 % (0-5); Neutrophil # 2.03 X10^3/uL (2.7-7.7); Neutrophil % 68.5 % (47-70); POSITIVE COUNT YES; POSITIVE DIFFERENTIAL YES; POSITIVE MORPHOLOGY YES; Platelet Count 95 K/mm3 (150-450); RBC Distribution Width CV 20.1 % (11.6-14.6); RBC Distribution Width SD 76.8 fl (35.1-43.9); Red Blood Count 2.29 M/mm3 (4.6-6.2)
[2020-04-11 04:43] LABS: Differential Indicated SCAN CRITERIA MET
[2020-04-11 05:36] LABS: Bedside Glucose 89 mg/dL (70-110)
[2020-04-11 05:36] LABS: Bedside Glucose 97 mg/dL (70-110)
[2020-04-11 05:36] LABS: Bedside Glucose 67 mg/dL (70-110)
[2020-04-11 06:03] LABS: ALB/GLOB Ratio 0.8 RATIO (0.9-2.4); AST(SGOT) 146 U/L (15-37); Alanine Aminotransfer ALT/SGPT 54 U/L (16-61); Albumin, Serum 2.5 g/dL (3.2-5.0); Alkaline Phosphatase 92 U/L (45-117); Anion Gap 13 (5-15); BUN 12 mg/dL (7-18); BUN/Creat Ratio 13.7 RATIO (10-20); Calcium,Total 5.9 mg/dL (8.5-10.1); Chloride 101 mmol/L (98-107); Creatinine, Serum 0.88 mg/dL (0.70-1.30); EST Glomerular Filtration Rate 95 mL/min (>60); Est Glom Filt Rate - Afr Amer 115 mL/min (>60); Estimated Creatinine Clearance 93.73 ml/min; Glucose 95 mg/dL (74-106); Potassium 2.7 mmol/L (3.5-5.1); Protein, Total 5.5 g/dL (6.4-8.2); Sodium Level 137 mmol/L (136-145)
[2020-04-11] MEDS: Enoxaparin 100 MG/ML Syringe 90 MG SC ×2 (06:16→17:04)
[2020-04-11] MEDS: 0.9% Saline Lock 10 ML Syringe IV ×3 (06:17→17:08)
[2020-04-11 06:34] LABS: Anisocytosis 1+; Differential Comment SCANNED; Platelet Estimate SLT DEC (ADEQ)
[2020-04-11 06:35] LABS: Atypical Lymphocyte RARE %
--- NOTE | 2020-04-11 06:55 | PN_ITS ---
Subjective: The patient was seen and examined at the bedside this morning. Events from the last 24 hours have been reviewed. The patient is currently afebrile, hemodynamically stable and maintaining appropriate oxygen saturations on room air. The patient is more alert and oriented this morning. Unfortunately, he did fail his swallow evaluation yesterday. The patient reports the presence of a headache this morning. The patient remains hypoglycemic on a D10 infusion. Electrolytes remain abnormal including hypokalemia, hypophosphatemia and hypomagnesemia. The patient is currently documented to be overall net +10 L for the hospital admission. Objective: The patient's most recent lab work, culture data and imaging studies have all been personally reviewed. CTA chest revealed no evidence for pulmonary embolism. There was evidence of a left lower lobe consolidation. Lower extremity Doppler studies were negative for DVT. Abdominal ultrasound revealed fatty infiltration of the liver. Sputum, blood and urine cultures are pending. Respiratory viral panel was negative. General: Alert, Cooperative, No apparent distress HEENT: Atraumatic, Normocephalic Oral: No Gingival or Mucosal Lesions/ Ulcerations Neck: Supple, No Nodes, Trachea Midline Lungs: Diminished Cardiovascular: Regular rate, Regular Rhythm Abdomen: Bowel Sounds Present, Soft, Non Tender Extremities: No clubbing, No cyanosis, No edema Skin: No breakdown Musculoskeletal: No Tenderness to Palpation of Joints or Extremities Lymphatic: No Cervical, Supraclavicular, or Inguinal Adenopathy Neurological: Cranial nerves II-XII grossly intact, Neuro grossly intact Psych/Mental Status: Normal Affect, Appropriate Vital Signs Temp Pulse Resp BP Pulse Ox 97.8 F 95 18 99/82 H 99 04/11/20 04:00 04/11/20 06:00 04/11/20 06:00 04/11/20 06:00 04/11/20 06:00 Oxygen Flow Rate (L/min) 2 Oxygen Delivery Method Room Air Weight: 199 lb 1.239 oz Body Mass Index (BMI) 27.1 Finger Stick Blood Glucose 78 Intake and Output for Last 24 Hours 04/09/20 04/10/20 04/11/20 23:59 23:59 23:59 Intake Total 5011.77 / 5018.02 3730.3333 / 4210.3333 2188.8125 / 2188.8125 Output Total 175 / 175 500 / 900 400 / 400 Balance 4836.77 / 4843.02 3230.3333 / 3310.3333 1788.8125 / 1788.8125 Labs (Last 48 Hours) 04/09/20 04/09/20 04/09/20 09:50 09:51 09:51 WBC 6.4 RBC 3.66 L Hgb 11.8 L Hct 37.1 L MCV 101.4 H MCH 32.2 H MCHC 31.8 L RDW Std Deviation 74.4 H RDW Coeff of Jessica 19.9 H Plt Count 181 MPV 11.3 Immature Gran % (Auto) 0.800 Neut % (Auto) 82.9 H Lymph % (Auto) 8.5 L [place] % (Auto) 6.7 Eos % (Auto) 0.3 Baso % (Auto) 0.8 Absolute Neuts (auto) 5.3 Absolute Lymphs (auto) 0.54 L Total Counted Neutrophils % (Manual) Band Neutrophils % Lymphocytes % (Manual) Monocytes % (Manual) Metamyelocytes % Nucleated RBC % 0.6 Differential Comment Diff Path Review Atypical Lymphocytes Platelet Estimate Hypochromasia Anisocytosis Microcytosis Ovalocytes PT 16.1 H INR 1.4 APTT 35.1 Fibrinogen D-Dimer Quant (PE/DVT) Sodium Potassium Chloride Carbon Dioxide Anion Gap BUN Creatinine Estim Creat Clear Calc Est GFR (MDRD) Af Amer Est GFR (MDRD) Non-Af BUN/Creatinine Ratio Glucose Lactic Acid Calcium Phosphorus Magnesium Total Bilirubin Direct Bilirubin AST ALT Alkaline Phosphatase Lactate Dehydrogenase Total Creatine Kinase Troponin I C-React Prot Ext Range B-Natriuretic Peptide Total Protein Albumin Globulin Albumin/Globulin Ratio Procalcitonin Urine Color Urine Clarity Urine pH Ur Specific [place] Urine Protein Urine Glucose (UA) Urine Ketones Urine Occult Blood Urine Nitrite Urine Bilirubin Urine Urobilinogen Ur Leukocyte Esterase Urine RBC Urine WBC Ur Squamous Epith Cells Urine Bacteria Urine Mucus Salicylates COVID-19 (CRISELDA) Hepatitis A IgM Ab Hep Bs Antigen Hep B Core IgM Ab Hepatitis C Ab (EIA) SARS Serology MRSA (PCR) POC Glucose 58 L Blood Type Antibody Screen 04/09/20 04/09/20 04/09/20 09:51 09:51 09:51 WBC RBC Hgb Hct MCV MCH MCHC RDW Std Deviation RDW Coeff of Jessica Plt Count MPV Immature Gran % (Auto) Neut % (Auto) Lymph % (Auto) [place] % (Auto) Eos % (Auto) Baso % (Auto) Absolute Neuts (auto) Absolute Lymphs (auto) Total Counted Neutrophils % (Manual) Band Neutrophils % Lymphocytes % (Manual) Monocytes % (Manual) Metamyelocytes % Nucleated RBC % Differential Comment Diff Path Review Atypical Lymphocytes Platelet Estimate Hypochromasia Anisocytosis Microcytosis Ovalocytes PT INR APTT Fibrinogen D-Dimer Quant (PE/DVT) 7.38 H* Sodium 135 L Potassium 3.5 Chloride 88 L Carbon Dioxide 17.0 L Anion Gap 30 H BUN 25 H Creatinine 2.14 H Estim Creat Clear Calc 37.29 Est GFR (MDRD) Af Amer 41 L Est GFR (MDRD) Non-Af 34 L BUN/Creatinine Ratio 11.7 Glucose 44 L* Lactic Acid Calcium 7.5 L Phosphorus Magnesium Total Bilirubin 4.50 H Direct Bilirubin 1.71 H AST 168 H ALT 66 H Alkaline Phosphatase 78 Lactate Dehydrogenase Total Creatine Kinase Troponin I < 0.015 C-React Prot Ext Range B-Natriuretic Peptide Total Protein 7.6 Albumin 3.7 Globulin 3.9 Albumin/Globulin Ratio Procalcitonin Urine Color Urine Clarity Urine pH Ur Specific [place] Urine Protein Urine Glucose (UA) Urine Ketones Urine Occult Blood Urine Nitrite Urine Bilirubin Urine Urobilinogen Ur Leukocyte Esterase Urine RBC Urine WBC Ur Squamous Epith Cells Urine Bacteria Urine Mucus Salicylates COVID-19 (CRISELDA) Not Detected Hepatitis A IgM Ab Hep Bs Antigen Hep B Core IgM Ab Hepatitis C Ab (EIA) SARS Serology MRSA (PCR) POC Glucose Blood Type Antibody Screen 04/09/20 04/09/20 04/09/20 09:51 11:00 11:03 WBC RBC Hgb Hct MCV MCH MCHC RDW Std Deviation RDW Coeff of Jessica Plt Count MPV Immature Gran % (Auto) Neut % (Auto) Lymph % (Auto) [place] % (Auto) Eos % (Auto) Baso % (Auto) Absolute Neuts (auto) Absolute Lymphs (auto) Total Counted Neutrophils % (Manual) Band Neutrophils % Lymphocytes % (Manual) Monocytes % (Manual) Metamyelocytes % Nucleated RBC % Differential Comment Diff Path Review Atypical Lymphocytes Platelet Estimate Hypochromasia Anisocytosis Microcytosis Ovalocytes PT INR APTT Fibrinogen D-Dimer Quant (PE/DVT) Sodium Potassium Chloride Carbon Dioxide Anion Gap BUN Creatinine Estim Creat Clear Calc Est GFR (MDRD) Af Amer Est GFR (MDRD) Non-Af BUN/Creatinine Ratio Glucose Lactic Acid 6.1 H* Calcium Phosphorus Magnesium Total Bilirubin Direct Bilirubin AST ALT Alkaline Phosphatase Lactate Dehydrogenase Total Creatine Kinase Troponin I C-React Prot Ext Range B-Natriuretic Peptide 72.1 Total Protein Albumin Globulin Albumin/Globulin Ratio Procalcitonin Urine Color Urine Clarity Urine pH Ur Specific [place] Urine Protein Urine Glucose (UA) Urine Ketones Urine Occult Blood Urine Nitrite Urine Bilirubin Urine Urobilinogen Ur Leukocyte Esterase Urine RBC Urine WBC Ur Squamous Epith Cells Urine Bacteria Urine Mucus Salicylates COVID-19 (CRISELDA) Hepatitis A IgM Ab Hep Bs Antigen Hep B Core IgM Ab Hepatitis C Ab (EIA) SARS Serology MRSA (PCR) POC Glucose 119 H Blood Type Antibody Screen 04/09/20 04/09/20 04/09/20 12:03 13:35 14:38 WBC RBC Hgb Hct MCV MCH MCHC RDW Std Deviation RDW Coeff of Jessica Plt Count MPV Immature Gran % (Auto) Neut % (Auto) Lymph % (Auto) [place] % (Auto) Eos % (Auto) Baso % (Auto) Absolute Neuts (auto) Absolute Lymphs (auto) Total Counted Neutrophils % (Manual) Band Neutrophils % Lymphocytes % (Manual) Monocytes % (Manual) Metamyelocytes % Nucleated RBC % Differential Comment Diff Path Review Atypical Lymphocytes Platelet Estimate Hypochromasia Anisocytosis Microcytosis Ovalocytes PT INR APTT Fibrinogen D-Dimer Quant (PE/DVT) Sodium Potassium Chloride Carbon Dioxide Anion Gap BUN Creatinine Estim Creat Clear Calc Est GFR (MDRD) Af Amer Est GFR (MDRD) Non-Af BUN/Creatinine Ratio Glucose Lactic Acid Calcium Phosphorus Magnesium Total Bilirubin Direct Bilirubin AST ALT Alkaline Phosphatase Lactate Dehydrogenase Total Creatine Kinase Troponin I C-React Prot Ext Range B-Natriuretic Peptide Total Protein Albumin Globulin Albumin/Globulin Ratio Procalcitonin Urine Color Urine Clarity Urine pH Ur Specific [place] Urine Protein Urine Glucose (UA) Urine Ketones Urine Occult Blood Urine Nitrite Urine Bilirubin Urine Urobilinogen Ur Leukocyte Esterase Urine RBC Urine WBC Ur Squamous Epith Cells Urine Bacteria Urine Mucus Salicylates COVID-19 (CRISELDA) Hepatitis A IgM Ab Hep Bs Antigen Hep B Core IgM Ab Hepatitis C Ab (EIA) SARS Serology MRSA (PCR) POC Glucose 83 78 48 L Blood Type Antibody Screen 04/09/20 04/09/20 04/09/20 14:40 15:09 16:13 WBC RBC Hgb Hct MCV MCH MCHC RDW Std Deviation RDW Coeff of Jessica Plt Count MPV Immature Gran % (Auto) Neut % (Auto) Lymph % (Auto) [place] % (Auto) Eos % (Auto) Baso % (Auto) Absolute Neuts (auto) Absolute Lymphs (auto) Total Counted Neutrophils % (Manual) Band Neutrophils % Lymphocytes % (Manual) Monocytes % (Manual) Metamyelocytes % Nucleated RBC % Differential Comment Diff Path Review Atypical Lymphocytes Platelet Estimate Hypochromasia Anisocytosis Microcytosis Ovalocytes PT INR APTT Fibrinogen D-Dimer Quant (PE/DVT) Sodium Potassium Chloride Carbon Dioxide Anion Gap BUN Creatinine Estim Creat Clear Calc Est GFR (MDRD) Af Amer Est GFR (MDRD) Non-Af BUN/Creatinine Ratio Glucose Lactic Acid Calcium Phosphorus Magnesium Total Bilirubin Direct Bilirubin AST ALT Alkaline Phosphatase Lactate Dehydrogenase Total Creatine Kinase Troponin I C-React Prot Ext Range B-Natriuretic Peptide Total Protein Albumin Globulin Albumin/Globulin Ratio Procalcitonin Urine Color Urine Clarity Urine pH Ur Specific [place] Urine Protein Urine Glucose (UA) Urine Ketones Urine Occult Blood Urine Nitrite Urine Bilirubin Urine Urobilinogen Ur Leukocyte Esterase Urine RBC Urine WBC Ur Squamous Epith Cells Urine Bacteria Urine Mucus Salicylates COVID-19 (CRISELDA) Hepatitis A IgM Ab Hep Bs Antigen Hep B Core IgM Ab Hepatitis C Ab (EIA) SARS Serology MRSA (PCR) Negative POC Glucose 86 77 Blood Type Antibody Screen 04/09/20 04/09/20 04/09/20 17:57 18:00 22:05 WBC RBC Hgb Hct MCV MCH MCHC RDW Std Deviation RDW Coeff of Jessica Plt Count MPV Immature Gran % (Auto) Neut % (Auto) Lymph % (Auto) [place] % (Auto) Eos % (Auto) Baso % (Auto) Absolute Neuts (auto) Absolute Lymphs (auto) Total Counted Neutrophils % (Manual) Band Neutrophils % Lymphocytes % (Manual) Monocytes % (Manual) Metamyelocytes % Nucleated RBC % Differential Comment Diff Path Review Atypical Lymphocytes Platelet Estimate Hypochromasia Anisocytosis Microcytosis Ovalocytes PT INR APTT Fibrinogen D-Dimer Quant (PE/DVT) Sodium Potassium Chloride Carbon Dioxide Anion Gap BUN Creatinine Estim Creat Clear Calc Est GFR (MDRD) Af Amer Est GFR (MDRD) Non-Af BUN/Creatinine Ratio Glucose Lactic Acid Calcium Phosphorus Magnesium Total Bilirubin Direct Bilirubin AST ALT Alkaline Phosphatase Lactate Dehydrogenase Total Creatine Kinase Troponin I C-React Prot Ext Range B-Natriuretic Peptide Total Protein Albumin Globulin Albumin/Globulin Ratio Procalcitonin Urine Color Yellow Urine Clarity Sl. Cloudy Urine pH 6.0 Ur Specific [place] 1.015 Urine Protein 100 H Urine Glucose (UA) Normal Urine Ketones 150 H Urine Occult Blood 250 H Urine Nitrite Positive H Urine Bilirubin 3 H Urine Urobilinogen 8 H Ur Leukocyte Esterase 25 H Urine RBC 0-5 SEEN Urine WBC 0-5 SEEN Ur Squamous Epith Cells 0 SEEN Urine Bacteria RARE Urine Mucus 0 SEEN Salicylates < 1.7 L COVID-19 (CRISELDA) Hepatitis A IgM Ab Hep Bs Antigen Hep B Core IgM Ab Hepatitis C Ab (EIA) SARS Serology MRSA (PCR) POC Glucose 86 Blood Type Antibody Screen 04/09/20 04/09/20 04/09/20 22:05 22:05 22:05 WBC RBC Hgb Hct MCV MCH MCHC RDW Std Deviation RDW Coeff of Jessica Plt Count MPV Immature Gran % (Auto) Neut % (Auto) Lymph % (Auto) [place] % (Auto) Eos % (Auto) Baso % (Auto) Absolute Neuts (auto) Absolute Lymphs (auto) Total Counted Neutrophils % (Manual) Band Neutrophils % Lymphocytes % (Manual) Monocytes % (Manual) Metamyelocytes % Nucleated RBC % Differential Comment Diff Path Review Atypical Lymphocytes Platelet Estimate Hypochromasia Anisocytosis Microcytosis Ovalocytes PT 16.9 H INR 1.4 APTT 38.4 H Fibrinogen 375 D-Dimer Quant (PE/DVT) Sodium Potassium Chloride Carbon Dioxide Anion Gap BUN Creatinine Estim Creat Clear Calc Est GFR (MDRD) Af Amer Est GFR (MDRD) Non-Af BUN/Creatinine Ratio Glucose Lactic Acid Calcium Phosphorus Magnesium Total Bilirubin Direct Bilirubin AST ALT Alkaline Phosphatase Lactate Dehydrogenase 254 H Total Creatine Kinase 1117 H Troponin I 0.028 C-React Prot Ext Range 91.00 H B-Natriuretic Peptide Total Protein Albumin Globulin Albumin/Globulin Ratio Procalcitonin 1.86 H Urine Color Urine Clarity Urine pH Ur Specific [place] Urine Protein Urine Glucose (UA) Urine Ketones Urine Occult Blood Urine Nitrite Urine Bilirubin Urine Urobilinogen Ur Leukocyte Esterase Urine RBC Urine WBC Ur Squamous Epith Cells Urine Bacteria Urine Mucus Salicylates COVID-19 (CRISELDA) Hepatitis A IgM Ab Hep Bs Antigen Hep B Core IgM Ab Hepatitis C Ab (EIA) SARS Serology MRSA (PCR) POC Glucose Blood Type Antibody Screen 04/09/20 04/09/2004/10/20 22:05 22:05 01:35 WBC RBC Hgb Hct MCV MCH MCHC RDW Std Deviation RDW Coeff of Jessica Plt Count MPV Immature Gran % (Auto) Neut % (Auto) Lymph % (Auto) [place] % (Auto) Eos % (Auto) Baso % (Auto) Absolute Neuts (auto) Absolute Lymphs (auto) Total Counted Neutrophils % (Manual) Band Neutrophils % Lymphocytes % (Manual) Monocytes % (Manual) Metamyelocytes % Nucleated RBC % Differential Comment Diff Path Review Atypical Lymphocytes Platelet Estimate Hypochromasia Anisocytosis Microcytosis Ovalocytes PT INR APTT Fibrinogen D-Dimer Quant (PE/DVT) Sodium Potassium Chloride Carbon Dioxide Anion Gap BUN Creatinine Estim Creat Clear Calc Est GFR (MDRD) Af Amer Est GFR (MDRD) Non-Af BUN/Creatinine Ratio Glucose 79 Lactic Acid 1.7 Calcium Phosphorus Magnesium Total Bilirubin Direct Bilirubin AST ALT Alkaline Phosphatase Lactate Dehydrogenase Total Creatine Kinase Troponin I 0.025 C-React Prot Ext Range B-Natriuretic Peptide Total Protein Albumin Globulin Albumin/Globulin Ratio Procalcitonin Urine Color Urine Clarity Urine pH Ur Specific [place] Urine Protein Urine Glucose (UA) Urine Ketones Urine Occult Blood Urine Nitrite Urine Bilirubin Urine Urobilinogen Ur Leukocyte Esterase Urine RBC Urine WBC Ur Squamous Epith Cells Urine Bacteria Urine Mucus Salicylates COVID-19 (CRISELDA) Hepatitis A IgM Ab Hep Bs Antigen Hep B Core IgM Ab Hepatitis C Ab (EIA) SARS Serology MRSA (PCR) POC Glucose Blood Type Antibody Screen 04/10/20 04/10/20 04/10/20 04:15 04:15 04:15 WBC 2.3 L RBC 2.40 L Hgb 7.9 L Hct 23.9 L MCV 99.6 H MCH 32.9 H MCHC 33.1 RDW Std Deviation 71.5 H RDW Coeff of Jessica 19.6 H Plt Count 80 L MPV 10.5 Immature Gran % (Auto) 1.300 H Neut % (Auto) 70.3 H Lymph % (Auto) 15.9 L [place] % (Auto) 10.7 H Eos % (Auto) 0.9 Baso % (Auto) 0.9 Absolute Neuts (auto) 1.6 L Absolute Lymphs (auto) 0.37 L Total Counted Neutrophils % (Manual) Band Neutrophils % Lymphocytes % (Manual) Monocytes % (Manual) Metamyelocytes % Nucleated RBC % 0 Differential Comment SCANNED Diff Path Review May foll Atypical Lymphocytes Platelet Estimate MOD DEC Hypochromasia Anisocytosis Microcytosis Ovalocytes PT INR APTT Fibrinogen D-Dimer Quant (PE/DVT) 4.30 H* Sodium 140 Potassium 2.5 L* Chloride 101 Carbon Dioxide 25.0 Anion Gap 14 BUN 20 H Creatinine 1.09 Estim Creat Clear Calc 75.67 Est GFR (MDRD) Af Amer 90 Est GFR (MDRD) Non-Af 74 BUN/Creatinine Ratio 18.3 Glucose 92 Lactic Acid Calcium 5.8 L* Phosphorus 0.9 L* Magnesium 0.6 L* Total Bilirubin 1.70 H Direct Bilirubin AST 144 H ALT 52 Alkaline Phosphatase 60 Lactate Dehydrogenase Total Creatine Kinase Troponin I C-React Prot Ext Range B-Natriuretic Peptide Total Protein 5.1 L Albumin 2.5 L Globulin 2.6 Albumin/Globulin Ratio 1.0 Procalcitonin Urine Color Urine Clarity Urine pH Ur Specific [place] Urine Protein Urine Glucose (UA) Urine Ketones Urine Occult Blood Urine Nitrite Urine Bilirubin Urine Urobilinogen Ur Leukocyte Esterase Urine RBC Urine WBC Ur Squamous Epith Cells Urine Bacteria Urine Mucus Salicylates COVID-19 (CRISELDA) Hepatitis A IgM Ab Hep Bs Antigen Hep B Core IgM Ab Hepatitis C Ab (EIA) SARS Serology MRSA (PCR) POC Glucose Blood Type Antibody Screen 04/10/20 04/10/20 04/10/20 04:15 04:15 05:55 WBC RBC Hgb Hct MCV MCH MCHC RDW Std Deviation RDW Coeff of Jessica Plt Count MPV Immature Gran % (Auto) Neut % (Auto) Lymph % (Auto) [place] % (Auto) Eos % (Auto) Baso % (Auto) Absolute Neuts (auto) Absolute Lymphs (auto) Total Counted Neutrophils % (Manual) Band Neutrophils % Lymphocytes % (Manual) Monocytes % (Manual) Metamyelocytes % Nucleated RBC % Differential Comment Diff Path Review Atypical Lymphocytes Platelet Estimate Hypochromasia Anisocytosis Microcytosis Ovalocytes PT INR APTT 130.8 H* Fibrinogen D-Dimer Quant (PE/DVT) Sodium Potassium Chloride Carbon Dioxide Anion Gap BUN Creatinine Estim Creat Clear Calc Est GFR (MDRD) Af Amer Est GFR (MDRD) Non-Af BUN/Creatinine Ratio Glucose Lactic Acid Calcium Phosphorus Magnesium Total Bilirubin Direct Bilirubin AST ALT Alkaline Phosphatase Lactate Dehydrogenase Total Creatine Kinase Troponin I 0.021 C-React Prot Ext Range B-Natriuretic Peptide Total Protein Albumin Globulin Albumin/Globulin Ratio Procalcitonin Urine Color Urine Clarity Urine pH Ur Specific [place] Urine Protein Urine Glucose (UA) Urine Ketones Urine Occult Blood Urine Nitrite Urine Bilirubin Urine Urobilinogen Ur Leukocyte Esterase Urine RBC Urine WBC Ur Squamous Epith Cells Urine Bacteria Urine Mucus Salicylates COVID-19 (CRISELDA) Hepatitis A IgM Ab Hep Bs Antigen Hep B Core IgM Ab Hepatitis C Ab (EIA) SARS Serology MRSA (PCR) POC Glucose 111 H Blood Type Antibody Screen 04/10/20 04/10/20 04/10/20 06:17 06:17 06:17 WBC 2.2 L RBC 2.41 L Hgb 7.9 L Hct 24.2 L MCV 100.4 H MCH 32.8 H MCHC 32.6 RDW Std Deviation 72.8 H RDW Coeff of Jessica 19.8 H Plt Count 79 L MPV 11.0 Immature Gran % (Auto) Neut % (Auto) Not Reportable Lymph % (Auto) [place] % (Auto) Eos % (Auto) Baso % (Auto) Absolute Neuts (auto) 1.4 L Absolute Lymphs (auto) 0.67 L Total Counted 100 Neutrophils % (Manual) 57 Band Neutrophils % 7 H Lymphocytes % (Manual) 30 Monocytes % (Manual) 6 Metamyelocytes % 4 H Nucleated RBC % Differential Comment Diff Path Review May foll Atypical Lymphocytes Platelet Estimate Hypochromasia RARE Anisocytosis Microcytosis RARE Ovalocytes RARE PT INR APTT Cancelled Fibrinogen D-Dimer Quant (PE/DVT) Cancelled Sodium 143 Potassium 2.5 L* Chloride 105 Carbon Dioxide 26.0 Anion Gap 12 BUN 19 H Creatinine 1.03 Estim Creat Clear Calc 80.08 Est GFR (MDRD) Af Amer 96 Est GFR (MDRD) Non-Af 79 BUN/Creatinine Ratio 18.4 Glucose 101 Lactic Acid Calcium 6.0 L* Phosphorus 1.0 L* Magnesium 0.7 L* Total Bilirubin 1.60 H Direct Bilirubin AST 134 H ALT 50 Alkaline Phosphatase 61 Lactate Dehydrogenase Total Creatine Kinase Troponin I < 0.015 C-React Prot Ext Range B-Natriuretic Peptide Total Protein 5.1 L Albumin 2.4 L Globulin 2.7 Albumin/Globulin Ratio 0.9 Procalcitonin Urine Color Urine Clarity Urine pH Ur Specific [place] Urine Protein Urine Glucose (UA) Urine Ketones Urine Occult Blood Urine Nitrite Urine Bilirubin Urine Urobilinogen Ur Leukocyte Esterase Urine RBC Urine WBC Ur Squamous Epith Cells Urine Bacteria Urine Mucus Salicylates COVID-19 (CRISELDA) Hepatitis A IgM Ab Hep Bs Antigen Hep B Core IgM Ab Hepatitis C Ab (EIA) SARS Serology MRSA (PCR) POC Glucose Blood Type Antibody Screen 04/10/20 04/10/20 04/10/20 06:55 08:50 12:12 WBC RBC Hgb Hct MCV MCH MCHC RDW Std Deviation RDW Coeff of Jessica Plt Count MPV Immature Gran % (Auto) Neut % (Auto) Lymph % (Auto) [place] % (Auto) Eos % (Auto) Baso % (Auto) Absolute Neuts (auto) Absolute Lymphs (auto) Total Counted Neutrophils % (Manual) Band Neutrophils % Lymphocytes % (Manual) Monocytes % (Manual) Metamyelocytes % Nucleated RBC % Differential Comment Diff Path Review Atypical Lymphocytes Platelet Estimate Hypochromasia Anisocytosis Microcytosis Ovalocytes PT INR APTT 57.9 H Fibrinogen D-Dimer Quant (PE/DVT) 3.39 H* Sodium Potassium Chloride Carbon Dioxide Anion Gap BUN Creatinine Estim Creat Clear Calc Est GFR (MDRD) Af Amer Est GFR (MDRD) Non-Af BUN/Creatinine Ratio Glucose Lactic Acid Calcium Phosphorus Magnesium Total Bilirubin Direct Bilirubin AST ALT Alkaline Phosphatase Lactate Dehydrogenase Total Creatine Kinase Troponin I C-React Prot Ext Range B-Natriuretic Peptide Total Protein Albumin Globulin Albumin/Globulin Ratio Procalcitonin Urine Color Urine Clarity Urine pH Ur Specific [place] Urine Protein Urine Glucose (UA) Urine Ketones Urine Occult Blood Urine Nitrite Urine Bilirubin Urine Urobilinogen Ur Leukocyte Esterase Urine RBC Urine WBC Ur Squamous Epith Cells Urine Bacteria Urine Mucus Salicylates COVID-19 (CRISELDA) Hepatitis A IgM Ab Hep Bs Antigen Hep B Core IgM Ab Hepatitis C Ab (EIA) SARS Serology MRSA (PCR) POC Glucose 76 Blood Type A POSITIVE Antibody Screen NEGATIVE 04/10/20 04/10/20 04/10/20 17:30 18:24 20:11 WBC RBC Hgb Hct MCV MCH MCHC RDW Std Deviation RDW Coeff of Jessica Plt Count MPV Immature Gran % (Auto) Neut % (Auto) Lymph % (Auto) [place] % (Auto) Eos % (Auto) Baso % (Auto) Absolute Neuts (auto) Absolute Lymphs (auto) Total Counted Neutrophils % (Manual) Band Neutrophils % Lymphocytes % (Manual) Monocytes % (Manual) Metamyelocytes % Nucleated RBC % Differential Comment Diff Path Review Atypical Lymphocytes Platelet Estimate Hypochromasia Anisocytosis Microcytosis Ovalocytes PT INR APTT Fibrinogen D-Dimer Quant (PE/DVT) Sodium Potassium Chloride Carbon Dioxide Anion Gap BUN Creatinine Estim Creat Clear Calc Est GFR (MDRD) Af Amer Est GFR (MDRD) Non-Af BUN/Creatinine Ratio Glucose Lactic Acid Calcium Phosphorus Magnesium Total Bilirubin Direct Bilirubin AST ALT Alkaline Phosphatase Lactate Dehydrogenase Total Creatine Kinase Troponin I C-React Prot Ext Range B-Natriuretic Peptide Total Protein Albumin Globulin Albumin/Globulin Ratio Procalcitonin Urine Color Urine Clarity Urine pH Ur Specific [place] Urine Protein Urine Glucose (UA) Urine Ketones Urine Occult Blood Urine Nitrite Urine Bilirubin Urine Urobilinogen Ur Leukocyte Esterase Urine RBC Urine WBC Ur Squamous Epith Cells Urine Bacteria Urine Mucus Salicylates COVID-19 (CRISELDA) Hepatitis A IgM Ab Hep Bs Antigen Hep B Core IgM Ab Hepatitis C Ab (EIA) SARS Serology MRSA (PCR) POC Glucose 61 L 66 L 48 L Blood Type Antibody Screen 04/10/20 04/10/20 04/10/20 20:46 21:13 21:34 WBC RBC Hgb Hct MCV MCH MCHC RDW Std Deviation RDW Coeff of Jessica Plt Count MPV Immature Gran % (Auto) Neut % (Auto) Lymph % (Auto) [place] % (Auto) Eos % (Auto) Baso % (Auto) Absolute Neuts (auto) Absolute Lymphs (auto) Total Counted Neutrophils % (Manual) Band Neutrophils % Lymphocytes % (Manual) Monocytes % (Manual) Metamyelocytes % Nucleated RBC % Differential Comment Diff Path Review Atypical Lymphocytes Platelet Estimate Hypochromasia Anisocytosis Microcytosis Ovalocytes PT INR APTT Fibrinogen D-Dimer Quant (PE/DVT) Sodium Potassium Chloride Carbon Dioxide Anion Gap BUN Creatinine Estim Creat Clear Calc Est GFR (MDRD) Af Amer Est GFR (MDRD) Non-Af BUN/Creatinine Ratio Glucose Lactic Acid Calcium Phosphorus Magnesium Total Bilirubin Direct Bilirubin AST ALT Alkaline Phosphatase Lactate Dehydrogenase Total Creatine Kinase Troponin I C-React Prot Ext Range B-Natriuretic Peptide Total Protein Albumin Globulin Albumin/Globulin Ratio Procalcitonin Urine Color Urine Clarity Urine pH Ur Specific [place] Urine Protein Urine Glucose (UA) Urine Ketones Urine Occult Blood Urine Nitrite Urine Bilirubin Urine Urobilinogen Ur Leukocyte Esterase Urine RBC Urine WBC Ur Squamous Epith Cells Urine Bacteria Urine Mucus Salicylates COVID-19 (CRISELDA) Hepatitis A IgM Ab Hep Bs Antigen Hep B Core IgM Ab Hepatitis C Ab (EIA) SARS Serology MRSA (PCR) POC Glucose 52 L 56 L 89 Blood Type Antibody Screen 04/11/20 04/11/20 04/11/20 00:10 00:32 01:03 WBC RBC Hgb Hct MCV MCH MCHC RDW Std Deviation RDW Coeff of Jessica Plt Count MPV Immature Gran % (Auto) Neut % (Auto) Lymph % (Auto) [place] % (Auto) Eos % (Auto) Baso % (Auto) Absolute Neuts (auto) Absolute Lymphs (auto) Total Counted Neutrophils % (Manual) Band Neutrophils % Lymphocytes % (Manual) Monocytes % (Manual) Metamyelocytes % Nucleated RBC % Differential Comment Diff Path Review Atypical Lymphocytes Platelet Estimate Hypochromasia Anisocytosis Microcytosis Ovalocytes PT INR APTT Fibrinogen D-Dimer Quant (PE/DVT) Sodium Potassium Chloride Carbon Dioxide Anion Gap BUN Creatinine Estim Creat Clear Calc Est GFR (MDRD) Af Amer Est GFR (MDRD) Non-Af BUN/Creatinine Ratio Glucose Lactic Acid Calcium Phosphorus Magnesium Total Bilirubin Direct Bilirubin AST ALT Alkaline Phosphatase Lactate Dehydrogenase Total Creatine Kinase Troponin I < 0.015 C-React Prot Ext Range B-Natriuretic Peptide Total Protein Albumin Globulin Albumin/Globulin Ratio Procalcitonin Urine Color Urine Clarity Urine pH Ur Specific [place] Urine Protein Urine Glucose (UA) Urine Ketones Urine Occult Blood Urine Nitrite Urine Bilirubin Urine Urobilinogen Ur Leukocyte Esterase Urine RBC Urine WBC Ur Squamous Epith Cells Urine Bacteria Urine Mucus Salicylates COVID-19 (CRISELDA) Hepatitis A IgM Ab Hep Bs Antigen Hep B Core IgM Ab Hepatitis C Ab (EIA) SARS Serology MRSA (PCR) POC Glucose 66 L 102 Blood Type Antibody Screen 04/11/20 04/11/20 04/11/20 01:50 02:22 03:32 WBC RBC Hgb Hct MCV MCH MCHC RDW Std Deviation RDW Coeff of Jessica Plt Count MPV Immature Gran % (Auto) Neut % (Auto) Lymph % (Auto) [place] % (Auto) Eos % (Auto) Baso % (Auto) Absolute Neuts (auto) Absolute Lymphs (auto) Total Counted Neutrophils % (Manual) Band Neutrophils % Lymphocytes % (Manual) Monocytes % (Manual) Metamyelocytes % Nucleated RBC % Differential Comment Diff Path Review Atypical Lymphocytes Platelet Estimate Hypochromasia Anisocytosis Microcytosis Ovalocytes PT INR APTT Fibrinogen D-Dimer Quant (PE/DVT) Sodium Potassium Chloride Carbon Dioxide Anion Gap BUN Creatinine Estim Creat Clear Calc Est GFR (MDRD) Af Amer Est GFR (MDRD) Non-Af BUN/Creatinine Ratio Glucose Lactic Acid Calcium Phosphorus Magnesium Total Bilirubin Direct Bilirubin AST ALT Alkaline Phosphatase Lactate Dehydrogenase Total Creatine Kinase Troponin I C-React Prot Ext Range B-Natriuretic Peptide Total Protein Albumin Globulin Albumin/Globulin Ratio Procalcitonin Urine Color Urine Clarity Urine pH Ur Specific [place] Urine Protein Urine Glucose (UA) Urine Ketones Urine Occult Blood Urine Nitrite Urine Bilirubin Urine Urobilinogen Ur Leukocyte Esterase Urine RBC Urine WBC Ur Squamous Epith Cells Urine Bacteria Urine Mucus Salicylates COVID-19 (CRISELDA) Hepatitis A IgM Ab Hep Bs Antigen Hep B Core IgM Ab Hepatitis C Ab (EIA) SARS Serology MRSA (PCR) POC Glucose 67 L 97 89 Blood Type Antibody Screen 04/11/20 04/11/20 04/11/20 03:35 03:35 03:35 WBC 3.0 L RBC 2.29 L Hgb 7.4 L Hct 23.9 L MCV 104.4 H MCH 32.3 H MCHC 31.0 L RDW Std Deviation 76.8 H RDW Coeff of Jessica 20.1 H Plt Count 95 L MPV 10.5 Immature Gran % (Auto) 1.000 H Neut % (Auto) 68.5 Lymph % (Auto) 17.6 L [place] % (Auto) 10.5 H Eos % (Auto) 1.7 Baso % (Auto) 0.7 Absolute Neuts (auto) 2.0 Absolute Lymphs (auto) 0.52 L Total Counted Neutrophils % (Manual) Band Neutrophils % Lymphocytes % (Manual) Monocytes % (Manual) Metamyelocytes % Nucleated RBC % 0 Differential Comment SCANNED Diff Path Review May foll Atypical Lymphocytes RARE Platelet Estimate SLT DEC Hypochromasia Anisocytosis 1+ Microcytosis Ovalocytes PT INR APTT Fibrinogen D-Dimer Quant (PE/DVT) Sodium Cancelled Potassium Cancelled Chloride Cancelled Carbon Dioxide Cancelled Anion Gap Cancelled BUN Cancelled Creatinine Cancelled Estim Creat Clear Calc Cancelled Est GFR (MDRD) Af Amer Cancelled Est GFR (MDRD) Non-Af Cancelled BUN/Creatinine Ratio Cancelled Glucose Cancelled Lactic Acid Calcium Cancelled Phosphorus Magnesium Total Bilirubin Cancelled Direct Bilirubin AST Cancelled ALT Cancelled Alkaline Phosphatase Cancelled Lactate Dehydrogenase Total Creatine Kinase Troponin I C-React Prot Ext Range B-Natriuretic Peptide Total Protein Cancelled Albumin Cancelled Globulin Cancelled Albumin/Globulin Ratio Cancelled Procalcitonin Pending Urine Color Urine Clarity Urine pH Ur Specific [place] Urine Protein Urine Glucose (UA) Urine Ketones Urine Occult Blood Urine Nitrite Urine Bilirubin Urine Urobilinogen Ur Leukocyte Esterase Urine RBC Urine WBC Ur Squamous Epith Cells Urine Bacteria Urine Mucus Salicylates COVID-19 (CRISELDA) Hepatitis A IgM Ab Hep Bs Antigen Hep B Core IgM Ab Hepatitis C Ab (EIA) SARS Serology Cancelled MRSA (PCR) POC Glucose Blood Type Antibody Screen 04/11/20 04/11/20 04/11/20 03:35 03:35 03:35 WBC RBC Hgb Hct MCV MCH MCHC RDW Std Deviation RDW Coeff of Jessica Plt Count MPV Immature Gran % (Auto) Neut % (Auto) Lymph % (Auto) [place] % (Auto) Eos % (Auto) Baso % (Auto) Absolute Neuts (auto) Absolute Lymphs (auto) Total Counted Neutrophils % (Manual) Band Neutrophils % Lymphocytes % (Manual) Monocytes % (Manual) Metamyelocytes % Nucleated RBC % Differential Comment Diff Path Review Atypical Lymphocytes Platelet Estimate Hypochromasia Anisocytosis Microcytosis Ovalocytes PT INR APTT Fibrinogen D-Dimer Quant (PE/DVT) Sodium Potassium Chloride Carbon Dioxide Anion Gap BUN Creatinine Estim Creat Clear Calc Est GFR (MDRD) Af Amer Est GFR (MDRD) Non-Af BUN/Creatinine Ratio Glucose Lactic Acid Calcium Phosphorus Magnesium Total Bilirubin Direct Bilirubin AST ALT Alkaline Phosphatase Lactate Dehydrogenase Total Creatine Kinase Troponin I < 0.015 C-React Prot Ext Range B-Natriuretic Peptide Total Protein Albumin Globulin Albumin/Globulin Ratio Procalcitonin Urine Color Urine Clarity Urine pH Ur Specific [place] Urine Protein Urine Glucose (UA) Urine Ketones Urine Occult Blood Urine Nitrite Urine Bilirubin Urine Urobilinogen Ur Leukocyte Esterase Urine RBC Urine WBC Ur Squamous Epith Cells Urine Bacteria Urine Mucus Salicylates COVID-19 (CRISELDA) Hepatitis A IgM Ab Pending Hep Bs Antigen Pending Hep B Core IgM Ab Pending Hepatitis C Ab (EIA) Pending SARS Serology Pending MRSA (PCR) POC Glucose Blood Type Antibody Screen 04/11/20 04/11/20 05:39 06:20 WBC RBC Hgb Hct MCV MCH MCHC RDW Std Deviation RDW Coeff of Jessica Plt Count MPV Immature Gran % (Auto) Neut % (Auto) Lymph % (Auto) [place] % (Auto) Eos % (Auto) Baso % (Auto) Absolute Neuts (auto) Absolute Lymphs (auto) Total Counted Neutrophils % (Manual) Band Neutrophils % Lymphocytes % (Manual) Monocytes % (Manual) Metamyelocytes % Nucleated RBC % Differential Comment Diff Path Review Atypical Lymphocytes Platelet Estimate Hypochromasia Anisocytosis Microcytosis Ovalocytes PT INR APTT Fibrinogen D-Dimer Quant (PE/DVT) Sodium 137 Potassium 2.7 L* Chloride 101 Carbon Dioxide 23.0 Anion Gap 13 BUN 12 Creatinine 0.88 Estim Creat Clear Calc 93.73 Est GFR (MDRD) Af Amer 115 Est GFR (MDRD) Non-Af 95 BUN/Creatinine Ratio 13.7 Glucose 95 Lactic Acid Calcium 5.9 L* Phosphorus Magnesium Total Bilirubin 1.10 H Direct Bilirubin AST 146 H ALT 54 Alkaline Phosphatase 92 Lactate Dehydrogenase Total Creatine Kinase Troponin I < 0.015 C-React Prot Ext Range B-Natriuretic Peptide Total Protein 5.5 L Albumin 2.5 L Globulin 3.0 Albumin/Globulin Ratio 0.8 L Procalcitonin Urine Color Urine Clarity Urine pH Ur Specific [place] Urine Protein Urine Glucose (UA) Urine Ketones Urine Occult Blood Urine Nitrite Urine Bilirubin Urine Urobilinogen Ur Leukocyte Esterase Urine RBC Urine WBC Ur Squamous Epith Cells Urine Bacteria Urine Mucus Salicylates COVID-19 (CRISELDA) Hepatitis A IgM Ab Hep Bs Antigen Hep B Core IgM Ab Hepatitis C Ab (EIA) SARS Serology MRSA (PCR) POC Glucose Blood Type Antibody Screen Microbiology 04/09/20 15:15 Mucosa - Nasopharyngeal Respiratory Panel (PCR) - Final Clinical Impression(s) from Imaging Studies Brain CT 04/09/20 09:53 IMPRESSION: Chronic involutional changes of the brain. Electronically Signed: Jake Johnson, at 12:16 EDT , Service support , Chest X-Ray 04/09/20 11:45 IMPRESSION: Mild degree of increased markings at the left lung base suggestive of atelectasis and/or early infiltrate. Electronically Signed: Jake Johnson, at 12:19 EDT , Service support , Abdomen Ultrasound 04/09/20 17:28 IMPRESSION: Enlarged, fatty liver. No focal hepatic lesions. Mild splenomegaly. Electronically Signed: Saurabh Licona, at 19:09 EDT Tel , Service support , Chest CTA 04/10/20 07:09 IMPRESSION: Left lower lobe consolidation with patchy infiltrate in the lateral aspect of the lingular segment of the left upper lobe. Minimal increased markings at the right lung base. No evidence of a pulmonary embolism. Diffuse fatty infiltration of the liver. Electronically Signed: Jake Alex, at 10:22 EDT , Service support , Medical Necessity - Tobacco Use Smoking Status: Current every day smoker Tobacco Use: Cigarettes Assessment/Plan All Active Problems Septic shock (Acute) Pneumonia (Acute) MAICOL (acute kidney injury) (Acute) Elevated d-dimer (Acute) Hypokalemia (Acute) RECOMMENDATIONS: 1. Aggressive electrolyte repletion. 2. Continue to monitor blood counts daily and transfuse if hemoglobin drops below 7 g/dL. 3. Continue D10 infusion until reevaluation by speech therapy and subsequent advancement of diet. 4. Discontinue Precedex. 5. Maintain n.p.o. status until reevaluation by speech therapy. 6. Continue antimicrobials per ID recommendations. 7. Encourage incentive spirometer use and mobilize patient as tolerated. IMPRESSIONS: 1. Septic shock Although the patient met septic shock criteria upon admission, he has never been hemodynamically unstable. The patient has symptoms concerning for COVID, despite negative PCR testing. Therefore, he will remain in precautions accordingly. Inflammatory markers are elevated, including elevated d-dimer. The patient will be continued on systemic anticoagulation for the aforementioned. Follow-up CTA chest did not demonstrate evidence for pulmonary embolism. However, there was evidence of left basilar airspace disease. Ant ibiotics will be continued based upon ID recommendations. 2. Acute kidney injury Resolved. Likely prerenal in etiology with subsequent ATN related to #1. Creatinine has improved with volume resuscitation. Continue to monitor urine output. No current indication for renal replacement therapy. 3. Acute alcohol withdrawal Resolved. Continue thiamine folate and multivitamin. 4. Pancytopenia Likely multifactorial with a component of dilution and myelosuppression from infection. Monitor platelet count, especially in light of the patient's need for systemic anticoagulation. Plan to transfuse if hemoglobin drops below 7 g/dL. 5. Hypokalemia/hypomagnesemia/hypophosphatemia Given the patient's history of alcohol dependency, he is high risk for refeeding syndrome. Aggressively replete electrolytes as ordered. Recheck levels in the morning. 6. Abnormal liver function studies Likely secondary to fatty infiltration of the liver, noted on abdominal ultrasound. 7. Chronic alcohol dependency/hypertension/GERD/history of migraine headaches Complicates care, management, recovery and prognosis. Continue management of alcohol withdrawal symptoms as noted above. This note was generated with [employer] dictation software. It may contain incorrect words, spelling, and punctuation that were not noted in checking the note before signing. Inpatient E&M: [id number] [facility] Hosp L3
[2020-04-11 07:10] LABS: SARS-COV-2 TOTAL ABS Nonreactive (Nonreactive)
[2020-04-11 07:37] LABS: Magnesium 1.2 mg/dL (1.6-2.6); Phosphorus 0.9 mg/dL (2.5-4.9)
[2020-04-11 08:51] LABS: Bedside Glucose 105 mg/dL (70-110)
[2020-04-11] MEDS: Dextrose 10%-Water 250 ML 100 ML IV ×3 (09:11→13:52)
[2020-04-11 09:20] LABS: Procalcitonin 0.76 ng/mL (0.00-0.09)
--- NOTE | 2020-04-11 10:31 | PN_ITS ---
Patient Problems: Active and Suspected Problems Septic shock (Acute) Pneumonia (Acute) MAICOL (acute kidney injury) (Acute) Elevated d-dimer (Acute) Subjective: Patient was seen and examined today, he does not complain of any chest discomfort, he states he feels short of breath but feels that it may be due to lying in bed and not sitting up in a chair. Patient's pulse ox has been above 90% on room air. Patient has not been agitated and he is not confused. Patient's electrolytes were abnormal today with a low phosphorus, low potassium, and low calcium. Patient's liver enzymes are still slightly elevated but improved. His blood sugar on labs this morning was 95, he is currently on D10 half-normal saline. Patient's white count remains low at 3000, hemoglobin is low at 7.4, platelet count is slightly low at 95,000. Patient remains afebrile. Objective: General: Alert, Oriented x3, Cooperative HEENT: Atraumatic, PERRLA, EOMI, Normocephalic Oral: Moist Mucosa Neck: Supple, No JVD, Negative Carotid Bruits Lungs: Clear to auscultation, Normal air movement, No rhonchi, No wheeze, No rales Cardiovascular: Regular rate, Regular Rhythm, Normal S1, Normal S2, No murmurs, PMI Normal, No rub noted, No Gallop Abdomen: Bowel Sounds Present, Soft, Non Tender, Non-Distended, No hernias noted Extremities: No clubbing, No cyanosis, No edema, Capillary Refill Less than 3 Seconds Skin: No rashes, No breakdown Musculoskeletal: No Tenderness to Palpation of Joints or Extremities Neurological: Cranial nerves II-XII grossly intact, Neuro grossly intact, Sensory exam intact to light touch and pain, Coordination normal Psych/Mental Status: Normal Affect, Appropriate, Alert and oriented to time, place, person, mood and affect - Physical Exam Vitals/I&O's: Vital Signs Temp Pulse Resp BP Pulse Ox 97.8 F 99 17 122/55 H 98 04/11/20 04:00 04/11/20 07:00 04/11/20 07:00 04/11/20 07:00 04/11/20 07:00 Oxygen Flow Rate (L/min) 2 Oxygen Delivery Method Room Air Weight: 90.3 kg Body Mass Index (BMI) 27.1 Finger Stick Blood Glucose 78 Intake and Output for Last 24 Hours 04/09/20 04/10/20 04/11/20 23:59 23:59 23:59 Intake Total 5011.77 / 5018.02 3730.3333 / 4210.3333 2608.8125 / 2608.8125 Output Total 175 / 175 500 / 900 400 / 400 Balance 4836.77 / 4843.02 3230.3333 / 3310.3333 2208.8125 / 2208.8125 Microbiology Past 72 Hours 04/09/20 15:15 Mucosa - Nasopharyngeal Respiratory Panel (PCR) - Final Laboratory Results 04/10/20 12:12: POC Glucose 76 04/10/20 17:30: POC Glucose 61 L 04/10/20 18:24: POC Glucose 66 L 04/10/20 20:11: POC Glucose 48 L 04/10/20 20:46: POC Glucose 52 L 04/10/20 21:13: POC Glucose 56 L 04/10/20 21:34: POC Glucose 89 04/11/20 00:10: POC Glucose 66 L 04/11/20 00:32: POC Glucose 102 04/11/20 01:03: Troponin I < 0.015 04/11/20 01:50: POC Glucose 67 L 04/11/20 02:22: POC Glucose 97 04/11/20 03:32: POC Glucose 89 04/11/20 03:35: WBC 3.0 L, RBC 2.29 L, Hgb 7.4 L, Hct 23.9 L, MCV 104.4 H, MCH 32.3 H, MCHC 31.0 L, RDW Std Deviation 76.8 H, RDW Coeff of Jessica 20.1 H, Plt Count 95 L, MPV 10.5, Immature Gran % (Auto) 1.000 H, Neut % (Auto) 68.5, Lymph % (Auto) 17.6 L, [place] % (Auto) 10.5 H, Eos % (Auto) 1.7, Baso % (Auto) 0.7, Absolute Neuts (auto) 2.0, Absolute Lymphs (auto) 0.52 L, Nucleated RBC % 0, Differential Comment SCANNED, Diff Path Review May foll, Atypical Lymphocytes RARE, Platelet Estimate SLT DEC, Anisocytosis 1+ 04/11/20 03:35: Sodium Cancelled, Potassium Cancelled, Chloride Cancelled, Carbon Dioxide Cancelled, Anion Gap Cancelled, BUN Cancelled, Creatinine Cancelled, Estim Creat Clear Calc Cancelled, Est GFR (MDRD) Af Amer Cancelled, Est GFR (MDRD) Non-Af Cancelled, BUN/Creatinine Ratio Cancelled, Glucose Cancelled, Calcium Cancelled, Total Bilirubin Cancelled, AST Cancelled, ALT Cancelled, Alkaline Phosphatase Cancelled, Total Protein Cancelled, Albumin Cancelled, Globulin Cancelled, Albumin/Globulin Ratio Cancelled 04/11/20 03:35: Procalcitonin 0.76 H, SARS Serology Cancelled 04/11/20 03:35: Hepatitis A IgM Ab Pending, Hep Bs Antigen Pending, Hep B Core IgM Ab Pending, Hepatitis C Ab (EIA) Pending 04/11/20 03:35: Troponin I < 0.015 04/11/20 03:35: SARS Serology Nonreactive 04/11/20 05:25: Phosphorus 0.9 L*, Magnesium 1.2 L 04/11/20 05:39: Sodium 137, Potassium 2.7 L*, Chloride 101, Carbon Dioxide 23.0, Anion Gap 13, BUN 12, Creatinine 0.88, Estim Creat Clear Calc 93.73, Est GFR (MDRD) Af Amer 115, Est GFR (MDRD) Non-Af 95, BUN/Creatinine Ratio 13.7, Glucose 95, Calcium 5.9 L*, Total Bilirubin 1.10 H, AST 146 H, ALT 54, Alkaline Phosphatase 92, Total Protein 5.5 L, Albumin 2.5 L, Globulin 3.0, Albumin/Globulin Ratio 0.8 L 04/11/20 06:20: Troponin I < 0.015 04/11/20 07:59: POC Glucose 105 Current Medications Acetaminophen (Tylenol) 650 mg PO Q6H PRN PRN PRN Reason: Pain Score 1-10/Temp > 100.7 F Al Hydroxide/Mg Hydroxide (Mylanta Ii) 30 ml PO Q6H PRN PRN PRN Reason: Gastric Burning Albuterol Sulfate (Ventolin Aerosols) 2.5 mg INHALATION Q2H PRN PRN PRN Reason: SOB/Wheezing Last Admin: 04/11/20 04:27 Dose: 2.5 mg Documented by: Amitriptyline HCl (Elavil) 25 mg PO QHS [facility] Last Admin: 04/10/20 21:19 Dose: Not Given Documented by: Clonidine HCl (Catapres-Tts1) 0.1 mg TRANSDERM. QWEEK [facility] Last Admin: 04/10/20 02:40 Dose: 0.1 mg Documented by: Dextrose (D50w Syringe) 0 gm IV X1 PRN; Protocol PRN Reason: Hypoglycemia Last Admin: 04/11/20 01:53 Dose: 12.5 gm Documented by: Enoxaparin Sodium (Lovenox) 90 mg SC Q12@0600,1800 [facility] Last Admin: 04/11/20 06:16 Dose: 90 mg Documented by: Ferrous Sulfate (Ferrous Sulfate) 325 mg PO BIDCM [facility] Last Admin: 04/11/20 08:06 Dose: Not Given Documented by: Folic Acid (Folic Acid) 1 mg PO DAILY@0800 [facility] Stop: 04/12/20 08:01 Last Admin: 04/11/20 08:06 Dose: Not Given Documented by: Glucagon () 1 mg IM .X1 PRN PRN Reason: Hypoglycemia Guaifenesin (Robitussin) 10 ml PO Q4H PRN PRN PRN Reason: COUGH Heparin Sodium (Porcine) (Heparin Na) 0 unit IV UD PRN; Protocol Last Admin: 04/09/20 22:48 Dose: 3,000 unit Documented by: Ceftriaxone Sodium 2 gm/ (Sodium Chloride) 50 mls @ 100 mls/hr IV Q24 [facility] Stop: 04/16/20 10:29 Last Infusion: 04/11/20 10:00 Dose: Infused Documented by: Sodium Chloride () 250 mls @ 15 mls/hr IV .[id number] PRN PRN Reason: Saline Flush Sodium Chloride () 250 mls @ 15 mls/hr IV .[id number] PRN PRN Reason: Additional IVPB Infusion Potassium Chloride 40 meq/ (Sodium Chloride) 120 mls @ 100 mls/hr IV BOLUS X1 ONE Stop: 04/11/20 13:11 Dextrose (Dextrose 10%-Water) 250 mls @ 100 mls/hr IV .[id number] [facility] Last Admin: 04/11/20 09:11 Dose: 100 mls/hr Documented by: Potassium Phosphate 40 mm/ (Sodium Chloride) 513.3333 mls @ 62.5 mls/hr IV X1 ONE Stop: 04/11/20 19:12 Magnesium Sulfate () 4 gm in 100 mls @ 25 mls/hr IV X1 ONE Stop: 04/11/20 14:59 Calcium Gluconate 2 gm/ (Dextrose) 120 mls @ 60 mls/hr IV X1 ONE Stop: 04/11/20 12:10 Multivitamins/Minerals ([facility]ivitamin With Minerals (Bkc)) [facility] Admin: 04/11/20 08:06 Dose: Not Given Documented by: Ondansetron HCl (Zofran) 4 mg IV Q8H PRN PRN PRN Reason: NAUSEA/VOMITING Senna/Docusate Sodium (Senokot-S, Kia-Colace) 2 tablet PO BID PRN PRN Reason: Constipation Sodium Chloride () 10 - 40 ml IV UD PRN PRN Reason: SALINE FLUSH Last Admin: 04/11/20 06:18 Dose: 40 ml Documented by: Tamsulosin HCl (Flomax) 0.4 mg PO DAILY@1730 [facility] Last Admin: 04/10/20 16:43 Dose: Not Given Documented by: Thiamine HCl ([facility]itamin B1) [facility] Stop: 04/12/20 17:01 Last Admin: 04/11/20 08:06 Dose: Not Given Documented by: Medical Necessity - Tobacco Use Smoking Status: Current every day smoker Tobacco Use: Cigarettes Assessment/Plan All Active Problems Septic shock (Acute) Pneumonia (Acute) MAICOL (acute kidney injury) (Acute) Elevated d-dimer (Acute) Hypokalemia (Acute) #1 septic shock-etiology unclear, possibly secondary to community-acquired pneumonia-continue antibiotic coverage per infectious diseases #2 acute kidney injury-resolved at this time #3 acute alcohol withdrawal-patient appears calm at this time #4 pancytopenia-probably secondary to myelosuppression from infection, labs will be monitored #5 increased liver function tests-possibly secondary to alcoholic hepatitis- monitor liver enzymes, liver enzymes appear to be improving #6 elevated [id number] unclear at this point, patient will remain on full anticoagulation due to concerns of COVID infection, ID has not ruled out the possibility patient might have COVID. #7 community-acquired pneumonia-organism unknown, infectious diseases is directing antibiotic coverage #8 hypokalemia-IV potassium was ordered for the patient #9 hypophosphatemia-phosphate was ordered for the patient #10 hypocalcemia and calcium was ordered for the patient #11 hypoglycemia-patient remains on D10 half-normal saline at this time, labs will be monitored #12 hypomagnesemia-magnesium was given to the patient #13 dysphagia-speech therapy is working with the patient #14 urinary retention-patient was placed on Flomax yesterday Inpatient E&M: [id number] Subs Hosp L2
[2020-04-11] MEDS: Thiamine Hydrochloride 100 MG Tablet PO ×2 (10:55→17:04)
[2020-04-11] MEDS: Folic Acid 1 MG Tablet PO (10:56)
[2020-04-11] MEDS: Ferrous Sulfate 325 MG Tablet PO ×2 (10:56→17:04)
[2020-04-11] MEDS: Multivitamins,Ther W-Minerals Tablet 1 TABLET PO (10:56)
[2020-04-11] MEDS: Acetaminophen 325 MG Tablet 650 MG PO (10:56)
[2020-04-11] MEDS: Magnesium Sulfate 4gm/100mL 4 GM/100 ML IV.SOLN. IV (11:07)
[2020-04-11 11:39] LABS: Pathologist Review Reviewed
[2020-04-11 11:45] LABS: Bedside Glucose 125 mg/dL (70-110)
[2020-04-11 12:20] LABS: Pathologist Review Reviewed
[2020-04-11 12:20] LABS: Pathologist Review Reviewed
[2020-04-11 16:20] LABS: Bedside Glucose 113 mg/dL (70-110)
[2020-04-11] MEDS: Tamsulosin HCl 0.4 MG Capsule PO (17:04)
--- NOTE | 2020-04-11 17:11 | PN.ID_ITS ---
Patient Problems: Active and Suspected Problems Septic shock (Acute) Pneumonia (Acute) MAICOL (acute kidney injury) (Acute) Elevated d-dimer (Acute) Subjective: Feeling better, no fever, no n/v/d. - Physical Exam Vitals/I&O's: Vital Signs Temp Pulse Resp BP Pulse Ox 98.1 F 102 H 18 151/89 H 96 04/11/20 17:06 04/11/20 17:06 04/11/20 17:06 04/11/20 17:06 04/11/20 17:06 Oxygen Flow Rate (L/min) 2 Oxygen Delivery Method Room Air Weight: 90.3 kg Body Mass Index (BMI) 27.1 Finger Stick Blood Glucose 78 Intake and Output for Last 24 Hours 04/09/20 04/10/20 04/11/20 23:59 23:59 23:59 Intake Total 5011.77 / 5018.02 3730.3333 / 4210.3333 4921.9650 / 4921.9650 Output Total 175 / 175 500 / 900 1100 / 1100 Balance 4836.77 / 4843.02 3230.3333 / 3310.3333 3821.9650 / 3821.9650 General: Alert, Cooperative, No apparent distress Lungs: Clear to auscultation, Normal air movement Cardiovascular: Regular rate, Regular Rhythm Abdomen: Soft, Non Tender, Non-Distended Skin: No rashes Microbiology Past 72 Hours 04/11/20 09:00 Sputum, Expectorated/Coughed Gram Stain - Final 04/11/20 11:30 Stool Stool Occult Blood (YOLANDE) - Final 04/09/20 10:37 Blood Culture (Wb) - Left Hand Blood Culture - Preliminary No growth in 48 hours. 04/09/20 10:10 Blood Culture (Wb) - Right Hand Blood Culture - Preliminary No growth in 48 hours. 04/09/20 15:15 Mucosa - Nasopharyngeal Respiratory Panel (PCR) - Final Laboratory Results 04/10/20 04:15: Diff Path Review Reviewed 04/10/20 06:17: Diff Path Review Reviewed 04/10/20 17:30: POC Glucose 61 L 04/10/20 18:24: POC Glucose 66 L 04/10/20 20:11: POC Glucose 48 L 04/10/20 20:46: POC Glucose 52 L 04/10/20 21:13: POC Glucose 56 L 04/10/20 21:34: POC Glucose 89 04/11/20 00:10: POC Glucose 66 L 04/11/20 00:32: POC Glucose 102 04/11/20 01:03: Troponin I < 0.015 04/11/20 01:50: POC Glucose 67 L 04/11/20 02:22: POC Glucose 97 04/11/20 03:32: POC Glucose 89 04/11/20 03:35: WBC 3.0 L, RBC 2.29 L, Hgb 7.4 L, Hct 23.9 L, MCV 104.4 H, MCH 32.3 H, MCHC 31.0 L, RDW Std Deviation 76.8 H, RDW Coeff of Jessica 20.1 H, Plt Count 95 L, MPV 10.5, Immature Gran % (Auto) 1.000 H, Neut % (Auto) 68.5, Lymph % (Auto) 17.6 L, [place] % (Auto) 10.5 H, Eos % (Auto) 1.7, Baso % (Auto) 0.7, Absolute Neuts (auto) 2.0, Absolute Lymphs (auto) 0.52 L, Nucleated RBC % 0, Differential Comment SCANNED, Diff Path Review Reviewed, Atypical Lymphocytes RARE, Platelet Estimate SLT DEC, Anisocytosis 1+ 04/11/20 03:35: Sodium Cancelled, Potassium Cancelled, Chloride Cancelled, Carbon Dioxide Cancelled, Anion Gap Cancelled, BUN Cancelled, Creatinine Cancelled, Estim Creat Clear Calc Cancelled, Est GFR (MDRD) Af Amer Cancelled, Est GFR (MDRD) Non-Af Cancelled, BUN/Creatinine Ratio Cancelled, Glucose Cancelled, Calcium Cancelled, Total Bilirubin Cancelled, AST Cancelled, ALT Cancelled, Alkaline Phosphatase Cancelled, Total Protein Cancelled, Albumin Cancelled, Globulin Cancelled, Albumin/Globulin Ratio Cancelled 04/11/20 03:35: Procalcitonin 0.76 H, SARS Serology Cancelled 04/11/20 03:35: Hepatitis A IgM Ab Pending, Hep Bs Antigen Pending, Hep B Core IgM Ab Pending, Hepatitis C Ab (EIA) Pending 04/11/20 03:35: Troponin I < 0.015 04/11/20 03:35: SARS Serology Nonreactive 04/11/20 05:25: Phosphorus 0.9 L*, Magnesium 1.2 L 04/11/20 05:39: Sodium 137, Potassium 2.7 L*, Chloride 101, Carbon Dioxide 23.0, Anion Gap 13, BUN 12, Creatinine 0.88, Estim Creat Clear Calc 93.73, Est GFR (MDRD) Af Amer 115, Est GFR (MDRD) Non-Af 95, BUN/Creatinine Ratio 13.7, Glucose 95, Calcium 5.9 L*, Total Bilirubin 1.10 H, AST 146 H, ALT 54, Alkaline Phosphatase 92, Total Protein 5.5 L, Albumin 2.5 L, Globulin 3.0, Albumin/Globulin Ratio 0.8 L 04/11/20 06:20: Troponin I < 0.015 04/11/20 07:59: POC Glucose 105 04/11/20 11:06: POC Glucose 125 H 04/11/20 16:07: POC Glucose 113 H Current Medications Acetaminophen (Tylenol) 650 mg PO Q6H PRN PRN PRN Reason: Pain Score 1-10/Temp > 100.7 F Last Admin: 04/11/20 10:56 Dose: 650 mg Documented by: Al Hydroxide/Mg Hydroxide (Mylanta Ii) 30 ml PO Q6H PRN PRN PRN Reason: Gastric Burning Albuterol Sulfate (Ventolin Aerosols) 2.5 mg INHALATION Q2H PRN PRN PRN Reason: SOB/Wheezing Last Admin: 04/11/20 04:27 Dose: 2.5 mg Documented by: Amitriptyline HCl (Elavil) 25 mg PO QHS [facility] Last Admin: 04/10/20 21:19 Dose: Not Given Documented by: Clonidine HCl (Catapres-Tts1) 0.1 mg TRANSDERM. QWEEK [facility] [place] Last Admin: 04/10/20 02:40 Dose: 0.1 mg Documented by: Dextrose (D50w Syringe) 0 gm IV X1 PRN; Protocol PRN Reason: Hypoglycemia Last Admin: 04/11/20 01:53 Dose: 12.5 gm Documented by: Enoxaparin Sodium (Lovenox) 90 mg SC Q12@0600,1800 [facility] [place] Last Admin: 04/11/20 17:04 Dose: 90 mg Documented by: Ferrous Sulfate (Ferrous Sulfate) 325 mg PO BIDCM [facility] [place] Last Admin: 04/11/20 17:04 Dose: 325 mg Documented by: Folic Acid (Folic Acid) 1 mg PO DAILY@0800 [facility] Stop: 04/12/20 08:01 Last Admin: 04/11/20 10:56 Dose: 1 mg Documented by: Glucagon () 1 mg IM .X1 PRN PRN Reason: Hypoglycemia Guaifenesin (Robitussin) 10 ml PO Q4H PRN PRN PRN Reason: COUGH Heparin Sodium (Porcine) (Heparin Na) 0 unit IV UD PRN; Protocol Last Admin: 04/09/20 22:48 Dose: 3,000 unit Documented by: Ceftriaxone Sodium 2 gm/ (Sodium Chloride) 50 mls @ 100 mls/hr IV Q24 [facility] Stop: 04/16/20 10:29 Last Infusion: 04/11/20 10:00 Dose: Infused Documented by: Sodium Chloride () 250 mls @ 15 mls/hr IV .[id number] PRN PRN Reason: Saline Flush Sodium Chloride () 250 mls @ 15 mls/hr IV .[id number] PRN PRN Reason: Additional IVPB Infusion Potassium Phosphate 40 mm/ (Sodium Chloride) 513.3333 mls @ 62.5 mls/hr IV X1 ONE Stop: 04/11/20 19:12 Last Admin: 04/11/20 11:14 Dose: 62.5 mls/hr Documented by: Multivitamins/Minerals ([facility]ivitamin With Minerals (Bkc)) [facility] Admin: 04/11/20 10:56 Dose: 1 tablet Documented by: Ondansetron HCl (Zofran) 4 mg IV Q8H PRN PRN PRN Reason: NAUSEA/VOMITING Senna/Docusate Sodium (Senokot-S, Kia-Colace) 2 tablet PO BID PRN PRN Reason: Constipation Sodium Chloride () 10 - 40 ml IV UD PRN PRN Reason: SALINE FLUSH Last Admin: 04/11/20 17:08 Dose: 20 ml Documented by: Tamsulosin HCl (Flomax) 0.4 mg PO DAILY@1730 [facility] Last Admin: 04/11/20 17:04 Dose: 0.4 mg Documented by: Thiamine HCl (Vitamin B1) 100 mg PO BIDCM [facility] [place] Stop: 04/12/20 17:01 Last Admin: 04/11/20 17:04 Dose: 100 mg Documented by: Medical Necessity - Tobacco Use Smoking Status: Current every day smoker Tobacco Use: Cigarettes Route of nutrition/ use of supplements: [] Nutritional Intake: [] IV Site: [] George Catheter: [] - Assessment/Plan Antibiotics: [] Assessment/Plan: [] Active and Suspected Problems Septic shock (Acute) Pneumonia (Acute) MAICOL (acute kidney injury) (Acute) Elevated d-dimer (Acute) Overall doing better. COVID pcr neg. In precautions. Pancytopenia, improving Cr and bilirubin. CT-PE neg for PE. Cont ceftriaxone for CAP coverage, plan on 6 days total of abx. COVID serology neg, will d/c isolation. Will follow, d/w primary team
--- NOTE | 2020-04-11 22:18 | NURSING ---
Pt is refusing HS Elavil. pt states it causes hallucinations for him. Josias SMALL
[2020-04-11 23:06] LABS: Bedside Glucose 97 mg/dL (70-110)
[2020-04-12] VITALS (9 sets, daily range): BP systolic 112–139; BP diastolic 74–91; PULSE 67–116; RESP 16–17; TEMP 36.7–37.3; O2SAT 97–100
[2020-04-12] MEDS: guaiFENesin 10 ML UDC (200MG/10ML) PO (03:54)
--- NOTE | 2020-04-12 04:55 | RAD_ITS ---
HISTORY: PNEUMONIA ADDITIONAL HISTORY: None provided. COMPARISON: 04/09/2020 TECHNIQUE: Frontal and lateral chest radiographs. Number of images including paperwork: 2 FINDINGS: LUNGS AND PLEURA: Decrease in left lower lobe consolidation. Slight increase in right basilar opacity with linear components are just of atelectasis. Mild peribronchial thickening. CARDIAC SILHOUETTE: Unremarkable. MEDIASTINUM AND EVERARDO: Unremarkable. UPPER ABDOMEN: Unremarkable. SKELETON AND SOFT TISSUES: No acute findings. OTHER DEVICES AND HARDWARE: None. RAD/Chest PA and Lateral IMPRESSION: Decrease in left lower lobe consolidation. at 0721 Reported and signed by: Adriana Myers MD Electronically Signed: Adriana Myers MD at 7:21 EDT Tel , Service support ,
[2020-04-12] MEDS: Enoxaparin 40 MG/0.4 ML Syringe SC (05:57)
[2020-04-12 06:04] LABS: Absolute Lymphocyte Count 0.51 X10^3/uL (0.83-4.51); Absolute Neutrophil Count 1.1 X10^3/uL (2.0-7.7); Basophil# 0.02 X10^3/uL; Basophil% 0.9 % (0-1); Eosinophil# 0.03 X10^3/uL; Eosinophils% 1.4 % (0-5); Hematocrit 24.5 % (40-54); Hemoglobin 7.8 g/dL (13.0-16.5); Lymphocyte # 0.51 X10^3/ul (4.0); Lymphocyte % 23.9 % (19-41); Mean Corp Hgb Conc 31.8 g/dL (32-36); Mean Corpuscular Hgb 32.1 pg (27.0-32.0); Mean Corpuscular Volume 100.8 fL (80-94); Mean Platelet Vol. 9.5 fl (6.2-12.0); Monocyte# 0.41 X10^3/uL; Monocyte% 19.2 % (0-10); NRBC Flagged by Analyzer 0 % (0-5); Neutrophil # 1.12 X10^3/uL (2.7-7.7); Neutrophil % 52.7 % (47-70); POSITIVE COUNT YES; POSITIVE DIFFERENTIAL YES; POSITIVE MORPHOLOGY YES; Platelet Count 96 K/mm3 (150-450); RBC Distribution Width CV 19.7 % (11.6-14.6); RBC Distribution Width SD 72.4 fl (35.1-43.9); Red Blood Count 2.43 M/mm3 (4.6-6.2); White Blood Count 2.1 K/mm3 (4.4-11.0)
[2020-04-12 06:14] LABS: Differential Indicated SCAN CRITERIA MET
[2020-04-12 06:41] LABS: Anisocytosis 1+
[2020-04-12 06:43] LABS: Differential Comment SCANNED
[2020-04-12 06:46] LABS: Bedside Glucose 83 mg/dL (70-110)
[2020-04-12 07:21] LABS: ALB/GLOB Ratio 0.8 RATIO (0.9-2.4); AST(SGOT) 101 U/L (15-37); Alanine Aminotransfer ALT/SGPT 48 U/L (16-61); Albumin, Serum 2.4 g/dL (3.2-5.0); Alkaline Phosphatase 84 U/L (45-117); Anion Gap 10 (5-15); BUN 5 mg/dL (7-18); Calcium,Total 5.8 mg/dL (8.5-10.1); Chloride 102 mmol/L (98-107); Creatinine, Serum 0.63 mg/dL (0.70-1.30); EST Glomerular Filtration Rate 141 mL/min (>60); Est Glom Filt Rate - Afr Amer 171 mL/min (>60); Estimated Creatinine Clearance 130.93 ml/min; Globulin 3.1 g/dL (2.2-4.2); Glucose 87 mg/dL (74-106); Magnesium 0.9 mg/dL (1.6-2.6); Phosphorus 1.1 mg/dL (2.5-4.9); Potassium 2.9 mmol/L (3.5-5.1); Protein, Total 5.5 g/dL (6.4-8.2); Sodium Level 137 mmol/L (136-145)
[2020-04-12] MEDS: Thiamine Hydrochloride 100 MG Tablet PO ×2 (08:04→16:36)
[2020-04-12] MEDS: Folic Acid 1 MG Tablet PO (08:04)
[2020-04-12] MEDS: Multivitamins,Ther W-Minerals Tablet 1 TABLET PO (08:04)
[2020-04-12] MEDS: Ferrous Sulfate 325 MG Tablet PO ×2 (08:04→16:36)
[2020-04-12 08:08] LABS: HEPATITIS B SURFACE AG Negative (Negative); Hepatitis A IgM Antibody Negative (Negative); Hepatitis B Core AB IgM Negative (Negative)
--- NOTE | 2020-04-12 08:55 | PN_ITS ---
Patient Problems: Active and Suspected Problems Septic shock (Acute) Pneumonia (Acute) MAICOL (acute kidney injury) (Acute) Elevated d-dimer (Acute) Subjective: The patient was seen and examined at the bedside this morning. Events from the last 24 hours have been reviewed. The patient is currently afebrile, hemodynamically stable and maintaining appropriate oxygen saturations on room air. The patient reports feeling well this morning and is requesting to be allowed to take a shower. Blood glucose levels have stabilized. However, the patient remains hypokalemic with continued hypophosphatemia and hypomagnesemia. Objective: The patient's most recent lab work, culture data and imaging studies have all been personally reviewed. CTA chest revealed no evidence for pulmonary embolism. There was evidence of a left lower lobe consolidation. Lower extremity Doppler studies were negative for DVT. Abdominal ultrasound revealed fatty infiltration of the liver. Sputum, blood and urine cultures are pending. Respiratory viral panel was negative. - Physical Exam Vitals/I&O's: Vital Signs Temp Pulse Resp BP Pulse Ox 98.1 F 116 H 17 139/91 H 98 04/12/20 03:50 04/12/20 07:00 04/12/20 03:50 04/12/20 03:50 04/12/20 07:38 Oxygen Flow Rate (L/min) 2 Oxygen Delivery Method Room Air Weight: 201 lb 0.985 oz Body Mass Index (BMI) 27.1 Finger Stick Blood Glucose 78 Intake and Output for Last 24 Hours 04/10/20 04/11/20 04/12/20 23:59 23:59 23:59 Intake Total 3730.3333 / 4210.3333 5435.2983 / 5435.2983 Output Total 500 / 900 1100 / 1100 Balance 3230.3333 / 3310.3333 4335.2983 / 4335.2983 General: Alert, Cooperative, No apparent distress, - - Sitting in bedside recliner. HEENT: Atraumatic, Normocephalic Oral: No Gingival or Mucosal Lesions/ Ulcerations Neck: Supple, No Nodes, Trachea Midline Lungs: Diminished Cardiovascular: Regular rate, Regular Rhythm Abdomen: Bowel Sounds Present, Soft, Non Tender Extremities: No clubbing, No cyanosis, No edema Skin: - - No significant change from previous Musculoskeletal: No Tenderness to Palpation of Joints or Extremities, No Muscle Wasting Lymphatic: No Cervical, Supraclavicular, or Inguinal Adenopathy Neurological: Cranial nerves II-XII grossly intact, Neuro grossly intact Psych/Mental Status: Alert and oriented to time, place, person, mood and affect Labs (Last 48 Hours) 04/10/20 04/10/20 04/10/20 04:15 06:17 08:50 WBC RBC Hgb Hct MCV MCH MCHC RDW Std Deviation RDW Coeff of Jessica Plt Count MPV Immature Gran % (Auto) Neut % (Auto) Lymph % (Auto) [place] % (Auto) Eos % (Auto) Baso % (Auto) Absolute Neuts (auto) Absolute Lymphs (auto) Nucleated RBC % Differential Comment Diff Path Review Reviewed Reviewed Atypical Lymphocytes Platelet Estimate Anisocytosis Sodium Potassium Chloride Carbon Dioxide Anion Gap BUN Creatinine Estim Creat Clear Calc Est GFR (MDRD) Af Amer Est GFR (MDRD) Non-Af BUN/Creatinine Ratio Glucose Calcium Phosphorus Magnesium Total Bilirubin AST ALT Alkaline Phosphatase Troponin I Total Protein Albumin Globulin Albumin/Globulin Ratio Procalcitonin Hepatitis A IgM Ab Hep Bs Antigen Hep B Core IgM Ab Hepatitis C Ab (EIA) SARS Serology POC Glucose Blood Type A POSITIVE Antibody Screen NEGATIVE 04/10/20 04/10/20 04/10/20 12:12 17:30 18:24 WBC RBC Hgb Hct MCV MCH MCHC RDW Std Deviation RDW Coeff of Jessica Plt Count MPV Immature Gran % (Auto) Neut % (Auto) Lymph % (Auto) [place] % (Auto) Eos % (Auto) Baso % (Auto) Absolute Neuts (auto) Absolute Lymphs (auto) Nucleated RBC % Differential Comment Diff Path Review Atypical Lymphocytes Platelet Estimate Anisocytosis Sodium Potassium Chloride Carbon Dioxide Anion Gap BUN Creatinine Estim Creat Clear Calc Est GFR (MDRD) Af Amer Est GFR (MDRD) Non-Af BUN/Creatinine Ratio Glucose Calcium Phosphorus Magnesium Total Bilirubin AST ALT Alkaline Phosphatase Troponin I Total Protein Albumin Globulin Albumin/Globulin Ratio Procalcitonin Hepatitis A IgM Ab Hep Bs Antigen Hep B Core IgM Ab Hepatitis C Ab (EIA) SARS Serology POC Glucose 76 61 L 66 L Blood Type Antibody Screen 04/10/20 04/10/20 04/10/20 20:11 20:46 21:13 WBC RBC Hgb Hct MCV MCH MCHC RDW Std Deviation RDW Coeff of Jessica Plt Count MPV Immature Gran % (Auto) Neut % (Auto) Lymph % (Auto) [place] % (Auto) Eos % (Auto) Baso % (Auto) Absolute Neuts (auto) Absolute Lymphs (auto) Nucleated RBC % Differential Comment Diff Path Review Atypical Lymphocytes Platelet Estimate Anisocytosis Sodium Potassium Chloride Carbon Dioxide Anion Gap BUN Creatinine Estim Creat Clear Calc Est GFR (MDRD) Af Amer Est GFR (MDRD) Non-Af BUN/Creatinine Ratio Glucose Calcium Phosphorus Magnesium Total Bilirubin AST ALT Alkaline Phosphatase Troponin I Total Protein Albumin Globulin Albumin/Globulin Ratio Procalcitonin Hepatitis A IgM Ab Hep Bs Antigen Hep B Core IgM Ab Hepatitis C Ab (EIA) SARS Serology POC Glucose 48 L 52 L 56 L Blood Type Antibody Screen 04/10/20 04/11/20 04/11/20 21:34 00:10 00:32 WBC RBC Hgb Hct MCV MCH MCHC RDW Std Deviation RDW Coeff of Jessica Plt Count MPV Immature Gran % (Auto) Neut % (Auto) Lymph % (Auto) [place] % (Auto) Eos % (Auto) Baso % (Auto) Absolute Neuts (auto) Absolute Lymphs (auto) Nucleated RBC % Differential Comment Diff Path Review Atypical Lymphocytes Platelet Estimate Anisocytosis Sodium Potassium Chloride Carbon Dioxide Anion Gap BUN Creatinine Estim Creat Clear Calc Est GFR (MDRD) Af Amer Est GFR (MDRD) Non-Af BUN/Creatinine Ratio Glucose Calcium Phosphorus Magnesium Total Bilirubin AST ALT Alkaline Phosphatase Troponin I Total Protein Albumin Globulin Albumin/Globulin Ratio Procalcitonin Hepatitis A IgM Ab Hep Bs Antigen Hep B Core IgM Ab Hepatitis C Ab (EIA) SARS Serology POC Glucose 89 66 L 102 Blood Type Antibody Screen 04/11/20 04/11/20 04/11/20 01:03 01:50 02:22 WBC RBC Hgb Hct MCV MCH MCHC RDW Std Deviation RDW Coeff of Jessica Plt Count MPV Immature Gran % (Auto) Neut % (Auto) Lymph % (Auto) [place] % (Auto) Eos % (Auto) Baso % (Auto) Absolute Neuts (auto) Absolute Lymphs (auto) Nucleated RBC % Differential Comment Diff Path Review Atypical Lymphocytes Platelet Estimate Anisocytosis Sodium Potassium Chloride Carbon Dioxide Anion Gap BUN Creatinine Estim Creat Clear Calc Est GFR (MDRD) Af Amer Est GFR (MDRD) Non-Af BUN/Creatinine Ratio Glucose Calcium Phosphorus Magnesium Total Bilirubin AST ALT Alkaline Phosphatase Troponin I < 0.015 Total Protein Albumin Globulin Albumin/Globulin Ratio Procalcitonin Hepatitis A IgM Ab Hep Bs Antigen Hep B Core IgM Ab Hepatitis C Ab (EIA) SARS Serology POC Glucose 67 L 97 Blood Type Antibody Screen 04/11/20 04/11/20 04/11/20 03:32 03:35 03:35 WBC 3.0 L RBC 2.29 L Hgb 7.4 L Hct 23.9 L MCV 104.4 H MCH 32.3 H MCHC 31.0 L RDW Std Deviation 76.8 H RDW Coeff of Jessica 20.1 H Plt Count 95 L MPV 10.5 Immature Gran % (Auto) 1.000 H Neut % (Auto) 68.5 Lymph % (Auto) 17.6 L [place] % (Auto) 10.5 H Eos % (Auto) 1.7 Baso % (Auto) 0.7 Absolute Neuts (auto) 2.0 Absolute Lymphs (auto) 0.52 L Nucleated RBC % 0 Differential Comment SCANNED Diff Path Review Reviewed Atypical Lymphocytes RARE Platelet Estimate SLT DEC Anisocytosis 1+ Sodium Cancelled Potassium Cancelled Chloride Cancelled Carbon Dioxide Cancelled Anion Gap Cancelled BUN Cancelled Creatinine Cancelled Estim Creat Clear Calc Cancelled Est GFR (MDRD) Af Amer Cancelled Est GFR (MDRD) Non-Af Cancelled BUN/Creatinine Ratio Cancelled Glucose Cancelled Calcium Cancelled Phosphorus Magnesium Total Bilirubin Cancelled AST Cancelled ALT Cancelled Alkaline Phosphatase Cancelled Troponin I Total Protein Cancelled Albumin Cancelled Globulin Cancelled Albumin/Globulin Ratio Cancelled Procalcitonin Hepatitis A IgM Ab Hep Bs Antigen Hep B Core IgM Ab Hepatitis C Ab (EIA) SARS Serology POC Glucose 89 Blood Type Antibody Screen 04/11/20 04/11/20 04/11/20 03:35 03:35 03:35 WBC RBC Hgb Hct MCV MCH MCHC RDW Std Deviation RDW Coeff of Jessica Plt Count MPV Immature Gran % (Auto) Neut % (Auto) Lymph % (Auto) [place] % (Auto) Eos % (Auto) Baso % (Auto) Absolute Neuts (auto) Absolute Lymphs (auto) Nucleated RBC % Differential Comment Diff Path Review Atypical Lymphocytes Platelet Estimate Anisocytosis Sodium Potassium Chloride Carbon Dioxide Anion Gap BUN Creatinine Estim Creat Clear Calc Est GFR (MDRD) Af Amer Est GFR (MDRD) Non-Af BUN/Creatinine Ratio Glucose Calcium Phosphorus Magnesium Total Bilirubin AST ALT Alkaline Phosphatase Troponin I < 0.015 Total Protein Albumin Globulin Albumin/Globulin Ratio Procalcitonin 0.76 H Hepatitis A IgM Ab Pending Hep Bs Antigen Pending Hep B Core IgM Ab Pending Hepatitis C Ab (EIA) Pending SARS Serology Cancelled POC Glucose Blood Type Antibody Screen 04/11/20 04/11/20 04/11/20 03:35 05:25 05:39 WBC RBC Hgb Hct MCV MCH MCHC RDW Std Deviation RDW Coeff of Jessica Plt Count MPV Immature Gran % (Auto) Neut % (Auto) Lymph % (Auto) [place] % (Auto) Eos % (Auto) Baso % (Auto) Absolute Neuts (auto) Absolute Lymphs (auto) Nucleated RBC % Differential Comment Diff Path Review Atypical Lymphocytes Platelet Estimate Anisocytosis Sodium 137 Potassium 2.7 L* Chloride 101 Carbon Dioxide 23.0 Anion Gap 13 BUN 12 Creatinine 0.88 Estim Creat Clear Calc 93.73 Est GFR (MDRD) Af Amer 115 Est GFR (MDRD) Non-Af 95 BUN/Creatinine Ratio 13.7 Glucose 95 Calcium 5.9 L* Phosphorus 0.9 L* Magnesium 1.2 L Total Bilirubin 1.10 H AST 146 H ALT 54 Alkaline Phosphatase 92 Troponin I Total Protein 5.5 L Albumin 2.5 L Globulin 3.0 Albumin/Globulin Ratio 0.8 L Procalcitonin Hepatitis A IgM Ab Hep Bs Antigen Hep B Core IgM Ab Hepatitis C Ab (EIA) SARS Serology Nonreactive POC Glucose Blood Type Antibody Screen 04/11/20 04/11/20 04/11/20 06:20 07:59 11:06 WBC RBC Hgb Hct MCV MCH MCHC RDW Std Deviation RDW Coeff of Jessica Plt Count MPV Immature Gran % (Auto) Neut % (Auto) Lymph % (Auto) [place] % (Auto) Eos % (Auto) Baso % (Auto) Absolute Neuts (auto) Absolute Lymphs (auto) Nucleated RBC % Differential Comment Diff Path Review Atypical Lymphocytes Platelet Estimate Anisocytosis Sodium Potassium Chloride Carbon Dioxide Anion Gap BUN Creatinine Estim Creat Clear Calc Est GFR (MDRD) Af Amer Est GFR (MDRD) Non-Af BUN/Creatinine Ratio Glucose Calcium Phosphorus Magnesium Total Bilirubin AST ALT Alkaline Phosphatase Troponin I < 0.015 Total Protein Albumin Globulin Albumin/Globulin Ratio Procalcitonin Hepatitis A IgM Ab Hep Bs Antigen Hep B Core IgM Ab Hepatitis C Ab (EIA) SARS Serology POC Glucose 105 125 H Blood Type Antibody Screen 04/11/20 04/11/20 04/12/20 16:07 22:15 05:48 WBC 2.1 L RBC 2.43 L Hgb 7.8 L Hct 24.5 L MCV 100.8 H MCH 32.1 H MCHC 31.8 L RDW Std Deviation 72.4 H RDW Coeff of Jessica 19.7 H Plt Count 96 L MPV 9.5 Immature Gran % (Auto) 1.900 H Neut % (Auto) 52.7 Lymph % (Auto) 23.9 [place] % (Auto) 19.2 H Eos % (Auto) 1.4 Baso % (Auto) 0.9 Absolute Neuts (auto) 1.1 L Absolute Lymphs (auto) 0.51 L Nucleated RBC % 0 Differential Comment SCANNED Diff Path Review May foll Atypical Lymphocytes Platelet Estimate Anisocytosis 1+ Sodium Potassium Chloride Carbon Dioxide Anion Gap BUN Creatinine Estim Creat Clear Calc Est GFR (MDRD) Af Amer Est GFR (MDRD) Non-Af BUN/Creatinine Ratio Glucose Calcium Phosphorus Magnesium Total Bilirubin AST ALT Alkaline Phosphatase Troponin I Total Protein Albumin Globulin Albumin/Globulin Ratio Procalcitonin Hepatitis A IgM Ab Hep Bs Antigen Hep B Core IgM Ab Hepatitis C Ab (EIA) SARS Serology POC Glucose 113 H 97 Blood Type Antibody Screen 04/12/20 04/12/20 05:48 06:39 WBC RBC Hgb Hct MCV MCH MCHC RDW Std Deviation RDW Coeff of Jessica Plt Count MPV Immature Gran % (Auto) Neut % (Auto) Lymph % (Auto) [place] % (Auto) Eos % (Auto) Baso % (Auto) Absolute Neuts (auto) Absolute Lymphs (auto) Nucleated RBC % Differential Comment Diff Path Review Atypical Lymphocytes Platelet Estimate Anisocytosis Sodium 137 Potassium 2.9 L Chloride 102 Carbon Dioxide 25.0 Anion Gap 10 BUN 5 L Creatinine 0.63 L Estim Creat Clear Calc 130.93 Est GFR (MDRD) Af Amer 171 Est GFR (MDRD) Non-Af 141 BUN/Creatinine Ratio 8.0 L Glucose 87 Calcium 5.8 L* Phosphorus 1.1 L* Magnesium 0.9 L* Total Bilirubin 1.10 H AST 101 H ALT 48 Alkaline Phosphatase 84 Troponin I Total Protein 5.5 L Albumin 2.4 L Globulin 3.1 Albumin/Globulin Ratio 0.8 L Procalcitonin Hepatitis A IgM Ab Hep Bs Antigen Hep B Core IgM Ab Hepatitis C Ab (EIA) SARS Serology POC Glucose 83 Blood Type Antibody Screen Microbiology 04/09/20 18:00 Urine, Clean Catch Urine Culture - Final Mixed Gram Positive Organisms 04/11/20 09:00 Sputum, Expectorated/Coughed Gram Stain - Final 04/11/20 11:30 Stool Stool Occult Blood (YOLANDE) - Final 04/09/20 10:37 Blood Culture (Wb) - Left Hand Blood Culture - Preliminary No growth in 48 hours. 04/09/20 10:10 Blood Culture (Wb) - Right Hand Blood Culture - Preliminary No growth in 48 hours. 04/09/20 15:15 Mucosa - Nasopharyngeal Respiratory Panel (PCR) - Final Clinical Impression(s) from Imaging Studies Brain CT 04/09/20 09:53 IMPRESSION: Chronic involutional changes of the brain. Electronically Signed: Jake Johnson, at 12:16 EDT , Service support , Chest X-Ray 04/09/20 11:45 IMPRESSION: Mild degree of increased markings at the left lung base suggestive of atelectasis and/or early infiltrate. Electronically Signed: Jake Johnson, at 12:19 EDT , Service support , Abdomen Ultrasound 04/09/20 17:28 IMPRESSION: Enlarged, fatty liver. No focal hepatic lesions. Mild splenomegaly. Electronically Signed: Saurabh Licona, at 19:09 EDT Tel , Service support , Chest CTA 04/10/20 07:09 IMPRESSION: Left lower lobe consolidation with patchy infiltrate in the lateral aspect of the lingular segment of the left upper lobe. Minimal increased markings at the right lung base. No evidence of a pulmonary embolism. Diffuse fatty infiltration of the liver. Electronically Signed: Jake Johnson, at 10:22 EDT , Service support , Chest X-Ray 04/12/20 04:55 IMPRESSION: Decrease in left lower lobe consolidation. at 0721 Reported and signed by: Adriana Myers MD Electronically Signed: Adriana Myers MD at 7:21 EDT Tel , Service support , Current Medications Acetaminophen (Tylenol) 650 mg PO Q6H PRN PRN PRN Reason: Pain Score 1-10/Temp > 100.7 F Last Admin: 04/11/20 10:56 Dose: 650 mg Documented by: Al Hydroxide/Mg Hydroxide (Mylanta Ii) 30 ml PO Q6H PRN PRN PRN Reason: Gastric Burning Albuterol Sulfate (Ventolin Aerosols) 2.5 mg INHALATION Q2H PRN PRN PRN Reason: SOB/Wheezing Last Admin: 04/11/20 04:27 Dose: 2.5 mg Documented by: Amitriptyline HCl (Elavil) 25 mg PO QHS [facility] Last Admin: 04/11/20 22:17 Dose: Not Given Documented by: Clonidine HCl (Catapres-Tts1) 0.1 mg TRANSDERM. QWEEK [facility] Last Admin: 04/10/20 02:40 Dose: 0.1 mg Documented by: Dextrose (D50w Syringe) 0 gm IV X1 PRN; Protocol PRN Reason: Hypoglycemia Last Admin: 04/11/20 01:53 Dose: 12.5 gm Documented by: Enoxaparin Sodium (Lovenox) 40 mg SC DAILY@0600 [facility] Last Admin: 04/12/20 05:57 Dose: 40 mg Documented by: Ferrous Sulfate (Ferrous Sulfate) 325 mg PO BIDCM [facility] Last Admin: 04/12/20 08:04 Dose: 325 mg Documented by: Glucagon () 1 mg IM .X1 PRN PRN Reason: Hypoglycemia Guaifenesin (Robitussin) 10 ml PO Q4H PRN PRN PRN Reason: COUGH Last Admin: 04/12/20 03:54 Dose: 10 ml Documented by: Ceftriaxone Sodium 2 gm/ (Sodium Chloride) 50 mls @ 100 mls/hr IV Q24 [facility] Stop: 04/16/20 10:29 Last Infusion: 04/11/20 10:00 Dose: Infused Documented by: Sodium Chloride () 250 mls @ 15 mls/hr IV .[id number] PRN PRN Reason: Saline Flush Sodium Chloride () 250 mls @ 15 mls/hr IV .[id number] PRN PRN Reason: Additional IVPB Infusion Calcium Gluconate 2 gm/ Sodium (Chloride) 120 mls @ 100 mls/hr IV X1 ONE Stop: 04/12/20 09:14 Potassium Chloride () 10 meq in 100 mls @ 100 mls/hr IV BOLUS Q1H [facility] Stop: 04/12/20 12:59 Magnesium Sulfate () 4 gm in 100 mls @ 25 mls/hr IV X1 ONE Stop: 04/12/20 12:04 Multivitamins/Minerals (Multivitamin With Minerals (Bkc)) [facility] Last Admin: 04/12/20 08:04 Dose: 1 tablet Documented by: Ondansetron HCl (Zofran) 4 mg IV Q8H PRN PRN PRN Reason: NAUSEA/VOMITING Senna/Docusate Sodium (Senokot-S, Kia-Colace) 2 tablet PO BID PRN PRN Reason: Constipation Sodium Chloride () 10 - 40 ml IV UD PRN PRN Reason: SALINE FLUSH Last Admin: 04/11/20 17:08 Dose: 20 ml Documented by: Tamsulosin HCl (Flomax) 0.4 mg PO DAILY@1730 [facility] Last Admin: 04/11/20 17:04 Dose: 0.4 mg Documented by: Thiamine HCl (Vitamin B1) [facility] Stop: 04/12/20 17:01 Last Admin: 04/12/20 08:04 Dose: 100 mg Documented by: Medical Necessity - Tobacco Use Smoking Status: Current every day smoker Tobacco Use: Cigarettes Assessment/Plan All Active Problems Septic shock (Acute) Pneumonia (Acute) MAICOL (acute kidney injury) (Acute) Elevated d-dimer (Acute) Hypokalemia (Acute) RECOMMENDATIONS: 1. Aggressive electrolyte repletion. 2. Continue to monitor blood counts daily and transfuse if hemoglobin drops below 7 g/dL. 3. Continue antimicrobials per ID recommendations. 4. Encourage incentive spirometer use and mobilize patient as tolerated. 5. Given the patient's lack of further ICU or pulmonary needs, will sign off. Please call with any additional questions. IMPRESSIONS: 1. Septic shock Resolved. Although the patient met septic shock criteria upon admission, he has never been hemodynamically unstable. The patient has symptoms concerning for COVID, despite negative PCR testing. The patient was seen by infectious diseases and serology completed. COVID serology was nonreactive. Plan to treat the patient for 7 days with antibiotics for community-acquired pneumonia. 2. Acute kidney injury Resolved. Likely prerenal in etiology with subsequent ATN related to #1. Creatinine has improved with volume resuscitation. Continue to monitor urine output. No current indication for renal replacement therapy. 3. Acute alcohol withdrawal Resolved. Continue thiamine folate and multivitamin. 4. Pancytopenia Likely multifactorial with a component of dilution and myelosuppression from infection. Plan to transfuse if hemoglobin drops below 7 g/dL. 5. Hypokalemia/hypomagnesemia/hypophosphatemia Given the patient's history of alcohol dependency, he is high risk for refeeding syndrome. Aggressively replete electrolytes as ordered. Recheck levels in the morning. 6. Abnormal liver function studies Likely secondary to fatty infiltration of the liver, noted on abdominal ultrasound. 7. Chronic alcohol dependency/hypertension/GERD/history of migraine headaches Complicates care, management, recovery and prognosis. Continue management of alcohol withdrawal symptoms as noted above. This note was generated with [employer] dictation software. It may contain incorrect words, spelling, and punctuation that were not noted in checking the note before signing. Inpatient E&M: 12459 Subs Hosp L2
[2020-04-12] MEDS: Potassium Chloride 10mEq/100mL 10 MEQ/100 ML IV.SOLN. 100 MEQ IV BOLUS ×4 (09:01→12:56)
[2020-04-12] MEDS: Magnesium Sulfate 4gm/100mL 4 GM/100 ML IV.SOLN. IV (09:01)
[2020-04-12 09:46] LABS: Bedside Glucose 140 mg/dL (70-110)
[2020-04-12 09:46] LABS: Bedside Glucose 66 mg/dL (70-110)
--- NOTE | 2020-04-12 09:52 | CON.PCM_ITS ---
Consultation - Renal 04/12/20 PCP/ Referring MD: Requesting physician: Dr. Drew Liu Primary care physician: Dr. Drew Hardy MD Reason for Consultation:: Persistent hypokalemia, hypomagnesemia, hypophosphatemia and hypo - History of Present Illness History of Present Illness: The patient is a 54 year old M with history of daily EtOH use, GERD, and migraine headache was admitted on 04/09/20 with pneumonia and sepsis. He also developed MAICOL which has resolved. Sepsis has also been improving. However, electrolytes abnormalities including hypokalemia, hypomagnesemia, hypophosphatemia and hypocalcemia has persisted. The pt denies palpitation or diarrhea. There is no nausea or vomiting. No edema. He is not on diuretic currently. He had been on PPI as outpt. - Allergies Allergies: Allergies Penicillins Allergy (Verified 04/09/20 09:47) Anaphylaxis erythromycin base [Erythromycin Base] Adverse Reaction (Verified 04/09/20 09:47) Nausea milk Adverse Reaction (Verified 04/09/20 09:47) Upset Stomach - Current Medications Current Medications: Current Medications Acetaminophen (Tylenol) 650 mg PO Q6H PRN PRN PRN Reason: Pain Score 1-10/Temp > 100.7 F Last Admin: 04/11/20 10:56 Dose: 650 mg Documented by: Al Hydroxide/Mg Hydroxide (Mylanta Ii) 30 ml PO Q6H PRN PRN PRN Reason: Gastric Burning Albuterol Sulfate (Ventolin Aerosols) 2.5 mg INHALATION Q2H PRN PRN PRN Reason: SOB/Wheezing Last Admin: 04/11/20 04:27 Dose: 2.5 mg Documented by: Amitriptyline HCl (Elavil) 25 mg PO QHS [facility] Last Admin: 04/11/20 22:17 Dose: Not Given Documented by: Clonidine HCl (Catapres-Tts1) 0.1 mg TRANSDERM. QWEEK [facility] Last Admin: 04/10/20 02:40 Dose: 0.1 mg Documented by: Dextrose (D50w Syringe) 0 gm IV X1 PRN; Protocol PRN Reason: Hypoglycemia Last Admin: 04/11/20 01:53 Dose: 12.5 gm Documented by: Enoxaparin Sodium (Lovenox) 40 mg SC DAILY@0600 [facility] Last Admin: 04/12/20 05:57 Dose: 40 mg Documented by: Ferrous Sulfate (Ferrous Sulfate) 325 mg PO BIDCM [facility] Last Admin: 04/12/20 08:04 Dose: 325 mg Documented by: Glucagon () 1 mg IM .X1 PRN PRN Reason: Hypoglycemia Guaifenesin (Robitussin) 10 ml PO Q4H PRN PRN PRN Reason: COUGH Last Admin: 04/12/20 03:54 Dose: 10 ml Documented by: Ceftriaxone Sodium 2 gm/ (Sodium Chloride) 50 mls @ 100 mls/hr IV Q24 [facility] Stop: 04/16/20 10:29 Last Infusion: 04/11/20 10:00 Dose: Infused Documented by: Sodium Chloride () 250 mls @ 15 mls/hr IV .[id number] PRN PRN Reason: Saline Flush Last Infusion: 04/12/20 09:01 Dose: 0 mls/hr Documented by: Sodium Chloride () 250 mls @ 15 mls/hr IV .[id number] PRN PRN Reason: Additional IVPB Infusion Potassium Chloride () 10 meq in 100 mls @ 100 mls/hr IV BOLUS Q1H [facility] Stop: 04/12/20 12:59 Last Admin: 04/12/20 09:01 Dose: 100 mls/hr Documented by: Magnesium Sulfate () 4 gm in 100 mls @ 25 mls/hr IV X1 ONE Stop: 04/12/20 12:04 Last Admin: 04/12/20 09:01 Dose: 25 mls/hr Documented by: Multivitamins/Minerals ([facility]itamin [facility] ([facility])) [facility] Last Admin: 04/12/20 08:04 Dose: 1 tablet Documented by: Ondansetron HCl (Zofran) 4 mg IV Q8H PRN PRN PRN Reason: NAUSEA/VOMITING Senna/Docusate Sodium (Senokot-S, Kia-Colace) 2 tablet PO BID PRN PRN Reason: Constipation Sodium Chloride () 10 - 40 ml IV UD PRN PRN Reason: SALINE FLUSH Last Admin: 04/11/20 17:08 Dose: 20 ml Documented by: Tamsulosin HCl (Flomax) 0.4 mg PO DAILY@1730 [facility] Last Admin: 04/11/20 17:04 Dose: 0.4 mg Documented by: Thiamine HCl ([facility]itamin B1) [facility] Stop: 04/12/20 17:01 Last Admin: 04/12/20 08:04 Dose: 100 mg Documented by: - Past Medical History Past Medical History (Chronic Problems): Chronic Problems esophageal erosions and ulceration (Chronic) Gastritis (Chronic) Duodenitis (Chronic) Migraine (Chronic) Gastroesophageal reflux disease (Chronic) - Past Surgical History Surgical History: - - Removal of pancreatic cysts; intestinal surgery - Social History Smoking Status: Current every day smoker - Family History Paternal History Items: Heart Disease Maternal History Items: Heart Disease, Hypertension Review of Systems Constitutional: Denies: Anorexia, Chills, Fever Eyes: Denies: Blurred vision, Pain, Redness HEENT: Denies: Difficulty Hearing, Head Aches, Sinus Drainage Cardiovascular: Denies: Chest Pain, Claudication, Chest Pressure, Edema Respiratory: Denies: Cough, Shortness of breath at rest, Sputum production Gastrointestinal: Denies: Abdominal Pain, Nausea, Vomiting Genitourinary: Denies: Dysuria Musculoskeletal: Denies: Joint Pain, Joint Tenderness Skin: Denies: Rash, Wounds Neurological: Denies: Numbness, Tingling, Focal weakness Psychiatric: Denies: Anxiety, Depression, Homicidal Ideations, Suicidal Ideations Patient Problems: Active and Suspected Problems Septic shock (Acute) Pneumonia (Acute) MAICOL (acute kidney injury) (Acute) Elevated d-dimer (Acute) - Physical Exam Vitals/I&O's: Vital Signs Temp Pulse Resp BP Pulse Ox 98.1 F 116 H 17 139/91 H 98 04/12/20 03:50 04/12/20 07:00 04/12/20 03:50 04/12/20 03:50 04/12/20 07:38 Oxygen Flow Rate (L/min) 2 Oxygen Delivery Method Room Air Weight: 91.2 kg Body Mass Index (BMI) 27.1 Finger Stick Blood Glucose 78 Intake and Output for Last 24 Hours 04/10/20 04/11/20 04/12/20 23:59 23:59 23:59 Intake Total 3730.3333 / 4210.3333 5435.2983 / 5435.2983 0 / 0 Output Total 500 / 900 1100 / 1100 Balance 3230.3333 / 3310.3333 4335.2983 / 4335.2983 0 / 0 General: Alert, Oriented x3 HEENT: Atraumatic, PERRLA, EOMI Oral: Moist Mucosa Neck: Supple, No JVD Lungs: Wheezes - mild/expiratory Cardiovascular: Normal S1, Normal S2, No murmurs Abdomen: Bowel Sounds Present, Soft, Non Tender Extremities: No clubbing, No cyanosis, No edema Microbiology Past 72 Hours 04/09/20 18:00 Urine, Clean Catch Urine Culture - Final Mixed Gram Positive Organisms 04/11/20 09:00 Sputum, Expectorated/Coughed Gram Stain - Final 04/11/20 11:30 Stool Stool Occult Blood (YOLANDE) - Final 04/09/20 10:37 Blood Culture (Wb) - Left Hand Blood Culture - Preliminary No growth in 48 hours. 04/09/20 10:10 Blood Culture (Wb) - Right Hand Blood Culture - Preliminary No growth in 48 hours. 04/09/20 15:15 Mucosa - Nasopharyngeal Respiratory Panel (PCR) - Final Laboratory Results 04/10/20 04:15: Diff Path Review Reviewed 04/10/20 06:17: Diff Path Review Reviewed 04/10/20 23:17: POC Glucose 66 L 04/10/20 23:26: POC Glucose 140 H 04/11/20 03:35: Diff Path Review Reviewed 04/11/20 11:06: POC Glucose 125 H 04/11/20 16:07: POC Glucose 113 H 04/11/20 22:15: POC Glucose 97 04/12/20 05:48: WBC 2.1 L, RBC 2.43 L, Hgb 7.8 L, Hct 24.5 L, MCV 100.8 H, MCH 32.1 H, MCHC 31.8 L, RDW Std Deviation 72.4 H, RDW Coeff of Jessica 19.7 H, Plt Count 96 L, MPV 9.5, Immature Gran % (Auto) 1.900 H, Neut % (Auto) 52.7, Lymph % (Auto) 23.9, [place] % (Auto) 19.2 H, Eos % (Auto) 1.4, Baso % (Auto) 0.9, Absolute Neuts (auto) 1.1 L, Absolute Lymphs (auto) 0.51 L, Nucleated RBC % 0, Differential Comment SCANNED, Diff Path Review May foll, Anisocytosis 1+ 04/12/20 05:48: Sodium 137, Potassium 2.9 L, Chloride 102, Carbon Dioxide 25.0, Anion Gap 10, BUN 5 L, Creatinine 0.63 L, Estim Creat Clear Calc 130.93, Est GFR (MDRD) Af Amer 171, Est GFR (MDRD) Non-Af 141, BUN/Creatinine Ratio 8.0 L, Glucose 87, Calcium 5.8 L*, Phosphorus 1.1 L*, Magnesium 0.9 L*, Total Bilirubin 1.10 H, AST 101 H, ALT 48, Alkaline Phosphatase 84, Total Protein 5.5 L, Albumin 2.4 L, Globulin 3.1, Albumin/Globulin Ratio 0.8 L 04/12/20 06:39: POC Glucose 83 Current Medications Acetaminophen (Tylenol) 650 mg PO Q6H PRN PRN PRN Reason: Pain Score 1-10/Temp > 100.7 F Last Admin: 04/11/20 10:56 Dose: 650 mg Documented by: Al Hydroxide/Mg Hydroxide (Mylanta Ii) 30 ml PO Q6H PRN PRN PRN Reason: Gastric Burning Albuterol Sulfate (Ventolin Aerosols) 2.5 mg INHALATION Q2H PRN PRN PRN Reason: SOB/Wheezing Last Admin: 04/11/20 04:27 Dose: 2.5 mg Documented by: Amitriptyline HCl (Elavil) 25 mg PO QHS [facility] Last Admin: 04/11/20 22:17 Dose: Not Given Documented by: Clonidine HCl (Catapres-Tts1) 0.1 mg TRANSDERM. QWEEK [facility] Last Admin: 04/10/20 02:40 Dose: 0.1 mg Documented by: Dextrose (D50w Syringe) 0 gm IV X1 PRN; Protocol PRN Reason: Hypoglycemia Last Admin: 04/11/20 01:53 Dose: 12.5 gm Documented by: Enoxaparin Sodium (Lovenox) 40 mg SC DAILY@0600 [facility] Last Admin: 04/12/20 05:57 Dose: 40 mg Documented by: Ferrous Sulfate (Ferrous Sulfate) 325 mg PO BIDCM [facility] Last Admin: 04/12/20 08:04 Dose: 325 mg Documented by: Glucagon () 1 mg IM .X1 PRN PRN Reason: Hypoglycemia Guaifenesin (Robitussin) 10 ml PO Q4H PRN PRN PRN Reason: COUGH Last Admin: 04/12/20 03:54 Dose: 10 ml Documented by: Ceftriaxone Sodium 2 gm/ (Sodium Chloride) 50 mls @ 100 mls/hr IV Q24 [facility] Stop: 04/16/20 10:29 Last Infusion: 04/11/20 10:00 Dose: Infused Documented by: Sodium Chloride () 250 mls @ 15 mls/hr IV .[id number] PRN PRN Reason: Saline Flush Last Infusion: 04/12/20 09:01 Dose: 0 mls/hr Documented by: Sodium Chloride () 250 mls @ 15 mls/hr IV .[id number] PRN PRN Reason: Additional IVPB Infusion Potassium Chloride () 10 meq in 100 mls @ 100 mls/hr IV BOLUS Q1H [facility] Stop: 04/12/20 12:59 Last Admin: 04/12/20 09:01 Dose: 100 mls/hr Documented by: Magnesium Sulfate () 4 gm in 100 mls @ 25 mls/hr IV X1 ONE Stop: 04/12/20 12:04 Last Admin: 04/12/20 09:01 Dose: 25 mls/hr Documented by: Multivitamins/Minerals ([facility]ivitamin With Minerals (Bkc)) [facility] Last Admin: 04/12/20 08:04 Dose: 1 tablet Documented by: Ondansetron HCl (Zofran) 4 mg IV Q8H PRN PRN PRN Reason: NAUSEA/VOMITING Senna/Docusate Sodium (Senokot-S, Kia-Colace) 2 tablet PO BID PRN PRN Reason: Constipation Sodium Chloride () 10 - 40 ml IV UD PRN PRN Reason: SALINE FLUSH Last Admin: 04/11/20 17:08 Dose: 20 ml Documented by: Tamsulosin HCl (Flomax) 0.4 mg PO DAILY@1730 [facility] Last Admin: 04/11/20 17:04 Dose: 0.4 mg Documented by: Thiamine HCl (Vitamin B1) 100 mg PO BIDCM [facility] Stop: 04/12/20 17:01 Last Admin: 04/12/20 08:04 Dose: 100 mg Documented by: Assessment/Plan All Active Problems Septic shock (Acute) Pneumonia (Acute) MAICOL (acute kidney injury) (Acute) Elevated d-dimer (Acute) Hypokalemia (Acute) 1. Hypomagnesemia. Likely due to EtOH use and from chronic Mg malabsorption dueto PPI. Will take a while to replete. Agree with IV Mg, but will also program oral MagOx. 2. hypocalcemia. Pt is asymptomatic. Has low serum albumin, so physiologically important Ca may be OK. Will check ionized Ca in am. Nevertheless, hypomagnesemia can also lead to low calcium due to PTH resistance. 3. Hypokalemia. Total body depletion. Hypomagnesemia can also cause refractory hypokalemia. Will start oral KCl and MgOx. 4. Hypophosphatemia. Could be from malnutrition related to EtOH use. Hypophosphatemia can also worsen with oral intake (refeeding). Start scheduled Na-K-phos.
[2020-04-12] MEDS: Magnesium Oxide 400 MG Tablet PO ×2 (11:22→16:35)
[2020-04-12 11:30] LABS: Bedside Glucose 87 mg/dL (70-110)
[2020-04-12] MEDS: Na Biphos/Potassium Phosphate PACKET 1 PACKET PO ×3 (14:01→21:34)
[2020-04-12] MEDS: Tamsulosin HCl 0.4 MG Capsule PO (16:35)
[2020-04-12 16:46] LABS: Bedside Glucose 89 mg/dL (70-110)
--- NOTE | 2020-04-12 17:24 | PN_ITS ---
Patient Problems: Active and Suspected Problems Septic shock (Acute) Pneumonia (Acute) MAICOL (acute kidney injury) (Acute) Elevated d-dimer (Acute) Subjective: Patient was seen and examined today, he had several electrolyte abnormalities this morning on his labs, I had nephrology see him and that they made medication adjustments. Patient denies drinking prior to coming into the hospital this admission-he states he has not drank in a month, he also states he feels he could walk without the use of a walker-nursing states that he is unstable walking without the use of a walker however. Patient states that he has to get out of the hospital by Tuesday because he has to go back to work, I told him that the reason why he is in the hospital is he still has lab abnormalities that require him to stay in the hospital, he understands this but states that he is got to go back to work and he wants to leave no later than Tuesday. - Physical Exam Vitals/I&O's: Vital Signs Temp Pulse Resp BP Pulse Ox 98.9 F 106 H 16 139/80 H 98 04/12/20 14:45 04/12/20 14:55 04/12/20 14:45 04/12/20 14:45 04/12/20 14:45 Oxygen Flow Rate (L/min) 2 Oxygen Delivery Method Room Air Weight: 91.2 kg Body Mass Index (BMI) 27.1 Finger Stick Blood Glucose 78 Intake and Output for Last 24 Hours 04/10/20 04/11/20 04/12/20 23:59 23:59 23:59 Intake Total 3730.3333 / 4210.3333 5435.2983 / 5435.2983 1649 / 1649 Output Total 500 / 900 1100 / 1100 Balance 3230.3333 / 3310.3333 4335.2983 / 4335.2983 1649 / 1649 General: Alert, Oriented x3, Cooperative, No apparent distress, Well developed HEENT: Atraumatic, PERRLA, EOMI, Normocephalic Oral: Moist Mucosa Neck: Supple, Trachea Midline, Thyroid Normal Size and Texture Lungs: No rhonchi, No wheeze, Diminished - Diminished breath sounds are noted over the left lung base Cardiovascular: Regular rate, Regular Rhythm, Normal S1, Normal S2, No murmurs, PMI Normal, No rub noted Abdomen: Bowel Sounds Present, Soft, Non Tender, Non-Distended Extremities: Capillary Refill Less than 3 Seconds, Edema - Generalized edema is noted over patient's lower legs Skin: No rashes, No breakdown Musculoskeletal: No Tenderness to Palpation of Joints or Extremities Neurological: Cranial nerves II-XII grossly intact, Neuro grossly intact, Sensory exam intact to light touch and pain, Coordination normal Psych/Mental Status: Normal Affect, Appropriate, Alert and oriented to time, place, person, mood and affect Microbiology Past 72 Hours 04/11/20 09:00 Sputum, Expectorated/Coughed Gram Stain - Final 04/11/20 09:00 Sputum, Expectorated/Coughed Respiratory Culture - Preliminary Staphylococcus aureus 04/09/20 18:00 Urine, Clean Catch Urine Culture - Final Mixed Gram Positive Organisms 04/11/20 11:30 Stool Stool Occult Blood (YOLANDE) - Final 04/09/20 10:37 Blood Culture (Wb) - Left Hand Blood Culture - Preliminary No growth in 48 hours. 04/09/20 10:10 Blood Culture (Wb) - Right Hand Blood Culture - Preliminary No growth in 48 hours. 04/09/20 15:15 Mucosa - Nasopharyngeal Respiratory Panel (PCR) - Final Laboratory Results 04/10/20 23:17: POC Glucose 66 L 04/10/20 23:26: POC Glucose 140 H 04/11/20 22:15: POC Glucose 97 04/12/20 05:48: WBC 2.1 L, RBC 2.43 L, Hgb 7.8 L, Hct 24.5 L, MCV 100.8 H, MCH 32.1 H, MCHC 31.8 L, RDW Std Deviation 72.4 H, RDW Coeff of Jessica 19.7 H, Plt Count 96 L, MPV 9.5, Immature Gran % (Auto) 1.900 H, Neut % (Auto) 52.7, Lymph % (Auto) 23.9, [place] % (Auto) 19.2 H, Eos % (Auto) 1.4, Baso % (Auto) 0.9, Absolute Neuts (auto) 1.1 L, Absolute Lymphs (auto) 0.51 L, Nucleated RBC % 0, Differential Comment SCANNED, Diff Path Review May foll, Anisocytosis 1+ 04/12/20 05:48: Sodium 137, Potassium 2.9 L, Chloride 102, Carbon Dioxide 25.0, Anion Gap 10, BUN 5 L, Creatinine 0.63 L, Estim Creat Clear Calc 130.93, Est GFR (MDRD) Af Amer 171, Est GFR (MDRD) Non-Af 141, BUN/Creatinine Ratio 8.0 L, Glucose 87, Calcium 5.8 L*, Phosphorus 1.1 L*, Magnesium 0.9 L*, Total Bilirubin 1.10 H, AST 101 H, ALT 48, Alkaline Phosphatase 84, Total Protein 5.5 L, Albumin 2.4 L, Globulin 3.1, Albumin/Globulin Ratio 0.8 L 04/12/20 06:39: POC Glucose 83 04/12/20 11:21: POC Glucose 87 04/12/20 16:31: POC Glucose 89 Current Medications Acetaminophen (Tylenol) 650 mg PO Q6H PRN PRN PRN Reason: Pain Score 1-10/Temp > 100.7 F Last Admin: 04/11/20 10:56 Dose: 650 mg Documented by: Al Hydroxide/Mg Hydroxide (Mylanta Ii) 30 ml PO Q6H PRN PRN PRN Reason: Gastric Burning Albuterol Sulfate (Ventolin Aerosols) 2.5 mg INHALATION Q2H PRN PRN PRN Reason: SOB/Wheezing Last Admin: 04/11/20 04:27 Dose: 2.5 mg Documented by: Amitriptyline HCl (Elavil) 25 mg PO QHS [facility] Last Admin: 04/11/20 22:17 Dose: Not Given Documented by: Clonidine HCl (Catapres-Tts1) 0.1 mg TRANSDERM. QWEEK [facility] Last Admin: 04/10/20 02:40 Dose: 0.1 mg Documented by: Dextrose (D50w Syringe) 0 gm IV X1 PRN; Protocol PRN Reason: Hypoglycemia Last Admin: 04/11/20 01:53 Dose: 12.5 gm Documented by: Enoxaparin Sodium (Lovenox) 40 mg SC DAILY@0600 [facility] Last Admin: 04/12/20 05:57 Dose: 40 mg Documented by: Ferrous Sulfate (Ferrous Sulfate) 325 mg PO BIDCM [facility] Last Admin: 04/12/20 16:36 Dose: 325 mg Documented by: Glucagon () 1 mg IM .X1 PRN PRN Reason: Hypoglycemia Guaifenesin (Robitussin) 10 ml PO Q4H PRN PRN PRN Reason: COUGH Last Admin: 04/12/20 03:54 Dose: 10 ml Documented by: Ceftriaxone Sodium 2 gm/ (Sodium Chloride) 50 mls @ 100 mls/hr IV Q24 [facility] Stop: 04/16/20 10:29 Last Infusion: 04/12/20 11:47 Dose: Infused Documented by: Sodium Chloride () 250 mls @ 15 mls/hr IV .[id number] PRN PRN Reason: Saline Flush Last Infusion: 04/12/20 13:03 Dose: 0 mls/hr Documented by: Sodium Chloride () 250 mls @ 15 mls/hr IV .[id number] PRN PRN Reason: Additional IVPB Infusion Magnesium Oxide (Mag-Ox 400) 400 mg PO TIDCM [facility] Last Admin: 04/12/20 16:35 Dose: 400 mg Documented by: Multivitamins/Minerals ([facility]it[facility] With [facility] ([facility])) [facility] Last Admin: 04/12/20 08:04 Dose: 1 tablet Documented by: Ondansetron HCl (Zofran) 4 mg IV Q8H PRN PRN PRN Reason: NAUSEA/VOMITING Potassium Chloride (K-Dur) 40 meq PO BIDCM [facility] Last Admin: 04/12/20 16:36 Dose: 40 meq Documented by: Potassium Phos/Sodium Phos (Neutra-Phos Packet) 1 packet PO 4X/DAY [facility] Last Admin: 04/12/20 16:40 Dose: 1 packet Documented by: Senna/Docusate Sodium (Senokot-S, Kia-Colace) 2 tablet PO BID PRN PRN Reason: Constipation Sodium Chloride () 10 - 40 ml IV UD PRN PRN Reason: SALINE FLUSH Last Admin: 04/11/20 17:08 Dose: 20 ml Documented by: Tamsulosin HCl (Flomax) 0.4 mg PO DAILY@1730 [facility] Last Admin: 04/12/20 16:35 Dose: 0.4 mg Documented by: Medical Necessity - Tobacco Use Smoking Status: Current every day smoker Tobacco Use: Cigarettes Assessment/Plan All Active Problems Septic shock (Acute) Pneumonia (Acute) MAICOL (acute kidney injury) (Acute) Elevated d-dimer (Acute) Hypokalemia (Acute) #1 septic shock-etiology unclear, possibly secondary to community-acquired pneumonia-continue antibiotic coverage per infectious diseases #2 acute kidney injury-resolved at this time #3 acute alcohol withdrawal-patient appears calm at this time #4 pancytopenia-probably secondary to myelosuppression from infection, labs will be monitored #5 increased liver function tests-possibly secondary to alcoholic hepatitis- monitor liver enzymes, liver enzymes appear to be improving #6 elevated [id number] unclear at this point #7 community-acquired pneumonia-organism unknown, infectious diseases is directing antibiotic coverage, chest x-ray today showed a decrease in his left lower lobe pneumonia. #8 hypokalemia-IV potassium was ordered for the patient #9 hypophosphatemia-phosphate was ordered for the patient #10 hypocalcemia and calcium was ordered for the patient #11 hypoglycemia-this appears corrected at this time #12 hypomagnesemia-magnesium was given to the patient #13 dysphagia-speech therapy is working with the patient #14 urinary retention-patient is on Flomax Inpatient E&M: [id number] [facility] H[facility] L2
[2020-04-12 22:36] LABS: Bedside Glucose 90 mg/dL (70-110)
[2020-04-13] VITALS (8 sets, daily range): BP systolic 130–134; BP diastolic 70–72; PULSE 83–98; RESP 18; TEMP 37.2–37.3; O2SAT 98–99
[2020-04-13] MEDS: 0.9% Saline Lock 10 ML Syringe IV ×2 (06:16→08:29)
[2020-04-13] MEDS: Enoxaparin 40 MG/0.4 ML Syringe SC (06:16)
[2020-04-13 06:46] LABS: Bedside Glucose 87 mg/dL (70-110)
[2020-04-13 07:17] LABS: Albumin, Serum 2.4 g/dL (3.2-5.0); BUN 3 mg/dL (7-18); BUN/Creat Ratio 5.2 RATIO (10-20); Calcium,Total 6.6 mg/dL (8.5-10.1); Chloride 99 mmol/L (98-107); Creatinine, Serum 0.58 mg/dL (0.70-1.30); EST Glomerular Filtration Rate 154 mL/min (>60); Est Glom Filt Rate - Afr Amer 186 mL/min (>60); Estimated Creatinine Clearance 142.21 ml/min; Glucose 79 mg/dL (74-106); Magnesium 1.3 mg/dL (1.6-2.6); Potassium 3.2 mmol/L (3.5-5.1); Sodium Level 135 mmol/L (136-145)
[2020-04-13] MEDS: Magnesium Oxide 400 MG Tablet PO ×2 (07:27→11:24)
[2020-04-13] MEDS: Ferrous Sulfate 325 MG Tablet PO (07:27)
[2020-04-13] MEDS: Multivitamins,Ther W-Minerals Tablet 1 TABLET PO (07:27)
--- NOTE | 2020-04-13 08:10 | PCM.PN.REN ---
Patient Problems: Active and Suspected Problems Septic shock (Acute) Pneumonia (Acute) MAICOL (acute kidney injury) (Acute) Elevated d-dimer (Acute) Subjective: Following for electrolyte abnormalities. Pt denies CP, SOB or nausea. Has diarrhea today. - Physical Exam Vitals/I&O's: Vital Signs Temp Pulse Resp BP Pulse Ox 99.1 F 97 18 130/70 H 99 04/13/20 03:30 04/13/20 06:50 04/13/20 03:30 04/13/20 03:30 04/13/20 03:30 Oxygen Flow Rate (L/min) 2 Oxygen Delivery Method Room Air Weight: 90.4 kg Body Mass Index (BMI) 27.1 Finger Stick Blood Glucose 78 Intake and Output for Last 24 Hours 04/11/20 04/12/20 04/13/20 23:59 23:59 23:59 Intake Total 5435.2983 / 5435.2983 2229 / 2229 100 / 100 Output Total 1100 / 1100 Balance 4335.2983 / 4335.2983 2229 / 2229 100 / 100 General: Alert, Oriented x3 HEENT: Atraumatic, Normocephalic Oral: Moist Mucosa Neck: Supple Lungs: Clear to auscultation Cardiovascular: Normal S1, Normal S2, No murmurs Abdomen: Bowel Sounds Present, Soft, Non Tender Extremities: No edema Microbiology Past 72 Hours 04/11/20 09:00 Sputum, Expectorated/Coughed Gram Stain - Final 04/11/20 09:00 Sputum, Expectorated/Coughed Respiratory Culture - Preliminary Staphylococcus aureus 04/09/20 18:00 Urine, Clean Catch Urine Culture - Final Mixed Gram Positive Organisms 04/11/20 11:30 Stool Stool Occult Blood (YOLANDE) - Final 04/09/20 10:37 Blood Culture (Wb) - Left Hand Blood Culture - Preliminary No growth in 48 hours. 04/09/20 10:10 Blood Culture (Wb) - Right Hand Blood Culture - Preliminary No growth in 48 hours. 04/09/20 15:15 Mucosa - Nasopharyngeal Respiratory Panel (PCR) - Final Laboratory Results 04/10/20 23:17: POC Glucose 66 L 04/10/20 23:26: POC Glucose 140 H 04/12/20 11:21: POC Glucose 87 04/12/20 16:31: POC Glucose 89 04/12/20 22:31: POC Glucose 90 04/13/20 05:30: Sodium 135 L, Potassium 3.2 L, Chloride 99, Carbon Dioxide 25.0, BUN 3 L, Creatinine 0.58 L, Estim Creat Clear Calc 142.21, Est GFR (MDRD) Af Amer 186, Est GFR (MDRD) Non-Af 154, BUN/Creatinine Ratio 5.2 L, Glucose 79, Calcium 6.6 L, Phosphorus 1.0 L*, Magnesium 1.3 L, Albumin 2.4 L 04/13/20 05:30: Ionized Calcium Pending 04/13/20 06:11: POC Glucose 87 Current Medications Acetaminophen (Tylenol) 650 mg PO Q6H PRN PRN PRN Reason: Pain Score 1-10/Temp > 100.7 F Last Admin: 04/11/20 10:56 Dose: 650 mg Documented by: Al Hydroxide/Mg Hydroxide (Mylanta Ii) 30 ml PO Q6H PRN PRN PRN Reason: Gastric Burning Albuterol Sulfate (Ventolin Aerosols) 2.5 mg INHALATION Q2H PRN PRN PRN Reason: SOB/Wheezing Last Admin: 04/11/20 04:27 Dose: 2.5 mg Documented by: Amitriptyline HCl (Elavil) 25 mg PO QHS [facility] Last Admin: 04/12/20 21:35 Dose: Not Given Documented by: Clonidine HCl (Catapres-Tts1) 0.1 mg TRANSDERM. QWEEK [facility] Last Admin: 04/10/20 02:40 Dose: 0.1 mg Documented by: Dextrose (D50w Syringe) 0 gm IV X1 PRN; Protocol PRN Reason: Hypoglycemia Last Admin: 04/11/20 01:53 Dose: 12.5 gm Documented by: Enoxaparin Sodium (Lovenox) 40 mg SC DAILY@0600 [facility] Last Admin: 04/13/20 06:16 Dose: 40 mg Documented by: Ferrous Sulfate (Ferrous Sulfate) 325 mg PO BIDCM [facility] Last Admin: 04/13/20 07:27 Dose: 325 mg Documented by: Glucagon () 1 mg IM .X1 PRN PRN Reason: Hypoglycemia Guaifenesin (Robitussin) 10 ml PO Q4H PRN PRN PRN Reason: COUGH Last Admin: 04/12/20 03:54 Dose: 10 ml Documented by: Ceftriaxone Sodium 2 gm/ (Sodium Chloride) 50 mls @ 100 mls/hr IV Q24 [facility] Stop: 04/16/20 10:29 Last Infusion: 04/12/20 11:47 Dose: Infused Documented by: Sodium Chloride () 250 mls @ 15 mls/hr IV .[id number] PRN PRN Reason: Saline Flush Last Infusion: 04/12/20 13:03 Dose: 0 mls/hr Documented by: Sodium Chloride () 250 mls @ 15 mls/hr IV .[id number] PRN PRN Reason: Additional IVPB Infusion Magnesium Sulfate () 4 gm in 100 mls @ 25 mls/hr IV X1 ONE Stop: 04/13/20 11:29 Potassium Phosphate 30 mm/ (Sodium Chloride) 260 mls @ 42 mls/hr IV X1 ONE Stop: 04/13/20 13:41 Magnesium Oxide (Mag-Ox 400) 400 mg PO TIDCM [facility] Last Admin: 04/13/20 07:27 Dose: 400 mg Documented by: Multivitamins/Minerals (Multivitamin With Minerals (Bkc)) [facility] Last Admin: 04/13/20 07:27 Dose: 1 tablet Documented by: Ondansetron HCl (Zofran) 4 mg IV Q8H PRN PRN PRN Reason: NAUSEA/VOMITING Potassium Chloride (K-Dur) 40 [facility] Last Admin: 04/13/20 07:27 Dose: 40 meq Documented by: Potassium Phos/Sodium Phos (Neutra-Phos Packet) 1 packet PO 4X/DAY [facility] Last Admin: 04/12/20 21:34 Dose: 1 packet Documented by: Senna/Docusate Sodium (Senokot-S, Kia-Colace) 2 tablet PO BID PRN PRN Reason: Constipation Sodium Chloride () 10 - 40 ml IV UD PRN PRN Reason: SALINE FLUSH Last Admin: 04/13/20 06:16 Dose: 20 ml Documented by: Tamsulosin HCl (Flomax) 0.4 mg PO DAILY@1730 [facility] Last Admin: 04/12/20 16:35 Dose: 0.4 mg Documented by: Medical Necessity - Tobacco Use Smoking Status: Current every day smoker Tobacco Use: Cigarettes Assessment/Plan All Active Problems Septic shock (Acute) Pneumonia (Acute) MAICOL (acute kidney injury) (Acute) Elevated d-dimer (Acute) Hypokalemia (Acute) 1. Hypomagnesemia. Likely due to EtOH use and from chronic Mg malabsorption dueto PPI. Will take time to replete as kidney tends to waste magnesium even when Mg level is low. Continue scheduled oral MagOx. Goal is to keep Mg at least >1.2 mg/dL. 2. Hypocalcemia. Pt is asymptomatic. Has low serum albumin, so physiologically important Ca may be OK. Ca level is better today at 6.6 mg/dL. Ionized Ca is pending. Nevertheless, hypomagnesemia can also lead to low calcium due to PTH resistance. So, continue to treat hypomagnesemia. 3. Hypokalemia. Total body depletion. Hypomagnesemia can also cause refractory hypokalemia. Will contiunue scheduled oral KCl and MgOx. 4. Hypophosphatemia. Likely from malnutrition related to EtOH use. Hypophosphatemia can also worsen with oral intake (refeeding). Continue scheduled Na-K-phos. Agree with IV Kphos today. Will take a few days to correct these electrolyte deficits especially Mg, K and phos since they are mainly intracellular electrolytes (so, repletion will go into the cell 1st before we will see sustained level in the serum.) Continue treatment as above.
[2020-04-13] MEDS: Magnesium Sulfate 4gm/100mL 4 GM/100 ML IV.SOLN. IV (08:29)
[2020-04-13] MEDS: Na Biphos/Potassium Phosphate PACKET 1 PACKET PO ×2 (08:30→13:35)
[2020-04-13 11:25] LABS: Bedside Glucose 78 mg/dL (70-110)
--- NOTE | 2020-04-13 13:03 | PCM.DC ---
- Discharge Diagnoses Current Active Problems: Current Active and Chronic Problems Septic shock (Acute) Pneumonia (Acute) MAICOL (acute kidney injury) (Acute) Elevated d-dimer (Acute) You will use the following diet at home:: No restrictions Your food should be the consistency of: Regular Your liquids should be the consistency of: Regular/Thin Discharge Activity: Return to Normal Activity Weight Bearing Status: Full weight bearing Allergies/Adverse Reactions: Allergies Penicillins Allergy (Verified 04/09/20 09:47) Anaphylaxis erythromycin base [Erythromycin Base] Adverse Reaction (Verified 04/09/20 09:47) Nausea milk Adverse Reaction (Verified 04/09/20 09:47) Upset Stomach Medications to take at Discharge Amitriptyline HCl 25 mg PO QHS 02/13/19 Dupilumab [Dupixent] 300 mg SQ .[id number] 04/09/20 Famotidine [Pepcid] 20 mg PO DAILY 04/09/20 Pantoprazole Sodium [Protonix] 40 mg PO BID 04/09/20 Acetaminophen [Tylenol Tablet] 650 mg PO Q6H PRN PRN tablet 04/13/20 Aspirin 81 mg PO DAILY #0 04/13/20 Cefdinir [Omnicef [equiv]] 300 mg PO BID #9 cap 04/13/20 Magnesium Oxide [Mag-Ox 400] 400 mg PO TIDCM #90 tab 04/13/20 Na Biphos/Potassium Phosphate [Neutra-Phos Packet] 1 packet PO 4X/DAY #120 packet 04/13/20 Potassium Chloride [K-Dur] 20 meq PO TID #90 tab 04/13/20 The following prescriptions were given: Potassium Chloride [K-Dur] 20 meq PO TID #90 tab Transmission Status: Pending to [facility] Magnesium Oxide [Mag-Ox 400] 400 mg PO TIDCM #90 tab Transmission Status: Pending to [facility] Na Biphos/Potassium Phosphate [Neutra-Phos Packet] 1 packet PO 4X/DAY #120 packet Transmission Status: Pending to [facility] Cefdinir [Omnicef [equiv]] 300 mg PO BID #9 cap Transmission Status: Pending to [facility] Primary Care Physician: Drew Hardy MD [Primary Care Provider] - Please follow up with your Primary Care Physician in: this week-get labs rechecked-potassium, phosphorus, magnesium Test Results: Test results from this visit will be discussed in further detail at your follow-up appointment, if applicable.
[2020-04-13 13:41] LABS: Bedside Glucose 89 mg/dL (70-110)
[2020-04-14 05:11] LABS: Hep C Antibodies <0.1 s/co ratio (0.0-0.9)
--- NOTE | 2020-04-14 08:58 | PCM.DC.SUM ---
Discharge Date and Diagnosis Date of Admission: 04/09/20 Date of Discharge: 04/13/20 - Primary Discharge Diagnosis Acute Problems: #1 septic shock-etiology unclear, possibly secondary to community-acquired pneumonia #2 acute kidney injury #3 acute alcohol withdrawal #4 pancytopenia-probably secondary to myelosuppression from infection #5 increased liver function tests-possibly secondary to alcoholic hepatitis #6 elevated [id number] unclear #7 community-acquired pneumonia-organism unknown #8 hypokalemia #9 hypophosphatemia #10 hypocalcemia #11 hypoglycemia #12 hypomagnesemia 13 dysphagia #14 urinary retention - Secondary Discharge Diagnosis Chronic Problems: Chronic Problems esophageal erosions and ulceration (Chronic) Gastritis (Chronic) Duodenitis (Chronic) Migraine (Chronic) Gastroesophageal reflux disease (Chronic) Hospital Course and Treatment Operations: None Procedures: None Summary of Care Provided: The patient is a 54 year old M who was seen in the emergency room with a chief complaint of shortness of breath, weakness, and chills. Patient had been also off balance at home and was falling frequently. Work-up in the emergency room showed a normal white blood cell count, blood chemistry showed a creatinine of 2.14, BUN was elevated at 25, glucose was 44, calcium was low at 7.5, bilirubin was elevated at 4.5, AST was elevated at 168, ALT was elevated at 66. Lactic acid was elevated at 6.1, chest x-ray showed a mild degree of increased markings at the left lung base suggestive of atelectasis or early infiltrate. Patient was admitted to ICU and seen in consultation by pulmonary medicine. Patient became confused and combative and was felt to be withdrawing from alcohol and was placed on IV Precedex. Patient's electrolytes remained abnormal with a low phosphorus and low magnesium as well as a low calcium and potassium. Patient also was hypoglycemic and was placed on D10. Patient had a COVID test performed which was negative, COVID antibody test was also negative. Patient improved during his ICU stay and he was transferred to PCU where his electrolytes remained abnormal. Nephrology saw the patient and felt that the electrolyte abnormalities could be due to a refeeding syndrome, however, patient told this examiner that he has had abnormal magnesium and potassium levels as an outpatient and was placed on oral magnesium and potassium supplementation and is currently taking both of these at home. Patient was seen by PT and OT. On 04/13/2020, patient was seen and examined: On examination he appeared in good health and spirits. Vital signs as documented. Skin warm and dry and without overt rashes. Neck without JVD, neck was supple, trachea midline, thyroid was normal. Lungs-inspiratory rales were noted at the left lung base on auscultation, normal air movement was noted. Heart exam notable for regular rhythm, normal sounds and absence of murmurs, rubs or gallops. Abdomen unremarkable and without evidence of organomegaly, masses, or abdominal aortic enlargement. Bowel sounds are present, abdomen is not distended. Extremities nonedematous, no cyanosis was noted, no clubbing was noted. Neuro: Cranial nerves II through XII are grossly intact, no focal motor deficits were noted, sensation to light touch and pinprick intact, motor exam 5/5 throughout. Psych: Patient is alert and oriented x3, he does not appear anxious or depressed, he does not appear agitated. On 04/13/2020, patient was seen and examined and felt to be stable for discharge home As a further note, I talked to the patient's covering physician for his PCP-Dr. Mazariegos-on 04/14/2020, I advised the physician to let Dr. Hardy know about the hospital course of the patient and I recommended that the patient follow-up with a manager of digital for consultation concerning his electrolyte abnormalities. This would be passed on to Dr. Hardy. - Physical Exam Vitals/I&O's: Vital Signs Temp Pulse Resp BP Pulse Ox 98.9 F 83 18 134/71 H 98 04/13/20 14:14 04/13/20 14:56 04/13/20 14:14 04/13/20 14:14 04/13/20 14:14 Oxygen Flow Rate (L/min) 2 Oxygen Delivery Method Room Air Weight: 90.4 kg Body Mass Index (BMI) 27.1 Finger Stick Blood Glucose 78 Intake and Output for Last 24 Hours 04/12/20 04/13/20 04/14/20 23:59 23:59 23:59 Intake Total 2229 / 2229 710 / 710 Balance 222 / 2229 710 / 710 Microbiology Past 72 Hours 04/11/20 09:00 Sputum, Expectorated/Coughed Gram Stain - Final 04/11/20 09:00 Sputum, Expectorated/Coughed Respiratory Culture - Final Staphylococcus aureus 04/09/20 18:00 Urine, Clean Catch Urine Culture - Final Mixed Gram Positive Organisms 04/11/20 11:30 Stool Stool Occult Blood (YOLANDE) - Final 04/09/20 10:37 Blood Culture (Wb) - Left Hand Blood Culture - Preliminary No growth in 48 hours. 04/09/20 10:10 Blood Culture (Wb) - Right Hand Blood Culture - Preliminary No growth in 48 hours. Laboratory Results 04/11/20 03:35: Hepatitis A IgM Ab Negative, Hep Bs Antigen Negative, Hep B Core IgM Ab Negative, Hepatitis C Ab (EIA) <0.1 04/13/20 11:20: POC Glucose 78 04/13/20 13:37: POC Glucose 89 Discharge Activity: Return to Normal Activity Weight Bearing Status: Full weight bearing Home Medications: Medications to take at Discharge Amitriptyline HCl 25 mg PO QHS 02/13/19 Dupilumab [Dupixent] 300 mg SQ .[id number] 04/09/20 Famotidine [Pepcid] 20 mg PO DAILY 04/09/20 Pantoprazole Sodium [Protonix] 40 mg PO BID 04/09/20 Acetaminophen [Tylenol Tablet] 650 mg PO Q6H PRN PRN tab 04/13/20 Aspirin 81 mg PO DAILY #0 04/13/20 Cefdinir [Omnicef [equiv]] 300 mg PO BID #9 cap 04/13/20 Magnesium Oxide [Mag-Ox 400] 400 mg PO TIDCM #90 tab 04/13/20 Na Biphos/Potassium Phosphate [Neutra-Phos Packet] 1 packet PO 4X/DAY #120 packet 04/13/20 Potassium Chloride [K-Dur] 20 meq PO TID #90 tab 04/13/20 Following Prescrptions Were Given to Patient: Potassium Chloride [K-Dur] 20 meq PO TID #90 tab Transmission Status: Received by [facility] #30 Magnesium Oxide [Mag-Ox 400] 400 mg PO TIDCM #90 tab Transmission Status: Received by [facility] Na Biphos/Potassium Phosphate [Neutra-Phos Packet] 1 packet PO 4X/DAY #120 packet Transmission Status: Received by [facility] Cefdinir [Omnicef [equiv]] 300 mg PO BID #9 cap Transmission Status: Received by [facility]30 Primary Care Physician: Drew Hardy MD [Primary Care Provider] - Please follow up with your Primary Care Physician in: this week-get labs rechecked-potassium, phosphorus, magnesium Please Follow Up With: Drew Hardy MD Disposition: Home Minutes spent on discharge:: 31 Patient Condition:: Stable Medical Necessity - Tobacco Use Smoking Status: Current every day smoker Tobacco Use: Cigarettes Meaningful Use Info Meaningful Use Diagnoses (Choose all that apply): None applicable Inpatient E&M: 36562 Disch Hosp
--- NOTE | 2020-04-14 14:36 | CASEMGMT ---
[facility] CM DC PHONE CALL DC DATE: 04/13/2020 DC DISPOSITION: Home DC DIAGNOSIS: pneumonia/septic shock LACE/STRATA: 09/25 F/U APPTS MADE PRIOR TO DC: no. weekend discharge Attempted call to patient. Answering machine was for business. Message not left. Shilpi BAKERN RN ACM
[2020-04-15 09:46] LABS: Pathologist Review Reviewed
== END 2020-04-13 16:50 | disposition home or self-care (01) | DRG 871 ==
LOC: ED 11:10 → ICU 13:12 → PCU 04-11 20:10
PROVIDERS: Hospitalist; Internal Medicine Critical Care Medicine; Internal Medicine Infectious Disease; Internal Medicine Nephrology; Admitting Provider Internal Medicine; Emergency Provider Emergency Medicine; PCP Family Medicine; Visit Provider Internal Medicine
DX: A41.9 Sepsis, unspecified organism (principal); R65.21 Severe sepsis with septic shock; J18.9 Pneumonia, unspecified organism; N17.0 Acute kidney failure with tubular necrosis; D61.818 Other pancytopenia; F10.239 Alcohol dependence with withdrawal, unspecified; K90.9 Intestinal malabsorption, unspecified; R47.81 Slurred speech; K70.10 Alcoholic hepatitis without ascites; E87.6 Hypokalemia; K29.80 Duodenitis without bleeding; K29.70 Gastritis, unspecified, without bleeding; K21.9 Gastro-esophageal reflux disease without esophagitis; I10 Essential (primary) hypertension; E16.2 Hypoglycemia, unspecified; R33.9 Retention of urine, unspecified; R13.10 Dysphagia, unspecified; E83.51 Hypocalcemia; G83.89 Other specified paralytic syndromes; G43.909 Migraine, unspecified, not intractable, without status migrainosus; E83.39 Other disorders of phosphorus metabolism; R29.6 Repeated falls; Z79.82 Long term (current) use of aspirin; Z20.828 Contact with and (suspected) exposure to other viral communicable diseases; Z82.49 Family history of ischemic heart disease and other diseases of the circulatory system; F17.210 Nicotine dependence, cigarettes, uncomplicated
CPT/HCPCS: 36415; 36569; 70450; 71045; 71046; 71275; 76700; 80048; 80053; 80069; 80074; 80076; 80329; 81001; 82274; 82330; 82550; 82947; 82962; 83605; 83615; 83735; 83880; 84100; 84145; 84484; 85025; 85379; 85384; 85610; 85730; 86140; 86769; 86850; 86900; 86901; 87040; 87070; 87077; 87086; 87088; 87186; 87205; 87633; 87635; 87641; 92523; 92526; 92610; 93005; 93970; 94640; 97162; 97166; 97530; 97535; 97802; 99251; 99285; G2023; J7030; J7040; J7050; Q9967; A4216; G0463; G0480; J0610; J0696; J0744; U0003